=== PATIENT | male | born 1955 | race Caucasian/White ===

== ENCOUNTER → 2017-03-14 14:53 | Outpatient (CLI) | payer OTHER, BC, SELFPAY ==
--- NOTE | 2017-03-14 15:06 | XR_ITS ---
XR femur LT 2V CLINICAL INDICATION: ITS.REASON: DELAYED HEALING OF HIP FX ORDERING PHYSICIAN: Edgardo Flower MD PATIENT AGE: 61 years COMPARISON: 10/04/2016 FINDINGS: Status post gamma nail and short intramedullary shannan placement stabilizing the left intertrochanteric fracture. No significant displacement or angulation. There is a lucency noted along the medial aspect of the femoral neck inferiorly and medially consistent with residual fracture line. Mid and distal aspect of the left femur are unremarkable. There are mild osteoarthritic changes of the medial compartment of the knee. Otherwise negative. IMPRESSION: Good alignment status post ORIF left intertrochanteric fracture with some residual fracture line noted medially
--- NOTE | 2017-03-14 15:06 | XR_ITS ---
XR hip LT 2-3V w/pelvis HISTORY: ITS.REASON: DELAYED HEALING OF HIP FX ORDERING PHYSICIAN: Edgardo Flower MD PATIENT AGE: 61 years COMPARISON: 10/04/2016 FINDINGS: Status post gamma nail and short intramedullary shannan placement stabilizing the left intertrochanteric fracture. No significant displacement or angulation. There is a lucency noted along the medial aspect of the femoral neck inferiorly and medially consistent with residual fracture line. Otherwise negative. IMPRESSION: Good alignment status post ORIF left intertrochanteric fracture with some residual fracture line noted medially
== END ==
PROVIDERS: PCP Internal Medicine Adolescent Medicine; Visit Provider Internal Medicine Adolescent Medicine
DX: S72.009 Fracture of unspecified part of neck of unspecified femur (principal)
CPT/HCPCS: 73502; 73552

== ENCOUNTER → 2017-05-09 13:24 | Outpatient (CLI) | payer BC, SELFPAY ==
[2017-05-09 14:23] LABS: Albumin Level 3.7 gm/dL (3.4-5.0); Blood Urea Nitrogen 21 mg/dL (7-18); Calcium 8.8 mg/dL (8.5-10.1); Carbon Dioxide 27 mmol/L (21.0-32.0); Chloride 102 mmol/L (98-107); Creatinine,Serum 2.16 mg/dL (0.70-1.30); Estimated Glomerular Filt Rate 31 ml/min (>60); GFR (African American) 38 ML/MIN (>60); Glucose 95 mg/dL (74-106); Phosphorous 2.7 mg/dL (2.4-4.9); Sodium 137 mmol/L (136-145)
[2017-05-09 14:52] LABS: Basophils # 0.1 K/mm3 (0-0.2); Basophils % 0.6 % (0.1-2.0); Eosinophils # 0.2 K/mm3 (0.0-0.4); Eosinophils % 1.6 % (0.1-12.0); Hematocrit 44.1 % (42.0-52.0); Hemoglobin 13.7 g/dL (14.1-18.0); Lymphocytes # 2.2 K/mm3 (0.7-4.5); Lymphocytes % 21.8 K/mm3 (10-50); Mean Corpuscular Hemoglobin 29.2 pg (27.0-31.2); Mean Corpuscular Volume 94.3 fl (80-94); Mean Platelet Volume 7.4 fl (7.4-10.4); Monocytes # 0.7 K/mm3 (0.1-1.0); Monocytes % 6.6 % (1.7-9.3); Neutrophils # 7.1 K/mm3 (1.8-7.8); Neutrophils % 69.3 % (37.0-80.0); Platelet Count 392 K/mm3 (142-424); Red Blood Count 4.68 M/mm3 (4.60-6.20); Red Cell Distribution Width 13.7 % (11.5-17.5); White Blood Count 10.3 K/mm3 (4.8-10.8)
[2017-05-09 17:15] LABS: Creatinine,Urine Random 168 mg/dL (20-320); Total Protein,Urine Random 32.3 mg/dL (0.0-11.9)
== END ==
PROVIDERS: Visit Provider Internal Medicine Nephrology
DX: N18.3 Chronic kidney disease, stage 3 (moderate) (principal)
CPT/HCPCS: 36415; 80069; 82570; 84155; 85025

== ENCOUNTER → 2017-05-12 14:59 | Outpatient (POV) | payer BC, SELFPAY | PROVIDERS: PCP Internal Medicine Adolescent Medicine; Visit Provider Internal Medicine Nephrology | DX: Z00.00 Encounter for general adult medical examination without abnormal findings (principal) ==

== ENCOUNTER → 2017-05-16 13:35 | Outpatient (CLI) | payer BC, SELFPAY ==
[2017-05-17 18:36] LABS: Parathyroid Hormone Intact 69 pg/mL (15-65)
[2017-05-17 18:37] LABS: Vitamin D 25 Hydroxy 58.3 ng/mL (30.0-100.0)
== END ==
PROVIDERS: Visit Provider Internal Medicine Nephrology
DX: M81.0 Age-related osteoporosis without current pathological fracture (principal)
CPT/HCPCS: 36415; 82330; 82652; 83970

== ENCOUNTER 2017-05-30 14:30 | Outpatient (RCR) | payer OTHER, BC, SELFPAY | END 2017-05-30 14:31 | disposition home or self-care (01) | LOC: PT 14:30 | PROVIDERS: PCP Internal Medicine Adolescent Medicine; Visit Provider Orthopaedic Surgery | DX: M25.552 Pain in left hip (principal) | CPT/HCPCS: 97010; 97014; 97033; 97110; 97116; 97140; 97164; G0283 ==

== ENCOUNTER → 2017-09-13 10:54 | Outpatient (CLI) | payer BC, SELFPAY ==
--- NOTE | 2017-09-13 11:05 | XR_ITS ---
XR hip RT 2-3V w/pelvis HISTORY: ITS.REASON: RT HIP PAIN ORDERING PHYSICIAN: Edgardo Flower MD PATIENT AGE: 61 years COMPARISON: 03/14/2017 FINDINGS: No acute fracture or dislocation. No lytic or blastic change. There are mild osteoarthritic changes of the right hip. There has been prior ORIF of the left hip with a gamma nail and intramedullary shannan. IMPRESSION: Mild osteoarthritis of the right hip
== END ==
PROVIDERS: Visit Provider Internal Medicine Adolescent Medicine
DX: M25.551 Pain in right hip (principal)
CPT/HCPCS: 73502

== ENCOUNTER → 2017-11-03 14:38 | Outpatient (CLI) | payer BC, SELFPAY ==
[2017-11-03 15:01] LABS: Basophils % 0.3 % (0.1-2.0); Eosinophils # 0.2 K/mm3 (0.0-0.4); Eosinophils % 1.6 % (0.1-12.0); Hematocrit 38.9 % (42.0-52.0); Hemoglobin 12.7 g/dL (14.1-18.0); Lymphocytes # 1.9 K/mm3 (0.7-4.5); Mean Corpuscular HGB Conc 32.5 g/dL (31.8-35.4); Mean Corpuscular Hemoglobin 29.3 pg (27.0-31.2); Mean Corpuscular Volume 90.1 fl (80-94); Mean Platelet Volume 6.6 fl (7.4-10.4); Monocytes # 0.5 K/mm3 (0.1-1.0); Monocytes % 4.6 % (1.7-9.3); Neutrophils # 8.5 K/mm3 (1.8-7.8); Neutrophils % 76.5 % (37.0-80.0); Platelet Count 348 K/mm3 (142-424); Red Blood Count 4.32 M/mm3 (4.60-6.20); Red Cell Distribution Width 14.4 % (11.5-17.5); White Blood Count 11.1 K/mm3 (4.8-10.8)
[2017-11-03 15:43] LABS: Alanine Aminotransferase 13 U/L (12-78); Albumin Level 3.6 gm/dL (3.4-5.0); Albumin/Globulin Ratio 1.1 (1.1-1.8); Alkaline Phosphatase 89 U/L (46-116); Anion Gap 15.5 mEq/L (5-15); Aspartate Amino Transferase 11 U/L (15-37); Bilirubin,Total 0.3 mg/dL (0.2-1.0); Blood Urea Nitrogen 18 mg/dL (7-18); Calcium 8.8 mg/dL (8.5-10.1); Carbon Dioxide 24 mmol/L (21.0-32.0); Chloride 107 mmol/L (98-107); Creatinine,Serum 2.01 mg/dL (0.70-1.30); Estimated Glomerular Filt Rate 34 ml/min (>60); GFR (African American) 41 ML/MIN (>60); Globulin 3.3 gm/dl (1.3-3.2); Glucose 115 mg/dL (74-106); Potassium 4.5 mmoL/L (3.5-5.1); Prostate Specific Ag, Diagnost 3.31 ng/mL (0.0-4.0); Sodium 142 mmol/L (136-145); Total Protein,Serum 6.9 gm/dL (6.4-8.2)
[2017-11-05 14:53] LABS: Testosterone,Total 334 ng/dL (264-916)
== END ==
PROVIDERS: PCP Internal Medicine Adolescent Medicine; Visit Provider Internal Medicine Adolescent Medicine
DX: N18.2 Chronic kidney disease, stage 2 (mild) (principal); E29.1 Testicular hypofunction; N40.1 Benign prostatic hyperplasia with lower urinary tract symptoms
CPT/HCPCS: 36415; 80053; 84153; 84403; 85025

== ENCOUNTER → 2018-02-04 15:49 | Outpatient (CLI) | payer BC, SELFPAY | PROVIDERS: Visit Provider Internal Medicine Adolescent Medicine | DX: N18.3 Chronic kidney disease, stage 3 (moderate) (principal); E53.8 Deficiency of other specified B group vitamins; E55.9 Vitamin D deficiency, unspecified ==

== ENCOUNTER → 2018-02-05 16:12 | Outpatient (CLI) | payer BC, SELFPAY ==
[2018-02-05 17:13] LABS: Basophils # 0.1 K/mm3 (0-0.2); Basophils % 0.4 % (0.1-2.0); Eosinophils # 0.1 K/mm3 (0.0-0.4); Hemoglobin 13.5 g/dL (14.1-18.0); Lymphocytes # 1.8 K/mm3 (0.7-4.5); Lymphocytes % 15.2 % (10-50); Mean Corpuscular HGB Conc 31.5 g/dL (31.8-35.4); Mean Corpuscular Hemoglobin 29.8 pg (27.0-31.2); Mean Corpuscular Volume 94.6 fl (80-94); Mean Platelet Volume 7.2 fl (7.4-10.4); Monocytes # 0.6 K/mm3 (0.1-1.0); Monocytes % 4.7 % (1.7-9.3); Neutrophils # 9.4 K/mm3 (1.8-7.8); Neutrophils % 78.7 % (37.0-80.0); Platelet Count 427 K/mm3 (142-424); Red Blood Count 4.54 M/mm3 (4.60-6.20); Red Cell Distribution Width 13.9 % (11.5-17.5); White Blood Count 11.9 K/mm3 (4.8-10.8)
[2018-02-05 18:59] LABS: Alanine Aminotransferase 16 U/L (12-78); Albumin Level 3.9 gm/dL (3.4-5.0); Albumin/Globulin Ratio 1.1 (1.1-1.8); Alkaline Phosphatase 103 U/L (46-116); Anion Gap 16.8 mEq/L (5-15); Aspartate Amino Transferase 10 U/L (15-37); Bilirubin,Total 0.3 mg/dL (0.2-1.0); Blood Urea Nitrogen 24 mg/dL (7-18); Calcium 8.8 mg/dL (8.5-10.1); Carbon Dioxide 24 mmol/L (21.0-32.0); Chloride 100 mmol/L (98-107); Creatinine,Serum 2.12 mg/dL (0.70-1.30); Estimated Glomerular Filt Rate 32 ml/min (>60); GFR (African American) 38 ML/MIN (>60); Globulin 3.7 gm/dl (1.3-3.2); Glucose 103 mg/dL (74-106); Potassium 4.8 mmoL/L (3.5-5.1); Sodium 136 mmol/L (136-145); Total Protein,Serum 7.6 gm/dL (6.4-8.2)
[2018-02-09 09:32] LABS: Vitamin B12 314 pg/mL (232-1245)
[2018-02-09 09:33] LABS: Vitamin D 25 Hydroxy 48.1 ng/mL (30.0-100.0)
== END ==
PROVIDERS: Visit Provider Internal Medicine Adolescent Medicine
DX: N18.3 Chronic kidney disease, stage 3 (moderate) (principal); E53.8 Deficiency of other specified B group vitamins; E55.9 Vitamin D deficiency, unspecified
CPT/HCPCS: 36415; 80053; 82607; 82652; 84443; 85025

== ENCOUNTER → 2018-02-16 09:43 | Outpatient (CLI) | payer BC, SELFPAY ==
--- NOTE | 2018-02-16 09:46 | US_ITS ---
US aorta HISTORY: Evaluate for abdominal aortic aneurysm ITS.REASON: AAA COMPARISON: 11/14/2015 FINDINGS: Scattered atheromatous plaque noted in the aorta. No aneurysm appearance. Common iliacs are unremarkable at 6 and 7 mm each. IMPRESSION: Atheromatous changes, no evidence of aortic aneurysm
--- NOTE | 2018-02-16 10:30 | CT_ITS ---
CT chest wo con HISTORY: Follow-up pulmonary nodules, tobacco use, smoker ITS.REASON: PULMONARY NODULES ORDERING PHYSICIAN: Edgardo Flower MD PATIENT AGE: 62 years COMPARISON: 07/24/2015 Technique: Axial images obtained with sagittal and coronal reformats. All CT scans at the facility use one or more dose reduction, viz: automated exposure control, ma/kV adjustment per patient size (including targeted exams where dose is matched to indication, i.e. head), or iterative reconstruction technique. FINDINGS: Scattered small nodes are present in the mediastinum and right hilum. The largest node is in the precarinal region on the right measuring 1.6 x 1.5 cm not significant changed. Aortopulmonic window node is present at 13 x 10 mm unchanged. There are coronary artery calcifications with normal heart size. No evidence of pericardial effusion. Chronic groundglass opacification once again noted in the right upper lobe and is slightly more dense compared to the previous exam. There are old right rib fractures with some mild fibrotic change in the right upper lobe laterally and in the right lower lobe laterally.. There is a 5 mm noncalcified nodule in the right lower lobe within the superior segment laterally unchanged image #89. The previously noted groundglass opacity in the right lower lobe posteriorly is less apparent. No new suspicious nodules are evident. 3 mm noncalcified nodule present in the left upper lobe. Upper abdominal images show a large gallstone measuring 3 cm with mild distention of the gallbladder and mild thickening of the gallbladder wall. Prior left nephrectomy. Degenerative changes are present in the thoracic spine with mild kyphosis and mild thoracic scoliosis convex left. IMPRESSION: 1. Chronic groundglass consolidation in the right upper lobe slightly worse. 2. No suspicious pulmonary nodules evident. 3. Stable 5 mm nodule right lower lobe with decrease in the prominence of the nodule in the right lower lobe posteriorly. 4. Cholelithiasis with distended gallbladder and mild thickening of the gallbladder wall.
== END ==
PROVIDERS: PCP Internal Medicine Adolescent Medicine; Visit Provider Internal Medicine Adolescent Medicine
DX: Z87.891 Personal history of nicotine dependence (principal); R91.8 Other nonspecific abnormal finding of lung field
CPT/HCPCS: 71250; 76770

== ENCOUNTER → 2018-06-17 10:14 | Outpatient (CLI) | payer BC, SELFPAY ==
--- NOTE | 2018-06-17 10:20 | XR_ITS ---
XR chest 2V HISTORY: ITS.REASON: LOBAR PNEUMONIA ORDERING PHYSICIAN: Edgardo Flower MD PATIENT AGE: 62 years COMPARISON: 12/08/2013 FINDINGS: Unremarkable cardiovascular structures. Lungs are free of acute infiltrate. There is thoracic kyphosis with wedging of midthoracic vertebral bodies unchanged. There are old bilateral rib fractures. IMPRESSION: No acute finding
== END ==
PROVIDERS: PCP Internal Medicine Adolescent Medicine; Visit Provider Internal Medicine Adolescent Medicine
DX: J18.1 Lobar pneumonia, unspecified organism (principal)
CPT/HCPCS: 71046

== ENCOUNTER → 2018-07-01 14:43 | Outpatient (CLI) | payer BC, SELFPAY ==
[2018-07-01 15:40] LABS: Basophils # 0.1 K/mm3 (0-0.2); Basophils % 0.7 % (0.1-2.0); Eosinophils # 0.1 K/mm3 (0.0-0.4); Eosinophils % 1.2 % (0.1-12.0); Hematocrit 35.2 % (42.0-52.0); Hemoglobin 11.3 g/dL (14.1-18.0); Lymphocytes # 1.6 K/mm3 (0.7-4.5); Lymphocytes % 18.6 % (10-50); Mean Corpuscular Volume 93.6 fl (80-94); Mean Platelet Volume 6.5 fl (7.4-10.4); Monocytes # 0.5 K/mm3 (0.1-1.0); Monocytes % 5.6 % (1.7-9.3); Neutrophils # 6.3 K/mm3 (1.8-7.8); Neutrophils % 73.9 % (37.0-80.0); Platelet Count 379 K/mm3 (142-424); Red Blood Count 3.76 M/mm3 (4.60-6.20); Red Cell Distribution Width 14.9 % (11.5-17.5); White Blood Count 8.6 K/mm3 (4.8-10.8)
[2018-07-01 16:22] LABS: Alanine Aminotransferase 19 U/L (12-78); Albumin Level 3.6 gm/dL (3.4-5.0); Albumin/Globulin Ratio 0.9 (1.1-1.8); Alkaline Phosphatase 80 U/L (46-116); Anion Gap 9.9 mEq/L (5-15); Aspartate Amino Transferase 11 U/L (15-37); Bilirubin,Total 0.3 mg/dL (0.2-1.0); Blood Urea Nitrogen 21 mg/dL (7-18); Carbon Dioxide 30 mmol/L (21.0-32.0); Chloride 101 mmol/L (98-107); Creatinine,Serum 2.03 mg/dL (0.70-1.30); Estimated Glomerular Filt Rate 33 ml/min (>60); GFR (African American) 40 ML/MIN (>60); Glucose 89 mg/dL (74-106); Potassium 4.9 mmoL/L (3.5-5.1); Sodium 136 mmol/L (136-145); Total Protein,Serum 7.6 gm/dL (6.4-8.2)
[2018-07-01 17:15] LABS: Erythrocyte Sedimentation Rate 56 mm/hr (0-20)
== END ==
PROVIDERS: Visit Provider Internal Medicine Adolescent Medicine
DX: J18.1 Lobar pneumonia, unspecified organism (principal)
CPT/HCPCS: 36415; 80053; 85025; 85651

== ENCOUNTER → 2018-07-10 14:48 | Outpatient (CLI) | payer BC, SELFPAY ==
--- NOTE | 2018-07-10 14:53 | XR_ITS ---
XR foot RT min 3V HISTORY: Pain ITS.REASON: RT FOOT PAIN ORDERING PHYSICIAN: Edgardo Flower MD PATIENT AGE: 62 years COMPARISON: None FINDINGS: Standard and weight bearing views are performed of the right foot. There is a nondisplaced transverse fracture involving the proximal to mid mid shaft of the second metatarsal with some minimal sclerosis at fracture line. Good alignment. Osteoarthritic changes are present at the first MTP joint IMPRESSION: Nondisplaced healing fracture involving the junction of the proximal and mid third of the second metatarsal
== END ==
PROVIDERS: PCP Internal Medicine Adolescent Medicine; Visit Provider Internal Medicine Adolescent Medicine
DX: M79.671 Pain in right foot (principal)
CPT/HCPCS: 73630

== ENCOUNTER 2018-07-14 14:32 | Outpatient (RCR) | payer BC, SELFPAY | END 2018-07-14 14:40 | disposition home or self-care (01) | LOC: PT 14:32 | PROVIDERS: Visit Provider Internal Medicine Adolescent Medicine | DX: M79.671 Pain in right foot (principal) | CPT/HCPCS: 97760 ==

== ENCOUNTER → 2018-08-11 10:05 | Outpatient (CLI) | payer BC, SELFPAY ==
--- NOTE | 2018-08-11 10:11 | XR_ITS ---
XR foot wt bearing RT 3V HISTORY: Follow-up fracture ITS.REASON: Fracture ORDERING PHYSICIAN: Sasha Ribeiro DPM PATIENT AGE: 62 years COMPARISON: 07/10/2018 FINDINGS: Increasing callus formation is present at the mid to proximal shaft of the second metatarsal with good alignment. There are mild osteoarthritic changes of the first MDP joint. IMPRESSION: Healing nondisplaced fracture of the second metatarsal
== END ==
PROVIDERS: PCP Internal Medicine Adolescent Medicine; Visit Provider Podiatrist
DX: S92.324A Nondisplaced fracture of second metatarsal bone, right foot, initial encounter for closed fracture (principal); T14.8XXA Other injury of unspecified body region, initial encounter
CPT/HCPCS: 73630

== ENCOUNTER → 2019-01-05 14:13 | Outpatient (CLI) | payer BC, SELFPAY ==
[2019-01-05 14:18] LABS: Microscopic, Urine URINE MICROSCOPIC (MICROSCOPIC)
[2019-01-05 14:46] LABS: Basophils # 0.1 K/mm3 (0-0.2); Basophils % 0.9 % (0.1-2.0); Eosinophils # 0.3 K/mm3 (0.0-0.4); Eosinophils % 3.7 % (0.1-12.0); Hematocrit 36.9 % (42.0-52.0); Hemoglobin 11.8 g/dL (14.1-18.0); Lymphocytes # 1.5 K/mm3 (0.7-4.5); Lymphocytes % 20.5 % (10-50); Mean Corpuscular Hemoglobin 31.4 pg (27.0-31.2); Mean Platelet Volume 7.4 fl (7.4-10.4); Monocytes # 0.3 K/mm3 (0.1-1.0); Monocytes % 4.2 % (1.7-9.3); Neutrophils # 5.1 K/mm3 (1.8-7.8); Neutrophils % 70.8 % (37.0-80.0); Platelet Count 342 K/mm3 (142-424); Red Blood Count 3.77 M/mm3 (4.60-6.20); Red Cell Distribution Width 14.7 % (11.5-17.5); White Blood Count 7.2 K/mm3 (4.8-10.8)
[2019-01-05 15:12] LABS: Appearance,Urine CLEAR (Clear); Bilirubin,Urine Negative (Negative); Blood, Urine TRACE-I (Negative); Color,Urine YELLOW (Yellow); Glucose,Urine (UA) Negative (Negative); Ketones,Urine Negative (Negative); Leukocyte Esterase,Urine Negative (Negative); Nitrate,Urine Negative (Negative); PH,Urine 6.5 (5.0-8.5); Protein,Urine TRACE (Negative); Specific Gravity, Urine 1.015 (1.005-1.030); Urobilinogen,Urine 0.2 EU/dl (0.2)
[2019-01-05 15:13] LABS: Amphetamine/Metha Screen,Urine Negative ng/mL (<1000); Barbiturates Screen,Urine Negative ng/mL (<200); Benzodiazepines Screen,Urine Negative ng/mL (<200); Cannabinoid Screen,Urine Negative ng/mL (<50); Cocaine Screen,Urine Negative ng/mL (<300); Methadone Screen,Urine Negative ng/mL (<300); Opiate Screen,Urine Negative ng/mL (<300); Phencyclidine Screen,Urine Negative ng/mL (<25)
[2019-01-05 15:26] LABS: Squamous Epithelial Cell,Urine Occasional #/hpf (0-5)
[2019-01-05 18:56] LABS: Alanine Aminotransferase 20 U/L (12-78); Albumin Level 3.5 gm/dL (3.4-5.0); Alkaline Phosphatase 82 U/L (46-116); Anion Gap 11.9 mEq/L (5-15); Aspartate Amino Transferase 19 U/L (15-37); Bilirubin,Total 0.3 mg/dL (0.2-1.0); Blood Urea Nitrogen 22 mg/dL (7-18); Calcium 8.5 mg/dL (8.5-10.1); Carbon Dioxide 29 mmol/L (21.0-32.0); Chloride 105 mmol/L (98-107); Creatinine,Serum 2.19 mg/dL (0.70-1.30); Estimated Glomerular Filt Rate 30 ml/min (>60); GFR (African American) 37 ML/MIN (>60); Globulin 3.5 gm/dl (1.3-3.2); Glucose 127 mg/dL (74-106); Potassium 4.9 mmoL/L (3.5-5.1); Prostate Specific Ag Screen 2.7 ng/mL (0.0-4.0); Sodium 141 mmol/L (136-145)
== END ==
PROVIDERS: Visit Provider Internal Medicine Adolescent Medicine
DX: G89.4 Chronic pain syndrome (principal); N18.2 Chronic kidney disease, stage 2 (mild); N40.1 Benign prostatic hyperplasia with lower urinary tract symptoms
CPT/HCPCS: 36415; 80053; 80305; 81001; 85025; G0103

== ENCOUNTER → 2019-01-06 14:38 | Outpatient (CLI) | payer BC, SELFPAY ==
[2019-01-06 16:17] LABS: Amphetamine/Metha Screen,Urine Negative ng/mL (<1000); Barbiturates Screen,Urine Negative ng/mL (<200); Benzodiazepines Screen,Urine Negative ng/mL (<200); Cannabinoid Screen,Urine Negative ng/mL (<50); Cocaine Screen,Urine Negative ng/mL (<300); Methadone Screen,Urine Negative ng/mL (<300); Opiate Screen,Urine Negative ng/mL (<300); Phencyclidine Screen,Urine Negative ng/mL (<25)
[2019-01-15 18:11] LABS: Oxycodone (GC/MS) 426 ng/mL (Cutoff=100)
[2019-01-15 23:05] LABS: Opiates Negative (Cutoff=100); Oxymorphone (GC/MS) 439 ng/mL (Cutoff=100)
== END ==
PROVIDERS: Visit Provider Internal Medicine Adolescent Medicine
DX: Z79.891 Long term (current) use of opiate analgesic (principal)
CPT/HCPCS: 80305; 80361; 80365; G0480

== ENCOUNTER → 2019-12-24 13:44 | Outpatient (CLI) | payer BC, SELFPAY ==
[2019-12-24 14:58] LABS: Chloride 101 mmol/L (98-107)
[2019-12-24 14:59] LABS: Potassium 4.5 mmoL/L (3.5-5.1); Sodium 136 mmol/L (136-145)
[2019-12-24 15:01] LABS: Alanine Aminotransferase 13 U/L (12-78); Albumin Level 4.3 g/dl (3.5-5.0); Albumin/Globulin Ratio 1.4 (1.1-1.8); Alkaline Phosphatase 65 U/L (38-126); Anion Gap 12.5 mEq/L (5-15); Aspartate Amino Transferase 28 U/L (17-59); Bilirubin,Total 0.6 mg/dl (0.2-1.3); Blood Urea Nitrogen 21 mg/dl (9-20); Carbon Dioxide 27 mmol/L (22.0-30.0); Estimated Glomerular Filt Rate 36 ml/min (>60); GFR (African American) 43 ML/MIN (>60); Globulin 3.1 g/dL (1.3-3.2); Total Protein,Serum 7.4 g/dl (6.3-8.2)
[2019-12-24 15:02] LABS: Calcium 9.3 mg/dl (8.4-10.2); Chol/HDL Ratio 3.5 (1-3.5); Cholesterol 191 mg/dl (140-200); Glucose 131 mg/dl (74-100); HDL Cholesterol 55 mg/dl (40-60); Triglycerides 125 mg/dl (30-150); VLDL Cholesterol 25 mg/dL (0-40)
[2019-12-24 15:08] LABS: Basophils # 0.1 K/mm3 (0-0.2); Basophils % 0.8 % (0.1-2.0); Eosinophils # 0.1 K/mm3 (0.0-0.4); Eosinophils % 1.8 % (0.1-12.0); Hemoglobin 12.8 g/dL (14.1-18.0); Lymphocytes # 1.7 K/mm3 (0.7-4.5); Mean Corpuscular HGB Conc 31.3 g/dL (31.8-35.4); Mean Corpuscular Hemoglobin 31.6 pg (27.0-31.2); Monocytes # 0.5 K/mm3 (0.1-1.0); Monocytes % 6.1 % (1.7-9.3); Neutrophils # 5.3 K/mm3 (1.8-7.8); Neutrophils % 69.3 % (37.0-80.0); Platelet Count 254 K/mm3 (142-424); Red Blood Count 4.06 M/mm3 (4.60-6.20); Red Cell Distribution Width 14.2 % (11.5-17.5); White Blood Count 7.7 K/mm3 (4.8-10.8)
[2019-12-24 15:13] LABS: Direct LDL Cholesterol 100.11 mg/dL (100-129)
[2019-12-24 17:20] LABS: Benzodiazepines Screen,Urine Negative ng/ml (<200)
[2019-12-24 17:21] LABS: Amphetamine/Metha Screen,Urine Negative ng/ml (<1000); Barbiturates Screen,Urine Negative ng/ml (<200)
[2019-12-24 17:22] LABS: Cannabinoid Screen,Urine Negative ng/ml (<50); Cocaine Screen,Urine Negative ng/ml (<300)
[2019-12-24 17:23] LABS: Methadone Screen,Urine Negative ng/ml (<300)
[2019-12-24 17:24] LABS: Opiate Screen,Urine Negative ng/ml (<300); Phencyclidine Screen,Urine Negative ng/ml (<25)
== END ==
PROVIDERS: Visit Provider Internal Medicine Adolescent Medicine
DX: N18.2 Chronic kidney disease, stage 2 (mild) (principal); E03.9 Hypothyroidism, unspecified; G89.4 Chronic pain syndrome; Z79.899 Other long term (current) drug therapy
CPT/HCPCS: 36415; 80053; 80061; 80305; 84443; 85025

== ENCOUNTER 2020-11-23 22:32 | Emergency (ER) | payer BC, SELFPAY ==
[2020-11-23 22:33] VITALS: BP 111/85; PULSE 75; RESP 17; TEMP 36.8; O2SAT 96; BMI 21.2
[2020-11-23 23:19] LABS: Chloride 97 mmol/L (98-107); Potassium 4.9 mmoL/L (3.5-5.1); Sodium 138 mmol/L (136-145)
[2020-11-23 23:20] LABS: Basophils % 0.6 % (0.1-2.0); Eosinophils # 0.1 K/mm3 (0.0-0.4); Eosinophils % 1.3 % (0.1-12.0); Hematocrit 36.6 % (42.0-52.0); Hemoglobin 11.8 g/dL (14.1-18.0); Lymphocytes # 1.2 K/mm3 (0.7-4.5); Mean Corpuscular HGB Conc 32.3 g/dL (31.8-35.4); Mean Corpuscular Hemoglobin 32.1 pg (27.0-31.2); Mean Corpuscular Volume 99.4 fl (80-94); Monocytes # 0.3 K/mm3 (0.1-1.0); Monocytes % 5.4 % (1.7-9.3); Neutrophils # 4.7 K/mm3 (1.8-7.8); Neutrophils % 73.8 % (37.0-80.0); Platelet Count 230 K/mm3 (142-424); Red Blood Count 3.69 M/mm3 (4.60-6.20); Red Cell Distribution Width 13.6 % (11.5-17.5); White Blood Count 6.4 K/mm3 (4.8-10.8)
[2020-11-23 23:22] LABS: Alanine Aminotransferase 16 U/L (12-78); Albumin Level 4.5 g/dl (3.5-5.0); Albumin/Globulin Ratio 1.3 (1.1-1.8); Alkaline Phosphatase 85 U/L (38-126); Anion Gap 16.9 mEq/L (5-15); Aspartate Amino Transferase 42 U/L (17-59); Bilirubin,Total 0.4 mg/dl (0.2-1.3); Blood Urea Nitrogen 30 mg/dl (9-20); Carbon Dioxide 29 mmol/L (22.0-30.0); Creatinine Clearance Estimated 30 mL/min (50-200); Estimated Glomerular Filt Rate 25 ml/min (>60); GFR (African American) 30 ML/MIN (>60); Globulin 3.4 g/dL (1.3-3.2); Total Protein,Serum 7.9 g/dl (6.3-8.2)
[2020-11-23 23:23] LABS: Calcium 8.6 mg/dl (8.4-10.2); Glucose 101 mg/dl (74-100)
--- NOTE | 2020-11-23 23:31 | HMH.EDGENADL ---
ED Disposition Clinical Impression: Cystitis, acute hemorrhagic Disposition: Home, Self-Care Condition on Discharge: Good Instructions: Urinary Tract Infection Additional Instructions: Follow-up with the appointment at your doctor on Friday. Return to emergency department for any new or concerning symptoms. Would also like you to follow-up with your urologist. Prescriptions: Cefdinir [Omnicef 300mg Capsule] 300 mg PO BID #14 cap Transmission Status: Pending to [facility] Referrals: Edgardo Flower MD [Primary Care Provider] - - Critical Care Critical Care Time: No Attestation: On 11/23/20, the high probability of a clinically significant, sudden or life threatening deterioration of the following system(s) required my full and direct attention, intervention and personal management. The time I documented below is in addition to time spent performing reported procedures but includes the following listed in this critical care notation. Medical Decision Making - Medical Records Medical records reviewed: Yes: I reviewed the patient's medical records. - Gray Inquiry Pt receiving controlled substance: No Vital Signs: 11/23/20 22:33 Temperature 98.3 F Temperature Source Oral Pulse Rate [Right] 75 Respiratory Rate 17 Blood Pressure [Right Arm] 111/85 Blood Pressure Mean [Right Arm] 93 02 Sat by Pulse Oximetry 96 Oxygen Delivery Method Room Air - Lab Data Lab Results 11/23/20 23:04: WBC 6.4, RBC 3.69 L, Hgb 11.8 L, Hct 36.6 L, MCV 99.4 H, MCH 32.1 H, MCHC 32.3, RDW 13.6, Plt Count 230, MPV 7.0 L, Neut % (Auto) 73.8, Lymph % (Auto) 19.0, [place] % (Auto) 5.4, Eos % (Auto) 1.3, Baso % (Auto) 0.6, Neut # (Auto) 4.7, Lymph # (Auto) 1.2, [place] # (Auto) 0.3, Eos # (Auto) 0.1, Baso # (Auto) 0.0 11/23/20 23:04: Sodium 138, Potassium 4.9, Chloride 97 L, Carbon Dioxide 29, Anion Gap 16.9 H, BUN 30 H, Creatinine 2.60 H, Estimated Creat Clear 30, Estimated GFR 25 L, Est GFR ( Amer) 30 L, Glucose 101 H, Calcium 8.6, Total Bilirubin 0.4, AST 42, ALT 16, Alkaline Phosphatase 85, Total Protein 7.9, Albumin 4.5, Globulin 3.4 H, Albumin/Globulin Ratio 1.3 11/23/20 23:40: Urine Color Red, Urine Appearance Turbid, Urine pH 6.5, Ur Specific [place] 1.015, Urine Protein 3+, Urine Glucose (UA) Negative, Urine Ketones 1+, Urine Blood 3+, Urine Nitrate Positive, Urine Bilirubin Negative, Urine Urobilinogen 4.0, Ur Leukocyte Esterase 2+ A, Urine RBC Tntc Result diagrams: 11/23/20 23:04 11/23/20 23:04 Orders (Tests/Meds): ED MEDICATIONS Generic Name Dose Route Start Last Admin Trade Name Freq PRN Reason Stop Dose Admin Lactated Ringer's 1,000 mls @ 999 mls/hr 11/23/20 23:45 11/24/20 00:01 Lactated Ringer's 1000 Ml Bag IV 11/24/20 00:45 999 mls/hr .Q1H1M AMILCAR Administration Ceftriaxone Sodium 1 gm/ 50 mls @ 100 mls/hr 11/24/20 00:30 11/24/20 00:58 Sodium Chloride IV 12/08/20 00:29 100 mls/hr Q24H AMILCAR Administration ORDERS Category Date Time Status Covid-19 Nasal PCR ([facility]) Routine Lab 11/24/20 01:33 Received Urine Culture Stat Micro 11/23/20 23:40 Received Medical Decision Narrative: Patient is 65-year-old male with past medical history of renal cancer status post nephrectomy presented emergency department with chief complaint of painless hematuria. Diagnosis includes hemorrhagic cystitis, neoplasm, urinary tract infection, KEN among others. Given this plan order CBC, CMP CT abdomen pelvis Noncon, urine culture. Creatinine was elevated at 2.62 the above patient's baseline which appears to be around 2.2 will begin giving patient fluid. UA was significant for significant hematuria, as well as leukoesterase and nitrates, gave patient a gram of Rocephin here in the emergency department. CT showed a right-sided renal cyst as well as evidence of cystitis. Patient's urine specimen was thick viscous and bloody, however patient had another urination while here in the emergency department
--- NOTE | 2020-11-23 23:35 | CT_ITS ---
PROCEDURE INFORMATION: Exam: CT Abdomen And Pelvis Without Contrast Exam date and time: 11/23/2020 11:35 PM Age: 65 years old Clinical indication: Prior surgery; Surgery type: Lt kidney removal in 2013; Patient HX: Hematuria for 1 day, left kidney removal in 2013 due to cancer; Additional info: Hematuria, h/o cancer TECHNIQUE: Imaging protocol: Computed tomography of the abdomen and pelvis without contrast. Radiation optimization: All CT scans at this facility use at least one of these dose optimization techniques: automated exposure control; mA and/or kV adjustment per patient size (includes targeted exams where dose is matched to clinical indication); or iterative reconstruction. COMPARISON: ABDPELW/O CT ABD PELVIS W/O CONTRAST 02/20/2016 1:41 PM FINDINGS: Liver: Stable cysts or hemangiomas throughout the liver, measuring to 1.2 cm. Gallbladder and bile ducts: There is a large gallstone with wall thickening and pericholecystic inflammation which has worsened since the previous exam consistent with probable chronic cholecystitis. Pancreas: Normal. No ductal dilation. Spleen: Normal. No splenomegaly. Adrenal glands: Normal. No mass. Kidneys and ureters: The left kidney has been removed. There is a 4.7 cm cyst in the right kidney. No ureteral stones or obstructive uropathy. Stomach and bowel: Scattered diverticula without evidence of acute diverticulitis or perforation. There is large stool from the cecum through the splenic flexure. Appendix: No evidence of appendicitis. Intraperitoneal space: Unremarkable. No free air. No significant fluid collection. Vasculature: There is severe aortoiliac atherosclerosis. Lymph nodes: Unremarkable. No enlarged lymph nodes. Urinary bladder: There is mild diffuse bladder wall thickening which may be due to cystitis versus chronic outflow obstruction. Reproductive: The prostate is enlarged, measuring 5.1 x 3.3 x 3.7 cm, and impresses on the base of the bladder. Bones/joints: There is fixation hardware in the left femur which appears intact. Soft tissues: There is surgical mesh along the rectus fascia. IMPRESSION: Prostatomegaly possible chronic bladder outflow obstruction versus cystitis. Correlate clinically. Right renal cyst. No stones or hydronephrosis. Status post left nephrectomy. Chronic cholecystitis with a large gallstone. Hepatic cysts or hemangiomas. Severe atherosclerosis. COMMENTS: Consistent with the [employer]'s Incidental Findings Committee white paper (J Am Jaimee Radiol 2018): Any incidental renal lesion less than 1 cm or classified as too small to characterize, or any incidental cystic renal lesion characterized as simple-appearing, is likely benign. No follow-up imaging is recommended for these lesions per consensus recommendations based on imaging criteria.
[2020-11-23 23:56] LABS: Microscopic, Urine URINE MICROSCOPIC (MICROSCOPIC)
[2020-11-24 00:10] LABS: Appearance,Urine TURBID (Clear); Blood, Urine 3+ (Negative); Color,Urine RED (Yellow); Glucose,Urine (UA) Negative (Negative); Ketones,Urine 1+ (Negative); Leukocyte Esterase,Urine 2+ (Negative); Nitrate,Urine POSITIVE (Negative); PH,Urine 6.5 (5.0-8.5); Protein,Urine 3+ (Negative); Specific Gravity, Urine 1.015 (1.005-1.030)
[2020-11-24 00:20] LABS: Bilirubin,Urine Negative (Negative)
[2020-11-24 00:21] LABS: RBC,Urine TNTC #/hpf (0-3)
--- NOTE | 2020-11-24 01:18 | PC.NURSE ---
@ [phone] called Radiology to check on status of CT results, they are contacting mechelle
[2020-11-24 02:12] LABS: Coronavirus 19, PCR Not Detected (NotDetected); Influenza A, PCR Not Detected (NotDetected); Influenza B, PCR Not Detected (NotDetected)
[2020-11-24 02:29] VITALS: BP 138/72; PULSE 71; RESP 18; TEMP 36.7; O2SAT 97
== END 2020-11-24 02:31 | disposition home or self-care (01) ==
PROVIDERS: Emergency Provider Emergency Medicine; PCP Internal Medicine Adolescent Medicine
DX: N30.01 Acute cystitis with hematuria (principal); Z88.8 Allergy status to other drugs, medicaments and biological substances; Z79.899 Other long term (current) drug therapy; Z85.528 Personal history of other malignant neoplasm of kidney; J44.9 Chronic obstructive pulmonary disease, unspecified; N28.9 Disorder of kidney and ureter, unspecified; E03.9 Hypothyroidism, unspecified; Z90.5 Acquired absence of kidney; Z72.0 Tobacco use
CPT/HCPCS: 74176; 80053; 81001; 85025; 87086; 96374; 99283; C9803; U0003; U0005

== ENCOUNTER → 2020-12-20 13:35 | Outpatient (CLI) | payer BC, SELFPAY ==
[2020-12-20 13:39] LABS: Microscopic, Urine URINE MICROSCOPIC (MICROSCOPIC)
[2020-12-20 14:11] LABS: Basophils % 0.5 % (0.1-2.0); Eosinophils # 0.1 K/mm3 (0.0-0.4); Eosinophils % 1.3 % (0.1-12.0); Hematocrit 36.2 % (42.0-52.0); Hemoglobin 11.6 g/dL (14.1-18.0); Lymphocytes # 1.1 K/mm3 (0.7-4.5); Mean Corpuscular HGB Conc 32.1 g/dL (31.8-35.4); Mean Corpuscular Hemoglobin 31.2 pg (27.0-31.2); Mean Corpuscular Volume 97.3 fl (80-94); Mean Platelet Volume 7.5 fl (7.4-10.4); Monocytes # 0.5 K/mm3 (0.1-1.0); Monocytes % 5.7 % (1.7-9.3); Neutrophils # 7.1 K/mm3 (1.8-7.8); Neutrophils % 80.5 % (37.0-80.0); Platelet Count 242 K/mm3 (142-424); Red Blood Count 3.71 M/mm3 (4.60-6.20); Red Cell Distribution Width 14.2 % (11.5-17.5); White Blood Count 8.8 K/mm3 (4.8-10.8)
[2020-12-20 14:33] LABS: Appearance,Urine SL CLOUDY (Clear); Bilirubin,Urine Negative (Negative); Blood, Urine 3+ (Negative); Color,Urine YELLOW (Yellow); Glucose,Urine (UA) Negative (Negative); Ketones,Urine Negative (Negative); Leukocyte Esterase,Urine Negative (Negative); Nitrate,Urine Negative (Negative); Protein,Urine 1+ (Negative); Specific Gravity, Urine 1.015 (1.005-1.030); Urobilinogen,Urine 0.2 EU/dl (0.2)
[2020-12-20 15:14] LABS: Bacteria,Urine Trace /lpf; RBC,Urine TNTC #/hpf (0-3); Squamous Epithelial Cell,Urine Occasional #/hpf (0-5)
[2020-12-20 15:19] LABS: Anion Gap 9.4 mEq/L (5-15); Blood Urea Nitrogen 23 mg/dl (9-20); Calcium 8.3 mg/dl (8.4-10.2); Carbon Dioxide 30 mmol/L (22.0-30.0); Chloride 101 mmol/L (98-107); Estimated Glomerular Filt Rate 24 ml/min (>60); GFR (African American) 29 ML/MIN (>60); Glucose 75 mg/dl (74-100); Potassium 4.4 mmoL/L (3.5-5.1); Sodium 136 mmol/L (136-145)
== END ==
PROVIDERS: Visit Provider Surgery
DX: Z01.812 Encounter for preprocedural laboratory examination (principal); Z11.52 Encounter for screening for COVID-19; K40.90 Unilateral inguinal hernia, without obstruction or gangrene, not specified as recurrent
CPT/HCPCS: 36415; 80048; 81001; 85025; C9803; U0003; U0005

== ENCOUNTER 2020-12-22 06:01 | Day surgery (SDC) | payer BC, SELFPAY ==
[2020-12-20 12:07] VITALS: BMI 21.2
[2020-12-22] VITALS (11 sets, daily range): BP systolic 102–140; BP diastolic 58–76; PULSE 60–74; RESP 12–18; TEMP 36.2–37.2; O2SAT 92–99
--- NOTE | 2020-12-22 06:15 | ECG_ITS ---
APPROVED REPORT Exam: Resting ECG HR:63 bpm ECG Measurements Heart Rate 63 AXES [place] 160 P 39 QRSd 108 QRS 70 QT 456 T 39 QTc 466 Conclusion Normal sinus rhythm Low voltage QRS Borderline ECG Electronically signed by : Edgardo Flower MD 12/23/2020 08:58:08
--- NOTE | 2020-12-22 06:45 | HMH.ANESCL ---
[facility] Anesthesia Checklist - Structural Data Admitted From: Home Planned Operative Procedure/s: left inguinal hernia Consent for Planned Operative Procedure(s) Verified: Yes - Additional verifications Anesthesia Reactions: No Hx Blood Transfusions: No Blood Transfusion Reaction: No - Airway Assessment C-Spine Mobility Assessed: Yes TMJ Mobility Assessed: Yes Dentition: Edentulous - Neurological Assessment Level of Consciousness: Awake, Alert, Appropriate - Anesthesia Plan Anesthesia Risk discussed: Yes Anesthesia Plan: Verified ASA Class: III Anesthesia Type: MAC [facility] History I have reviewed the patient's past medical history: Yes Medical History: Reports:: Cancer (kidney), Chronic Obstructive Pulmonary Disease (COPD), Kidney Stones, Renal Insufficiency Denies:: Diabetes Mellitus Type 1, Diabetes Mellitus Type 2, Internal Pacemaker, MRSA, Seizures *Have you ever received a pneumonia vaccine?: Yes *Have you received a flu vaccine this season?: No Other Medical History: Reports: Hypothyroidism. Denies: Blood Transfusion Reaction Anesthesia experience/problems:: none Laterality Cases: Left: Arthroscopy Knee Other Surgeries: Yes: No Previous Surgery, Cancer Surgery, Colonoscopy, Other. No: Pacemaker Amputation: No Fractures: Yes (Femur ) - *Social History Last grade of school completed: Advanced degree Smoking Status: Current every day smoker Tobacco Type: cigarettes # Packs/Day (cigarettes): 1 Alcohol Intake: never Alcohol Intake Frequency:: other Substance Use Type: denies use *Occupational Status:: employed Housing: house Household Members: spouse, family *Travel in the last 8 weeks: None Family Hx:: No significant family history
--- NOTE | 2020-12-22 08:48 | HMH.OPNOTE ---
Date of procedure: 12/22/20 Pre-op Diagnosis:: Left inguinal hernia Post-op Diagnosis:: Same Procedure performed:: Open left inguinal hernia repair Surgeon:: Harjinder Fitzgerald MD Anesthesia: LMA Estimated blood loss (mL): 10 Operative findings:: Large direct defect Significant adhesions throughout canal secondary to chronic hernia Operative note:: After informed consent was obtained the patient was taken to the operating room and placed in the supine position. General anesthesia with laryngeal mask airway was achieved. His abdomen and groin/scrotum were prepped and draped in a sterile fashion. After infiltration with local anesthetic an oblique left groin incision was made. The deep subcutaneous tissue was dissected with electrocautery through Moe's fascia to the level of the external aponeurosis. The external aponeurosis was sharply opened to the level of the external ring. The contents of the canal were carefully elevated. Significant adhesions noted throughout the canal. A large direct defect was encountered. An extra-large PerFix plug was secured in position utilizing interrupted Ethibond. The PerFix overlay was then secured in position with interrupted Ethibond to the shelving edge inferiorly and fascial margin superiorly. The wound was irrigated. The external aponeurosis was reapproximated with running Vicryl suture. Moe's fascia was reapproximated in the same manner. Skin was closed with 3-0 Stratafix. Sterile dressings were applied and the patient was transferred to recovery in stable condition after removal of his laryngeal mask airway. Condition: stable Disposition: PACU Specimens:: None Complications:: No immediate
--- NOTE | 2020-12-22 08:55 | P.PN_ITS ---
[facility] Anesthesia Record Part I Intake, IV Amount: 1,000 Estimated blood loss (mL): 0 Urine output (mL): 300 Blood Pressure: 139/58 SaO2: 99 Pulse Rate: 74 Respiratory Rate: 12 Temperature: 99 F Patient is:: Awake, Stable Stable to PACU at:: 08:55
--- NOTE | 2020-12-22 09:32 | SUR.PHASEI ---
0925- detailed report called to phillip aguirre in post op at this time.
[2020-12-22 10:06] LABS: Microscopic,Cath URINE MICROSCOPIC (MICROSCOPIC)
[2020-12-22 10:27] LABS: Appearance,Urine/Cath CLEAR (Clear); Bilirubin,Cath Negative (Negative); Blood, Urine/Cath TRACE-I (Negative); Color,Urine/Cath YELLOW (Yellow); Glucose,Urine/Cath (UA) Negative (Negative); Ketones,Urine/Cath Negative (Negative); Leukocyte Esterase,Cath Negative (Negative); Nitrate,Cath Negative (Negative); PH,Urine/Cath 7.5 (5.0-8.5); Protein,Urine/Cath Negative (Negative); Urobilinogen,Cath 0.2 EU/dl (0.2)
[2020-12-22 11:00] LABS: Squamous Epithelial Ur./Cath Occasional #/hpf (0-5)
--- NOTE | 2020-12-22 11:38 | HMH.ANESII ---
[facility] Anesthesia Record Part II Discharge Time: 09:31 Destination: home PACU nurse assessment reviewed?: Yes Patient Condition:: Good Anesthesia Complications:: None none Swallowing reflex intact?: Yes Cyanosis?: Yes Blood Pressure: 121/72 Pulse Rate: 68 Temperature: 97.2 F Mental Status: Alert & Oriented Pain level:: 5 Nausea and/or vomitting:: None Intake, IV Amount: 0
== END 2020-12-22 10:06 | disposition home or self-care (01) ==
LOC: OR 06:03
PROVIDERS: PCP Internal Medicine Adolescent Medicine; Visit Provider Surgery
PROC: (CPT 49525; principal; 2020-12-22 07:30)
DX: K40.90 Unilateral inguinal hernia, without obstruction or gangrene, not specified as recurrent; J44.9 Chronic obstructive pulmonary disease, unspecified; N28.9 Disorder of kidney and ureter, unspecified; E03.9 Hypothyroidism, unspecified; Z85.528 Personal history of other malignant neoplasm of kidney; Z87.442 Personal history of urinary calculi; Z72.0 Tobacco use; Z88.8 Allergy status to other drugs, medicaments and biological substances
CPT/HCPCS: 49525; 81001; 93005; 96374; J2405

== ENCOUNTER → 2021-02-15 14:30 | Outpatient (CLI) | payer BC, SELFPAY | PROVIDERS: Visit Provider Internal Medicine Adolescent Medicine | DX: R31.9 Hematuria, unspecified (principal) | CPT/HCPCS: 87086 ==

== ENCOUNTER → 2021-03-05 14:36 | Outpatient (CLI) | payer BC, SELFPAY ==
--- NOTE | 2021-03-05 14:39 | CT_ITS ---
PROCEDURE: CT CHEST WO CON CLINICAL INDICATION: PANLOBULAR EMPHYSEMA,RENAL CELL CA COMPARISON: CT CHESTWO CT chest wo con from 02/16/2018 CR CXR2V XR chest 2V from 06/17/2018 TECHNIQUE: Axial images obtained with sagittal and coronal reformats. All CT scans at the facility use one or more dose reduction, viz: automated exposure control, ma/kV adjustment per patient size (including targeted exams where dose is matched to indication, i.e. head), or iterative reconstruction technique. FINDINGS: HEART AND MEDIASTINAL STRUCTURES: There are stable small mediastinal lymph nodes. Coronary artery calcifications. No mediastinal or hilar mass. LUNGS AND PLEURAL SPACES: Faint ground-glass attenuation is present in the right upper lobe similar to the previous exam possibly related to small airway disease or chronic inflammatory/infectious process. COPD changes are present with scattered areas of scarring. Faint subpleural density noted in the left upper lobe medially also similar to the previous exam. No suspicious pulmonary nodules. No lobar consolidation or collapse. There is also faint density noted in the left lower lobe medially and anteriorly. This is also unchanged. BONY STRUCTURES: Mild upper thoracic scoliosis convex right and mid thoracic scoliosis convex left. There are mild wedge compression changes involving T3 vertebral body superiorly and on the left. There is thoracic kyphosis. There is an old fracture of the left 4th through 9th ribs. UPPER ABDOMEN: See abdomen report of the same day ADDITIONAL FINDINGS: No other significant abnormalities. IMPRESSION: There are scattered areas of ground-glass attenuation somewhat mosaic in nature in the right upper lobe, left upper lobe, and left lower lobe medially. This is not significantly changed from the previous exam. This is nonspecific may be seen with small airway disease, interstitial lung disease, or chronic postinflammatory change. No evidence metastatic disease There has been interval development of mild wedge compression changes of T3 with loss of height of approximately 10 percent on the left superiorly. This may be chronic but has developed since the previous exam. Coronary artery disease COPD changes Old bilateral rib fractures Dictated by: Bennett Baldwin MD 03/06/2021 11:20 Bennett Baldwin MD in [place] 03/06/2021 11:20
--- NOTE | 2021-03-05 14:39 | CT_ITS ---
PROCEDURE: CT ABDOMEN PELVIS WO CON CLINICAL INDICATION: PANLOBULAR EMPHYSEMA,RENAL CELL CA COMPARISON: CT CT ABDOMEN PELVIS WO CON from 11/23/2020 TECHNIQUE: Axial images obtained with sagittal and coronal reformats. All CT scans at the facility use one or more dose reduction, viz: automated exposure control, ma/kV adjustment per patient size (including targeted exams where dose is matched to indication, i.e. head), or iterative reconstruction technique. FINDINGS: Stable cysts or hemangiomas within the liver as previously described. No new hepatic lesions identified. The spleen, adrenal glands, and pancreas have an unremarkable appearance. There has been a prior left nephrectomy. 4.7 cm cyst is present in the upper pole of the right kidney. This is stable. There is a large gallstone noted with a mildly distended gallbladder with mild gallbladder wall thickening and a small amount of pericholecystic fluid/inflammation unchanged. No intestinal obstruction or free air. There is a moderate amount of retained colonic feces. No evidence of appendicitis. Mild enlargement of the prostate as before. Urinary bladder wall is mildly thickened as before. Soft tissue density noted in the inguinal canal on both sides possibly due to fluid or postsurgical change. Prior ventral abdominal wall hernia repair with abdominal mesh anteriorly. Artifact is present from left hip gamma nail and intramedullary shannan. No acute bony findings. IMPRESSION: No acute finding. Prior left nephrectomy. Stable right renal cyst Cholelithiasis with suspected chronic cholecystitis. Unchanged Constipation Mildly thickened urinary bladder wall with mild prostate enlargement unchanged Other nonacute findings as described above. Dictated by: Bennett Baldwin MD 03/06/2021 12:09 Bennett Baldwin MD in [facility] 03/06/2021 12:09
== END ==
PROVIDERS: PCP Internal Medicine Adolescent Medicine; Visit Provider Internal Medicine Adolescent Medicine
DX: C64.9 Malignant neoplasm of unspecified kidney, except renal pelvis (principal); J43.1 Panlobular emphysema
CPT/HCPCS: 71250; 74176

== ENCOUNTER → 2021-05-12 10:50 | Outpatient (CLI) | payer BC, SELFPAY ==
--- NOTE | 2021-05-12 11:32 | XR_ITS ---
PROCEDURE INFORMATION: Exam: XR Left Ankle Exam date and time: 05/12/2021 11:32 AM Age: 65 years old Clinical indication: Injury or trauma; Other: Twisted ankle; Sprain or strain; Left; Injury date: 05/12/21; Additional info: Twisted ankle and has some swelling TECHNIQUE: Imaging protocol: XR Left ankle. Views: 3 or more views. COMPARISON: LEOTJW/OLT MRI-LOW EXT OTH THN JNT W/O-LT 01/28/2017 11:13 AM FINDINGS: Bones/joints: No evidence of an acute fracture or dislocation. Visualized osseous structures are unremarkable. Soft tissues: Severe soft tissue swelling. IMPRESSION: No evidence of an acute fracture or dislocation. Severe soft tissue swelling.
== END ==
PROVIDERS: PCP Internal Medicine Adolescent Medicine; Visit Provider Internal Medicine Adolescent Medicine
DX: M25.572 Pain in left ankle and joints of left foot (principal)
CPT/HCPCS: 73610

== ENCOUNTER 2021-05-27 12:41 | Emergency (ER) | payer BC, SELFPAY ==
--- NOTE | 2021-05-27 13:05 | XR_ITS ---
PROCEDURE INFORMATION: Exam: XR Right Hip Exam date and time: 05/27/2021 1:31 PM Age: 65 years old Clinical indication: Injury or trauma; Fall; Blunt trauma (contusions or hematomas); Right; Hip; Injury date: 05/26/21 TECHNIQUE: Imaging protocol: XR Right hip. Views: 2 or 3 views hip with pelvis when performed. COMPARISON: CT ABDOMEN PELVIS WO CON 03/05/2021 2:56 PM FINDINGS: Bones/joints: Prior left femoral neck fixation with intramedullary shannan and compression screw. No evidence of hardware complications. Specifically, no evidence for hardware loosening or periprosthetic fractures. Moderate bilateral hip osteoarthritis, as manifested by moderately decreased joint space, moderate osteophyte formation, and subchondral sclerosis. There is no evidence of acutely displaced fractures. There is no evidence of joint dislocation. No aggressive osseous lesions. Soft tissues: There is no significant soft tissue swelling. IMPRESSION: No acute skeletal pathology or hardware complications.
[2021-05-27 13:10] VITALS: BP 128/77; PULSE 71; RESP 20; TEMP 37.1; O2SAT 99; BMI 25.1
--- NOTE | 2021-05-27 13:16 | XR_ITS ---
PROCEDURE INFORMATION: Exam: XR Right Ribs with PA Chest Exam date and time: 05/27/2021 1:24 PM Age: 65 years old Clinical indication: Injury or trauma; Fall; Rib area; Blunt trauma (contusions or hematomas); Injury date: 05/26/21 TECHNIQUE: Imaging protocol: XR Right ribs with PA chest. Views: 3 views COMPARISON: CT CHEST WO CON 03/05/2021 2:53 PM FINDINGS: Lungs: COPD/emphysema is appreciated. There is diffuse interstitial prominence appreciated, in keeping with known chronic interstitial lung disease. Linear atelectasis in the left lung base. No significant acute interstitial or airspace disease is appreciated at this time. Pleural spaces: Unremarkable. No pleural effusion. No pneumothorax. Heart/Mediastinum: The heart is mildly enlarged. Vasculature: Calcified aortic knob. Bones/joints: Acute fractures to the posterolateral segments of the right 3rd and 4th ribs. Questionable fracture to the posterolateral segment of the right 5th rib. No other acutely displaced fractures are appreciated. Moderate multilevel degenerative changes of the spine. Multilevel bilateral chronic rib fractures are noted. IMPRESSION: 1. High concern for acute fractures to the posterolateral segments of the right 3rd and 4th ribs. There is a questionable fracture to the posterolateral segment of the right 5th rib. 2. No other acute thoracic injury is identified at this time. COMMENTS: Consider further evaluation with trauma protocol chest CT if clinically warranted.
--- NOTE | 2021-05-27 13:49 | HMH.EDUTC ---
[facility] [place] Clinical Impression: Hip pain, right, Rib pain on right side Rib fractures Qualifiers: Encounter type: initial encounter Fracture type: closed Laterality: right Qualified Code(s): S22.41XA - Multiple fractures of ribs, right side, initial encounter for closed fracture Disposition: Home, Self-Care Condition on Discharge: Good Instructions: DI for Hip Pain, DI for Rib Fracture Additional Instructions: follow up with pcp tylenol or motrin as needed ice for 20 mins and removed repeat every hour for comfort if symptoms worsen or do not improve return rest Referrals: Edgardo Flower MD [Primary Care Provider] - Forms: Work/School Release Time of Disposition: 14:38 Medical Decision Making - Gray Inquiry Pt receiving controlled substance: No Vital Signs: 05/27/21 13:10 Temperature 98.7 F Temperature Source Oral Pulse Rate [Right Brachial] 71 Respiratory Rate 20 Blood Pressure [Right Arm] 128/77 Blood Pressure Mean [Right Arm] 94 Blood Pressure Source [Right Arm] Automatic Cuff Blood Pressure Position [Right Arm] Sitting 02 Sat by Pulse Oximetry 99 Oxygen Delivery Method Room Air [facility] [place] - General Chief complaint: [facility] Stated complaint: ao fall 05/26, right hip pain Time Seen by Provider: 05/27/21 13:49 Mode of Arrival: Ambulatory Source of Information: Patient Limitations: No Limitations Description of Symptoms (Recalled from Triage Doc. by RN): PATIENT C/O RIGHT HIP AND RIB PAIN AFTER FALLING INTO SIDE OF TUB LAST NIGHT HEENT Symptoms (Recalled from RN notes): No Resp Symptoms (Recalled from RN notes): No Skin Symptoms (Recalled from RN notes): No MS Symptoms (Recalled from RN notes): Yes Functional Status (Recalled from RN notes): WNL - History of Present Illness Provider Complaint: 65 yr old male presents for rt hip and rib pain after falling in tub last pm - Related Data Home Medications Medication Instructions Recorded Confirmed budesonide-formoterol HFA 80 1 puff INHALATION DAILY #10 g 08/11/18 01/31/21 mcg-4.5 mcg/actuation aerosol inhaler diclofenac sodium 2 pump TOPICAL BID 08/11/18 01/31/21 fluticasone propionate 50 1 spr INTRANASAL DAILY #48 g 08/11/18 01/31/21 mcg/actuation nasal spray,suspension levothyroxine 150 mcg tablet 150 mcg PO DAILY #90 tab 08/11/18 01/31/21 lidocaine 5 % topical patch 1 patch TOPICAL DAILY PRN #90 each 08/11/18 01/31/21 tamsulosin 0.4 mg capsule 0.4 mg PO HS #60 cap 08/11/18 01/31/21 Allergies Allergy/AdvReac Type Severity Reaction Status Date / Time promethazine [From PHENERGAN] Allergy Intermediate HALLUCINATE Verified 01/31/21 13:52 - Worker's Comp Is this a Worker's Comp case?: No [facility] History - Hepatitis A Screen Drug use history?: No High risk sexual behaviors?: No History of sexually transmitted infection?: No Currently employed?: No Childcare worker?: No Do you have indoor plumbing?: Yes Do you have electricity?: Yes Attestation statement:: This patient has been screened for Hepatitis A risk factors. I have reviewed the patient's past medical history: Yes Medical History: Reports:: Cancer, Chronic Obstructive Pulmonary Disease (COPD), Kidney Stones, Renal Insufficiency Denies:: Diabetes Mellitus Type 1, Diabetes Mellitus Type 2, Internal Pacemaker, MRSA, Seizures Other Medical History: Reports: Hypothyroidism. Denies: Blood Transfusion Reaction Laterality Cases: Left: Arthroscopy Knee Other Surgeries: Yes: No Previous Surgery, Cancer Surgery, Colonoscopy, Hernia Repair, Other. No: Pacemaker Amputation: No Fractures: Yes (Femur ) Comment: Removal of Kidney. plates and screw left femur - Social History Smoking Status: Current every day smoker Tobacco Type: cigarettes # Packs/Day (cigarettes): 1 Alcohol Intake: never Alcohol Intake Frequency:: other Substance Use Type: denies use Occupational Status: employed Housing: house Household Members: spouse, family Family Hx::
[2021-05-27 14:35] VITALS: BP 128/77; PULSE 71; RESP 20; TEMP 37.1; O2SAT 99
== END 2021-05-27 14:41 | disposition home or self-care (01) ==
PROVIDERS: Emergency Provider Nurse Practitioner Family; PCP Internal Medicine Adolescent Medicine
DX: S22.41XA Multiple fractures of ribs, right side, initial encounter for closed fracture (principal); M25.559 Pain in unspecified hip; N28.9 Disorder of kidney and ureter, unspecified; J44.9 Chronic obstructive pulmonary disease, unspecified; F17.210 Nicotine dependence, cigarettes, uncomplicated; Z87.442 Personal history of urinary calculi; Z79.51 Long term (current) use of inhaled steroids; Z79.899 Other long term (current) drug therapy; Z88.8 Allergy status to other drugs, medicaments and biological substances; W18.2XXA Fall in (into) shower or empty bathtub, initial encounter
CPT/HCPCS: 71101; 73502; 99283

== ENCOUNTER → 2021-06-20 14:55 | Outpatient (CLI) | payer BC, SELFPAY ==
--- NOTE | 2021-06-20 15:00 | XR_ITS ---
FINAL REPORT CLINICAL HISTORY: Anterior foot pain and bruising post fall FINDINGS: 3 views of the left foot were obtained. There is an oblique minimally displaced fracture of the distal 5th metatarsal. There is no intra-articular extension. There are mild hypertrophic changes at the 1st MTP joint. The soft tissues are unremarkable. IMPRESSION: Minimally displaced distal 5th metatarsal fracture. Reviewed, Interpreted and Dictated by Zeyad Marie MD Transcribed by Mark Campa Authenticated by Zeyad Marie MD on 06/20/2021 04:06:43 PM [facility]
== END ==
PROVIDERS: PCP Internal Medicine Adolescent Medicine; Visit Provider Internal Medicine Adolescent Medicine
DX: R55 Syncope and collapse (principal); S22.41XG Multiple fractures of ribs, right side, subsequent encounter for fracture with delayed healing
CPT/HCPCS: 73630

== ENCOUNTER 2021-06-26 11:46 | Outpatient (RCR) | payer BC, SELFPAY | END 2021-06-26 12:30 | disposition home or self-care (01) | LOC: PT 11:46 | PROVIDERS: Visit Provider Nurse Practitioner Family | DX: M25.572 Pain in left ankle and joints of left foot (principal); S92.352A Displaced fracture of fifth metatarsal bone, left foot, initial encounter for closed fracture; R60.0 Localized edema; T14.8XXA Other injury of unspecified body region, initial encounter | CPT/HCPCS: 97760 ==

== ENCOUNTER → 2021-06-27 08:18 | Outpatient (CLI) | payer BC, SELFPAY ==
--- NOTE | 2021-06-27 08:20 | MR_ITS ---
FINAL REPORT CLINICAL HISTORY: FREQUENT SYNCOPAL EPISODES FINDINGS: Multiplanar MR imaging of the brain was performed without contrast. There is mild age-appropriate atrophy. There are scattered foci of increased T2 signal in the cerebral white matter that have a nonspecific appearance but likely represent mild chronic ischemic/gliotic changes. There is no evidence of intracranial hemorrhage or mass. No abnormal ventricular dilatation is identified. No abnormal extra-axial fluid collection is seen. No abnormality is seen on the diffusion weighted images. The posterior fossa and brainstem are unremarkable. Normal major vessel vascular flow voids are seen. IMPRESSION: Age-appropriate atrophy and mild chronic ischemic/gliotic changes. No acute intracranial abnormality. Reviewed, Interpreted and Dictated by Brian Pierre III, MD Transcribed by Luz Banks Authenticated by Brian Pierre III, MD on 06/27/2021 09:38:06 AM [facility]
--- NOTE | 2021-06-27 09:15 | XR_ITS ---
FINAL REPORT TECHNIQUE: Bone densitometry calculations of the lumbar spine, left forearm and left hip were obtained. CLINICAL HISTORY: fib fx's, history of left hip replacement due to fracture FINDINGS: DEXA BONE DENSITY AXIAL SKELETON Using L1-4, the bone mineral density of the spine is 0.798 g/cm2, corresponding to T-score of -2.7. Using the right hip, the bone mineral density of the femoral neck is 0.604 g/cm2, corresponding to a T-score of -2.8. Using the left forearm, the bone mineral density of the distal 1/3 is 0.585 g/cm2, corresponding to a T-score of -4.4. NOTE: T-score: Standard deviation compared with peak bone mass of young adult mean. *Following the recommendations of the International Society of Bone Densitometry, classification of hip BMD is based on the lower of two T-scores; total hip or femoral neck. IMPRESSION: Osteoporosis: Lowest T-score is at or below -2.5. This patient's T-score meets the World Health Organization criteria for osteoporosis. Reviewed, Interpreted and Dictated by Brian Pierre III, MD Transcribed by Emani Redding Authenticated by Brian Pierre III, MD on 06/27/2021 11:12:38 AM [facility]
== END ==
PROVIDERS: PCP Internal Medicine Adolescent Medicine; Visit Provider Internal Medicine Adolescent Medicine
DX: R55 Syncope and collapse (principal); S22.41XG Multiple fractures of ribs, right side, subsequent encounter for fracture with delayed healing; M79.672 Pain in left foot
CPT/HCPCS: 70551; 77080

== ENCOUNTER → 2021-07-23 15:33 | Outpatient (CLI) | payer BC, SELFPAY ==
--- NOTE | 2021-07-23 15:38 | XR_ITS ---
FINAL REPORT CLINICAL HISTORY: follow up fracture; foot pain COMPARISON: June 20, 2021 FINDINGS: LEFT FOOT: Three views of the left foot were obtained. There is no acute fracture or dislocation. There is a subacute to chronic fracture of the distal 5th metatarsal with interval healing. There are mild degenerative changes. There is no soft tissue abnormality. IMPRESSION: Subacute to chronic fracture of the distal 5th metatarsal with interval healing. Mild degenerative changes. Reviewed, Interpreted and Dictated by Brian Pierre III, MD Transcribed by Cheryl Parada Authenticated by Brian Pierre III, MD on 07/23/2021 04:48:20 PM [facility]
--- NOTE | 2021-07-23 15:38 | XR_ITS ---
FINAL REPORT CLINICAL HISTORY: ankle pain FINDINGS: LEFT ANKLE: Three views of the left ankle were obtained. There is no acute fracture or dislocation. The joint spaces and mortise are intact. Soft tissue swelling is identified. IMPRESSION: Soft tissue swelling with no acute bony abnormality. Reviewed, Interpreted and Dictated by Brian Pierre III, MD Transcribed by Cheryl Parada Authenticated by Brian Pierre III, MD on 07/23/2021 04:49:53 PM [facility]
== END ==
PROVIDERS: PCP Internal Medicine Adolescent Medicine; Visit Provider Podiatrist
DX: M25.572 Pain in left ankle and joints of left foot (principal); M25.472 Effusion, left ankle; M79.672 Pain in left foot; R60.0 Localized edema; T14.8XXA Other injury of unspecified body region, initial encounter
CPT/HCPCS: 73610; 73630

== ENCOUNTER → 2021-07-26 09:35 | Outpatient (CLI) | payer BC, SELFPAY ==
--- NOTE | 2021-07-26 09:40 | XR_ITS ---
FINAL REPORT CLINICAL HISTORY: CHEST WALL PAIN COMPARISON: May 27, 2021 FINDINGS: LEFT RIB SERIES Three views of the left ribs were obtained. There are multiple left lateral rib fractures. Some appear subacute to chronic. There is a left 4th rib fracture which may be acute. There are also possible acute left 7th and 8th distal rib fractures.. There is no pneumothorax or pleural fluid collection. IMPRESSION: Acute and subacute to chronic rib fractures as above. Reviewed, Interpreted and Dictated by Brian Pierre III, MD Transcribed by Cheryl Parada Authenticated by Brian Pierre III, MD on 07/26/2021 10:58:29 AM [facility]
--- NOTE | 2021-07-26 09:40 | XR_ITS ---
FINAL REPORT CLINICAL HISTORY: CHEST WALL PAIN, known rt ribs fx. now pain in left ribs. no recent injury COMPARISON: May 27, 2021 FINDINGS: Two views of the chest were obtained. The heart size and pulmonary vascularity are within normal limits. The mediastinum is normal. There is mild atelectasis or scarring in the left lung base. There is no pneumothorax. There are [id number] degenerative changes in the thoracic spine. IMPRESSION: Mild atelectasis or scarring in the left lung base. Reviewed, Interpreted and Dictated by Brian Pierre III, MD Transcribed by Cheryl Parada Authenticated by Brian Pierre III, MD on 07/26/2021 10:58:29 AM [facility]
== END ==
PROVIDERS: PCP Internal Medicine Adolescent Medicine; Visit Provider Internal Medicine Adolescent Medicine
DX: R07.89 Other chest pain (principal)
CPT/HCPCS: 71046; 71101

== ENCOUNTER → 2021-08-24 09:50 | Outpatient (CLI) | payer BC, SELFPAY ==
--- NOTE | 2021-08-24 | CA_ITS ---
FINAL REPORT TECHNIQUE: Color Doppler, duplex Doppler and ramirez scale sonography of the bilateral neck arterial vasculature was performed. Velocities were measured in the carotid arteries. Stenosis evaluation based on the validated velocity criteria. CLINICAL HISTORY: smoker, CAD, syncope. FINDINGS: The peak systolic velocity of the right common carotid artery is 84 cm/s. The peak systolic velocity of the right internal carotid artery is 88 cm/s and end diastolic velocity 32 cm/s. The ICA/CCA ratio is 1.40. A small amount of plaque is present. The right external carotid artery is patent. The right vertebral artery is patent with antegrade flow. The peak systolic velocity of the left common carotid artery is 81 cm/s. The peak systolic velocity of the left internal carotid artery is 111 cm/s and end diastolic velocity 39 cm/s. The ICA/CCA ratio is 1.76. A small amount of plaque is present. The left external carotid artery is patent.The left vertebral artery is patent with antegrade flow. IMPRESSION: Less than 50% bilateral carotid stenoses. Bilateral patent vertebral arteries with antegrade flow. If indicated, CTA or MRA could further evaluate. Reviewed, Interpreted and Dictated by Brian Pierre III, MD Transcribed by Shonna Lion Authenticated and [facility]
== END ==
PROVIDERS: PCP Internal Medicine Adolescent Medicine; Visit Provider Internal Medicine Adolescent Medicine
DX: R55 Syncope and collapse (principal); R29.6 Repeated falls
CPT/HCPCS: 93880; 95819

== ENCOUNTER 2021-09-13 21:28 | Observation (INO) | payer BC, SELFPAY ==
[2021-09-13 21:14] VITALS: RESP 18; TEMP 38.8; O2SAT 96; BMI 21.2
--- NOTE | 2021-09-13 21:22 | ECG_ITS ---
APPROVED REPORT Exam: Resting ECG HR:98 bpm ECG Measurements Heart Rate 98 AXES RI 148 P 75 QRSd 110 QRS 100 QT 329 T 63 QTc 385 Conclusion SINUS RHYTHM BORDERLINE RIGHT AXIS DEVIATION [QRS AXIS > 90] ABNORMAL ECG UNCONFIRMED REPORT Electronically signed by : Edgardo Flower MD 09/17/2021 14:10:34
[2021-09-13 21:28] VITALS: BMI 19.3
[2021-09-13 23:27] LABS: Coronavirus 19, PCR Not Detected (NotDetected); Influenza A, PCR Not Detected (NotDetected); Influenza B, PCR Not Detected (NotDetected)
--- NOTE | 2021-09-13 23:29 | PC.NURSE ---
Pt unable to provide urine sample at this time.
[2021-09-13 23:33] LABS: Basophils % 0.3 % (0.1-2.0); Eosinophils # 0.1 K/mm3 (0.0-0.4); Eosinophils % 0.5 % (0.1-12.0); Hemoglobin 11.5 g/dL (14.1-18.0); Lymphocytes # 0.3 K/mm3 (0.7-4.5); Lymphocytes % 2.9 % (10-50); Mean Corpuscular HGB Conc 32.9 g/dL (31.8-35.4); Mean Corpuscular Hemoglobin 30.6 pg (27.0-31.2); Mean Platelet Volume 8.1 fl (7.4-10.4); Monocytes # 0.3 K/mm3 (0.1-1.0); Monocytes % 3.1 % (1.7-9.3); Neutrophils # 9.1 K/mm3 (1.8-7.8); Neutrophils % 93.2 % (37.0-80.0); Platelet Count 275 K/mm3 (142-424); Red Blood Count 3.76 M/mm3 (4.60-6.20); Red Cell Distribution Width 15.6 % (11.5-17.5); White Blood Count 9.8 K/mm3 (4.8-10.8)
[2021-09-13 23:40] LABS: Anion Gap 10.1 mEq/L (5-15); Blood Urea Nitrogen 21 mg/dl (9-20); Calcium 8.5 mg/dl (8.4-10.2); Carbon Dioxide 26 mmol/L (22.0-30.0); Chloride 101 mmol/L (98-107); Creatinine Clearance Estimated 29 mL/min (50-200); Estimated Glomerular Filt Rate 27 ml/min (>60); GFR (African American) 33 ML/MIN (>60); Glucose 112 mg/dl (74-100); Lactic Acid 1.7 mmol/L (0.7-2.1); Potassium 4.1 mmoL/L (3.5-5.1); Sodium 133 mmol/L (136-145)
[2021-09-13 23:45] LABS: C-Reactive Protein 87.1 mg/L (0-4)
[2021-09-13 23:47] LABS: MANUAL DIFFERENTIAL MANUAL DIFFERENTIAL (MANUAL DIFF)
[2021-09-13 23:51] LABS: Alanine Aminotransferase 17 U/L (12-78); Albumin Level 3.3 g/dl (3.5-5.0); Alkaline Phosphatase 73 U/L (38-126); Aspartate Amino Transferase 37 U/L (17-59); Bilirubin,Direct 0.2 mg/dl (0.0-0.4); Bilirubin,Indirect 0.3 mg/dL (0.0-0.9); Bilirubin,Total 0.5 mg/dl (0.2-1.3); Bilirubin,Unconjugated 0.3 mg/dL (0.0-1.1); Total Protein,Serum 6.4 g/dl (6.3-8.2)
--- NOTE | 2021-09-14 | CT_ITS ---
PROCEDURE INFORMATION: Exam: CT Abdomen And Pelvis Without Contrast Exam date and time: 09/14/2021 12:28 AM Age: 65 years old Clinical indication: Fever; Abdominal pain; Prior surgery; Surgery type: Nephrectomy; Additional info: Abd pain, fever TECHNIQUE: Imaging protocol: Computed tomography of the abdomen and pelvis without contrast. Radiation optimization: All CT scans at this facility use at least one of these dose optimization techniques: automated exposure control; mA and/or kV adjustment per patient size (includes targeted exams where dose is matched to clinical indication); or iterative reconstruction. COMPARISON: CT ABDOMEN PELVIS WO CON 03/05/2021 2:56 PM FINDINGS: Lungs: In the lung bases there is mild atelectasis. Liver: Normal. No mass. Gallbladder and bile ducts: Distended gallbladder with pericholecystic fluid and large gallstone measuring 2.7 cm concerning for acute cholecystitis. Pancreas: Normal. No ductal dilation. Spleen: Normal. No splenomegaly. Adrenal glands: Tiny bilateral adrenal adenomas. Kidneys and ureters: Left kidney surgically or otherwise absent. Right kidney normal. Stomach and bowel: Constipation. No colitis. No small bowel obstruction. Appendix: Normal appendix. Intraperitoneal space: Unremarkable. No free air. No significant fluid collection. Vasculature: Unremarkable. No abdominal aortic aneurysm. Lymph nodes: Unremarkable. No enlarged lymph nodes. Urinary bladder: In the urinary bladder there is a 3.2 cm mass in the inferior portion findings which could reflect blood clot or malignancy. Reproductive: Unremarkable as visualized. Bones/joints: Postsurgical changes in the left hip with intramedullary shannan and dynamic compression screw fixation. Soft tissues: Previous ventral hernia repair. IMPRESSION: 1. Findings concerning for acute cholecystitis with gallbladder wall thickening, gallstone and pericholecystic fluid. Ultrasound can be obtained to further characterize these findings. 2. In the urinary bladder there is a 3.2 cm mass in the inferior portion findings which could reflect blood clot or malignancy.
--- NOTE | 2021-09-14 | XR_ITS ---
PROCEDURE INFORMATION: Exam: XR Chest Exam date and time: 09/14/2021 12:30 AM Age: 65 years old Clinical indication: Cough and fever; Additional info: Cough, fever TECHNIQUE: Imaging protocol: Radiologic exam of the chest. Views: 2 views. COMPARISON: CR XR CHEST 2V 07/26/2021 9:42 AM FINDINGS: Lungs: Subtle interstitial haziness could reflect interstitial pneumonia. No consolidation. COPD. Pleural spaces: Unremarkable. No pleural effusion. No pneumothorax. Heart/Mediastinum: Unremarkable. No cardiomegaly. Bones/joints: Unremarkable. IMPRESSION: Subtle interstitial haziness could reflect interstitial pneumonia.
--- NOTE | 2021-09-14 | CT_ITS ---
PROCEDURE INFORMATION: Exam: CT Head Without Contrast Exam date and time: 09/14/2021 12:25 AM Age: 65 years old Clinical indication: Walking, difficulty and other: Recent falls TECHNIQUE: Imaging protocol: Computed tomography of the head without contrast. Radiation optimization: All CT scans at this facility use at least one of these dose optimization techniques: automated exposure control; mA and/or kV adjustment per patient size (includes targeted exams where dose is matched to clinical indication); or iterative reconstruction. COMPARISON: MR HEAD/BRAIN WO CON 06/27/2021 8:36 AM FINDINGS: Brain: There is diffuse cortical volume loss and hypoattenuation of the deep white matter. No evidence of acute intracranial hemorrhage. No acute cerebral edema or shift. Cerebral ventricles: No ventriculomegaly. Paranasal sinuses: Visualized sinuses are unremarkable. No fluid levels. Mastoid air cells: Visualized mastoid air cells are well aerated. Bones/joints: Unremarkable. No acute fracture. Soft tissues: Unremarkable. IMPRESSION: No acute intracranial process. Diffuse cortical atrophy and chronic deep white matter small vessel disease.
[2021-09-14 00:17] LABS: Erythrocyte Sedimentation Rate 98 mm/hr (0-20)
--- NOTE | 2021-09-14 00:27 | PC.NURSE ---
PATIENT TRANSPORTED TO XRAY.
[2021-09-14 01:09] LABS: Lymphocytes % 5 % (10-50); Monocytes % 3 % (2-9); Neutrophils % 92 % (42-76); Total Cells Counted 100
[2021-09-14 01:10] LABS: Macrocytosis 1+; Platelet Estimate Normal
--- NOTE | 2021-09-14 02:02 | HMH.EDNVD ---
ED Disposition Clinical Impression: Bladder mass, Renal insufficiency Cholelithiasis and cholecystitis without obstruction Qualifiers: Cholelithiasis location: bile duct Cholecystitis acuity: acute Qualified Code(s): K80.42 - Calculus of bile duct with acute cholecystitis without obstruction Disposition: Admitted As Inpatient Condition on Discharge: Good Referrals: Edgardo Flower MD [Primary Care Provider] - - Critical Care Critical Care Time: No Attestation: On 09/13/21, the high probability of a clinically significant, sudden or life threatening deterioration of the following system(s) required my full and direct attention, intervention and personal management. The time I documented below is in addition to time spent performing reported procedures but includes the following listed in this critical care notation. Medical Decision Making - Medical Records Medical records reviewed: Yes: I reviewed the patient's medical records. - Gray Inquiry Pt receiving controlled substance: No Vital Signs: 09/13/21 21:14 Temperature 101.8 F H Temperature Source Oral Respiratory Rate 18 02 Sat by Pulse Oximetry 96 Oxygen Delivery Method Room Air - Lab Data Lab results reviewed: Yes: I reviewed the patient's lab results. Lab Results 09/13/21 23:21: WBC 9.8, RBC 3.76 L, Hgb 11.5 L, Hct 35.0 L, MCV 93.0, MCH 30.6, MCHC 32.9, RDW 15.6, Plt Count 275, MPV 8.1, Neut % (Auto) 93.2 H, Lymph % (Auto) 2.9 L, Kings % (Auto) 3.1, Eos % (Auto) 0.5, Baso % (Auto) 0.3, Neut # (Auto) 9.1 H, Lymph # (Auto) 0.3 L, Kings # (Auto) 0.3, Eos # (Auto) 0.1, Baso # (Auto) 0.0, Total Counted 100, Neutrophils % (Manual) 92 H, Lymphocytes % (Manual) 5 L, Monocytes % (Manual) 3, Platelet Estimate Normal, RBC Morphology Not Reportable, Macrocytosis 1+, ESR 98 H 09/13/21 23:21: Sodium 133 L, Potassium 4.1, Chloride 101, Carbon Dioxide 26, Anion Gap 10.1, BUN 21 H, Creatinine 2.40 H, Estimated Creat Clear 29, Estimated GFR 27 L, Est GFR ( Amer) 33 L, Glucose 112 H, Calcium 8.5, C-Reactive Protein 87.1 H 09/13/21 23:21: Lactate 1.7 09/13/21 23:21: SARS-CoV-2 (PCR) Not detected, Influenza A Untype (PCR) Not detected, Influenza Type B (PCR) Not detected 09/13/21 23:21: Total Bilirubin 0.5, Direct Bilirubin 0.2, Conjugated Bilirubin 0.0, Indirect Bilirubin 0.3, Unconjugated Bilirubin 0.3, AST 37, ALT 17, Alkaline Phosphatase 73, Total Protein 6.4, Albumin 3.3 L Result diagrams: 09/13/21 23:21 09/13/21 23:21 Orders (Tests/Meds): ED MEDICATIONS Generic Name Dose Route Start Last Admin Trade Name Freq PRN Reason Stop Dose Admin Sodium Chloride 1,000 mls @ 999 mls/hr 09/13/21 21:45 09/13/21 21:51 Sod Chlor 0.9% 1000ml Bag IV 09/13/21 22:45 999 mls/hr .Q1H1M AMILCAR Administration Discontinued Medications Generic Name Dose Route Start Last Admin Trade Name Freq PRN Reason Stop Dose Admin Ondansetron HCl 4 mg 09/13/21 21:31 09/13/21 21:51 Ondansetron 4mg/2ml Vial IV 09/13/21 21:32 4 mg ONCE ONE Administration ORDERS Category Date Time Status Urinalysis and Microscopic Stat Lab 09/13/21 21:29 Ordered Blood Culture Stat Micro 09/13/21 21:29 Ordered - Radiology Data #1 Image(s): Chest Image Reviewed: Yes I have reviewed radiologist's interpretation Preliminary Findings: Normal/NAD - CT Data CT Scan: Head, Abdomen, Pelvis Time Received: 02:[address] Reviewed: Yes: I have viewed the radiologist's interpretation Preliminary Findings: Abnormal (see reports ) - ECG Data Tracing #1 Normal Sinus Rhythm: Yes Ischemic changes: non-specific ST-T wave changes - Physician Consults Physician Consulted: marine Reason -: Admission Medical Decision Narrative: has acute upper abd pain with positive ct - pt with cholelithiasis and sirs Nausea/Vomiting/Diarrhea HPI - General Chief complaint: Weakness Stated complaint: lethargic/fever Time Seen by Provider: 09/14/21 02:02 Mode of Arrival:
--- NOTE | 2021-09-14 02:07 | PC.NURSE ---
Dr. Stewart power for ED doctor
[2021-09-14 02:50] VITALS: BMI 19.9
--- NOTE | 2021-09-14 03:09 | PC.NURSE ---
PT ARRIVED TO FLOOR VIA W/C FROM ED W/STAFF @ [id number]
[2021-09-14 03:10] VITALS: BP 96/55; PULSE 72; RESP 19; TEMP 37.1; O2SAT 99
[2021-09-14 04:00] VITALS: BP 88/55; PULSE 74; RESP 19; TEMP 36.9; O2SAT 91
[2021-09-14 05:00] VITALS: BMI 19.9
--- NOTE | 2021-09-14 05:24 | PC.NURSE ---
Patient admitted to floor this shift. No complaints of pain, nausea, vomiting noted while on floor. Patient is NPO r/t surg consult in the AM. ABD is soft and non tender. Patient is A&O x4. No concerns voiced at this time.
[2021-09-14 07:23] LABS: Basophils % 0.3 % (0.1-2.0); Eosinophils % 0.3 % (0.1-12.0); Hematocrit 31.2 % (42.0-52.0); Hemoglobin 10.4 g/dL (14.1-18.0); Lymphocytes # 0.4 K/mm3 (0.7-4.5); Lymphocytes % 4.4 % (10-50); Mean Corpuscular HGB Conc 33.2 g/dL (31.8-35.4); Mean Corpuscular Hemoglobin 30.5 pg (27.0-31.2); Mean Corpuscular Volume 91.7 fl (80-94); Monocytes # 0.3 K/mm3 (0.1-1.0); Monocytes % 3.6 % (1.7-9.3); Neutrophils # 8.2 K/mm3 (1.8-7.8); Neutrophils % 91.4 % (37.0-80.0); Platelet Count 228 K/mm3 (142-424); Red Cell Distribution Width 15.7 % (11.5-17.5)
[2021-09-14 07:30] LABS: Alanine Aminotransferase 16 U/L (12-78); Albumin Level 3.1 g/dl (3.5-5.0); Albumin/Globulin Ratio 1.1 (1.1-1.8); Alkaline Phosphatase 71 U/L (38-126); Anion Gap 9.4 mEq/L (5-15); Aspartate Amino Transferase 35 U/L (17-59); Bilirubin,Total 0.2 mg/dl (0.2-1.3); Blood Urea Nitrogen 23 mg/dl (9-20); Calcium 7.8 mg/dl (8.4-10.2); Carbon Dioxide 25 mmol/L (22.0-30.0); Chloride 103 mmol/L (98-107); Creatinine Clearance Estimated 32 mL/min (50-200); Estimated Glomerular Filt Rate 30 ml/min (>60); GFR (African American) 36 ML/MIN (>60); Globulin 2.9 g/dL (1.3-3.2); Glucose 92 mg/dl (74-100); Potassium 4.4 mmoL/L (3.5-5.1); Sodium 133 mmol/L (136-145)
--- NOTE | 2021-09-14 07:30 | P.CONPHA_ITS ---
[facility] Pharmacy VTE Monitoring - Patient Demographics Admission date: 09/14/21 Report Date: 09/14/21 Time: 07:30 Allergies/Adverse Reactions: Patient Allergies promethazine [From PHENERGAN] Allergy (Intermediate, Verified 07/24/21 11:41) HALLUCINATE Height: 1.88 m Weight: 70.352 kg Patient Problems: Current Active Problems Cholelithiasis and cholecystitis without obstruction (Acute) Bladder mass (Acute) Renal insufficiency (Acute) - VTE Risk Labs: VTE Related Lab Results Hgb 10.4 g/dL (14.1-18.0) L 09/14/21 06:48 Hct 31.2 % (42.0-52.0) L 09/14/21 06:48 Plt Count 228 K/mm3 (142-424) 09/14/21 06:48 BUN 21 mg/dl (9-20) H 09/13/21 23:21 Creatinine 2.40 mg/dl (0.66-1.25) H 09/13/21 23:21 Estimated Creat Clear 29 mL/min (50-200) 09/13/21 23:21 Was VTE Risk Assessment Performed: Yes VTE Score: 4 VTE Risk Level: Low Risk - Prophylaxis VTE Prophylaxis Ordered?: Yes Types of VTE Prophylaxis: TEDS Knee High Location of Applied Device: Bilateral Lower Extremeties
--- NOTE | 2021-09-14 07:57 | HMH.HP ---
*Admission Date: 09/14/21 *Chief complaint: abdominal pain *History of present illness: Mr. Avila is a 65-year-old gentleman with a long history of image findings of gallbladder disease. Has not been clinically significant in the past. He was brought in yesterday via EMS to the ER after being found at home on his front porch, sweaty, febrile, having significant abdominal pain. Reports that pain, chills, nausea began after eating yesterday. Had some emesis as well. Initial work-up positive for concern for cholecystitis on CT of abdomen. Labs positive for KEN, elevated inflammatory markers, mild anemia. No elevated white count or LFTs. Patient admitted for IV fluids, and surgery consult. On evaluation this morning he states he is feeling somewhat better. Nausea improved but still has pain on exam. ambulating to bathroom independently. Had a fever on admission. [facility] History I have reviewed the patient's past medical history: Yes Medical History: Reports:: Cancer (kidney), Chronic Obstructive Pulmonary Disease (COPD), Depression, Kidney Stones, Renal Insufficiency Denies:: Diabetes Mellitus Type 1, Diabetes Mellitus Type 2, Internal Pacemaker, MRSA, Seizures *Have you ever received a pneumonia vaccine?: Yes *Have you received a flu vaccine this season?: No Other Medical History: Reports: Hypothyroidism. Denies: Blood Transfusion Reaction Laterality Cases: Left: Arthroscopy Knee Other Surgeries: Yes: No Previous Surgery, Cancer Surgery, Colonoscopy, Hernia Repair, Other. No: Pacemaker Amputation: No Fractures: Yes (Femur ) - *Social History Last grade of school completed: High school graduate Smoking Status: Current every day smoker Tobacco Type: cigarettes # Packs/Day (cigarettes): 1 Alcohol Intake: never Alcohol Intake Frequency:: other Substance Use Type: denies use *Occupational Status:: retired Housing: house Household Members: spouse *Travel in the last 8 weeks: None - Psychiatric History Pschychiatric History:: Reports:: Depression Family Hx:: No significant family history Review of Systems - Review of Systems Review of systems:: pertinent systems reviewed and negative unless documented below (14 point review of systems performed, pertinent positives and negatives as per HPI) - *Neurologic Reports confusion, Denies localized weakness, Denies headache(s), Denies seizure-like activity Meds Home Medications Medication Instructions Recorded Confirmed Type diclofenac sodium 2 pump TP BID 08/11/18 09/14/21 History fluticasone propionate 50 1 spr NS DAILY #48 g 08/11/18 09/14/21 History mcg/actuation nasal spray,suspension lidocaine 5 % topical patch 1 patch TP DAILY PRN #90 each 08/11/18 09/14/21 History tamsulosin 0.4 mg capsule 0.8 mg PO DAILY #60 cap 08/11/18 09/14/21 History duloxetine 60 mg capsule,delayed 60 mg PO DAILY 06/26/21 09/14/21 History release ergocalciferol (vitamin D2) 1,250 50,000 unit PO WEEKLY cap 06/26/21 09/14/21 History mcg (50,000 unit) capsule tiotropium 2.5 mcg-olodaterol 2.5 2 puff IH DAILY g 06/26/21 09/14/21 History mcg/actuation mist for inhalation Alendronate Sodium 70 mg PO WEEKLY 09/14/21 09/14/21 History Levothyroxine Sodium 175 mcg PO DAILY 09/14/21 09/14/21 History [Levothyroxine 175mcg (0.175mg) Tab] Tramadol HCl [Tramadol 50mg 50 - 100 mg PO HS 09/14/21 09/14/21 History Tab] levETIRAcetam [Keppra] 500 mg PO BID 09/14/21 09/14/21 History Allergies Allergy/AdvReac Type Severity Reaction Status Date / Time promethazine [From PHENERGAN] Allergy Intermediate HALLUCINATE Verified 07/24/21 11:41 Exam Vital signs and Labs for Last 24 Hours: Temp Pulse Resp BP Pulse Ox 98.5 F 74 19 88/55 L 91 L 09/14/21 04:00 09/14/21 04:00 09/14/21 04:00 09/14/21 04:00 09/14/21 04:00 Laboratory Results - last 24 hr 09/13/21 23:21: WBC 9.8, RBC 3.76 L, Hgb 11.5 L, Hct 35.0 L, MCV 93.0, MCH 30.6, MCHC 32.9, RDW 15.6, Plt Count 275, MPV 8
[2021-09-14 08:00] VITALS: BP 103/53; PULSE 85; RESP 20; TEMP 37.9; O2SAT 91
--- NOTE | 2021-09-14 08:00 | US_ITS ---
FINAL REPORT CLINICAL HISTORY: acute cholelithiasis FINDINGS: Sonographic images of the right upper quadrant were obtained. The pancreas is obscured.The liver has an unremarkable appearance. There is a large gallstone in the gallbladder. The gallbladder wall is thickened up to 10 mm. There is a small amount of [place] cholecystic fluid. There is no evidence of biliary ductal dilatation.The common duct measures 4mm. Limited images of the right kidney demonstrate a 3.9 cm cyst. IMPRESSION: Findings most worrisome for acute cholecystitis. Reviewed, Interpreted and Dictated by Brian Pierre III, MD Transcribed by Mark Campa Authenticated and [facility]
--- NOTE | 2021-09-14 11:43 | HMH.PHAINT ---
MEDICATION RECONCILIATION COMPLETED ON PATIENT USING EXTERNAL FILL HISTORY FROM PHARMACY. -ALFREDO EVANS, JOSEPHD
[2021-09-14 11:57] VITALS: BMI 19.9
--- NOTE | 2021-09-14 13:59 | HMH.GSCON ---
*Admission Date: 09/14/21 *Reason for consult:: Cholecystitis *History of present illness: This is a 65-year-old gentleman seen in consultation for Dr. William for evaluation regarding possible acute calculus cholecystitis. He presented to the emergency department with increasing upper abdominal pain and nausea. Please see HPI forwarded from emergency department evaluation below. Evaluation included CT scan followed by right upper quadrant ultrasound. Both revealed changes consistent with possible acute calculus cholecystitis. Currently, he states that he feels much much better . He remains kind of groggy but otherwise fine . Of note ...the patient has a very long history of radiographic anomalies of the gallbladder. Discussions with regard to possible chronic calculus cholecystitis date back at least 7 years. A large gallstone, wall thickening, and likely pericholecystic fluid have been noted on multiple CTs and ultrasounds. Forwarded from emergency department evaluation: Nausea/Vomiting/Diarrhea HPI - General Chief complaint: Weakness Stated complaint: lethargic/fever Time Seen by Provider: 09/14/21 02:02 Mode of Arrival: EMS Source of Information: Patient, Spouse, EMS, Medical Record Limitations: No Limitations Description of Symptoms (Recalled from ER Triage Doc. by RN): pt brought in via EMS they reported that the pt was found dripping in sweat in a hoodie heavy pants a wool robe sitting outside in the heat. the pt had reportedly been having chills and bundled up and went in the heat to warm up - History of Present Illness HPI Narrative: acute onset of upper abd pain with nausea and fever with chills and confusion complaint: nausea, vomiting, abdominal pain Onset (ago): hour(s) Associated Abdominal Pain: Yes Location of pain: epigastric Severity: moderate Quality: sharp Consistency: intermittent, now resolved Associated symptoms: fever/chills Review of Systems - Constitutional Reports excessive sweating, Reports fatigue - *Cardiovascular Denies chest pain - *Respiratory Denies cough - *Gastrointestinal Denies abdominal pain, Denies nausea - *Neurologic Reports confusion, Denies localized weakness, Denies headache(s), Denies seizure-like activity [facility] History Medical History: Reports:: Cancer (kidney), Chronic Obstructive Pulmonary Disease (COPD), Depression, Kidney Stones, Renal Insufficiency Denies:: Diabetes Mellitus Type 1, Diabetes Mellitus Type 2, Internal Pacemaker, MRSA, Seizures *Have you ever received a pneumonia vaccine?: Yes *Have you received a flu vaccine this season?: No Other Medical History: Reports: Hypothyroidism. Denies: Blood Transfusion Reaction Laterality Cases: Left: Arthroscopy Knee Other Surgeries: Yes: No Previous Surgery, Cancer Surgery, Colonoscopy, Hernia Repair, Other. No: Pacemaker Amputation: No Fractures: Yes (Femur ) - *Social History Last grade of school completed: High school graduate Smoking Status: Current every day smoker Tobacco Type: cigarettes # Packs/Day (cigarettes): 1 Alcohol Intake: never Alcohol Intake Frequency:: other Substance Use Type: denies use *Occupational Status:: retired Housing: house Household Members: spouse *Travel in the last 8 weeks: None - Psychiatric History Pschychiatric History:: Reports:: Depression Family Hx:: No significant family history Meds Home Medications Medication Instructions Recorded Confirmed Type diclofenac sodium 2 pump TP BID 08/11/18 09/14/21 History fluticasone propionate 50 1 spr NS DAILY #48 g 08/11/18 09/14/21 History mcg/actuation nasal spray,suspension lidocaine 5 % topical patch 1 patch TP DAILY PRN #90 each 08/11/18 09/14/21 History tamsulosin 0.4 mg capsule 0.8 mg PO DAILY #60 cap 08/11/18 09/14/21 History duloxetine 6
--- NOTE | 2021-09-14 15:25 | PC.NURSE ---
Spoke with Dr. Fitzgerald at this time. Stated that he wanted the patient put on a clear liquid diet with no carbonated beverages, per Dr. Fitzgerald it is okay for this RN put in the diet order.
[2021-09-14 15:52] LABS: Microscopic, Urine URINE MICROSCOPIC (MICROSCOPIC)
[2021-09-14 15:55] LABS: Bilirubin,Urine Negative (Negative); Blood, Urine 3+ (Negative); Glucose,Urine (UA) Negative (Negative); Ketones,Urine Negative (Negative); Leukocyte Esterase,Urine Negative (Negative); Nitrate,Urine Negative (Negative); Protein,Urine 2+ (Negative); Specific Gravity, Urine 1.015 (1.005-1.030); Urobilinogen,Urine 0.2 EU/dl (0.2)
[2021-09-14 16:00] VITALS: BP 100/52; PULSE 66; RESP 20; TEMP 37.7; O2SAT 94
[2021-09-14 16:05] LABS: Appearance,Urine Slightly Cloudy (Clear); Color,Urine Dark Yellow (Yellow)
[2021-09-14 16:10] LABS: Bacteria,Urine 3+ /lpf; RBC,Urine TNTC #/hpf (0-3); Squamous Epithelial Cell,Urine Occasional #/hpf (0-5)
--- NOTE | 2021-09-14 17:15 | PC.NURSE ---
Patient has been fatigued this RN's shift. Patient has remained on room air. Patient tolerated clear liquids fairly well around [address] Fitzgerald's orders. Patient dose continue to have slight tenderness in his RUQ but reports feeling better today then yesterday. Patient's bowel sounds are active and lung sounds are clear.
[2021-09-14 20:00] VITALS: BP 87/45; PULSE 89; RESP 18; TEMP 37.3; O2SAT 87
[2021-09-14 21:48] VITALS: O2SAT 95
[2021-09-15 04:00] VITALS: BP 91/50; PULSE 68; RESP 18; TEMP 37.6; O2SAT 91
[2021-09-15 04:40] VITALS: BMI 22.1
--- NOTE | 2021-09-15 05:12 | PC.NURSE ---
Patient a&o x4. Patient medicated for pain per MAR. VSS temp 99.6F. Patient tolerating room air sating above 90%. Patient tolerating diet well.
[2021-09-15 08:00] VITALS: BP 86/42; PULSE 71; RESP 24; TEMP 37.6; O2SAT 93
--- NOTE | 2021-09-15 08:00 | HMH.DCSUM ---
General - General Admission date:: 09/14/21 Discharge date: 09/15/21 HPI HPI: Mr. Rojo is a 65-year-old gentleman with a long history of image findings of gallbladder disease. Has not been clinically significant in the past. He was brought in yesterday via EMS to the ER after being found at home on his front porch, sweaty, febrile, having significant abdominal pain. Reports that pain, chills, nausea began after eating yesterday. Had some emesis as well. Initial work-up positive for concern for cholecystitis on CT of abdomen. Labs positive for KEN, elevated inflammatory markers, mild anemia. No elevated white count or LFTs. Patient admitted for IV fluids, and surgery consult. On evaluation this morning he states he is feeling somewhat better. Nausea improved but still has pain on exam. ambulating to bathroom independently. Had a fever on admission. Hospital Course Hospital Course: Image findings concerning for acute cholecystitis however has had image findings of similar nature in the past. Febrile on admission. Initiated on antibiotics and IV fluids. So some improvement during hospitalization. Tolerating p.o. intake. Pain somewhat improved. Surgery was consulted, concern for possible acute on chronic cholecystitis. He has had longstanding history however of radiographic anomalies of the gallbladder and surrounding region that date back at least 7 years. Although the diagnosis of acute cholecystitis remains somewhat equivocal, he is tentatively scheduled for follow-up in the surgical office on September 19 and surgery on either the or (if block lifted). Transition oral antibiotics, complete Augmentin for empiric course of 7 days. As he is tolerating oral intake, afebrile, ambulating independently, will discharge home with close follow-up in the outpatient setting with surgery and primary care. Labs remained stable. Examined on day of discharge. Objective Vital signs: Temp Pulse Resp BP Pulse Ox 99.6 F 68 18 91/50 L 91 L 09/15/21 04:00 09/15/21 04:00 09/15/21 04:00 09/15/21 04:00 09/15/21 04:00 Narrative: - Constitutional NAD on RA, thin, chronically ill appearing - *Routine HEENT Exam Head: Present: normocephalic Eye: Present: EOMI, PERRL ENT: Present: mucous membranes moist - *Routine Neck Exam Present: supple. Absent: lymphadenopathy - *Routine Respiratory Exam Present: CTA bilaterally - *Routine Cardiovascular Exam Present: RRR - *Routine Abdominal Exam Present: soft, normoactive bowel sounds, improved tenderness (RUQ, no rebound) - *Routine Extremities Exam Absent: cyanosis, clubbing, edema - *Routine Skin Exam Present: warm. Absent: rash - *Routine Neurological Exam Present: alert, oriented X3 Results Labs on day of discharge: Labs from last 24 hours 09/14/21 15:42 Urine Color Dark yellow Urine Appearance Slightly cloudy Urine pH 6.0 Ur Specific [place] 1.015 Urine Protein 2+ Urine Glucose (UA) Negative Urine Ketones Negative Urine Blood 3+ Urine Nitrate Negative Urine Bilirubin Negative Urine Urobilinogen 0.2 Ur Leukocyte Esterase Negative Urine RBC Tntc Urine WBC 10-20 Ur Squamous Epith Cells Occasional Urine Bacteria 3+ DS: Diagnosis - Discharge Diagnosis (1) Cholelithiasis and cholecystitis without obstruction Status: Acute Discharge Plan - Patient Discharge Instructions ACTIVITY: Continue current activity DIET: continue same diet Patient Instructions: Kidney Failure, Gallstones, DI for Gallstones, DI for Abdominal Pain-Adult - Follow up Plan Follow up with: Harjinder William MD [Staff Physician] - 09/28/21 10:00 am Harjinder Fitzgerald MD [Staff Physician] - 09/19/21 1:45 pm (surgery scheduled for 09/24 at 11:00) Disposition: Home, Self-Care Condition at discharge:: Stable Home Medications: Home Medications Medication Instructions Recorded Confirmed Type diclofenac sodium 2 pump TP BI
[2021-09-15 08:03] LABS: Alanine Aminotransferase 16 U/L (12-78); Albumin Level 2.7 g/dl (3.5-5.0); Alkaline Phosphatase 64 U/L (38-126); Anion Gap 8.8 mEq/L (5-15); Aspartate Amino Transferase 43 U/L (17-59); Blood Urea Nitrogen 25 mg/dl (9-20); Calcium 7.2 mg/dl (8.4-10.2); Carbon Dioxide 22 mmol/L (22.0-30.0); Chloride 104 mmol/L (98-107); Creatinine Clearance Estimated 36 mL/min (50-200); Estimated Glomerular Filt Rate 30 ml/min (>60); GFR (African American) 36 ML/MIN (>60); Globulin 2.8 g/dL (1.3-3.2); Glucose 128 mg/dl (74-100); Magnesium 1.6 mg/dl (1.6-2.3); Potassium 3.8 mmoL/L (3.5-5.1); Sodium 131 mmol/L (136-145); Total Protein,Serum 5.5 g/dl (6.3-8.2)
[2021-09-15 08:06] LABS: Bilirubin,Total < 0.1 mg/dl (0.2-1.3)
[2021-09-15 08:28] LABS: Basophils % 0.2 % (0.1-2.0); Eosinophils # 0.1 K/mm3 (0.0-0.4); Eosinophils % 0.9 % (0.1-12.0); Lymphocytes # 0.8 K/mm3 (0.7-4.5); Lymphocytes % 6.5 % (10-50); Mean Corpuscular HGB Conc 34.5 g/dL (31.8-35.4); Mean Corpuscular Hemoglobin 29.9 pg (27.0-31.2); Mean Corpuscular Volume 86.8 fl (80-94); Mean Platelet Volume 7.7 fl (7.4-10.4); Monocytes # 0.7 K/mm3 (0.1-1.0); Monocytes % 6.1 % (1.7-9.3); Neutrophils # 10.5 K/mm3 (1.8-7.8); Neutrophils % 86.3 % (37.0-80.0); Platelet Count 173 K/mm3 (142-424); Red Blood Count 2.99 M/mm3 (4.60-6.20); Red Cell Distribution Width 14.9 % (11.5-17.5); White Blood Count 12.2 K/mm3 (4.8-10.8)
[2021-09-15 08:33] LABS: MANUAL DIFFERENTIAL MANUAL DIFFERENTIAL (MANUAL DIFF)
--- NOTE | 2021-09-15 09:42 | HMH.GSPN ---
Subjective Patient reports: no new complaints, feels better Progress Note: A&P (1) Cholelithiasis and cholecystitis without obstruction Status: Acute Assessment and plan: Possible acute calculus cholecystitis with symptomatic improvement over the past 24 to 48 hours. Unfortunately, the patient has longstanding radiographic anomalies of the gallbladder and surrounding region that date back at least 7 years. Although the diagnosis of acute cholecystitis remains somewhat equivocal, he is tentatively scheduled for follow-up in the surgical office on September 19 and surgery on either the or (if block lifted). Exam Vital signs and Labs for Last 24 Hours: Temp Pulse Resp BP Pulse Ox 99.6 F 71 24 86/42 L 93 L 09/15/21 08:00 09/15/21 08:00 09/15/21 08:00 09/15/21 08:00 09/15/21 08:00 Laboratory Results - last 24 hr 09/14/21 15:42: Urine Color Dark yellow, Urine Appearance Slightly cloudy, Urine pH 6.0, Ur Specific [place] 1.015, Urine Protein 2+, Urine Glucose (UA) Negative, Urine Ketones Negative, Urine Blood 3+, Urine Nitrate Negative, Urine Bilirubin Negative, Urine Urobilinogen 0.2, Ur Leukocyte Esterase Negative, Urine RBC Tntc, Urine WBC 10-20, Ur Squamous Epith Cells Occasional, Urine Bacteria 3+ 09/15/21 07:30: WBC 12.2 H D, RBC 2.99 L, Hgb 9.0 L, Hct 26.0 L, MCV 86.8, MCH 29.9, MCHC 34.5, RDW 14.9, Plt Count 173, MPV 7.7, Neut % (Auto) 86.3 H, Lymph % (Auto) 6.5 L, [place] % (Auto) 6.1, Eos % (Auto) 0.9, Baso % (Auto) 0.2, Neut # (Auto) 10.5 H, Lymph # (Auto) 0.8, [place] # (Auto) 0.7, Eos # (Auto) 0.1, Baso # (Auto) 0.0 09/15/21 07:30: Sodium 131 L, Potassium 3.8, Chloride 104, Carbon Dioxide 22, Anion Gap 8.8, BUN 25 H, Creatinine 2.20 H, Estimated Creat Clear 36, Estimated GFR 30 L, Est GFR ( Amer) 36 L, Glucose 128 H, Calcium 7.2 L, Magnesium 1.6, Total Bilirubin < 0.1 L, AST 43, ALT 16, Alkaline Phosphatase 64, Total Protein 5.5 L, Albumin 2.7 L D, Globulin 2.8, Albumin/Globulin Ratio 1.0 L I & O for Last 24 hours: Intake & Output 09/12/21 09/13/21 09/14/21 09/15/21 11:59 11:59 11:59 11:59 Intake Total 2260 / 2260 Output Total 0 / 0 Balance 2260 / 2260 Weight 155 lb 1.523 oz 172 lb 7 oz - Constitutional no acute distress - *Routine Respiratory Exam Absent: respiratory distress - *Routine Cardiovascular Exam Absent: tachycardia - *Routine Abdominal Exam Present: tenderness (Improved)
--- NOTE | 2021-09-15 09:59 | HMH.PHAINT ---
DISCHARGE EDUCAITON COMPLETED. NO QUESTIONS PER PT
[2021-09-15 10:41] LABS: Eosinophils % 1 % (0-3); Lymphocytes % 8 % (10-50); Monocytes % 7 % (2-9); Neutrophils % 84 % (42-76); Total Cells Counted 100
[2021-09-15 10:42] LABS: Platelet Estimate Normal; RBC Morphology Normal
--- NOTE | 2021-09-15 10:46 | PC.NURSE ---
education given to pt and spouse. Saline lock discontinued. Pt denies any pain @ this time. voiced understanding of follow up appointments
== END 2021-09-15 10:55 | disposition home or self-care (01) ==
LOC: ER 09-14 02:18 → 2ND 09-14 03:14
PROVIDERS: Admitting Provider Internal Medicine Adolescent Medicine; Emergency Provider Emergency Medicine; PCP Internal Medicine Adolescent Medicine; Visit Provider Internal Medicine Adolescent Medicine
DX: K80.42 Calculus of bile duct with acute cholecystitis without obstruction (principal); N17.9 Acute kidney failure, unspecified; J44.9 Chronic obstructive pulmonary disease, unspecified; E03.9 Hypothyroidism, unspecified; Z79.899 Other long term (current) drug therapy; F17.210 Nicotine dependence, cigarettes, uncomplicated
CPT/HCPCS: 36415; 70450; 71046; 74176; 76705; 80048; 80053; 80076; 81001; 83605; 83735; 85007; 85025; 85651; 86140; 87040; 87086; 93005; 99285; C9803; G0378; J1335; J2405; J3475; U0003; U0005

== ENCOUNTER 2021-09-16 16:29 | Inpatient (IN) | payer BC, MEDICARE, SELFPAY ==
[2021-09-16] VITALS (24 sets, daily range): BP systolic 73–117; BP diastolic 48–67; PULSE 53–95; RESP 12–21; TEMP 36.6–39.1; O2SAT 94–98; BMI 20.6; BMI 21.7
--- NOTE | 2021-09-16 17:00 | PC.NURSE ---
pt refused to have in and out cath for urine sample
--- NOTE | 2021-09-16 17:10 | PC.NURSE ---
Daughter at BS
[2021-09-16 17:16] LABS: Alanine Aminotransferase 18 U/L (12-78); Albumin Level 3.1 g/dl (3.5-5.0); Alkaline Phosphatase 84 U/L (38-126); Anion Gap 11.8 mEq/L (5-15); Aspartate Amino Transferase 37 U/L (17-59); Bilirubin,Total 0.4 mg/dl (0.2-1.3); Blood Urea Nitrogen 22 mg/dl (9-20); Calcium 7.6 mg/dl (8.4-10.2); Carbon Dioxide 19 mmol/L (22.0-30.0); Chloride 105 mmol/L (98-107); Creatinine Clearance Estimated 36 mL/min (50-200); Estimated Glomerular Filt Rate 32 ml/min (>60); GFR (African American) 38 ML/MIN (>60); Globulin 3.1 g/dL (1.3-3.2); Glucose 99 mg/dl (74-100); Potassium 3.8 mmoL/L (3.5-5.1); Sodium 132 mmol/L (136-145); Total Protein,Serum 6.2 g/dl (6.3-8.2)
[2021-09-16 17:20] LABS: Basophils % 0.2 % (0.1-2.0); Eosinophils % 0.5 % (0.1-12.0); Hematocrit 28.9 % (42.0-52.0); Hemoglobin 9.1 g/dL (14.1-18.0); Lymphocytes # 0.2 K/mm3 (0.7-4.5); Mean Corpuscular HGB Conc 31.6 g/dL (31.8-35.4); Mean Corpuscular Hemoglobin 30.2 pg (27.0-31.2); Mean Corpuscular Volume 95.5 fl (80-94); Mean Platelet Volume 8.9 fl (7.4-10.4); Monocytes # 0.3 K/mm3 (0.1-1.0); Neutrophils # 5.3 K/mm3 (1.8-7.8); Neutrophils % 90.3 % (37.0-80.0); Platelet Count 192 K/mm3 (142-424); Red Blood Count 3.02 M/mm3 (4.60-6.20); Red Cell Distribution Width 15.2 % (11.5-17.5); White Blood Count 5.8 K/mm3 (4.8-10.8)
[2021-09-16 17:24] LABS: Lactic Acid 0.5 mmol/L (0.7-2.1)
[2021-09-16 17:27] LABS: MANUAL DIFFERENTIAL MANUAL DIFFERENTIAL (MANUAL DIFF)
[2021-09-16 17:28] LABS: Troponin I 0.02 ng/ml (0.00-0.034)
--- NOTE | 2021-09-16 17:28 | PC.NURSE ---
Spoke to NIECY Mccord regarding patient admission
--- NOTE | 2021-09-16 17:38 | HMH.EDGENADL ---
ED Disposition Clinical Impression: Septic shock Disposition: Admitted as Observation Condition on Discharge: Good - Critical Care Critical Care Time: Yes Attestation: On 09/16/21, the high probability of a clinically significant, sudden or life threatening deterioration of the following system(s) required my full and direct attention, intervention and personal management. The time I documented below is in addition to time spent performing reported procedures but includes the following listed in this critical care notation. Vital system(s) involved:: Shock (Septic) My critical care processes included: Assessment & monitoring of V/S, Initial and Re-exams, Data Review/Interpretation, Coordinating Care, Medication Orders and management, Documentation Medical Decision Making - Medical Records Medical records reviewed: Yes: I reviewed the patient's medical records. MR Comment: Reviewed discharge summary from recent admission 09/14/2021 through 09/15/2021. Presented with same scenario. All cultures negative. Diagnosis of acute on chronic cholecystitis. CT scan of abdomen and pelvis and gallbladder ultrasound both showed findings consistent for cholecystitis, but apparently he has had similar imaging findings in the past. Treated with ertapenem. Discharged on Augmentin. - Gray Inquiry Pt receiving controlled substance: No Vital Signs: 09/16/21 16:28 09/16/21 17:00 09/16/21 17:05 Temperature 102.4 F H Temperature Source Oral Pulse Rate 82 83 Pulse Rate [Right Brachial] 95 H Respiratory Rate 19 20 18 Blood Pressure 80/57 L 85/55 L Blood Pressure [Right Arm] 99/58 L Blood Pressure Mean 62 62 Blood Pressure Mean [Right Arm] 71 Blood Pressure Source Blood Pressure Source [Right Arm] Automatic Cuff Blood Pressure Position Blood Pressure Position [Right Arm] Supine 02 Sat by Pulse Oximetry 95 94 L 94 L Oxygen Delivery Method Room Air 09/16/21 17:10 09/16/21 17:20 09/16/21 17:26 Temperature Temperature Source Pulse Rate 80 70 77 Pulse Rate [Right Brachial] Respiratory Rate 20 14 14 Blood Pressure 82/54 L 81/53 L 75/49 L Blood Pressure [Right Arm] Blood Pressure Mean 58 59 57 Blood Pressure Mean [Right Arm] Blood Pressure Source Blood Pressure Source [Right Arm] Blood Pressure Position Blood Pressure Position [Right Arm] 02 Sat by Pulse Oximetry Oxygen Delivery Method 09/16/21 17:35 09/16/21 17:45 09/16/21 17:50 Temperature 100.2 F H Temperature Source Oral Pulse Rate 77 Pulse Rate [Right Brachial] Respiratory Rate 14 Blood Pressure 95/51 L 81/51 L Blood Pressure [Right Arm] Blood Pressure Mean 63 58 Blood Pressure Mean [Right Arm] Blood Pressure Source Blood Pressure Source [Right Arm] Blood Pressure Position Blood Pressure Position [Right Arm] 02 Sat by Pulse Oximetry Oxygen Delivery Method 09/16/21 18:00 09/16/21 18:08 09/16/21 18:14 Temperature Temperature Source Pulse Rate 64 63 55 L Pulse Rate [Right Brachial] Respiratory Rate 14 14 12 Blood Pressure 91/49 L 75/48 L 73/48 L Blood Pressure [Right Arm] Blood Pressure Mean 55 55 52 Blood Pressure Mean [Right Arm] Blood Pressure Source Blood Pressure Source [Right Arm] Blood Pressure Position Blood Pressure Position [Right Arm] 02 Sat by Pulse Oximetry 95 95 Oxygen Delivery Method 09/16/21 18:18 09/16/21 18:19 09/16/21 18:20 Temperature Temperature Source Pulse Rate 63 63 Pulse Rate [Right Brachial] Respiratory Rate 15 15 Blood Pressure 88/48 L 75/49 L 76/50 L Blood Pressure [Right Arm] Blood Pressure Mean 54 56 Blood Pressure Mean [Right Arm] Blood Pressure Source Manual Cuff/ Auscultation Blood Pressure Source [Right Arm] Blood Pressure Position Sitting Blood Pressure Position [Right Arm] 02 Sat by Pulse Oximetry 95 95 Oxygen Delivery Method 09/16/21 18:40 09/16/21 18
--- NOTE | 2021-09-16 17:40 | PC.NURSE ---
pt attempted to urinate in a urinal, no success at this time. Myself as stand by for assistance.
--- NOTE | 2021-09-16 17:40 | PC.NURSE ---
talked daughter who states that her dad get moments where he does this and will wrap him self in sweaters and blankets and go outside and sit in the sun.
--- NOTE | 2021-09-16 17:42 | PC.NURSE ---
Pt states I did it again. discussed with pt, did what? STates that he has episodes where he doesnt know where he is, who his or daughter is. States he is feeling more back to himself now that he is here
--- NOTE | 2021-09-16 17:43 | PC.NURSE ---
Pt requesting nicotine patch. CAlled house to get one sent down for pt
--- NOTE | 2021-09-16 17:54 | PC.NURSE ---
YOON CORLEY at
[2021-09-16 18:00] LABS: Lymphocytes % 6 % (10-50); Monocytes % 3 % (2-9); Neutrophils % 91 % (42-76); Platelet Estimate Normal; Total Cells Counted 100
--- NOTE | 2021-09-16 18:03 | XR_ITS ---
PROCEDURE INFORMATION: Exam: XR Chest Exam date and time: 09/16/2021 6:06 PM Age: 65 years old Clinical indication: Fever TECHNIQUE: Imaging protocol: Radiologic exam of the chest. Views: 1 view. COMPARISON: CR XR CHEST 2V 09/14/2021 12:30 AM FINDINGS: Lungs: Bilateral hyperinflation is present. Atelectatic changes noted within both lung bases. Pleural spaces: There are no pleural effusions present. There is no evidence of pneumothorax. Heart/Mediastinum: Heart demonstrates mild diffuse enlargement. Vasculature: The vasculature demonstrates diffuse mild atherosclerotic calcification. Bones/joints: The thoracic spine demonstrates mild degenerative changes at multiple levels. IMPRESSION: 1. Bilateral hyperinflation is present. 2. Mild cardiomegaly. 3. Atelectatic changes noted within both lung bases.
--- NOTE | 2021-09-16 18:04 | PC.NURSE ---
contacted radiology about chest x-ray order
[2021-09-16 18:12] LABS: Coronavirus 19, PCR Not Detected (NotDetected); Influenza A, PCR Not Detected (NotDetected); Influenza B, PCR Not Detected (NotDetected)
[2021-09-16 18:17] LABS: Lipase 27 U/L (23-300)
--- NOTE | 2021-09-16 19:01 | PC.NURSE ---
notified house of admission
--- NOTE | 2021-09-16 19:18 | PC.NURSE ---
report called to Raissa Butcher RN
--- NOTE | 2021-09-16 19:44 | PC.NURSE ---
patient up to floor via stretcher @ this time.
[2021-09-16 20:27] LABS: Troponin I 0.03 ng/ml (0.00-0.034)
[2021-09-17] VITALS (12 sets, daily range): BP systolic 91–121; BP diastolic 53–67; PULSE 47–100; RESP 14–20; TEMP 36.2–37.6; O2SAT 94–100; BMI 21.7
[2021-09-17 02:26] LABS: Microscopic, Urine URINE MICROSCOPIC (MICROSCOPIC)
[2021-09-17 03:03] LABS: Appearance,Urine CLEAR (Clear); Bilirubin,Urine Negative (Negative); Blood, Urine 2+ (Negative); Color,Urine YELLOW (Yellow); Glucose,Urine (UA) Negative (Negative); Ketones,Urine Negative (Negative); Leukocyte Esterase,Urine Negative (Negative); Nitrate,Urine Negative (Negative); Protein,Urine 1+ (Negative); Specific Gravity, Urine <= 1.005 (1.005-1.030); Urobilinogen,Urine 0.2 EU/dl (0.2)
[2021-09-17 03:09] LABS: WBC,Urine Occasional #/hpf (0-3)
--- NOTE | 2021-09-17 05:10 | PC.NURSE ---
Pt is A&O x3. Has slept at intervals this shift. Has sat up in bed and ate snacks and drank coffee. Pt stated that he hasn't eaten in 2 days. He denies any abdominal discomfort this AM. BS active. Pt remains on Levophed gtt @ 2 mcg/min. Was placed on standby briefly, but SBP declined, therefore Levophed started again. VS currently stable. Pt has had good urine output. Safety measures in place. Call light at bedside.
--- NOTE | 2021-09-17 07:59 | HMH.PHAVTE ---
[facility] Pharmacy VTE Monitoring - Patient Demographics Admission date: 09/17/21 Report Date: 09/17/21 Time: 07:59 Allergies/Adverse Reactions: Patient Allergies promethazine [From PHENERGAN] Allergy (Intermediate, Verified 07/24/21 11:41) HALLUCINATE Height: 1.91 m Weight: 79.469 kg Patient Problems: Current Active Problems Septic shock (Acute) - VTE Risk Labs: VTE Related Lab Results Hgb 9.1 g/dL (14.1-18.0) L 09/16/21 16:37 Hct 28.9 % (42.0-52.0) L 09/16/21 16:37 Plt Count 192 K/mm3 (142-424) 09/16/21 16:37 BUN 22 mg/dl (9-20) H 09/16/21 16:37 Creatinine 2.10 mg/dl (0.66-1.25) H 09/16/21 16:37 Estimated Creat Clear 36 mL/min (50-200) 09/16/21 16:37 VTE Risk Level: Low Risk Clinical Trial Participant: No - Prophylaxis VTE Prophylaxis Ordered?: Yes Location of Applied Device: Bilateral Lower Extremeties
--- NOTE | 2021-09-17 08:17 | HMH.GSPN ---
Subjective Narrative: Patient recently admitted and seen as a surgical consultation by Dr. Fitzgerald for possible gallbladder issues. Presented back to the emergency department apparently with fever and mental status changes shortly after discharge. Progress Note: A&P Assessment and Plan for All Diagnoses:: Continue IV antibiotics. No need for emergent surgery at this time. Dr. Fitzgerald to follow-up tomorrow. Exam Vital signs and Labs for Last 24 Hours: Temp Pulse Resp BP Pulse Ox 97.2 F L 49 L 20 99/57 L 97 09/17/21 04:00 09/17/21 06:59 09/17/21 06:59 09/17/21 06:59 09/17/21 06:59 Laboratory Results - last 24 hr 09/16/21 16:37: WBC 5.8 D, RBC 3.02 L, Hgb 9.1 L, Hct 28.9 L, MCV 95.5 H, MCH 30.2, MCHC 31.6 L, RDW 15.2, Plt Count 192, MPV 8.9, Neut % (Auto) 90.3 H, Lymph % (Auto) 4.0 L, [place] % (Auto) 5.0, Eos % (Auto) 0.5, Baso % (Auto) 0.2, Neut # (Auto) 5.3, Lymph # (Auto) 0.2 L, [place] # (Auto) 0.3, Eos # (Auto) 0.0, Baso # (Auto) 0.0, Total Counted 100, Neutrophils % (Manual) 91 H, Lymphocytes % (Manual) 6 L, Monocytes % (Manual) 3, Platelet Estimate Normal 09/16/21 16:37: Sodium 132 L, Potassium 3.8, Chloride 105, Carbon Dioxide 19 L, Anion Gap 11.8, BUN 22 H, Creatinine 2.10 H, Estimated Creat Clear 36, Estimated GFR 32 L, Est GFR ( Amer) 38 L, Glucose 99, Calcium 7.6 L, Total Bilirubin 0.4, AST 37, ALT 18, Alkaline Phosphatase 84, Troponin I 0.02, Total Protein 6.2 L, Albumin 3.1 L D, Globulin 3.1, Albumin/Globulin Ratio 1.0 L 09/16/21 16:37: Lipase 27 09/16/21 17:00: Lactate 0.5 L 09/16/21 18:08: SARS-CoV-2 (PCR) Not detected, Influenza A Untype (PCR) Not detected, Influenza Type B (PCR) Not detected 09/16/21 20:00: Troponin I 0.03 09/17/21 02:04: Urine Color Yellow, Urine Appearance Clear, Urine pH 6.0, Ur Specific [place] <= 1.005, Urine Protein 1+, Urine Glucose (UA) Negative, Urine Ketones Negative, Urine Blood 2+, Urine Nitrate Negative, Urine Bilirubin Negative, Urine Urobilinogen 0.2, Ur Leukocyte Esterase Negative, Urine RBC 5-10, Urine WBC Occasional, Ur Squamous Epith Cells 3-5 I & O for Last 24 hours: Intake & Output 09/14/21 09/15/21 09/16/21 09/17/21 11:59 11:59 11:59 11:59 Output Total 925 / 925 Balance -925 / -925 Weight 175 lb 3.186 oz - *Routine Abdominal Exam Present: soft Comments: Some right upper quadrant tenderness without guarding or rebound
--- NOTE | 2021-09-17 09:00 | HMH.HP ---
*Admission Date: 09/17/21 *Chief complaint: Altered mental status/right upper quadrant pain *History of present illness: 65-year-old white male who was admitted from September 14 through September cholelithiasis and cholecystitis, treated with a regimen and discharged with Augmentin with outpatient surgical evaluation pending. Unfortunately yesterday was found lying on his deck with multiple layers of clothing alternating heat, somewhat confused, brought to the emergency department where he was found to meet sepsis criteria with elevated white count, tachycardia and evidence of low blood pressure. Fluid resuscitation was given, Levophed was initiated and was transferred to stepdown for further evaluation. He is much clearer this morning vis-?-vis mental status, and has had no further episodes of either epileptiform activity or loss of consciousness. He states that his belly is somewhat improved. [facility] History I have reviewed the patient's past medical history: Yes Medical History: Reports:: Cancer (kidney), Chronic Obstructive Pulmonary Disease (COPD), Depression, Kidney Stones, Renal Insufficiency Denies:: Diabetes Mellitus Type 1, Diabetes Mellitus Type 2, Internal Pacemaker, MRSA, Seizures *Have you ever received a pneumonia vaccine?: No *Have you received a flu vaccine this season?: No Other Medical History: Reports: Hypothyroidism. Denies: Blood Transfusion Reaction Laterality Cases: Left: Arthroscopy Knee Other Surgeries: Yes: No Previous Surgery, Cancer Surgery, Colonoscopy, Hernia Repair, Other. No: Pacemaker Amputation: No Fractures: Yes (Femur ) - *Social History Smoking Status: Current every day smoker Tobacco Type: cigarettes # Packs/Day (cigarettes): 1 Alcohol Intake: never Alcohol Intake Frequency:: other Substance Use Type: denies use *Occupational Status:: employed Housing: house Household Members: spouse *Travel in the last 8 weeks: None - Psychiatric History Pschychiatric History:: Reports:: Depression Family Hx:: Anemia, Cancer, Kidney Disease Review of Systems - Review of Systems Review of systems:: pertinent systems reviewed and negative unless documented below - *Neurologic Reports confusion, Denies localized weakness, Denies headache(s), Denies numbness Meds Home Medications Medication Instructions Recorded Confirmed Type diclofenac sodium 2 pump TP BID 08/11/18 09/16/21 History fluticasone propionate 50 1 spr NS DAILY #48 g 08/11/18 09/17/21 History mcg/actuation nasal spray,suspension tamsulosin 0.4 mg capsule 0.8 mg PO DAILY #60 cap 08/11/18 09/17/21 History duloxetine 60 mg capsule,delayed 60 mg PO DAILY 06/26/21 09/17/21 History release ergocalciferol (vitamin D2) 1,250 50,000 unit PO WEEKLY cap 06/26/21 09/16/21 History mcg (50,000 unit) capsule tiotropium 2.5 mcg-olodaterol 2.5 2 puff IH DAILY g 06/26/21 09/16/21 History mcg/actuation mist for inhalation Alendronate Sodium 70 mg PO WEEKLY 09/14/21 09/17/21 History Levothyroxine Sodium 175 mcg PO DAILY 09/14/21 09/17/21 History [Levothyroxine 175mcg (0.175mg) Tab] Tramadol HCl [Tramadol 50mg 50 - 100 mg PO HS 09/14/21 09/17/21 History Tab] levETIRAcetam [Keppra] 500 mg PO BID 09/14/21 09/17/21 History Acetaminophen [Acetaminophen 325mg 650 mg PO Q4HP PRN #0 tab 09/15/21 09/17/21 Rx tab] Amoxicillin/Potassium Clav 500 mg PO TID 09/16/21 09/17/21 History [Augmentin 500mg tab] Allergies Allergy/AdvReac Type Severity Reaction Status Date / Time promethazine [From PHENERGAN] Allergy Intermediate HALLUCINATE Verified 07/24/21 11:41 Exam Vital signs and Labs for Last 24 Hours: Temp Pulse Resp BP Pulse Ox 97.2 F L 49 L 20 99/57 L 97 09/17/21 04:00 09/17/21 06:59 09/17/21 06:59 09/17/21 06:59 09/17/21 06:59 Laboratory Results - last 24 hr 09/16/21 16:37: WBC 5.8 D, RBC 3.02 L, Hgb 9.1 L, Hct 28.9 L, MCV 95.5 H, MCH 30.2, MCHC 31.6 L, RDW 15.2, Plt Count 192, MPV 8.9, Neut %
--- NOTE | 2021-09-17 16:46 | PC.NURSE ---
Patient has been pleasant and cooperative this shift, alert and oriented x4, HR reg, NSR per telemetry, levophed was turned off at 0930 this am and patient has tolerated well, lungs cta, on RA, abd soft and nontender with active bowel sounds in all quads, NPO after midnight for possible surgery in am, voids per urinal without difficulty, has remained afebrile this shift, vss, call light in reach with bed in lowest position.
[2021-09-18] VITALS (25 sets, daily range): BP systolic 105–141; BP diastolic 58–73; PULSE 59–101; RESP 14–21; TEMP 36.4–43; O2SAT 92–100; BMI 23.6
--- NOTE | 2021-09-18 03:52 | PC.NURSE ---
0352 pt was noted to be coughing; when went in to check on pt, pt was noted to be soa, expiratory wheezing throughout, and 02 sats were 86-88 on room air, 02 placed at 2L and called dr. pettit to inform of pt status, edelb order x1; pt was noted to tachy at 96-100 regular per radial palp, pt was febrile with temp 100.4 and medicated with tylenol with tiny sip of water as pt was npo.
--- NOTE | 2021-09-18 05:20 | PC.NURSE ---
pt restless through the night, lung sounds with expiratory wheezing, pt with low grade temp 100.4; abdomen tender; skin pwd, VSS; pt tachy after soa and fever, but regular; pt a&o x4; pt voiding w/o difficulty clear yellow urine, pt stated felt some better after breathing treatment, but with some wheezing noted; 02 at 1.5 L with o2 sats 96%; no other issues or concerns at this time, pt npo for possible surgery today
--- NOTE | 2021-09-18 07:04 | HMH.GSCON ---
*Admission Date: 09/17/21 *Reason for consult:: Cholecystitis *History of present illness: This is a 65-year-old gentleman who had a recent short-stay hospitalization at which time he was diagnosed with possible acute on chronic calculus cholecystitis. He symptomatically improved and was discharged with plans for close outpatient follow-up and likely cholecystectomy in the very near future. Unfortunately, he represented with increasing abdominal pain and intermittent confusion. He was readmitted to the primary service with surgical consultation. Currently feels a little better . He continues to have some pain that is now mostly in the right upper quadrant. Review of Systems - Constitutional Reports malaise - Eyes Denies change in vision - ENT Denies difficulty swallowing - *Cardiovascular Denies chest pain - *Respiratory Denies cough - *Gastrointestinal Reports abdominal pain, Reports nausea - *Neurologic Reports confusion, Denies localized weakness, Denies headache(s), Denies numbness [facility] History Medical History: Reports:: Cancer (kidney), Chronic Obstructive Pulmonary Disease (COPD), Depression, Kidney Stones, Renal Insufficiency Denies:: Diabetes Mellitus Type 1, Diabetes Mellitus Type 2, Internal Pacemaker, MRSA, Seizures *Have you ever received a pneumonia vaccine?: No *Have you received a flu vaccine this season?: No Other Medical History: Reports: Hypothyroidism. Denies: Blood Transfusion Reaction Laterality Cases: Left: Arthroscopy Knee Other Surgeries: Yes: No Previous Surgery, Cancer Surgery, Colonoscopy, Hernia Repair, Other. No: Pacemaker Amputation: No Fractures: Yes (Femur ) - *Social History Smoking Status: Current every day smoker Tobacco Type: cigarettes # Packs/Day (cigarettes): 1 Alcohol Intake: never Alcohol Intake Frequency:: other Substance Use Type: denies use *Occupational Status:: employed Housing: house Household Members: spouse *Travel in the last 8 weeks: None - Psychiatric History Pschychiatric History:: Reports:: Depression Family Hx:: Anemia, Cancer, Kidney Disease Meds Home Medications Medication Instructions Recorded Confirmed Type diclofenac sodium 2 pump TP BID 08/11/18 09/16/21 History fluticasone propionate 50 1 spr NS DAILY #48 g 08/11/18 09/17/21 History mcg/actuation nasal spray,suspension tamsulosin 0.4 mg capsule 0.8 mg PO DAILY #60 cap 08/11/18 09/17/21 History duloxetine 60 mg capsule,delayed 60 mg PO DAILY 06/26/21 09/17/21 History release ergocalciferol (vitamin D2) 1,250 50,000 unit PO WEEKLY cap 06/26/21 09/16/21 History mcg (50,000 unit) capsule tiotropium 2.5 mcg-olodaterol 2.5 2 puff IH DAILY g 06/26/21 09/16/21 History mcg/actuation mist for inhalation Alendronate Sodium 70 mg PO WEEKLY 09/14/21 09/17/21 History Levothyroxine Sodium 175 mcg PO DAILY 09/14/21 09/17/21 History [Levothyroxine 175mcg (0.175mg) Tab] Tramadol HCl [Tramadol 50mg 50 - 100 mg PO HS 09/14/21 09/17/21 History Tab] levETIRAcetam [Keppra] 500 mg PO BID 09/14/21 09/17/21 History Acetaminophen [Acetaminophen 325mg 650 mg PO Q4HP PRN #0 tab 09/15/21 09/17/21 Rx tab] Allergies Allergy/AdvReac Type Severity Reaction Status Date / Time promethazine [From PHENERGAN] Allergy Intermediate HALLUCINATE Verified 07/24/21 11:41 Exam Vital signs and Labs for Last 24 Hours: Temp Pulse Resp BP Pulse Ox 100.4 F H 98 H 18 138/63 95 09/18/21 03:56 09/18/21 04:00 09/18/21 03:56 09/18/21 03:56 09/18/21 04:00 I & O for Last 24 hours: Intake & Output 09/15/21 09/16/21 09/17/21 09/18/21 11:59 11:59 11:59 11:59 Intake Total 240 / 240 4872 / 4872 Output Total 925 / 925 1705 / 1705 Balance -685 / -685 3167 / 3167 Weight 175 lb 3.186 oz 190 lb - Constitutional no acute distress - *Routine Respiratory Exam Absent: respiratory distress - *Routine Cardiovascular Exam Absent: tachycardia - *Rou
--- NOTE | 2021-09-18 08:05 | P.PN_ITS ---
Internal Medicine - PN: Subj *Date: 09/18/21 *Time: 08:05 Interval history: Patient is sleeping, when awakened is alert and oriented. Has a little cough. 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 Otherwise vital signs unremarkable. Cultures pending. Lungs have good air movement, heart rate regular. Abdomen soft, tender in the right upper quadrant. No edema or clubbing, patient wearing compression stockings. Assessment and Plan (1) Septic shock Status: Acute Category: Medical Code(s): A41.9 - Sepsis, unspecified organism; R65.21 - Severe sepsis with septic shock (2) Acute kidney injury superimposed on CKD Status: Acute Category: Medical Code(s): N17.9 - Acute kidney failure, un specified; N18.9 - Chronic kidney disease, unspecified (3) Cholelithiasis and cholecystitis without obstruction Status: Acute Qualifiers: Cholelithiasis location: bile duct Cholecystitis acuity: acute Qualified Code(s): K80.42 - Calculus of bile duct with acute cholecystitis without obstruction Category: Medical Code(s): K80.10 - Calculus of gallbladder with chronic cholecystitis without obstruction (4) Panlobular emphysema Status: Acute Category: Medical Code(s): J43.1 - Panlobular emphysema - Assessment and plan all Dx Assessment and Plan for all problems:: Overall patient stable on antibiotics. Appreciate surgical consult. Agree with surgical intervention planned today. Start incentive spirometry and duo nebs for postoperative pulmonary toilet. Given patient's history of falls at home, significant weakness and his age may qualify for PT/OT afterwards. We will see how things go postoperatively.
[2021-09-18 09:20] LABS: Chloride 112 mmol/L (98-107); Potassium 3.8 mmoL/L (3.5-5.1); Sodium 134 mmol/L (136-145)
[2021-09-18 09:22] LABS: Alanine Aminotransferase 16 U/L (12-78); Aspartate Amino Transferase 28 U/L (17-59); Blood Urea Nitrogen 12 mg/dl (9-20); Creatinine Clearance Estimated 51 mL/min (50-200); Estimated Glomerular Filt Rate 40 ml/min (>60); GFR (African American) 49 ML/MIN (>60)
[2021-09-18 09:23] LABS: Albumin Level 2.7 g/dl (3.5-5.0); Albumin/Globulin Ratio 0.9 (1.1-1.8); Alkaline Phosphatase 74 U/L (38-126); Anion Gap 7.8 mEq/L (5-15); Bilirubin,Total 0.3 mg/dl (0.2-1.3); Calcium 7.5 mg/dl (8.4-10.2); Carbon Dioxide 18 mmol/L (22.0-30.0); Globulin 2.9 g/dL (1.3-3.2); Glucose 108 mg/dl (74-100); Total Protein,Serum 5.6 g/dl (6.3-8.2)
--- NOTE | 2021-09-18 11:43 | PC.NURSE ---
Pt to surgery @ 4749.
--- NOTE | 2021-09-18 13:53 | SUR.OPER ---
late entry: 1249-decision was made per MD to convert to open cholecystectomy procedure, all counts verified and correct prior to making open incision per [facility] Francesco and Raiza,RN [id number]-open cholecystectomy incision made at this time 1314- contacted at this time, after multiple attempts and updated via telephone
--- NOTE | 2021-09-18 14:43 | HMH.OPNOTE ---
Date of procedure: 09/18/21 Pre-op Diagnosis:: Acute calculus cholecystitis Post-op Diagnosis:: Acute calculus cholecystitis Gallbladder hydrops Procedure performed:: Diagnostic laparoscopy Open cholecystectomy Surgeon:: Harjinder Fitzgerald MD Anesthesia: GETA Estimated blood loss (mL): 250 Operative findings:: Dense anterior abdominal wall adhesions status post prior complex abdominal surgery to include hernia repair with mesh Unable to safely enter abdomen laparoscopically in a manner to allow appropriate visualization No definitive injury to stomach, small bowel, or colon noted secondary to attempts at laparoscopic entry Severe acute cholecystitis with hydrops Dense concretion-like adhesions between gallbladder and all surrounding structures Operative note:: After informed consent was obtained, the patient was taken to the operating room and placed in the supine position. General anesthesia was induced and his abdomen was prepped and draped in a sterile fashion. After infiltration with local anesthetic a small stab incision was made in the left upper quadrant. A Veress needle was placed in position. Insufflation pressure drop was not noted. A small incision was then made after infiltration local anesthetic just above and to the right of the umbilicus. Once again, Veress needle insufflation pressure drop was not noted. Additional attempts at Veress needle placement were deemed unwarranted. An optical 5 mm trocar was utilized to enter the abdomen at the initial left upper quadrant Veress insertion site. Visualization revealed no obvious injury; however, profound adhesions along the anterior abdominal wall were noted. No safe entry point for dissection was observed and the decision to forego additional attempts was made. A right upper quadrant Tej incision was completed with scalpel. The dissection was taken through fascia and rectus with electrocautery. The abdomen was carefully entered. Again, dense adhesions throughout were noted. No portion of small bowel, colon, or stomach was spared the effects of the dense adhesions status post prior operative intervention (to include complex hernia repair with mesh). The gallbladder was adhered to all surrounding tissue (concretion-like adhesions). The dome of the gallbladder was opened with cautery at a point of minimal adhesions. Gallbladder hydrops was confirmed and decompression (to the extent possible) was completed. The gallbladder was carefully elevated and the surrounding adhesions were taken down with a combination of blunt dissection, sharp dissection, and electrocautery. No definitive injury to bowel or surrounding tissue was noted. Some moderate bleeding along the liver margin was confirmed. This was initially controlled with pressure and later controlled with electrocautery and Surgicel. Dissection was taken to the infundibulum with each successive portion controlled with a right angle and tied with silk suture. The cystic duct was controlled with 2 clips. No additional bleeding or bilious leak noted. #10 Vu-David drains (x2) were exited through separate right upper quadrant stab incisions. The drains were secured with interrupted nylon suture and placed in the gallbladder fossa. The right upper quadrant was thoroughly irrigated. The Vu-David drains and Surgicel appeared to be in good position. No active bleeding or bile leak confirmed. Fascia was reapproximated with #2 Novafil. Skin was stapled and dressings were placed in position prior to extubation and transferred to recovery. Condition: stable Disposition: PACU Specimens:: Gallbladder Complications:: No immediate
--- NOTE | 2021-09-18 15:45 | PC.NURSE ---
Pt arrived back to the floor at this time from surgery.
--- NOTE | 2021-09-18 19:29 | PC.NURSE ---
CUSTOMER EXPERIENCE STRATEGIST set up and pt used 3 mg this shift since returning to floor from surgery. VSS. CB in reach. Educated on use of IS and importance of use.
[2021-09-19] VITALS (15 sets, daily range): BP systolic 107–136; BP diastolic 61–75; PULSE 57–80; RESP 16–20; TEMP 36.7–37.2; O2SAT 90–100; BMI 24.0
--- NOTE | 2021-09-19 | NM_ITS ---
FINAL REPORT TECHNIQUE: The patient was injected with 8.69 mCi of technetium 99m Choletec. Images of the abdomen were obtained for one hour. CLINICAL HISTORY: S/P OPEN BAILEY, ? CBD INJURY, ? BILE LEAK FINDINGS: Distribution of tracer seen throughout the liver. There is activity within a mildly ectatic common duct probably due to prior cholecystectomy. There is spillage into the duodenum. There is no evidence of leak. IMPRESSION: No evidence of leak. Reviewed, Interpreted and Dictated by Zeyad Marie MD Transcribed by Mark Campa Authenticated and . [facility]
--- NOTE | 2021-09-19 05:04 | PC.NURSE ---
Addendum entered by Jessica Lozano RN 09/19/21 05:12: hypoactive bowel sounds noted Original Note: pt was in pain at start of shift rating it a 10; iv was infiltrated to left upper arm and restarted iv to right wrist; museum curator then moved to new iv site and was noted pt verbalized more pain control rating it a 7/10; j/p x2 to lower abd intact with small amount of drainage on dressing around tube insertions; 60ml total has been emptied from right j/p site and 5ml or less from left j/p site; right j/p draining dark brown/red colored drainage; left draining brownish colored drainage with sediment; dressings to abd not with small amount of drainage; VSS; afebrile; skin pwd; 02 at 2L with 02 sats 95-99; lung sounds diminished; pt alert and oriented x4; pt has slept most of shift; voiding with some difficulty while lying in bed; pt attempted to try and stand up to void better but was having too much pain and difficulty; pt remains npo for scan today; no other issues or concerns at this time.
[2021-09-19 07:01] LABS: Basophils % 0.1 % (0.1-2.0); Eosinophils # 0.1 K/mm3 (0.0-0.4); Eosinophils % 0.9 % (0.1-12.0); Hematocrit 28.1 % (42.0-52.0); Lymphocytes # 0.9 K/mm3 (0.7-4.5); Lymphocytes % 12.3 % (10-50); Mean Corpuscular HGB Conc 32.1 g/dL (31.8-35.4); Mean Corpuscular Hemoglobin 29.9 pg (27.0-31.2); Mean Corpuscular Volume 93.1 fl (80-94); Mean Platelet Volume 8.5 fl (7.4-10.4); Monocytes # 0.7 K/mm3 (0.1-1.0); Monocytes % 9.2 % (1.7-9.3); Neutrophils # 5.5 K/mm3 (1.8-7.8); Neutrophils % 77.5 % (37.0-80.0); Platelet Count 240 K/mm3 (142-424); Red Blood Count 3.01 M/mm3 (4.60-6.20); Red Cell Distribution Width 15.5 % (11.5-17.5); White Blood Count 7.1 K/mm3 (4.8-10.8)
[2021-09-19 07:05] LABS: Chloride 112 mmol/L (98-107); Sodium 136 mmol/L (136-145)
[2021-09-19 07:06] LABS: Alanine Aminotransferase 31 U/L (12-78); Albumin Level 2.6 g/dl (3.5-5.0); Alkaline Phosphatase 75 U/L (38-126); Aspartate Amino Transferase 77 U/L (17-59); Bilirubin,Direct 0.2 mg/dl (0.0-0.4); Bilirubin,Indirect 0.1 mg/dL (0.0-0.9); Bilirubin,Total 0.3 mg/dl (0.2-1.3); Bilirubin,Unconjugated 0.1 mg/dL (0.0-1.1); Total Protein,Serum 5.4 g/dl (6.3-8.2)
[2021-09-19 07:08] LABS: Blood Urea Nitrogen 14 mg/dl (9-20); Calcium 7.7 mg/dl (8.4-10.2); Carbon Dioxide 19 mmol/L (22.0-30.0); Creatinine Clearance Estimated 56 mL/min (50-200); Estimated Glomerular Filt Rate 43 ml/min (>60); GFR (African American) 52 ML/MIN (>60); Glucose 100 mg/dl (74-100)
--- NOTE | 2021-09-19 08:20 | HMH.GSPN ---
Subjective Narrative: He states that he feels pretty beat up but okay . Progress Note: A&P (1) Septic shock Status: Acute (2) Acute kidney injury superimposed on CKD Status: Acute (3) Panlobular emphysema Status: Acute (4) Acute cholecystitis due to biliary calculus Status: Acute Assessment and plan: Overall, doing fairly well status post diagnostic laparoscopy followed by open cholecystectomy. Continue n.p.o. for now Temporarily increase IV fluids Hepatobiliary scan (no CCK) ordered for today secondary to concerns for common bile duct injury or bilious leak Increase ambulation (5) Gallbladder hydrops Status: Acute Exam Vital signs and Labs for Last 24 Hours: Temp Pulse Resp BP Pulse Ox 98.6 F 69 16 107/61 L 90 L 09/19/21 07:41 09/19/21 07:41 09/19/21 07:41 09/19/21 07:41 09/19/21 07:41 Laboratory Results - last 24 hr 09/18/21 09:05: Sodium 134 L, Potassium 3.8, Chloride 112 H, Carbon Dioxide 18 L, Anion Gap 7.8, BUN 12 D, Creatinine 1.70 H, Estimated Creat Clear 51, Estimated GFR 40 L, Est GFR ( Amer) 49 L D, Glucose 108 H, Calcium 7.5 L, Total Bilirubin 0.3, AST 28, ALT 16, Alkaline Phosphatase 74, Total Protein 5.6 L, Albumin 2.7 L, Globulin 2.9, Albumin/Globulin Ratio 0.9 L 09/19/21 06:50: WBC 7.1, RBC 3.01 L, Hgb 9.0 L, Hct 28.1 L, MCV 93.1, MCH 29.9, MCHC 32.1, RDW 15.5, Plt Count 240, MPV 8.5, Neut % (Auto) 77.5, Lymph % (Auto) 12.3, [place] % (Auto) 9.2, Eos % (Auto) 0.9, Baso % (Auto) 0.1, Neut # (Auto) 5.5, Lymph # (Auto) 0.9, [place] # (Auto) 0.7, Eos # (Auto) 0.1, Baso # (Auto) 0.0 09/19/21 06:50: Sodium 136, Potassium 4.0, Chloride 112 H, Carbon Dioxide 19 L, Anion Gap 9.0, BUN 14, Creatinine 1.60 H, Estimated Creat Clear 56, Estimated GFR 43 L, Est GFR ( Amer) 52 L, Glucose 100, Calcium 7.7 L 09/19/21 06:50: Total Bilirubin 0.3, Direct Bilirubin 0.2, Conjugated Bilirubin 0.0, Indirect Bilirubin 0.1, Unconjugated Bilirubin 0.1, AST 77 H D, ALT 31 D, Alkaline Phosphatase 75, Total Protein 5.4 L, Albumin 2.6 L I & O for Last 24 hours: Intake & Output 09/16/21 09/17/21 09/18/21 09/19/21 11:59 11:59 11:59 11:59 Intake Total 240 / 240 5004 / 5004 1425 / 1425 Output Total 925 / 925 1705 / 1705 1000 / 1000 Balance -685 / -685 3299 / 3299 425 / 425 Weight 175 lb 3.186 oz 189 lb 9.561 oz 193 lb 7 oz Microbiology Reports for the Last 24 Hours: Microbiology 09/16/21 17:00 Blood Blood Culture - Preliminary NO GROWTH AFTER 48 HOURS 09/16/21 17:00 Blood Blood Culture - Preliminary NO GROWTH AFTER 48 HOURS - Constitutional no acute distress - *Routine Respiratory Exam Absent: respiratory distress - *Routine Cardiovascular Exam Absent: tachycardia - *Routine Abdominal Exam Comments: Dressings intact.
--- NOTE | 2021-09-19 08:28 | HMH.ACPN2 ---
Internal Medicine - PN: Subj *Date: 09/19/21 *Time: 08:29 Interval history: Surgery yesterday. Op notes reviewed, discussed case with surgeon personally. Went well, although had to be converted to an open procedure which was certainly the right operative choice. Patient this morning is sleeping but has no complaints when he wakes up. Nursing reported and sleeping most of the night on his CHIEF INFORMATION SECURITY OFFICER pump, breathing fairly easily. No concerns about cardiopulmonary status at this point Exam Vital signs and Labs for Last 24 Hours: Temp Pulse Resp BP Pulse Ox 98.6 F 69 16 107/61 L 90 L 09/19/21 07:41 09/19/21 07:41 09/19/21 07:41 09/19/21 07:41 09/19/21 07:41 Laboratory Results - last 24 hr 09/18/21 09:05: Sodium 134 L, Potassium 3.8, Chloride 112 H, Carbon Dioxide 18 L, Anion Gap 7.8, BUN 12 D, Creatinine 1.70 H, Estimated Creat Clear 51, Estimated GFR 40 L, Est GFR ( Amer) 49 L D, Glucose 108 H, Calcium 7.5 L, Total Bilirubin 0.3, AST 28, ALT 16, Alkaline Phosphatase 74, Total Protein 5.6 L, Albumin 2.7 L, Globulin 2.9, Albumin/Globulin Ratio 0.9 L 09/19/21 06:50: WBC 7.1, RBC 3.01 L, Hgb 9.0 L, Hct 28.1 L, MCV 93.1, MCH 29.9, MCHC 32.1, RDW 15.5, Plt Count 240, MPV 8.5, Neut % (Auto) 77.5, Lymph % (Auto) 12.3, [place] % (Auto) 9.2, Eos % (Auto) 0.9, Baso % (Auto) 0.1, Neut # (Auto) 5.5, Lymph # (Auto) 0.9, [place] # (Auto) 0.7, Eos # (Auto) 0.1, Baso # (Auto) 0.0 09/19/21 06:50: Sodium 136, Potassium 4.0, Chloride 112 H, Carbon Dioxide 19 L, Anion Gap 9.0, BUN 14, Creatinine 1.60 H, Estimated Creat Clear 56, Estimated GFR 43 L, Est GFR ( Amer) 52 L, Glucose 100, Calcium 7.7 L 09/19/21 06:50: Total Bilirubin 0.3, Direct Bilirubin 0.2, Conjugated Bilirubin 0.0, Indirect Bilirubin 0.1, Unconjugated Bilirubin 0.1, AST 77 H D, ALT 31 D, Alkaline Phosphatase 75, Total Protein 5.4 L, Albumin 2.6 L I & O for Last 24 hours: Intake & Output 09/16/21 09/17/21 09/18/21 09/19/21 11:59 11:59 11:59 11:59 Intake Total 240 / 240 5004 / 5004 1425 / 1425 Output Total 925 / 925 1705 / 1705 1000 / 1000 Balance -685 / -685 3299 / 3299 425 / 425 Weight 175 lb 3.186 oz 189 lb 9.561 oz 193 lb 7 oz Microbiology Reports for the Last 24 Hours: Microbiology 09/16/21 17:00 Blood Blood Culture - Preliminary NO GROWTH AFTER 48 HOURS 09/16/21 17:00 Blood Blood Culture - Preliminary NO GROWTH AFTER 48 HOURS Narrative: Oriented x3 when he awakens. Lungs have scattered rhonchi but good air movement. Heart rate regular. Abdomen soft, tenderness around incision site-please see surgical notes for abdominal exam. No edema or clubbing in his feet. Wearing Scud device compression boots. Slight edema in the left arm distal to his IVs. Assessment and Plan (1) Septic shock Status: Acute Category: Medical Code(s): A41.9 - Sepsis, unspecified organism; R65.21 - Severe sepsis with septic shock (2) Acute kidney injury superimposed on CKD Status: Acute Category: Medical Code(s): N17.9 - Acute kidney failure, unspecified; N18.9 - Chronic kidney disease, unspecified (3) Panlobular emphysema Status: Acute Category: Medical Code(s): J43.1 - Panlobular emphysema (4) Acute cholecystitis due to biliary calculus Status: Acute Category: Medical Code(s): K80.00 - Calculus of gallbladder with acute cholecystitis without obstruction (5) Gallbladder hydrops Status: Acute Category: Medical Code(s): K82.1 - Hydrops of gallbladder - Assessment and plan all Dx Assessment and Plan for all problems:: Continue IV antibiotics. Continue postoperative surgical care. Aggressive pulmonary toilet. Follow along with surgery. Agree with repeat scanning today.
--- NOTE | 2021-09-19 11:24 | PC.NURSE ---
Pt off floor for scan in RAD.
--- NOTE | 2021-09-19 14:15 | PC.NURSE ---
rounded on patient. patient had just returned from scan. some pain noted. sitting at bedside. patient and stated they had no questions at this time. no needs are voiced. patient is npo at this time, but does request a drink. offered sponges which he refused. encouraged patient and family to ring out as needed.
--- NOTE | 2021-09-19 16:10 | PC.NURSE ---
8.8 mg morphine cleared per cash van salesperson pump, changed new morphine syringe per may.
--- NOTE | 2021-09-19 17:57 | PC.NURSE ---
Pt up to chair at this time. Have encouraged use of IS and pt has been doing intermittently. Pt on RA and sats 93% at this time. PERCUSSION INSTRUCTOR continues to be in use. Pt is comfortable. VSS at this time. CB in reach. MIKE drains intact and emptied and dsgs in place with unchanged amt of drainage. Lung sounds cta/diminished in bases. S1,S2 heart counds.
--- NOTE | 2021-09-19 18:46 | PC.NURSE ---
3 mg morphine cleared from NUCLEAR EQUIPMENT SALES ENGINEER at this time.
[2021-09-20] VITALS (13 sets, daily range): BP systolic 108–152; BP diastolic 64–79; PULSE 63–89; RESP 16–20; TEMP 36.6–37.6; O2SAT 93–97; BMI 25.0
--- NOTE | 2021-09-20 06:17 | PC.NURSE ---
Pt has rested well this shift. Beginning of shift pt was resting in chair, x1 assist to transfer to bed. Pt tolerated transfer well. x4 incision sites to abdomen. x2 venita drains to medial abdomen, and right side abdomen. Drains emptied at end of shift with medial drain 5ml of brown drainage. Right abdomen drain with 10ml of dark brown/red drainage. Incision sites have scant amount of drainage on all sites. Pt denies N/V throughout shift. 10mg of Morphine cleared from JAVA DEVELOPMENT MANAGER pump this shift. Pt has tolerated room air with O2 94-97%. Bowel sounds remain hypoactive.
--- NOTE | 2021-09-20 06:30 | HMH.GSPN ---
Subjective Narrative: He states that he feels just a little bit better . He has tolerated clear liquids. Progress Note: A&P (1) Septic shock Status: Acute (2) Acute kidney injury superimposed on CKD Status: Acute (3) Panlobular emphysema Status: Acute (4) Acute cholecystitis due to biliary calculus Status: Acute Assessment and plan: Overall, doing fairly well status post laparoscopic cholecystectomy. No obvious leak noted on hepatobiliary scan. Follow-up morning labs Likely advance diet (pending results of pending labs) (5) Gallbladder hydrops Status: Acute Exam Vital signs and Labs for Last 24 Hours: Temp Pulse Resp BP Pulse Ox 98.9 F 68 18 134/64 94 L 09/20/21 06:00 09/20/21 06:00 09/20/21 06:00 09/20/21 06:00 09/20/21 06:00 Laboratory Results - last 24 hr 09/19/21 06:50: WBC 7.1, RBC 3.01 L, Hgb 9.0 L, Hct 28.1 L, MCV 93.1, MCH 29.9, MCHC 32.1, RDW 15.5, Plt Count 240, MPV 8.5, Neut % (Auto) 77.5, Lymph % (Auto) 12.3, [place] % (Auto) 9.2, Eos % (Auto) 0.9, Baso % (Auto) 0.1, Neut # (Auto) 5.5, Lymph # (Auto) 0.9, [place] # (Auto) 0.7, Eos # (Auto) 0.1, Baso # (Auto) 0.0 09/19/21 06:50: Sodium 136, Potassium 4.0, Chloride 112 H, Carbon Dioxide 19 L, Anion Gap 9.0, BUN 14, Creatinine 1.60 H, Estimated Creat Clear 56, Estimated GFR 43 L, Est GFR ( Amer) 52 L, Glucose 100, Calcium 7.7 L 09/19/21 06:50: Total Bilirubin 0.3, Direct Bilirubin 0.2, Conjugated Bilirubin 0.0, Indirect Bilirubin 0.1, Unconjugated Bilirubin 0.1, AST 77 H D, ALT 31 D, Alkaline Phosphatase 75, Total Protein 5.4 L, Albumin 2.6 L I & O for Last 24 hours: Intake & Output 0709/18/21 09/19/21 09/20/21 11:59 11:59 11:59 11:59 Intake Total 240 / 240 5004 / 5004 1425 / 1425 3364 / 3364 Output Total 925 / 925 1705 / 1705 1400 / 1400 1135 / 1135 Balance -685 / -685 3299 / 3299 2229 / 2229 Weight 175 lb 3.186 oz 189 lb 9.561 oz 193 lb 7 oz 201 lb 4.8 oz Radiology Reports for the Last 24 Hours: No obvious leak on hepatobiliary scan completed yesterday - Constitutional no acute distress - *Routine Respiratory Exam Absent: respiratory distress - *Routine Cardiovascular Exam Absent: tachycardia - *Routine Abdominal Exam Present: soft Comments: Incisions healing without sign of infection
[2021-09-20 06:39] LABS: Basophils % 0.4 % (0.1-2.0); Chloride 114 mmol/L (98-107); Eosinophils # 0.1 K/mm3 (0.0-0.4); Eosinophils % 1.9 % (0.1-12.0); Hematocrit 26.2 % (42.0-52.0); Hemoglobin 8.1 g/dL (14.1-18.0); Lymphocytes # 0.7 K/mm3 (0.7-4.5); Mean Platelet Volume 8.5 fl (7.4-10.4); Monocytes # 0.5 K/mm3 (0.1-1.0); Monocytes % 8.6 % (1.7-9.3); Neutrophils # 4.6 K/mm3 (1.8-7.8); Neutrophils % 77.2 % (37.0-80.0); Platelet Count 291 K/mm3 (142-424); Red Blood Count 2.71 M/mm3 (4.60-6.20); Red Cell Distribution Width 15.4 % (11.5-17.5); Sodium 137 mmol/L (136-145); White Blood Count 5.9 K/mm3 (4.8-10.8)
[2021-09-20 06:42] LABS: Alanine Aminotransferase 23 U/L (12-78); Albumin Level 2.5 g/dl (3.5-5.0); Albumin/Globulin Ratio 0.9 (1.1-1.8); Alkaline Phosphatase 64 U/L (38-126); Aspartate Amino Transferase 47 U/L (17-59); Bilirubin,Total 0.3 mg/dl (0.2-1.3); Blood Urea Nitrogen 16 mg/dl (9-20); Calcium 7.6 mg/dl (8.4-10.2); Carbon Dioxide 19 mmol/L (22.0-30.0); Creatinine Clearance Estimated 66 mL/min (50-200); Estimated Glomerular Filt Rate 51 ml/min (>60); GFR (African American) 61 ML/MIN (>60); Globulin 2.8 g/dL (1.3-3.2); Glucose 96 mg/dl (74-100); Total Protein,Serum 5.3 g/dl (6.3-8.2)
--- NOTE | 2021-09-20 08:00 | PC.NURSE ---
5 mg morphine cleared from pickle maker and pickle maker d/cd.
--- NOTE | 2021-09-20 08:31 | HMH.ACPN2 ---
Internal Medicine - PN: Subj *Date: 09/20/21 *Time: 08:31 Interval history: Patient states that he feels better today and tolerated a clear liquid diet. I reviewed labs and biliary scan, surgery note. Exam Vital signs and Labs for Last 24 Hours: Temp Pulse Resp BP Pulse Ox 98.0 F 71 16 127/69 94 L 09/20/21 07:39 09/20/21 07:39 09/20/21 07:39 09/20/21 07:39 09/20/21 07:39 Laboratory Results - last 24 hr 09/20/21 06:22: WBC 5.9, RBC 2.71 L, Hgb 8.1 L, Hct 26.2 L, MCV 97.0 H, MCH 30.0, MCHC 31.0 L, RDW 15.4, Plt Count 291, MPV 8.5, Neut % (Auto) 77.2, Lymph % (Auto) 12.0, [place] % (Auto) 8.6, Eos % (Auto) 1.9, Baso % (Auto) 0.4, Neut # (Auto) 4.6, Lymph # (Auto) 0.7, [place] # (Auto) 0.5, Eos # (Auto) 0.1, Baso # (Auto) 0.0 09/20/21 06:22: Sodium 137, Potassium 4.0, Chloride 114 H, Carbon Dioxide 19 L, Anion Gap 8.0, BUN 16, Creatinine 1.40 H, Estimated Creat Clear 66, Estimated GFR 51 L, Est GFR ( Amer) 61, Glucose 96, Calcium 7.6 L, Total Bilirubin 0.3, AST 47 D, ALT 23 D, Alkaline Phosphatase 64, Total Protein 5.3 L, Albumin 2.5 L, Globulin 2.8, Albumin/Globulin Ratio 0.9 L I & O for Last 24 hours: Intake & Output 09/17/21 09/18/21 09/19/21 09/20/21 11:59 11:59 11:59 11:59 Intake Total 240 / 240 5004 / 5004 1425 / 1425 3604 / 3604 Output Total 925 / 925 1705 / 1705 1400 / 1400 1135 / 1135 Balance -685 / -685 3299 / 3299 2469 / 2469 Weight 175 lb 3.186 oz 189 lb 9.561 oz 193 lb 7 oz 201 lb 4.8 oz Narrative: Patient is awake, alert, on room air with normal oxygen saturations. Vital signs are normal. Lungs have good air movement, very minimal rhonchi in the bases. Heart rate regular. Abdomen soft please see surgery note abdominal exam. Extremities are warm and compressive boots in place on legs. Good distal pulses. Able to move all extremities well. Assessment and Plan (1) Septic shock Status: Acute Category: Medical Code(s): A41.9 - Sepsis, unspecified organism; R65.21 - Severe sepsis with septic shock (2) Acute kidney injury superimposed on CKD Status: Acute Category: Medical Code(s): N17.9 - Acute kidney failure, unspecified; N18.9 - Chronic kidney disease, unspecified (3) Panlobular emphysema Status: Acute Category: Medical Code(s): J43.1 - Panlobular emphysema (4) Acute cholecystitis due to biliary calculus Status: Acute Category: Medical Code(s): K80.00 - Calculus of gallbladder with acute cholecystitis without obstruction (5) Gallbladder hydrops Status: Acute Category: Medical Code(s): K82.1 - Hydrops of gallbladder - Assessment and plan all Dx Assessment and Plan for all problems:: 1. Septic shock-improving. No changes in antibiotics. Continue fluids. Continues advancing diet. 2. Infectious disease issues-on antibiotics-cultures negative at this point. 3. Status post [id number] well. Reassuring results from biliary scan yesterday. Consult PT/OT for functional issues. 4. Decrease in hemoglobin this morning 8.1. I think this is expected given his recent illnesses, morbid conditions, chronic renal dysfunction and his recent surgery. Watch carefully. 5. Chronic kidney disease stage IIIb-continue monitoring. Creatinine has been stable.
--- NOTE | 2021-09-20 08:55 | P.PN_ITS ---
Internal Medicine - PN: Subj *Date: 09/20/21 *Time: 08:55 Exam Vital signs and Labs for Last 24 Hours: Temp Pulse Resp BP Pulse Ox 98.0 F 71 16 127/69 94 L 09/20/21 07:39 09/20/21 07:39 09/20/21 07:39 09/20/21 07:39 09/20/21 07:39 Laboratory Results - last 24 hr 09/20/21 06:22: WBC 5.9, RBC 2.71 L, Hgb 8.1 L, Hct 26.2 L, MCV 97.0 H, MCH 30.0, MCHC 31.0 L, RDW 15.4, Plt Count 291, MPV 8.5, Neut % (Auto) 77.2, Lymph % (Auto) 12.0, [place] % (Auto) 8.6, Eos % (Auto) 1.9, Baso % (Auto) 0.4, Neut # (Auto) 4.6, Lymph # (Auto) 0.7, [place] # (Auto) 0.5, Eos # (Auto) 0.1, Baso # (Auto) 0.0 09/20/21 06:22: Sodium 137, Potassium 4.0, Chloride 114 H, Carbon Dioxide 19 L, Anion Gap 8.0, BUN 16, Creatinine 1.40 H, Estimated Creat Clear 66, Estimated GFR 51 L, Est GFR ( Amer) 61, Glucose 96, Calcium 7.6 L, Total Bilirubin 0.3, AST 47 D, ALT 23 D, Alkaline Phosphatase 64, Total Protein 5.3 L, Albumin 2.5 L, Globulin 2.8, Albumin/Globulin Ratio 0.9 L I & O for Last 24 hours: Intake & Output 09/17/21 09/18/21 09/19/21 09/20/21 23:59 23:59 23:59 23:59 Intake Total 4013 / 4013 1431 / 1431 2714 / 2714 2115 / 2115 Output Total 2155 / 2155 1060 / 1060 1310 / 1610 640 / 640 Balance 1858 / 1858 371 / 371 1404 / 1104 1475 / 1475 Weight 79.469 kg 86 kg 87.742 kg 91.308 kg Assessment and Plan (1) Septic shock Status: Acute Category: Medical Code(s): A41.9 - Sepsis, unspecified organism; R65.21 - Severe sepsis with septic shock (2) Acute kidney injury superimposed on CKD Status: Acute Category: Medical Code(s): N17.9 - Acute kidney failure, unspecified; N18.9 - Chronic kidney disease, unspecified (3) Panlobular emphysema Status: Acute Category: Medical Code(s): J43.1 - Panlobular emphysema (4) Acute cholecystitis due to biliary calculus Status: Acute Category: Medical Code(s): K80.00 - Calculus of gallbladder with acute cholecystitis without obstruction (5) Gallbladder hydrops Status: Acute Category: Medical Code(s): K82.1 - Hydrops of gallbladder The patient's infection will respond to the chosen ABx?: Yes Is the patient receiving the right drug, dose, and route?: Yes Could a more targeted ABx be ordered?: No
--- NOTE | 2021-09-20 09:00 | HMH.ANESII ---
[facility] Anesthesia Record Part II Discharge Time: 15:35 Destination: Home PACU nurse assessment reviewed?: Yes Patient Condition:: Good Anesthesia Complications:: None Swallowing reflex intact?: Yes Cyanosis?: No Blood Pressure: 108/66 Pulse Rate: 75 Temperature: 97.8 F Mental Status: Alert & Oriented Pain level:: 4 Nausea and/or vomitting:: None Intake, IV Amount: 0
--- NOTE | 2021-09-20 10:14 | PC.NURSE ---
Rounded on pt, cleaned and straightened room up. Pt expressed no needs at this time.
--- NOTE | 2021-09-20 10:23 | HMH.OTEV ---
OT Inpatient Evaluation Rehab OT IP Evaluation Start: 09/20/21 08:31 Freq: ONCE Status: Complete Protocol: Document 09/20/21 10:12 [facility] (Rec: 09/20/21 10:23 [facility] [id number]) Rehab OT IP Assessment Subjective History Pt oriented x 4 on arrival. Pt agreeable to engage in therapy evaluation. Pt was admitted via ED on 09/16/21 due to altered mental status and septic shock. Pt reports prior to previous hospital admissions, he lived at home with his . They live in a double wide trailer with three steps to get in house; steps have railing. Pt was also very independent with ADLs and IADLs and worked fulltime at [employer]. Pt did not require any type of AE during ambulation. The following information was copied from history and physical report: 65-year-old white male who was admitted from September 14 through September cholelithiasis and cholecystitis, treated with a regimen and discharged with Augmentin with outpatient surgical evaluation pending. Unfortunately yesterday was found lying on his deck with multiple layers of clothing alternating heat, somewhat confused, brought to the emergency department where he was found to meet sepsis criteria with elevated white count, tachycardia and evidence of low blood pressure . Fluid resuscitation was given, Levophed was initiated and was transferred to stepdown for further evaluation. He is much clearer this morning vis-?-vis mental status, and has had no further episodes of either epileptiform activity or
--- NOTE | 2021-09-20 10:30 | HMH.PTEV ---
Physical Therapy Evaluation Rehab PT IP Evaluation Start: 09/20/21 08:31 Freq: ONCE Status: Active Protocol: Document 09/20/21 10:24 [facility] (Rec: 09/20/21 10:29 [facility] [id number]) Subjective/History History History 65-year-old white male who was admitted from September 14 through September cholelithiasis and cholecystitis, treated with a regimen and discharged with Augmentin with outpatient surgical evaluation pending. Unfortunately yesterday was found lying on his deck with multiple layers of clothing alternating heat, somewhat confused, brought to the emergency department where he was found to meet sepsis criteria with elevated white count, tachycardia and evidence of low blood pressure . Fluid resuscitation was given, Levophed was initiated and was transferred to [facility] for further evaluation. Subjective Subjective Pt c/o pain in abdomen and feeling dizzy w/ supine/sit and sit/st Rehab PT IP Eval Objective Appearance Patient Behavior Appropriate,Cooperative Patient Orientation Place,Name,Birthday,Year, Situation Difficulty following instructions none Speech Pattern Appropriate,Soft-Spoken Ambulation Patient Able to Ambulate Yes Ambulation Observation IP General Gait Pattern Observation Shuffling Step Ambulation Distance (feet) 25 Ambulation Assistive Device None Ambulation Ability Contact Guard/Hand Hold Balance Ability to Arise Able, uses arms to help Sitting Balance Leans or slides in chair Standing Balance Steady, wide stance Dynamic Sitting Balance Ability Fair Dynamic Standing Balance Ability Poor Transfers Bed Transfer Ability Contact Guard/Hand Hold, Minimal x 1 (25% assist) Chair Transfer Ability Contact Guard/Hand Hold, Minimal x 1 (25% assist) Sit to Stand Bed Transfer Ability Contact Guard/Hand Hold, Minimal x 1 (25% assist) Sit to Stand Chair Transfer Ability Contact Guard/Hand Hold, Minimal x 1 (
--- NOTE | 2021-09-20 13:25 | PC.NURSE ---
offered to assist patient with getting up to chair for lunch which he refused. no concerns or questions at this time. no needs voiced. encouraged patient to ring out with any needs, or questions.
--- NOTE | 2021-09-20 20:15 | PC.NURSE ---
No acute changes since last assessment. VSS. CB in reach. Pt did ambulate in valentin this shift and use incentive spirometer. Pain meds given per may. Dsgs changed to venita drain sites this shift. NAD.
[2021-09-21] VITALS (7 sets, daily range): BP systolic 115–141; BP diastolic 70–80; PULSE 64–77; RESP 16–17; TEMP 36.9–37.2; O2SAT 90–97; BMI 23.7
--- NOTE | 2021-09-21 03:57 | PC.NURSE ---
Addendum entered by Stephanie Espinoza RN 09/21/21 05:55: Patient sounds overloaded this am. Crackles noted with expiatory wheezing, wet cough, scrotum is edematous. Patient complaint of sob however sating above 90% on room air. RT giving neb now. Shraddha Flower new order of 80mg lasix iv obtained and okayed to hold fluids at this time. Original Note: Patient A&Ox4. Patient medicated for ABD pain per MAY. Patient ambulated in room this shift and used incentives spirometer. Dov drains in place minimal drainage noted. Abd incision are open to air, look CDI. Patient has tolerated room air with sats above the 90%.
[2021-09-21 06:44] LABS: Basophils % 0.6 % (0.1-2.0); Chloride 112 mmol/L (98-107); Eosinophils # 0.1 K/mm3 (0.0-0.4); Eosinophils % 1.5 % (0.1-12.0); Hematocrit 29.5 % (42.0-52.0); Hemoglobin 9.2 g/dL (14.1-18.0); Lymphocytes # 0.8 K/mm3 (0.7-4.5); Lymphocytes % 11.6 % (10-50); Mean Corpuscular HGB Conc 31.2 g/dL (31.8-35.4); Mean Corpuscular Hemoglobin 29.6 pg (27.0-31.2); Mean Corpuscular Volume 94.9 fl (80-94); Mean Platelet Volume 8.1 fl (7.4-10.4); Monocytes # 0.4 K/mm3 (0.1-1.0); Monocytes % 5.6 % (1.7-9.3); Neutrophils # 5.5 K/mm3 (1.8-7.8); Neutrophils % 80.6 % (37.0-80.0); Platelet Count 391 K/mm3 (142-424); Red Blood Count 3.11 M/mm3 (4.60-6.20); Red Cell Distribution Width 15.3 % (11.5-17.5); White Blood Count 6.9 K/mm3 (4.8-10.8)
[2021-09-21 06:45] LABS: Potassium 3.8 mmoL/L (3.5-5.1); Sodium 136 mmol/L (136-145)
[2021-09-21 06:47] LABS: Alanine Aminotransferase 25 U/L (12-78); Alkaline Phosphatase 77 U/L (38-126); Anion Gap 8.8 mEq/L (5-15); Aspartate Amino Transferase 39 U/L (17-59); Bilirubin,Total 0.4 mg/dl (0.2-1.3); Blood Urea Nitrogen 13 mg/dl (9-20); Carbon Dioxide 19 mmol/L (22.0-30.0); Creatinine Clearance Estimated 63 mL/min (50-200); Estimated Glomerular Filt Rate 51 ml/min (>60); GFR (African American) 61 ML/MIN (>60); Globulin 3.1 g/dL (1.3-3.2); Total Protein,Serum 6.1 g/dl (6.3-8.2)
[2021-09-21 06:54] LABS: Calcium 8.2 mg/dl (8.4-10.2); Glucose 101 mg/dl (74-100)
--- NOTE | 2021-09-21 08:30 | P.PN_ITS ---
Internal Medicine - PN: Subj *Date: 09/21/21 *Time: 08:30 Interval history: Patient had a good night except for some symptoms of fluid overload, scrotal edema and pedal edema after several days of IV fluids. He was given 80 mg IV Lasix this morning at 5:00 and is already urinated about 2 L. He feels much better and breathing is good. PT/OT evaluations reviewed. Discussed case personally with surgery service. Exam Vital signs and Labs for Last 24 Hours: Temp Pulse Resp BP Pulse Ox 98.8 F 67 17 115/76 97 09/21/21 07:38 09/21/21 07:38 09/21/21 07:38 09/21/21 07:38 09/21/21 07:38 Laboratory Results - last 24 hr 09/21/21 06:27: WBC 6.9, RBC 3.11 L, Hgb 9.2 L, Hct 29.5 L, MCV 94.9 H, MCH 29.6, MCHC 31.2 L, RDW 15.3, Plt Count 391 D, MPV 8.1, Neut % (Auto) 80.6 H, Lymph % (Auto) 11.6, [place] % (Auto) 5.6, Eos % (Auto) 1.5, Baso % (Auto) 0.6, Neut # (Auto) 5.5, Lymph # (Auto) 0.8, [place] # (Auto) 0.4, Eos # (Auto) 0.1, Baso # (Auto) 0.0 09/21/21 06:27: Sodium 136, Potassium 3.8, Chloride 112 H, Carbon Dioxide 19 L, Anion Gap 8.8, BUN 13, Creatinine 1.40 H, Estimated Creat Clear 63, Estimated GFR 51 L, Est GFR ( Amer) 61, Glucose 101 H, Calcium 8.2 L, Total Bilirubin 0.4, AST 39, ALT 25, Alkaline Phosphatase 77, Total Protein 6.1 L, Albumin 3.0 L D, Globulin 3.1, Albumin/Globulin Ratio 1.0 L I & O for Last 24 hours: Intake & Output 09/18/21 09/19/21 09/20/21 09/21/21 11:59 11:59 11:59 11:59 Intake Total 5004 / 5004 1425 / 1425 3604 / 3604 2113 / 2113 Output Total 1705 / 1705 1400 / 1400 1435 / 1435 1380 / 1380 Balance 3299 / 3299 25 / 25 2169 / 2169 733 / 733 Weight 189 lb 9.561 oz 193 lb 7 oz 201 lb 4.8 oz 190 lb 11.2 oz Narrative: Lungs are clear, heart rate regular, abdomen soft, MIKE drain in place. Surgical exam noted. No edema or clubbing. Patient appears much more active and vigorous this morning Assessment and Plan (1) Septic shock Status: Acute Category: Medical Code(s): A41.9 - Sepsis, unspecified organism; R65.21 - Severe sepsis with septic shock (2) Acute kidney injury superimposed on CKD Status: Acute Category: Medical Code(s): N17.9 - Acute kidney failure, unspecified; N18.9 - Chronic kidney disease, unspecified (3) Panlobular emphysema Status: Acute Category: Medical Code(s): J43.1 - Panlobular emphysema (4) Acute cholecystitis due to biliary calculus Status: Acute Category: Medical Code(s): K80.00 - Calculus of gallbladder with acute cholecystitis without obstruction (5) Gallbladder hydrops Status: Acute Category: Medical Code(s): K82.1 - Hydrops of gallbladder (6) Postoperative anemia Status: Acute Category: Medical Code(s): D64.9 - Anemia, unspecified - Assessment and plan all Dx Assessment and Plan for all problems:: 1. Sepsis-improving. 2. Postoperative anemia superimposed on anemia from chronic kidney disease- stable with hemoglobin increase this morning. 3. Fluid overload-resolved with Lasix. 4. Infectious disease issues-continue antibiotics. 5. Possible discharge tomorrow if handles improve diet today.
--- NOTE | 2021-09-21 09:01 | HMH.GSPN ---
Subjective Patient reports: no new complaints, feels better Progress Note: A&P (1) Septic shock Status: Acute (2) Acute kidney injury superimposed on CKD Status: Acute (3) Panlobular emphysema Status: Acute (4) Acute cholecystitis due to biliary calculus Status: Acute Assessment and plan: Overall, doing well status post open cholecystectomy. Continue to slowly advance diet (5) Gallbladder hydrops Status: Acute (6) Postoperative anemia Status: Acute Exam Vital signs and Labs for Last 24 Hours: Temp Pulse Resp BP Pulse Ox 98.8 F 67 17 115/76 97 09/21/21 07:38 09/21/21 07:38 09/21/21 07:38 09/21/21 07:38 09/21/21 07:38 Laboratory Results - last 24 hr 09/21/21 06:27: WBC 6.9, RBC 3.11 L, Hgb 9.2 L, Hct 29.5 L, MCV 94.9 H, MCH 29.6, MCHC 31.2 L, RDW 15.3, Plt Count 391 D, MPV 8.1, Neut % (Auto) 80.6 H, Lymph % (Auto) 11.6, [place] % (Auto) 5.6, Eos % (Auto) 1.5, Baso % (Auto) 0.6, Neut # (Auto) 5.5, Lymph # (Auto) 0.8, [place] # (Auto) 0.4, Eos # (Auto) 0.1, Baso # (Auto) 0.0 09/21/21 06:27: Sodium 136, Potassium 3.8, Chloride 112 H, Carbon Dioxide 19 L, Anion Gap 8.8, BUN 13, Creatinine 1.40 H, Estimated Creat Clear 63, Estimated GFR 51 L, Est GFR ( Amer) 61, Glucose 101 H, Calcium 8.2 L, Total Bilirubin 0.4, AST 39, ALT 25, Alkaline Phosphatase 77, Total Protein 6.1 L, Albumin 3.0 L D, Globulin 3.1, Albumin/Globulin Ratio 1.0 L I & O for Last 24 hours: Intake & Output 09/18/21 09/19/21 09/20/21 09/21/21 11:59 11:59 11:59 11:59 Intake Total 5004 / 5004 1425 / 1425 3604 / 3604 2113 / 2113 Output Total 1705 / 1705 1400 / 1400 1435 / 1435 1380 / 1380 Balance 3299 / 3299 2169 / 2169 733 / 733 Weight 189 lb 9.561 oz 193 lb 7 oz 201 lb 4.8 oz 190 lb 11.2 oz - Constitutional no acute distress - *Routine Respiratory Exam Absent: respiratory distress - *Routine Cardiovascular Exam Absent: tachycardia - *Routine Abdominal Exam Comments: Vu-David drains in good position. Incision healing without sign of infection.
--- NOTE | 2021-09-21 09:02 | XR_ITS ---
FINAL REPORT CLINICAL HISTORY: fell on r hip, pain FINDINGS: RIGHT HIP Two views of the right hip including an AP pelvis demonstrate no acute fracture or dislocation. There is moderate right hip joint space narrowing. The femoral head has a normal smooth contour. The visualized bony structures are well aligned. No soft tissue abnormality is seen. An IM shannan and compression screw is present in the proximal left femur. IMPRESSION: Moderate right hip joint space narrowing. Reviewed, Interpreted and Dictated by Zeyad Marie MD Transcribed by Emani Redding Authenticated and [facility]
--- NOTE | 2021-09-21 09:03 | PC.NURSE ---
reported to md patient found sitting on bathroom floor stating he lost his balance and landed on r hip. md stated to get xray of the r hip.
--- NOTE | 2021-09-21 13:51 | DIET.NUTRFU ---
provided handout on low fat diet, reviewed and left in folder to continue until follow-up apt.
--- NOTE | 2021-09-21 14:30 | PC.NURSE ---
rounded on patient. he is sitting up in bed resting. has no concerns or questions. requested coffee with four sugar. encouraged him to ring out with any needs or concerns.
--- NOTE | 2021-09-21 14:49 | PC.NURSE ---
HE IS AOX4, ABLE TO MAKE NEEDS KNOWN TO STAFF. FELL THIS MORNING. RECEIVED HIP XRAY WHICH CAME BACK NEGATIVE FOR FRACTURE. Q30 MIN PT OBSERVATION IMPLEMENTED. BED ALARM IN PLACE. TOLERATING RA WELL WITH NO SOB. USING URINAL FOR ELIMINATION. MIKE DRAINS WITH MINIMAL 30 ML OUT. MIDLINE ABD INCISION C/D/I WITH SANCHEZ CRISTINA.
[2021-09-22] VITALS: BP 123/66; PULSE 63; RESP 17; TEMP 36.8; O2SAT 91
[2021-09-22 04:00] VITALS: BP 130/64; PULSE 64; RESP 17; TEMP 37.1; O2SAT 91
[2021-09-22 05:22] VITALS: BMI 21.1
[2021-09-22 06:18] VITALS: PULSE 61; PULSE 69; O2SAT 94
--- NOTE | 2021-09-22 06:30 | PC.NURSE ---
Patient has been A&O x3. Patient has been on q30min observation r/t fall. Patient on a bed alarm for safety. Dov drainges had 60ml each of dark green brown drainage.Patient abd incision seem free of infection and are open to air. Patient tolerating room air sating above 90%. Patient medicated for pain per mar. Patient ambulated in room. Patient did have BM this shift.
[2021-09-22 06:54] LABS: Basophils % 0.4 % (0.1-2.0); Eosinophils # 0.1 K/mm3 (0.0-0.4); Eosinophils % 1.2 % (0.1-12.0); Hematocrit 24.6 % (42.0-52.0); Hemoglobin 8.1 g/dL (14.1-18.0); Lymphocytes # 0.9 K/mm3 (0.7-4.5); Lymphocytes % 12.3 % (10-50); Mean Corpuscular HGB Conc 32.8 g/dL (31.8-35.4); Mean Corpuscular Volume 91.5 fl (80-94); Mean Platelet Volume 8.1 fl (7.4-10.4); Monocytes # 0.5 K/mm3 (0.1-1.0); Monocytes % 6.5 % (1.7-9.3); Neutrophils # 5.9 K/mm3 (1.8-7.8); Neutrophils % 79.5 % (37.0-80.0); Platelet Count 364 K/mm3 (142-424); Red Blood Count 2.68 M/mm3 (4.60-6.20); Red Cell Distribution Width 15.4 % (11.5-17.5); White Blood Count 7.4 K/mm3 (4.8-10.8)
[2021-09-22 07:05] LABS: Alanine Aminotransferase 17 U/L (12-78); Albumin Level 2.6 g/dl (3.5-5.0); Albumin/Globulin Ratio 0.9 (1.1-1.8); Alkaline Phosphatase 66 U/L (38-126); Anion Gap 8.8 mEq/L (5-15); Aspartate Amino Transferase 34 U/L (17-59); Blood Urea Nitrogen 15 mg/dl (9-20); Carbon Dioxide 20 mmol/L (22.0-30.0); Chloride 110 mmol/L (98-107); Creatinine Clearance Estimated 52 mL/min (50-200); Estimated Glomerular Filt Rate 47 ml/min (>60); GFR (African American) 56 ML/MIN (>60); Globulin 2.8 g/dL (1.3-3.2); Glucose 90 mg/dl (74-100); Potassium 3.8 mmoL/L (3.5-5.1); Sodium 135 mmol/L (136-145); Total Protein,Serum 5.4 g/dl (6.3-8.2)
[2021-09-22 07:07] LABS: Bilirubin,Total < 0.1 mg/dl (0.2-1.3)
[2021-09-22 07:53] VITALS: BP 129/73; PULSE 66; RESP 18; TEMP 37.1; O2SAT 96
--- NOTE | 2021-09-22 08:50 | HMH.DCSUM ---
General - General Admission date:: 09/16/21 Discharge date: 09/22/21 HPI HPI: 65-year-old white male who was admitted from September 14 through September cholelithiasis and cholecystitis, treated with a regimen and discharged with Augmentin with outpatient surgical evaluation pending. Unfortunately yesterday was found lying on his deck with multiple layers of clothing alternating heat, somewhat confused, brought to the emergency department where he was found to meet sepsis criteria with elevated white count, tachycardia and evidence of low blood pressure. Fluid resuscitation was given, Levophed was initiated and was transferred to [facility] for further evaluation. He is much clearer this morning vis-?-vis mental status, and has had no further episodes of either epileptiform activity or loss of consciousness. He states that his belly is somewhat improved. Hospital Course Hospital Course: Patient was admitted, and treatment for sepsis/SIRS was initiated. Patient responded well to fluid administration and was able to get off pressors. Surgery was consulted and went ahead and performed cholecystectomy. Procedure was converted to an open procedure because of necrosis and surgical technique issues. Please see ER notes for details. Surgery went well. The day following surgery biliary ductal scan was done to make sure there is no biliary leak and this looked great. Patient improved very nicely in a stepwise fashion over the next 3 to 4 days and had no further fevers. Patient has baseline anemia from chronic kidney disease and this was slightly exacerbated with his postoperative status with hemoglobin going down to 8 g. However this was stable over the last couple of days. This will be observed as an outpatient. Noted to have acute kidney injury on superimposed on his chronic kidney disease but this resolved and his creatinine went back to his baseline. Exam improved his functional status improved. He did have a fall yesterday when getting up by himself to go to the bathroom but had no injury. Hip x-ray showed arthritis but no evidence of fracture. This morning the patient is afebrile, has eaten well, and feels like he is ready to go home. I discussed case personally with surgery and they are agreeable with discharge plan. Elevated discharge home on Augmentin, Percocet for pain. Low-fat soft diet. He will have follow-up in my office and with surgical service next week. Objective Vital signs: Temp Pulse Resp BP Pulse Ox 98.8 F 66 18 129/73 96 09/22/21 07:53 09/22/21 07:53 09/22/21 07:53 09/22/21 07:53 09/22/21 07:53 no acute distress, thin, chronically ill appearing - *Routine HEENT Exam Head: Present: normocephalic Eye: Present: EOMI, PERRL ENT: Present: mucous membranes moist - *Routine Neck Exam Present: supple - *Routine Respiratory Exam Present: CTA bilaterally - *Routine Cardiovascular Exam Present: RRR - *Routine Abdominal Exam Present: soft, normoactive bowel sounds, tenderness Comments: Mild tenderness around surgical site the rest of the abdomen is nontender. No redness or streaking from surgical incision. - *Routine Extremities Exam Absent: cyanosis, clubbing, edema - *Routine Skin Exam Present: warm. Absent: rash - Detailed Eye Exam Eyelids: Bilateral normal inspection Results Labs on day of discharge: Labs from last 24 hours 09/22/21 09/22/21 06:45 06:45 WBC 7.4 RBC 2.68 L Hgb 8.1 L Hct 24.6 L MCV 91.5 MCH 30.0 MCHC 32.8 RDW 15.4 Plt Count 364 MPV 8.1 Neut % (Auto) 79.5 Lymph % (Auto) 12.3 [place] % (Auto) 6.5 Eos % (Auto) 1.2 Baso % (Auto) 0.4 Neut # (Auto) 5.9 Lymph # (Auto) 0.9 [place] # (Auto) 0.5 Eos # (Auto) 0.1 Baso # (Auto) 0.0 Sodium 135 L Potassium 3.8 Chloride 110 H Carbon Dioxide 20 L Anion Gap 8.8 BUN 15 Creatinine 1.50 H Estimated Creat Clear 52 Estimated GFR 47 L Est GFR (Afr
--- NOTE | 2021-09-22 09:26 | HMH.GSPN ---
Subjective Patient reports: no new complaints Progress Note: A&P (1) Septic shock Status: Resolved (2) Acute kidney injury superimposed on CKD Status: Resolved (3) Panlobular emphysema Status: Chronic (4) Acute cholecystitis due to biliary calculus Status: Resolved Assessment and plan: Overall, doing well status post diagnostic laparoscopy followed by open cholecystectomy. No obvious leak noted on postoperative hepatobiliary scan. Small amount of bilious fluid versus old blood noted in Vu-David drains. Discharge home as per primary service today with close outpatient follow-up. Keep Vu-David drains in place for now. (5) Gallbladder hydrops Status: Acute (6) Postoperative anemia Status: Acute Exam Vital signs and Labs for Last 24 Hours: Temp Pulse Resp BP Pulse Ox 98.8 F 66 18 129/73 96 09/22/21 07:53 09/22/21 07:53 09/22/21 07:53 09/22/21 07:53 09/22/21 07:53 Laboratory Results - last 24 hr 09/22/21 06:45: WBC 7.4, RBC 2.68 L, Hgb 8.1 L, Hct 24.6 L, MCV 91.5, MCH 30.0, MCHC 32.8, RDW 15.4, Plt Count 364, MPV 8.1, Neut % (Auto) 79.5, Lymph % (Auto) 12.3, [place] % (Auto) 6.5, Eos % (Auto) 1.2, Baso % (Auto) 0.4, Neut # (Auto) 5.9, Lymph # (Auto) 0.9, [place] # (Auto) 0.5, Eos # (Auto) 0.1, Baso # (Auto) 0.0 09/22/21 06:45: Sodium 135 L, Potassium 3.8, Chloride 110 H, Carbon Dioxide 20 L, Anion Gap 8.8, BUN 15, Creatinine 1.50 H, Estimated Creat Clear 52, Estimated GFR 47 L, Est GFR ( Amer) 56 L, Glucose 90, Calcium 8.0 L, Total Bilirubin < 0.1 L, AST 34, ALT 17 D, Alkaline Phosphatase 66, Total Protein 5.4 L, Albumin 2.6 L D, Globulin 2.8, Albumin/Globulin Ratio 0.9 L I & O for Last 24 hours: Intake & Output 09/19/21 09/20/21 09/21/21 09/22/21 11:59 11:59 11:59 11:59 Intake Total 1425 / 1425 3604 / 3604 2113 / 2113 0 / 0 Output Total 1400 / 1400 1435 / 1435 2380 / 2380 1550 / 1550 Balance 2169 / 2169 -267 / -267 -1550 / -1550 Weight 193 lb 7 oz 201 lb 4.8 oz 190 lb 11.2 oz 170 lb Microbiology Reports for the Last 24 Hours: Microbiology 09/16/21 17:00 Blood Blood Culture - Final NO GROWTH AFTER 5 DAYS 09/16/21 17:00 Blood Blood Culture - Final NO GROWTH AFTER 5 DAYS - Constitutional no acute distress - *Routine Respiratory Exam Absent: respiratory distress - *Routine Cardiovascular Exam Absent: tachycardia - *Routine Abdominal Exam Present: soft Comments: Vu-David drains in place. Small amount of bilious drainage versus old blood in both Vu-David drains. Incision healing without sign of infection.
[2021-09-22 10:10] VITALS: PULSE 71; PULSE 79; O2SAT 94
[2021-09-22 10:44] VITALS: BP 121/73; PULSE 87; RESP 18; TEMP 36.6; O2SAT 98
--- NOTE | 2021-09-22 12:46 | PC.NURSE ---
pt has been discahrged via wheelchair from [facility]. @ bedside. education on how to empty and record drainage of abhijit venita drains given. demonstrated back to me after education. voiced understanding of follow up appts. denies any pain @ this time
[2021-09-25 01:05] LABS: Levetiracetam (Keppra) 17.4 ug/mL (10.0-40.0)
--- NOTE | 2021-09-26 14:37 | CARE MANAGER ---
Attempted to contact patient related to hospital discharge. KAYLEIGH Li
== END 2021-09-22 12:46 | disposition home or self-care (01) | DRG 853 ==
LOC: ER 18:26 → 2ND 19:08
PROVIDERS: Surgery; Admitting Provider Internal Medicine Adolescent Medicine; Emergency Provider Emergency Medicine; PCP Internal Medicine Adolescent Medicine; Visit Provider Internal Medicine Adolescent Medicine
PROC: 0FT44ZZ Resection of Gallbladder, Percutaneous Endoscopic Approach (ICD-10-PCS; CPT 47562; principal; 2021-09-18 14:30)
DX: A41.9 Sepsis, unspecified organism (principal); R65.21 Severe sepsis with septic shock; N17.9 Acute kidney failure, unspecified; K80.10 Calculus of gallbladder with chronic cholecystitis without obstruction; F32.A Depression, unspecified; Z87.442 Personal history of urinary calculi; F17.210 Nicotine dependence, cigarettes, uncomplicated; Z85.528 Personal history of other malignant neoplasm of kidney; E03.9 Hypothyroidism, unspecified; N18.9 Chronic kidney disease, unspecified; J43.1 Panlobular emphysema; D64.9 Anemia, unspecified
CPT/HCPCS: 47600; 36415; 71045; 73502; 78226; 80048; 80053; 80076; 80177; 81001; 83605; 83690; 84484; 85007; 85025; 87040; 94640; 94760; 97162; 97166; 97530; 99285; A9537; C9803; J1335; J2505; J2710; U0003; U0005

== ENCOUNTER → 2021-11-13 13:28 | Outpatient (CLI) | payer BC, SELFPAY ==
--- NOTE | 2021-11-13 13:36 | CT_ITS ---
FINAL REPORT CLINICAL HISTORY: LT HIP PAIN/ left groin pain COMPARISON: Abdomen and pelvis CT dated September 14, 2021 FINDINGS: CT LEFT HIP WITHOUT CONTRAST Technique: Axial images through the left hip were performed by computed tomography. Sagittal and coronal reconstruction images were performed. This study was performed with techniques to keep radiation doses as low as reasonably achievable (ALARA). Individualized dose reduction techniques using automated exposure control or adjustment of mA and/or kV according to the patient's size were employed. There are postoperative changes of the proximal left femur. There is mild degenerative change. There are nondisplaced fractures of the bilateral inferior pubic rami medially. There is abnormal soft tissue at the posterior bladder dome worrisome for neoplasm. There is a low-attenuation area in the left inguinal subcutaneous tissues that could represent postoperative change versus fluid collection. IMPRESSION: Nondisplaced fractures of the bilateral inferior pubic rami medially. Abnormal soft tissue in the posterior bladder dome worrisome for neoplasm. Recommend correlation with cystoscopy if not already performed. Postoperative change versus fluid collection in the left inguinal subcutaneous tissues. Reviewed, Interpreted and Dictated by Brian Pierre III, MD Transcribed by Mark Campa Authenticated and [facility]
== END ==
PROVIDERS: PCP Internal Medicine Adolescent Medicine; Visit Provider Internal Medicine Adolescent Medicine
DX: M25.552 Pain in left hip (principal)
CPT/HCPCS: 73700

== ENCOUNTER → 2022-03-25 14:26 | Outpatient (CLI) | payer BC, SELFPAY ==
--- NOTE | 2022-03-25 14:37 | XR_ITS ---
FINAL REPORT CLINICAL HISTORY: PAIN COMPARISON: The CT from November 2021 FINDINGS: AP and frog leg views of the left hip were obtained. There are postoperative changes from ORIF of the left hip. Hardware is intact. There is an old fracture of the inferior left pubic ramus. There is no acute fracture or dislocation. There is degenerative disease of the hip. Soft tissues are within normal limits. IMPRESSION: Postoperative and degenerative changes. Reviewed, Interpreted and Dictated by Cordelia Rosenberg MD Transcribed by Mark Campa Authenticated and [facility]
--- NOTE | 2022-03-25 14:37 | XR_ITS ---
FINAL REPORT CLINICAL HISTORY: PAIN FINDINGS: Multiple views of the left femur were obtained. There is postoperative change in the proximal femur. There is no acute fracture or dislocation. Visualized joint spaces are intact. There is no acute soft tissue abnormality. IMPRESSION: No acute process. Reviewed, Interpreted and Dictated by Cordelia Rosenberg MD Transcribed by Mark Campa Authenticated and . [facility]
--- NOTE | 2022-03-25 14:37 | XR_ITS ---
FINAL REPORT CLINICAL HISTORY: PAIN FINDINGS: AP, oblique and lateral views of the right foot were obtained. There is no prior exam for comparison. The bones are osteopenic. There is deformity of the distal 5th metatarsal and the 2nd metatarsal shaft that may be sequela of old injury. There is no acute fracture or dislocation. There is mild multi joint degenerative disease. There is soft tissue edema of the midfoot and forefoot. IMPRESSION: No acute osseous abnormality of the right foot. Reviewed, Interpreted and Dictated by Cordelia Rosenberg MD Transcribed by Mark Campa Authenticated and . [facility]
== END ==
PROVIDERS: PCP Internal Medicine Adolescent Medicine; Visit Provider Internal Medicine Adolescent Medicine
DX: M25.552 Pain in left hip (principal); M79.671 Pain in right foot
CPT/HCPCS: 73502; 73552; 73630

== ENCOUNTER → 2022-07-11 07:49 | Outpatient (CLI) | payer BC, SELFPAY ==
[2022-07-11 07:34] LABS: Basophils % 0.7 % (0.1-2.0); Eosinophils # 0.2 K/mm3 (0.0-0.4); Eosinophils % 4.2 % (0.1-12.0); Hematocrit 33.7 % (42.0-52.0); Hemoglobin 10.6 g/dL (14.1-18.0); Lymphocytes # 1.3 K/mm3 (0.7-4.5); Lymphocytes % 25.2 % (10-50); Mean Corpuscular HGB Conc 31.5 g/dL (31.8-35.4); Mean Corpuscular Hemoglobin 29.8 pg (27.0-31.2); Mean Corpuscular Volume 94.6 fl (80-94); Monocytes # 0.5 K/mm3 (0.1-1.0); Monocytes % 8.9 % (1.7-9.3); Neutrophils # 3.2 K/mm3 (1.8-7.8); Platelet Count 216 K/mm3 (142-424); Red Blood Count 3.56 M/mm3 (4.60-6.20); Red Cell Distribution Width 15.1 % (11.5-17.5); White Blood Count 5.3 K/mm3 (4.8-10.8)
--- NOTE | 2022-07-11 07:52 | MR_ITS ---
FINAL REPORT CLINICAL HISTORY: HX RENAL CELL CANCER. SYNCOPE AND COLLAPSE COMPARISON: 06/27/2021 FINDINGS: Multi planar MR imaging was obtained through the brain without contrast. The midline structures appear intact. There is no evidence of Chiari malformation. On T2 and flair axial images the brain parenchyma is homogeneous. On diffusion-weighted images there is no evidence of restricted diffusion. The visualized paranasal sinuses demonstrate normal signal voids. The seventh and eighth nerve root complexes are intact. IMPRESSION: Essentially unremarkable nonenhanced brain MRI. Reviewed, Interpreted and Dictated by Zeyad Marie MD Transcribed by Cheryl Parada Authenticated and [facility]
[2022-07-11 08:02] LABS: Chloride 96 mmol/L (98-107); Sodium 136 mmol/L (136-145)
[2022-07-11 08:05] LABS: Alanine Aminotransferase 13 U/L (12-78); Albumin Level 3.7 g/dl (3.5-5.0); Albumin/Globulin Ratio 1.4 (1.1-1.8); Alkaline Phosphatase 83 U/L (38-126); Aspartate Amino Transferase 23 U/L (17-59); Bilirubin,Total 0.4 mg/dl (0.2-1.3); Blood Urea Nitrogen 32 mg/dl (9-20); Calcium 8.4 mg/dl (8.4-10.2); Carbon Dioxide 29 mmol/L (22.0-30.0); Cholesterol 144 mg/dl (140-200); Estimated Glomerular Filt Rate 33 ml/min (>60); GFR (African American) 40 ML/MIN (>60); Globulin 2.6 g/dL (1.3-3.2); Glucose 88 mg/dl (74-100); Total Protein,Serum 6.3 g/dl (6.3-8.2); Triglycerides 93 mg/dl (30-150); VLDL Cholesterol 19 mg/dL (0-40)
[2022-07-11 08:06] LABS: Chol/HDL Ratio 3.2 (1-3.5); HDL Cholesterol 45 mg/dl (40-60); Magnesium 2.2 mg/dl (1.6-2.3)
[2022-07-11 08:17] LABS: Direct LDL Cholesterol 84.16 mg/dL (100-129)
--- NOTE | 2022-07-11 09:08 | CT_ITS ---
FINAL REPORT TECHNIQUE: After the administration of oral and intravenous contrast, axial images were obtained through the abdomen and pelvis by computed tomography. The study was performed with techniques to keep radiation dose as low as reasonably achievable, (ALARA). Individual dose reduction techniques using automated exposure control or adjustment of mA and/or kV according to the patient's size were employed. CLINICAL HISTORY: renal cell cancer COMPARISON: 09/14/2021 FINDINGS: Abdomen: There are multiple well-circumscribed low-attenuation foci in the liver. Individual lesions of measure up to 11 mm. These were present on the prior but not as well seen due to lack of contrast. Findings are stable, probably related to benign cysts. The patient is status post cholecystectomy. The spleen and pancreas are unremarkable. There is a moderate periampullary duodenal diverticulum. There is a benign-appearing cyst in the superior pole of the right kidney measuring 5.1 cm. The left kidney is absent. The adrenals are normal. The aorta is normal in caliber. There is no free fluid or adenopathy. Pelvis: The appendix is not identified. There is a large amount of stool throughout the colon. There is a large, lobular mass in the urinary bladder measuring 5.6 x 4.2 cm highly concerning for malignancy. There appears to be a 2nd separate mass in the posterior urinary bladder measuring 1.3 cm in greatest dimension. Finding is best seen on image 81 of series 2. There is diffuse bladder wall thickening. Findings are highly concerning for primary urinary bladder neoplasm. Orthopedic hardware is seen in the proximal left femur. There is no free fluid or adenopathy. IMPRESSION: Masses in the urinary bladder highly concerning for primary neoplasm. Urologic evaluation is recommended. Benign-appearing cyst in the right kidney. Left kidney is surgically absent. Reviewed, Interpreted and Dictated by Zeyad Marie MD Transcribed by Shonna Lion Authenticated and . [facility]
--- NOTE | 2022-07-11 09:08 | CT_ITS ---
FINAL REPORT TECHNIQUE: Axial images were obtained through the chest without contrast. This study was performed with techniques to keep radiation doses as low as reasonably achievable (ALARA). Individualized dose reduction techniques using automated exposure control or adjustment of mA and/or kV according to the patient's size were employed. CLINICAL HISTORY: RENAL CELL CANCER COMPARISON: 03/05/2021 FINDINGS: There are a few small scattered mediastinal lymph nodes. Again identified are ground-glass opacities, particularly in the right upper lobe which are similar to previous. Mild interstitial opacities are seen at the bases. Again identified is pulmonary scarring posteriorly which is stable. No new masses are identified. Again identified is a mild compression deformity of the superior endplate of T3 which is stable. There is marked compression deformity of T9 measuring 80%, new since previous. Sclerosis is present. There is moderate anterior osteophyte formation throughout the thoracic spine. IMPRESSION: Stable appearing findings in both lungs which appear chronic. New, significant compression deformity of T9. No definite bony erosion is identified. Findings may be due to an insufficiency fracture. Reviewed, Interpreted and Dictated by Zeyad Marie MD Transcribed by Shonna Lion Authenticated and . [facility]
[2022-07-20 06:04] LABS: Testosterone, Total, LC/MS 500 ng/dL (.)
== END ==
PROVIDERS: PCP Internal Medicine Adolescent Medicine; Visit Provider Internal Medicine Adolescent Medicine
DX: C64.9 Malignant neoplasm of unspecified kidney, except renal pelvis (principal); G40.909 Epilepsy, unspecified, not intractable, without status epilepticus
CPT/HCPCS: 36415; 70551; 71250; 74177; 80053; 80061; 83735; 84403; 84443; 85025; Q9967

== ENCOUNTER 2022-11-02 14:31 | Inpatient (IN) | payer BC, MEDICARE, SELFPAY ==
[2022-11-02] VITALS (8 sets, daily range): BP systolic 101–153; BP diastolic 57–101; PULSE 63–76; RESP 14–22; TEMP 36.8–37.2; O2SAT 90–99; BMI 18.7; BMI 18.4
[2022-11-02 15:10] LABS: Basophils % 0.1 % (0.1-2.0); Eosinophils % 0.3 % (0.1-12.0); Hematocrit 30.8 % (42.0-52.0); Hemoglobin 9.8 g/dL (14.1-18.0); Lymphocytes # 0.7 K/mm3 (0.7-4.5); Lymphocytes % 5.9 % (10-50); Mean Corpuscular HGB Conc 31.8 g/dL (31.8-35.4); Mean Corpuscular Hemoglobin 30.1 pg (27.0-31.2); Mean Corpuscular Volume 94.6 fl (80-94); Mean Platelet Volume 7.8 fl (7.4-10.4); Monocytes # 0.7 K/mm3 (0.1-1.0); Monocytes % 6.4 % (1.7-9.3); Neutrophils # 9.9 K/mm3 (1.8-7.8); Neutrophils % 87.3 % (37.0-80.0); Platelet Count 334 K/mm3 (142-424); Red Blood Count 3.26 M/mm3 (4.60-6.20); Red Cell Distribution Width 15.1 % (11.5-17.5); White Blood Count 11.4 K/mm3 (4.8-10.8)
[2022-11-02 15:12] LABS: MANUAL DIFFERENTIAL MANUAL DIFFERENTIAL (MANUAL DIFF)
--- NOTE | 2022-11-02 15:13 | XR_ITS ---
PROCEDURE INFORMATION: Exam: XR Chest Exam date and time: 11/02/2022 4:13 PM Age: 67 years old Clinical indication: Injury or trauma; Fall; Blunt trauma (contusions or hematomas); Additional info: Fall, down >12 hr TECHNIQUE: Imaging protocol: Radiologic exam of the chest. Views: 1 view. COMPARISON: CT CHEST WO CON 11/02/2022 4:12 PM FINDINGS: Lungs: Unremarkable. No consolidation. Pleural spaces: Unremarkable. No pleural effusion. No pneumothorax. Heart/Mediastinum: Unremarkable. No cardiomegaly. Bones/joints: Old, healed right rib fractures noted. No acute fracture evident. IMPRESSION: No acute disease
--- NOTE | 2022-11-02 15:13 | XR_ITS ---
PROCEDURE INFORMATION: Exam: XR Pelvis Exam date and time: 11/02/2022 4:13 PM Age: 67 years old Clinical indication: Injury or trauma; Fall; Blunt trauma (contusions or hematomas); Bilateral; Hip; Additional info: Fall, down >12 hr TECHNIQUE: Imaging protocol: Radiologic exam of the pelvis. Views: 1 or 2 view. COMPARISON: CT ABDOMEN PELVIS WO CON 11/02/2022 4:12 PM FINDINGS: Bones/joints: Osseous alignment is normal. No acute fracture. Mild degenerative changes in both hips. Orthopedic screw noted in the proximal left femur. Soft tissues: Unremarkable. IMPRESSION: No acute abnormality
--- NOTE | 2022-11-02 15:13 | CT_ITS ---
PROCEDURE INFORMATION: Exam: CT Head Without Contrast Exam date and time: 11/02/2022 4:07 PM Age: 67 years old Clinical indication: Injury or trauma; Fall; Blunt trauma (contusions or hematomas); Consciousness not specified; Additional info: Fall, down >12 hr TECHNIQUE: Imaging protocol: Computed tomography of the head without contrast. Radiation optimization: All CT scans at this facility use at least one of these dose optimization techniques: automated exposure control; mA and/or kV adjustment per patient size (includes targeted exams where dose is matched to clinical indication); or iterative reconstruction. REPORTING DATA: Count of CT and Cardiac NM exams in prior 12 months: This patient has received 3 known CTs and 0 known cardiac nuclear medicine studies in the 12 months prior to the current study. COMPARISON: MR HEAD/BRAIN WO CON 07/11/2022 8:18 AM FINDINGS: Brain: Moderate generalized cerebral atrophy. No intracranial mass, hemorrhage or evidence of acute ischemia. Cerebral ventricles: No ventriculomegaly. Paranasal sinuses: Visualized sinuses are unremarkable. No fluid levels. Mastoid air cells: Visualized mastoid air cells are well aerated. Bones/joints: Unremarkable. No acute fracture. Soft tissues: Unremarkable. IMPRESSION: No acute intracranial abnormality
--- NOTE | 2022-11-02 15:13 | CT_ITS ---
PROCEDURE INFORMATION: Exam: CT Abdomen And Pelvis Without Contrast Exam date and time: 11/02/2022 4:12 PM Age: 67 years old Clinical indication: Injury or trauma; Fall; Blunt; Generalized; Additional info: Fall, down >12 hr, abd pain and profuse diarrhea TECHNIQUE: Imaging protocol: Computed tomography of the abdomen and pelvis without contrast. Radiation optimization: All CT scans at this facility use at least one of these dose optimization techniques: automated exposure control; mA and/or kV adjustment per patient size (includes targeted exams where dose is matched to clinical indication); or iterative reconstruction. REPORTING DATA: Count of CT and Cardiac NM exams in prior 12 months: This patient has received 3 known CTs and 0 known cardiac nuclear medicine studies in the 12 months prior to the current study. COMPARISON: CT ABDOMEN PELVIS W CON 07/11/2022 11:48 AM FINDINGS: Liver: Normal. No mass. Gallbladder and bile ducts: Gallbladder is surgically absent. Pancreas: Normal. No ductal dilation. Spleen: Normal. No splenomegaly. Adrenal glands: Normal. No mass. Kidneys and ureters: Left kidney appears to be surgically absent. 4.5 cm simple cyst of the upper pole of the right kidney appears stable. Stomach and bowel: Diffuse colonic wall thickening and surrounding fatty stranding, suggesting colitis. No obstruction. No mucosal thickening. Appendix: No evidence of appendicitis. Intraperitoneal space: Unremarkable. No free air. No significant fluid collection. Vasculature: Diffuse dense atherosclerotic calcification of the aorta and iliac arteries. No evidence of aneurysm. Lymph nodes: Unremarkable. No enlarged lymph nodes. Urinary bladder: Unremarkable as visualized. Reproductive: Unremarkable as visualized. Bones/joints: Slight lumbar scoliosis. Mild multilevel degenerative disc changes. No vertebral body compression or acute fracture. Old, healed bilateral pubic rami fractures. Moderate degenerative changes in the bilateral sacroiliac joints. Soft tissues: Evidence of prior ventral hernia repair. IMPRESSION: 1. Findings suggesting diffuse colitis. No evidence of bowel obstruction. 2. No acute posttraumatic changes evident. Chronic osseous and atherosclerotic changes noted
--- NOTE | 2022-11-02 15:13 | CT_ITS ---
PROCEDURE INFORMATION: Exam: CT Cervical Spine Without Contrast Exam date and time: 11/02/2022 4:10 PM Age: 67 years old Clinical indication: Injury or trauma; Fall; Blunt trauma; Additional info: Fall, down >12 hr TECHNIQUE: Imaging protocol: Computed tomography of the cervical spine without contrast. Radiation optimization: All CT scans at this facility use at least one of these dose optimization techniques: automated exposure control; mA and/or kV adjustment per patient size (includes targeted exams where dose is matched to clinical indication); or iterative reconstruction. REPORTING DATA: Count of CT and Cardiac NM exams in prior 12 months: This patient has received 3 known CTs and 0 known cardiac nuclear medicine studies in the 12 months prior to the current study. COMPARISON: CT HEAD/BRAIN WO CON 11/02/2022 4:07 PM FINDINGS: Bones/joints: Osseous alignment is normal. No acute fracture. Significant degenerative changes noted in the atlantoaxial joint as well as at the C4-C5, C5-C6 and C6-C7 disc levels. Moderate multilevel bilateral facet arthropathy. Lungs: Lung apices are normal. Soft tissues: Unremarkable. IMPRESSION: Significant degenerative changes noted. No acute fracture.
--- NOTE | 2022-11-02 15:13 | PC.NURSE ---
notified RT of VBG order
[2022-11-02 15:16] LABS: Alanine Aminotransferase 57 U/L (12-78); Albumin Level 3.7 g/dl (3.5-5.0); Albumin/Globulin Ratio 1.2 (1.1-1.8); Alkaline Phosphatase 69 U/L (38-126); Anion Gap 19.2 mEq/L (5-15); Aspartate Amino Transferase 219 U/L (17-59); Bilirubin,Total 0.5 mg/dl (0.2-1.3); Blood Urea Nitrogen 47 mg/dl (9-20); Calcium 8.6 mg/dl (8.4-10.2); Carbon Dioxide 22 mmol/L (22.0-30.0); Chloride 103 mmol/L (98-107); Creatinine Clearance Estimated 30 mL/min (50-200); Estimated Glomerular Filt Rate 30 ml/min (>60); GFR (African American) 36 ML/MIN (>60); Globulin 3.2 g/dL (1.3-3.2); Glucose 114 mg/dl (74-100); Lipase 15 U/L (23-300); Potassium 4.2 mmoL/L (3.5-5.1); Sodium 140 mmol/L (136-145); Total Protein,Serum 6.9 g/dl (6.3-8.2)
--- NOTE | 2022-11-02 15:16 | PC.NURSE ---
fsbs 175 at this time
[2022-11-02 15:17] LABS: Magnesium 2.4 mg/dl (1.6-2.3)
--- NOTE | 2022-11-02 15:17 | PC.NURSE ---
Respiratory notified of VBG order, blood in lab.
--- NOTE | 2022-11-02 15:17 | PC.NURSE ---
Dr. Douglas would like q15min FS at this time.
--- NOTE | 2022-11-02 15:19 | ECG_ITS ---
APPROVED REPORT Exam: Resting ECG HR:66 bpm ECG Measurements Heart Rate 66 AXES NC 148 P 58 QRSd 98 QRS 65 QT 409 T -22 QTc 422 Conclusion SINUS RHYTHM PROBABLE ANTEROLATERAL MYOCARDIAL INFARCTION , PROBABLY OLD [35 ms Q WAVE IN I/aVL/V3-V6] ABNORMAL ECG UNCONFIRMED REPORT Electronically signed by : Edgardo Flower MD 11/05/2022 17:25:47
[2022-11-02 15:20] LABS: VBG Base Excess -2.8 mmol/L (-2.4-2.3); VBG HCO3 23.8 mmol/L (23-30); VBG PCO2 51.2 mmol/L (35-51); VBG PH 7.29 mmol/L (7.31-7.41); VBG PO2 61.3 mmol/L (28-40); VBG Total CO2 25.4 mmol/L (23-27)
--- NOTE | 2022-11-02 15:27 | CT_ITS ---
PROCEDURE INFORMATION: Exam: CT Chest Without Contrast; Diagnostic Exam date and time: 11/02/2022 4:12 PM Age: 67 years old Clinical indication: Injury or trauma; Fall; Blunt trauma (contusions or hematomas); Additional info: Fall, AMS TECHNIQUE: Imaging protocol: Diagnostic computed tomography of the chest without contrast. Radiation optimization: All CT scans at this facility use at least one of these dose optimization techniques: automated exposure control; mA and/or kV adjustment per patient size (includes targeted exams where dose is matched to clinical indication); or iterative reconstruction. REPORTING DATA: Count of CT and Cardiac NM exams in prior 12 months: This patient has received 3 known CTs and 0 known cardiac nuclear medicine studies in the 12 months prior to the current study. COMPARISON: CT CHEST WO CON 07/11/2022 11:28 AM FINDINGS: Lungs: Mild partial compressive atelectasis in the periphery of the right lung. No significant active pulmonary infiltrate. Pleural spaces: Unremarkable. No pneumothorax. No pleural effusion. Heart: Unremarkable. No cardiomegaly. No pericardial effusion. Coronary arteries: Moderate coronary artery calcifications. Lymph nodes: Unremarkable. No enlarged lymph nodes. Vasculature: Moderate atherosclerotic calcification of the aorta. No evidence of aneurysm. Bones/joints: There is significant chronic appearing anterior wedge compression of T9 producing accentuated thoracic kyphosis. Mild multilevel degenerative disc changes are noted. Multiple old bilateral rib fractures noted. No acute fracture. Soft tissues: Unremarkable. IMPRESSION: No acute abnormality. Chronic appearing findings as noted.
--- NOTE | 2022-11-02 15:27 | HMH.EDGENADL ---
Discharge Plan Disposition Patient Disposition: Admitted Condition: Fair Clinical Impressions Clinical Impression: Colitis Rhabdomyolysis Qualifiers: Rhabdomyolysis type: non-traumatic Qualified Code(s): M62.82 - Rhabdomyolysis Discharge ED Provider: Gladys Douglas General Adult HPI General Chief complaint: Weakness Stated complaint: fall Time Seen by Provider: 11/02/22 14:46 Mode of Arrival: EMS Source of Information: Patient, EMS and Medical Record Limitations: No Limitations Description of Symptoms (Recalled from ER Triage Doc. by RN): Pt brought in by EMS d/t fall around 12am this morning. EMS reports he was covered in diarrhea and stool all around him and the bathroom. Per medic, family told them not to touch him because a nurse friend told them he may have C-Diff per medic. Pt's was weak and fatigue, EMS checked FS and it was 33 and EMS gave oral glucose. FS recheck was 77. Pt's FS in the ER decreased to 44. Pt is A&Ox3 but shaking and weak. He has a skin tear to R hand and R elbow. He denies any drug or alcohol use. Denies any black or red stool. He reports the diarrhea began yesterday. History of Present Illness HPI narrative: This patient is a 67-year-old male with a history of previous rib fractures, COPD, previous biliary issues, and hypothyroidism presenting to the emergency department for evaluation with concern for profuse watery diarrhea. EMS reports that the patient had been having profuse watery diarrhea, and then subsequently had a fall around midnight and a nurse friend told his family not to touch him because he may have C. difficile. They let him lie on the floor all night long, and he was unable to get up. EMS found him today when they were called to the scene in puddles of his own liquid feces. They noted that initial fingerstick for them was 33. They gave him oral glucose, as they were unable to get a line, and recheck was 77. Upon arrival, fingerstick is 44. Patient is alert and oriented x3 but is very slow to respond and is weak. He states that he is been having diarrhea off and on and then had been down on the ground all night. He complains of some abdominal pain but he denies any other concerns. He denies any melena or hematochezia. Related Data Home Medications Medication Instructions Recorded Confirmed diclofenac sodium 20 2 pump topical BID Pain 08/11/18 11/02/22 mg/gram/actuation (2 %) topical soln metered-dose pump (Pennsaid) fluticasone propionate 50 1 spr intranasal DAILY Allergy 08/11/18 11/02/22 mcg/actuation nasal symptoms #48 grams spray,suspension tamsulosin 0.4 mg capsule 0.8 mg PO DAILY prostate #60 caps 08/11/18 11/02/22 duloxetine 60 mg capsule,delayed 60 mg PO DAILY Depression 06/26/21 11/02/22 release ergocalciferol (vitamin D2) 1,250 50,000 unit PO WEEKLY Supplement 06/26/21 11/02/22 mcg (50,000 unit) capsule tiotropium 2.5 mcg-olodaterol 2.5 2 puff inhalation DAILY Breathing 06/26/21 11/02/22 mcg/actuation mist for inhalation problems (Stiolto Respimat) alendronate 70 mg tablet 70 mg PO WEEKLY Osteoporosis 09/14/21 11/02/22 levetiracetam 500 mg tablet 500 mg PO BID seizure disorders 09/14/21 11/02/22 levothyroxine 175 mcg tablet 175 mcg PO DAILY hypothyroidism 09/14/21 11/02/22 hydrocodone 7.5 mg-acetaminophen 7.5 tab PO Q6H PRN Pain 11/02/22 11/02/22 325 mg tablet Allergies Allergy/AdvReac Type Severity Reaction Status Date / Time promethazine [From PHENERGAN] Allergy Intermediate HALLUCINATE Verified 10/24/21 14:15 [facility] Disclaimer: The information contained in this section may have been updated after the patient was seen, as this information can be updated by other users. Social History Smoking Status: Current every day smoker tobacco type: cigarettes packs per day: 1 alcohol intake: never substance use type: denies use current occupational status: employed Travel in the
[2022-11-02 15:33] LABS: T4 (Thyroxine) 7.9 ug/dl (5.53-11.0)
[2022-11-02 15:45] LABS: Creatine Kinase 7419 U/L (55-170)
[2022-11-02 15:46] LABS: Thyroid Stimulating Hormone 0.89 uIU/mL (0.465-4.68)
[2022-11-02 15:51] LABS: Troponin I 0.45 ng/ml (0.00-0.034)
[2022-11-02 16:13] LABS: Anisocytosis 1+; Hypochromasia 1+; Lymphocytes % 8 % (10-50); Macrocytosis 1+; Monocytes % 6 % (2-9); Neutrophils % 86 % (42-76); Platelet Estimate Normal; Total Cells Counted 100
--- NOTE | 2022-11-02 16:21 | PC.NURSE ---
PT RETURNED FROM CT
[2022-11-02 17:14] LABS: POC Glucose,Bedside 215 (70-110)
[2022-11-02 17:14] LABS: POC Glucose,Bedside 175 (70-110)
[2022-11-02 17:14] LABS: Norovirus Not Detected (NotDetected)
[2022-11-02 17:16] LABS: Adenovirus F 40/41, stool Not Detected (NotDetected); Astrovirus Not Detected (NotDetected); Campylobacter Not Detected (NotDetected); Cryptosporidium Not Detected (NotDetected); Cyclospora Cayetanesis Not Detected (NotDetected); Entamoeba histolytica Not Detected (NotDetected); Enteroaggregative E coli Not Detected (NotDetected); Enteropathogenic E coli Not Detected (NotDetected); Enterotoxigenic E coli Not Detected (NotDetected); Giardia lamblia Not Detected (NotDetected); Plesimonas Shigalloides, PCR Not Detected (NotDetected); Rotavirus A Not Detected (NotDetected); Salmonella, PCR Not Detected (NotDetected); Sapovirus Not Detected (NotDetected); Shiga-like toxin E coli Not Detected (NotDetected); Shigella Enterovasive E coli Not Detected (NotDetected); Vibrio Cholerae Not Detected (NotDetected); Vibrio, PCR Not Detected (NotDetected); Yersinia Entercolitica, PCR Not Detected (NotDetected)
[2022-11-02 17:34] LABS: Coronavirus 19, PCR Not Detected (NotDetected); Influenza A, PCR Not Detected (NotDetected); Influenza B, PCR Not Detected (NotDetected)
[2022-11-02 17:46] LABS: Microscopic, Urine URINE MICROSCOPIC (MICROSCOPIC)
--- NOTE | 2022-11-02 17:52 | PC.NURSE ---
ER MD Douglas spoke with Dr. Khan at this time [id number]-verbal orders received from Dr. Khan over the phone: acute admission D5LR per IV @ 150 mL/hr Vancomycin 250 mg PO q6h CBC, CMP, CPK for AM labs on 11/03/22 Tylenol 650 mg PO q6hp Home pain medication for cancer pain: Hydrocodone 7.5/325 mg 1 tablet q6hp all order read back to confirm with dr. khan
--- NOTE | 2022-11-02 18:31 | PC.NURSE ---
REPORT GIVEN TO Deborah GASPAR RN
--- NOTE | 2022-11-02 18:45 | PC.NURSE ---
arrived to floor by stretcher from ED
[2022-11-02 18:59] LABS: Appearance,Urine CLEAR (Clear); Blood, Urine 3+ (Negative); Color,Urine YELLOW (Yellow); Glucose,Urine (UA) Negative (Negative); Ketones,Urine TRACE (Negative); Leukocyte Esterase,Urine Negative (Negative); Nitrate,Urine POSITIVE (Negative); Protein,Urine 3+ (Negative); Specific Gravity, Urine 1.025 (1.005-1.030); Urobilinogen,Urine 0.2 EU/dl (0.2)
[2022-11-02 19:24] LABS: Bilirubin,Urine 1+ (Negative)
[2022-11-02 19:25] LABS: Bacteria,Urine Trace /lpf; WBC,Urine Occasional #/hpf (0-3)
[2022-11-02 19:48] LABS: Troponin I 0.52 ng/ml (0.00-0.034)
[2022-11-02 21:55] LABS: Clostridium Difficile A/B, PCR Detected (NotDetected)
[2022-11-03 04:00] VITALS: BP 133/52; PULSE 71; RESP 19; TEMP 37.2; O2SAT 91; BMI 19.5
--- NOTE | 2022-11-03 05:03 | PC.NURSE ---
Patient has rested most of the night. Would awake and answer questions correctly. Had one BM tonight. No complaints noted by patient
[2022-11-03 05:51] LABS: POC Glucose,Bedside 136 (70-110)
[2022-11-03 07:17] VITALS: BP 109/69; PULSE 65; RESP 18; TEMP 37.1; O2SAT 95
[2022-11-03 07:27] LABS: Basophils % 0.3 % (0.1-2.0); Eosinophils # 0.1 K/mm3 (0.0-0.4); Eosinophils % 1.3 % (0.1-12.0); Hematocrit 27.8 % (42.0-52.0); Hemoglobin 8.9 g/dL (14.1-18.0); Lymphocytes % 14.2 % (10-50); Mean Corpuscular HGB Conc 31.9 g/dL (31.8-35.4); Mean Corpuscular Volume 94.1 fl (80-94); Mean Platelet Volume 9.1 fl (7.4-10.4); Monocytes # 0.5 K/mm3 (0.1-1.0); Monocytes % 7.5 % (1.7-9.3); Neutrophils # 5.4 K/mm3 (1.8-7.8); Neutrophils % 76.8 % (37.0-80.0); Platelet Count 296 K/mm3 (142-424); Red Blood Count 2.96 M/mm3 (4.60-6.20); Red Cell Distribution Width 15.2 % (11.5-17.5); White Blood Count 7.1 K/mm3 (4.8-10.8)
--- NOTE | 2022-11-03 07:30 | EXP.HP ---
History of Present Illness *Admission Date: 11/02/22 *Reason for visit:: Fall at home, diarrhea *History of present illness: 67-year-old male with multiple, chronic, medical conditions and recent diagnosis of transitional care carcinoma bladder who recently underwent transurethral resection of most of the cancer at [facility], was discharged from there a couple of weeks ago and has plans to go back and get the rest of the tumor resected in the next couple weeks, he has been at home and has been feeling poorly and developed significant diarrhea over the past 3 days. His and daughter apparently were instructed by someone in their social iliamna to avoid touching the diarrhea or the patient because of the possibility of C. difficile and they have sort of left him to his own devices in his own bedroom at home. He has been struggling with voluminous output of stool, has become incontinent of stool and became extremely weak. He fell at home and was down for over 24 hours in his bedroom and his family did not make efforts to get him back in bed or get him up. They finally called EMS when they realized that he been down for so long. He arrived at the hospital covered in liquid, foul-smelling stool but was conscious. In the ER trauma work-up showed no evidence of fracture, he was afflicted with rhabdomyolysis and dehydration. He was admitted for treatment of the infectious diarrhea, further diagnostic testing and IV fluids. [facility] Disclaimer: The information contained in this section may have been updated after the patient was seen, as this information can be updated by other users. Medical History (Updated 11/03/22 @ 07:36 by Edgardo Flower MD) Rhabdomyolysis Social History Smoking Status: Current every day smoker tobacco type: cigarettes packs per day: 1 alcohol intake: never substance use type: denies use current occupational status: employed Travel in the last 8 weeks: None household members: spouse housing: house current occupation: [employer] caffeine: Yes Review of Systems Review of Systems Review of systems:: pertinent systems reviewed and negative unless documented below Meds Home Medications and Allergies Home Medications Medication Instructions Recorded Confirmed Type diclofenac sodium 20 2 pump topical BID Pain 08/11/18 11/02/22 History mg/gram/actuation (2 %) topical soln metered-dose pump (Pennsaid) fluticasone propionate 50 1 spr intranasal DAILY Allergy 08/11/18 11/02/22 History mcg/actuation nasal symptoms #48 grams spray,suspension tamsulosin 0.4 mg capsule 0.8 mg PO DAILY prostate #60 caps 08/11/18 11/02/22 History duloxetine 60 mg capsule,delayed 60 mg PO DAILY Depression 06/26/21 11/02/22 History release ergocalciferol (vitamin D2) 1,250 50,000 unit PO WEEKLY Supplement 06/26/21 11/02/22 History mcg (50,000 unit) capsule tiotropium 2.5 mcg-olodaterol 2.5 2 puff inhalation DAILY Breathing 06/26/21 11/02/22 History mcg/actuation mist for inhalation problems (Stiolto Respimat) alendronate 70 mg tablet 70 mg PO WEEKLY Osteoporosis 09/14/21 11/02/22 History levetiracetam 500 mg tablet 500 mg PO BID seizure disorders 09/14/21 11/02/22 History levothyroxine 175 mcg tablet 175 mcg PO DAILY hypothyroidism 09/14/21 11/02/22 History hydrocodone 7.5 mg-acetaminophen 7.5 tab PO Q6H PRN Pain 11/02/22 11/02/22 History 325 mg tablet New Prescriptions to Start Prescriptions: Allergies Allergy/AdvReac Type Severity Reaction Status Date / Time promethazine [From PHENERGAN] Allergy Intermediate HALLUCINATE Verified 10/24/21 14:15 Exam Data for Last 24 hours Vital signs and Labs for Last 24 Hours: Temp Pulse Resp BP Pulse Ox O2 Del Method 98.8 F 65 18 109/69 L 95 Room Air 11/03/22 07:17 11/03/22 07:17 11/03/22 07:17 11/03/22 07:17 11/03/22 07:17 11/03/22 07:17 Laboratory Resul
[2022-11-03 07:36] LABS: Chloride 108 mmol/L (98-107); Potassium 3.5 mmoL/L (3.5-5.1)
[2022-11-03 07:38] LABS: Alanine Aminotransferase 62 U/L (12-78); Alkaline Phosphatase 59 U/L (38-126); Aspartate Amino Transferase 227 U/L (17-59); Bilirubin,Total 0.3 mg/dl (0.2-1.3); Blood Urea Nitrogen 35 mg/dl (9-20); Carbon Dioxide 26 mmol/L (22.0-30.0); Creatinine Clearance Estimated 41 mL/min (50-200); Estimated Glomerular Filt Rate 40 ml/min (>60); GFR (African American) 49 ML/MIN (>60)
[2022-11-03 07:39] LABS: Albumin Level 2.6 g/dl (3.5-5.0); Calcium 8.5 mg/dl (8.4-10.2); Globulin 2.6 g/dL (1.3-3.2); Glucose 119 mg/dl (74-100); Total Protein,Serum 5.2 g/dl (6.3-8.2)
[2022-11-03 08:07] LABS: Creatine Kinase 4902 U/L (55-170)
[2022-11-03 08:10] LABS: Anion Gap 8.5 mEq/L (5-15); Sodium 139 mmol/L (136-145)
--- NOTE | 2022-11-03 10:29 | HMH.PHAINT1 ---
Pharmacy Intervention Comments: MEDICATION RECONCILIATION COMPLETE USING EXTERNAL PHARMACY FILL HISTORY.
[2022-11-03 15:07] VITALS: BP 131/74; PULSE 75; RESP 18; TEMP 37; O2SAT 99
[2022-11-03 17:51] LABS: POC Glucose,Bedside 147 (70-110)
--- NOTE | 2022-11-03 18:11 | PC.NURSE ---
PT IS AOX4, EASY TO AROUSE BUT HAS BEEN VERY TIRED THIS SHIFT. HAS SPENT ALL OF SHIFT IN BED. ASSISTED TO TURN PER STAFF. D5 LR INFUSING AT 150ML/HR. FSBS 147. MILTON CATH REMOVED AT 1800 PT YET TO VOID.
[2022-11-03 19:42] VITALS: BP 132/62; PULSE 66; RESP 18; TEMP 36.7; O2SAT 97
[2022-11-03 23:58] VITALS: BP 129/64; PULSE 67; RESP 18; TEMP 37; O2SAT 97
[2022-11-04 03:54] VITALS: BP 139/59; PULSE 80; RESP 18; TEMP 37.1; O2SAT 96; BMI 19.3
--- NOTE | 2022-11-04 05:43 | PC.NURSE ---
Patient has had a good night. has slept most of the night and has voided with no issues with since removal of cath. No issues noted by patient
[2022-11-04 06:25] LABS: Chloride 110 mmol/L (98-107); Potassium 3.3 mmoL/L (3.5-5.1); Sodium 139 mmol/L (136-145)
[2022-11-04 06:28] LABS: Alanine Aminotransferase 68 U/L (12-78); Albumin Level 2.5 g/dl (3.5-5.0); Alkaline Phosphatase 52 U/L (38-126); Anion Gap 5.3 mEq/L (5-15); Aspartate Amino Transferase 186 U/L (17-59); Bilirubin,Total 0.2 mg/dl (0.2-1.3); Blood Urea Nitrogen 21 mg/dl (9-20); Calcium 8.6 mg/dl (8.4-10.2); Carbon Dioxide 27 mmol/L (22.0-30.0); Creatinine Clearance Estimated 46 mL/min (50-200); Estimated Glomerular Filt Rate 46 ml/min (>60); GFR (African American) 56 ML/MIN (>60); Globulin 2.4 g/dL (1.3-3.2); Glucose 95 mg/dl (74-100); Total Protein,Serum 4.9 g/dl (6.3-8.2)
[2022-11-04 06:43] LABS: Creatine Kinase 2443 U/L (55-170)
[2022-11-04 06:52] LABS: Basophils % 0.3 % (0.1-2.0); Eosinophils # 0.1 K/mm3 (0.0-0.4); Hematocrit 28.1 % (42.0-52.0); Hemoglobin 8.7 g/dL (14.1-18.0); Lymphocytes # 1.2 K/mm3 (0.7-4.5); Mean Corpuscular HGB Conc 31.1 g/dL (31.8-35.4); Mean Corpuscular Hemoglobin 29.4 pg (27.0-31.2); Mean Corpuscular Volume 94.6 fl (80-94); Mean Platelet Volume 8.2 fl (7.4-10.4); Monocytes # 0.4 K/mm3 (0.1-1.0); Monocytes % 7.7 % (1.7-9.3); Platelet Count 288 K/mm3 (142-424); Red Blood Count 2.97 M/mm3 (4.60-6.20); White Blood Count 5.7 K/mm3 (4.8-10.8)
[2022-11-04 08:00] VITALS: BP 121/59; PULSE 71; RESP 16; TEMP 37.1; O2SAT 95
--- NOTE | 2022-11-04 08:39 | EXP.ACUTE.PN ---
Subjective *Date: 11/04/22 *Time: 08:39 Interval history: Patient is resting, feels a little better, diarrhea frequency and volume of slow down. Has been able to keep some full liquids down. Has urinated well after his catheter was discontinued Medical Exam Vital signs and Labs for Last 24 Hours: Vital Signs Temp Pulse Resp BP Pulse Ox O2 Del Method 11/04/22 08:00 Room Air 11/04/22 08:00 98.8 F 71 16 121/59 L 95 Room Air 11/04/22 06:47 Room Air 11/04/22 05:00 Room Air 11/04/22 03:54 98.8 F 80 18 139/59 L 96 Room Air 11/03/22 23:58 98.6 F 67 18 129/64 97 Room Air 11/04/22 03:00 Room Air 11/04/22 01:00 Room Air 11/03/22 22:57 Room Air 11/03/22 21:00 Room Air 11/03/22 20:00 Room Air 11/03/22 19:42 98.1 F 66 18 132/62 97 Room Air 11/03/22 18:16 Room Air 11/03/22 17:00 Room Air 11/03/22 15:00 Room Air 11/03/22 13:00 Room Air 11/03/22 15:07 98.6 F 75 18 131/74 99 Room Air 11/03/22 11:00 Room Air 11/03/22 09:00 Room Air Intake and Output 11/03/22 11/04/22 11/04/22 19:59 03:59 11:59 Intake Total 2507 / 2747 240 / 2747 Output Total 1275 / 2550 825 / 2550 450 / 2550 Balance 1232 / 197 -825 / 197 -210 / 197 Intake: Intake, Oral Amount 120 / 360 240 / 360 Infusion Intake 2387 / 2387 Dextrose 5%-Lactated Ringers 1, 2387 / 2387 000 ml @ 150 mls/hr IV .[id number] [facility] Rx#:[id number] Output: Output, Urine Amount 1275 / 2550 825 / 2550 450 / 2550 Other: Number of Unmeasured Voids 0 Weight 155 lb 5 oz Patient Weight 11/04/22 11:59 Weight 155 lb 5 oz Laboratory Results - last 24 hr 11/03/22 17:44: POC Glucose 147 H 11/04/22 05:47: WBC 5.7, RBC 2.97 L, Hgb 8.7 L, Hct 28.1 L, MCV 94.6 H, MCH 29.4, MCHC 31.1 L, RDW 15.0, Plt Count 288, MPV 8.2, Neut % (Auto) 70.0, Lymph % (Auto) 20.0, [place] % (Auto) 7.7, Eos % (Auto) 2.0, Baso % (Auto) 0.3, Neut # (Auto) 4.0, Lymph # (Auto) 1.2, [place] # (Auto) 0.4, Eos # (Auto) 0.1, Baso # (Auto) 0.0, Sodium 139, Potassium 3.3 L, Chloride 110 H, Carbon Dioxide 27, Anion Gap 5.3, BUN 21 H D, Creatinine 1.50 H, Estimated Creat Clear 46, Estimated GFR 46 L, Est GFR ( Amer) 56 L, Glucose 95 D, Calcium 8.6, Total Bilirubin 0.2, AST 186 H, ALT 68, Alkaline Phosphatase 52, Total Creatine Kinase 2443 H* D, Total Protein 4.9 L, Albumin 2.5 L, Globulin 2.4, Albumin/Globulin Ratio 1.0 L I & O for Labs for Last 24 Hours: Intake & Output 11/01/22 11/02/22 11/03/22 11/04/22 11:59 11:59 11:59 11:59 Intake Total 0 / 0 2747 / 2747 Output Total 1425 / 1425 2550 / 2550 Balance -1425 / -1425 197 / 197 Weight 157 lb 3.2 oz 155 lb 5 oz Microbiology Reports for the Last 24 Hours: Microbiology 11/02/22 17:30 Urine,Catheterized Urine Culture - Preliminary NO GROWTH AFTER 24 HOURS Comment:: Alert, pleasant. Talkative, appears much better in regards to volume status with moist oral mucosa and warm and well-perfused extremities. No muscle tenderness on palpation of his calves or thighs. No rashes. Heart rate regular. Abdomen soft, slight tenderness in the left lower quadrant which has been there for a while since his bladder tumor resection. Otherwise soft and normal bowel sounds. He has good air movement, his smokers rhonchi remain in his lungs. Overall globally weak but cranial nerves are intact Assessment and Plan *Assessment and plan (1) Bladder mass: Status: Acute Category: Medical Code(s): N32.89 - Other specified disorders of bladder (2) Renal insufficiency: Status: Acute Category: Medical Code(s): N28.9 - Disorder of kidney and ureter, unspecified (3) COPD (chronic obstructive pulmonary disease): Status: Chronic Category: Medical Code(s): J44.9 - Chronic obstructive pulmonary disease, unspecified (4) Anemia: Status: Chronic
[2022-11-04 10:23] VITALS: BMI 19.3
--- NOTE | 2022-11-04 10:53 | HMH.PTEV ---
Physical Therapy Evaluation Rehab PT IP Evaluation Start: 11/04/22 08:08 Freq: ONCE Status: Active Protocol: Document 11/04/22 10:31 KATHYA (Rec: 11/04/22 10:43 KATHYA [id number]) Subjective/History History History 67 yowm adm to [facility] with colitis and rhabdo due to significant weakness and found to have C-diff. He had recent transurethral bladder surgery and has another scheduled in the near future. He reports he lives with spouse, 4-5 steps to enter the home and he is generally independent with all mobility. Subjective Subjective Pt reports he feels much better this am than he did yesterday. Rehab PT IP Eval Objective Appearance Patient Behavior Appropriate Patient Orientation Person,Place,Time Difficulty following instructions none Speech Pattern Clear Ambulation Patient Able to Ambulate Yes Ambulation Observation IP General Gait Pattern Observation No Deviations/Normal Ambulation Distance (feet) 30 Ambulation Assistive Device None Ambulation Ability Independent Balance Ability to Arise Able, uses arms to help Sitting Balance Steady, safe Standing Balance Steady, wide stance Dynamic Sitting Balance Ability Good Dynamic Standing Balance Ability Good Transfers Bed Transfer Ability Independent Chair Transfer Ability Independent Sit to Stand Bed Transfer Ability Independent Sit to Stand Chair Transfer Ability Independent Rehab PT IP prob,goals,plan Problems Date of Evaluation: 11/04/22 Discharge Plan PT Discharge Plan Pt is appropriate to return home once medically stable for d/c. G -code Required No Eval Complexity Eval Charge Codes 16513 - High Complexity PHYSICIAN CERTIFICATION: I certify the specified therapy services for Peter Rojo are required, authorized, and reviewed every 30 days.
--- NOTE | 2022-11-04 11:04 | HMH.OTEV ---
OT Inpatient Evaluation Rehab OT IP Evaluation Start: 11/04/22 08:08 Freq: ONCE Status: Active Protocol: Document 11/04/22 10:58 SHERWIN (Rec: 11/04/22 11:04 SHERWIN [id number]) Rehab OT IP Assessment Subjective History 67-year-old male with multiple , chronic, medical conditions and recent diagnosis of transitional care carcinoma bladder who recently underwent transurethral resection of most of the cancer at [facility], was discharged from there a couple of weeks ago and has plans to go back and get the rest of the tumor resected in the next couple weeks, he has been at home and has been feeling poorly and developed significant diarrhea over the past 3 days. His and daughter apparently were instructed by someone in their social elem to avoid touching the diarrhea or the patient because of the possibility of C. difficile and they have sort of left him to his own devices in his own bedroom at home. He has been struggling with voluminous output of stool, has become incontinent of stool and became extremely weak. He fell at home and was down for over 24 hours in his bedroom and his family did not make efforts to get him back in bed or get him up. They finally called EMS when they realized that he been down for so long. He arrived at the hospital covered in liquid, foul-smelling stool but was conscious. In the ER trauma work-up showed no evidence of fracture , he was afflicted with rhabdomyolysis and dehydration . He was admitted for
[2022-11-04 11:25] VITALS: BP 137/75; PULSE 56; RESP 17; TEMP 37.1; O2SAT 94
--- NOTE | 2022-11-04 12:03 | SW/DCPLANNER ---
PT/OT evaluated this patient and stated that he is fine to return home. I have updated MD. Discharge date is unknown at this time. I will continue to follow up w/ this patient until medically stable for discharge to assist w/ any needs/new orders.
[2022-11-04 12:36] LABS: Chloride 109 mmol/L (98-107); Sodium 139 mmol/L (136-145)
[2022-11-04 12:37] LABS: Potassium 3.3 mmoL/L (3.5-5.1)
[2022-11-04 12:39] LABS: Blood Urea Nitrogen 19 mg/dl (9-20); Creatinine Clearance Estimated 50 mL/min (50-200); Estimated Glomerular Filt Rate 50 ml/min (>60); GFR (African American) 61 ML/MIN (>60)
[2022-11-04 12:40] LABS: Anion Gap 6.3 mEq/L (5-15); Calcium 8.9 mg/dl (8.4-10.2); Carbon Dioxide 27 mmol/L (22.0-30.0); Glucose 97 mg/dl (74-100)
--- NOTE | 2022-11-04 13:26 | EXP.DC.SUM ---
General Admission date:: 11/02/22 Discharge date: 11/04/22 HPI HPI HPI: 67-year-old male with multiple, chronic, medical conditions and recent diagnosis of transitional care carcinoma bladder who recently underwent transurethral resection of most of the cancer at [facility], was discharged from there a couple of weeks ago and has plans to go back and get the rest of the tumor resected in the next couple weeks, he has been at home and has been feeling poorly and developed significant diarrhea over the past 3 days. His and daughter apparently were instructed by someone in their social eyak to avoid touching the diarrhea or the patient because of the possibility of C. difficile and they have sort of left him to his own devices in his own bedroom at home. He has been struggling with voluminous output of stool, has become incontinent of stool and became extremely weak. He fell at home and was down for over 24 hours in his bedroom and his family did not make efforts to get him back in bed or get him up. They finally called EMS when they realized that he been down for so long. He arrived at the hospital covered in liquid, foul-smelling stool but was conscious. In the ER trauma work-up showed no evidence of fracture, he was afflicted with rhabdomyolysis and dehydration. He was admitted for treatment of the infectious diarrhea, further diagnostic testing and IV fluids. Hospital Course Hospital Course Hospital Course: Patient was admitted, hydrated, acute kidney injury improved and CPK levels improved. He felt much better. Diarrhea stopped. C. difficile titers were positive, patient had been initially started on vancomycin orally. This morning he was doing well, eating well. PT and OT evaluated him and he did great with independent function in all modes tested. Plan will be to discharge home. Vancomycin orally, increased fluids. I will see him in 2 days with labs at that point. Exam Data for Last 24 hours Vital signs and Labs for Last 24 Hours: Temp Pulse Resp BP Pulse Ox O2 Del Method 98.7 F 56 L 17 137/75 94 L Room Air 11/04/22 11:25 11/04/22 11:25 11/04/22 11:25 11/04/22 11:25 11/04/22 11:25 11/04/22 13:00 Laboratory Results - last 24 hr 11/03/22 17:44: POC Glucose 147 H 11/04/22 05:47: WBC 5.7, RBC 2.97 L, Hgb 8.7 L, Hct 28.1 L, MCV 94.6 H, MCH 29.4, MCHC 31.1 L, RDW 15.0, Plt Count 288, MPV 8.2, Neut % (Auto) 70.0, Lymph % (Auto) 20.0, [place] % (Auto) 7.7, Eos % (Auto) 2.0, Baso % (Auto) 0.3, Neut # (Auto) 4.0, Lymph # (Auto) 1.2, [place] # (Auto) 0.4, Eos # (Auto) 0.1, Baso # (Auto) 0.0, Sodium 139, Potassium 3.3 L, Chloride 110 H, Carbon Dioxide 27, Anion Gap 5.3, BUN 21 H D, Creatinine 1.50 H, Estimated Creat Clear 46, Estimated GFR 46 L, Est GFR ( Amer) 56 L, Glucose 95 D, Calcium 8.6, Total Bilirubin 0.2, AST 186 H, ALT 68, Alkaline Phosphatase 52, Total Creatine Kinase 2443 H* D, Total Protein 4.9 L, Albumin 2.5 L, Globulin 2.4, Albumin/Globulin Ratio 1.0 L 11/04/22 12:10: Sodium 139, Potassium 3.3 L, Chloride 109 H, Carbon Dioxide 27, Anion Gap 6.3, BUN 19, Creatinine 1.40 H, Estimated Creat Clear 50, Estimated GFR 50 L, Est GFR ( Amer) 61, Glucose 97, Calcium 8.9 I & O for Last 24 hours: Intake & Output 11/02/22 11/03/22 11/04/22 11/05/22 11:59 11:59 11:59 11:59 Intake Total 0 / 0 2747 / 2747 470 / 470 Output Total 1425 / 1425 2900 / 2900 Balance -1425 / -1425 -153 / -153 470 / 470 Weight 157 lb 3.2 oz 155 lb 5.015 oz Microbiology Reports for the Last 24 Hours: Microbiology 11/02/22 17:30 Urine,Catheterized Urine Culture - Preliminary NO GROWTH AFTER 24 HOURS Constitutional Constitutional: no acute distress *Routine HEENT Exam Head: Present normocephalic Eye: Present EOMI and PERRL ENT: Present mucous membranes moist *Routine Neck Exam Neck: Present supple; Absent lymphadenopathy *Routine Respiratory Exam Respiratory: Present
[2022-11-04 15:57] LABS: POC Glucose,Bedside 110 (70-110)
[2022-11-05 17:25] LABS: Levetiracetam (Keppra) <2.0 ug/mL (10.0-40.0)
--- NOTE | 2022-11-06 14:50 | CARE MANAGER ---
Spoke with patient for post-discharge phone interview, no issues noted.
== END 2022-11-04 15:57 | disposition home or self-care (01) | DRG 372 ==
LOC: ER 18:05 → 2ND 18:11
PROVIDERS: Admitting Provider Internal Medicine Adolescent Medicine; Emergency Provider Emergency Medicine; PCP Internal Medicine Adolescent Medicine; Visit Provider Internal Medicine Adolescent Medicine
DX: A04.72 Enterocolitis due to Clostridium difficile, not specified as recurrent (principal); E46 Unspecified protein-calorie malnutrition; N17.9 Acute kidney failure, unspecified; Z68.1 Body mass index [BMI] 19.9 or less, adult; C67.9 Malignant neoplasm of bladder, unspecified; F17.210 Nicotine dependence, cigarettes, uncomplicated; D63.0 Anemia in neoplastic disease; J43.1 Panlobular emphysema; N18.9 Chronic kidney disease, unspecified; E86.0 Dehydration
CPT/HCPCS: 36415; 70450; 71045; 71250; 72125; 72170; 74176; 80048; 80053; 80177; 81001; 82550; 82803; 82962; 83605; 83690; 83735; 84436; 84443; 84484; 85007; 85025; 87040; 87086; 87506; 87636; 93005; 97163; 97165; 99291

== ENCOUNTER 2023-03-31 15:01 | Outpatient (CLI) | payer BC, SELFPAY ==
--- NOTE | 2023-03-31 15:14 | CT_ITS ---
FINAL REPORT TECHNIQUE: Axial images through the abdomen and pelvis were performed without contrast. This study was performed with techniques to keep radiation doses as low as reasonably achievable, (ALARA). Individualized dose reduction techniques using automated exposure control or adjustment of mA and/or kV according to the patient's size were employed. CLINICAL HISTORY: RENAL CELL CANCER COMPARISON: 11/02/2022 FINDINGS: Abdomen: The lung bases are clear. The liver parenchyma is homogeneous. The gallbladder has been surgically resected. The spleen, pancreas, and adrenals are unremarkable. The left kidney has been surgically resected. There is a 5 cm benign-appearing cyst present in the right kidney, slightly larger than noted on the prior CT of October 2022. There is surgical mesh present in the anterior abdominal wall consistent with a prior hernia repair. Pelvis: The urinary bladder is unremarkable. Mucosal thickening identified in the colon adjacent stranding seen in the prior CT of October is no longer present. There is streak artifact in the lower pelvis secondary to prior surgical repair of the left hip. The appendix is not visualized. There is no pelvic mass or inflammation. IMPRESSION: 5 cm benign-appearing cyst in the right kidney, slightly larger than noted on the prior exam. The mucosal thickening in the colon wall with adjacent stranding noted on the prior CT of October is no longer seen. No acute abnormality identified. Reviewed, Interpreted and Dictated by Zeyad Marie MD Transcribed by Devora Lozano Authenticated and [facility]
--- NOTE | 2023-03-31 15:14 | CT_ITS ---
FINAL REPORT TECHNIQUE: Axial images were obtained through the chest without contrast. Coronal and sagittal reconstructions were performed. CLINICAL HISTORY: renal cell cancer COMPARISON: 11/02/2022 FINDINGS: Ground glass opacities in the right upper lobe, noted on the prior exam of October 2022, have improved. Advanced changes of centrilobular emphysema are once again identified. There is mild scarring in the lung bases. The marked kyphosis of the thoracic spine noted on the prior exam remains present. There is approximately 30% loss of vertebral body height at the T3 level, 20% loss of vertebral body height at the T6 level, and 80% loss of height of the T9 vertebral body, which combined to accentuate the patient's thoracic kyphosis. These compression fractures are stable when compared to the prior exam of October 2022. There is no pericardial or pleural effusion. There is an upper pole right renal cyst, measuring 5.2 x 5 cm in size, slightly larger than seen on the prior exam. IMPRESSION: Ground glass opacities in the right upper lobe have improved slightly since the prior exam of 11/02/2022. Advanced changes of centrilobular emphysema remain present, with mild scarring in the lung bases. Multiple thoracic compression fractures as described with resultant kyphosis, stable since the prior exam of October 2022. Right renal cyst 5.2 x 5 cm cyst slightly larger than noted on the prior exam. Reviewed, Interpreted and Dictated by Zeyad Marie MD Transcribed by Devora Lozano Authenticated and [facility]
== END 2023-03-31 23:59 ==
LOC: RAD 15:02
PROVIDERS: PCP Internal Medicine Adolescent Medicine; Visit Provider Internal Medicine Adolescent Medicine
DX: C64.9 Malignant neoplasm of unspecified kidney, except renal pelvis (principal); N32.89 Other specified disorders of bladder
CPT/HCPCS: 71250; 74176

== ENCOUNTER 2023-04-09 08:57 | Outpatient (CLI) | payer BC, SELFPAY ==
--- NOTE | 2023-04-09 09:04 | MR_ITS ---
FINAL REPORT TECHNIQUE: Multiplanar MR without contrast CLINICAL HISTORY: SEIZURE DISORDER. intermittent dizziness. COMPARISON: 07/30/2022 FINDINGS: Diffusion sequences show no signal abnormality to indicate acute infarct. Moderate generalized atrophy is present. No mass, hemorrhage or edema is seen. Ventricles are normal. Major vascular flow voids are intact. IMPRESSION: 1. No mass, acute infarct or hydrocephalus 2. Atrophy, stable from prior exam. Reviewed, Interpreted and Dictated by Snow Harmon MD Transcribed by Mariam Rock Authenticated and [facility]
== END 2023-04-09 23:59 ==
PROVIDERS: PCP Internal Medicine Adolescent Medicine; Visit Provider Internal Medicine Adolescent Medicine
DX: G40.909 Epilepsy, unspecified, not intractable, without status epilepticus (principal)
CPT/HCPCS: 70551

== ENCOUNTER 2023-05-21 01:45 | Observation (INO) | payer MEDICARE, SELFPAY ==
[2023-05-21] VITALS (26 sets, daily range): BP systolic 92–135; BP diastolic 54–98; PULSE 49–80; RESP 9–18; TEMP 36.2–37.2; O2SAT 81–98; BMI 22.7; BMI 18.9
--- NOTE | 2023-05-21 01:44 | XR_ITS ---
PROCEDURE INFORMATION: Exam: XR Chest Exam date and time: 05/21/2023 1:52 AM Age: 67 years old Clinical indication: Injury or trauma; Fall; Additional info: AMS, lethargy, multiple falls TECHNIQUE: Imaging protocol: Radiologic exam of the chest. Views: 1 view. COMPARISON: CT CHEST WO CON 03/31/2023 3:36 PM FINDINGS: Tubes, catheters and devices: Multiple lines appreciated over the thorax, consistent with cardiac leads. Lungs: Nodular/reticular opacities are appreciated in the bilateral lower lung montilla. Diffuse increase in interstitial markings. Pleural spaces: Blunting of the bilateral costophrenic angles. Heart/Mediastinum: Unchanged prominence of the cardiomediastinal silhouette. Bones/joints: Diffuse osteopenia. Other findings: Patient positioning limits evaluation. IMPRESSION: 1. Limited exam. 2. Nonspecific nodular/reticular opacities are appreciated in the bilateral lower lung montilla, may represent atelectasis, aspiration, early infection, correlate with patient presentation and physical examination. 3. Blunting of the bilateral costophrenic angles, may represent small pleural effusions versus artifact given patient positioning.
--- NOTE | 2023-05-21 01:44 | XR_ITS ---
PROCEDURE INFORMATION: Exam: XR Pelvis Exam date and time: 05/21/2023 1:52 AM Age: 67 years old Clinical indication: Injury or trauma; Fall; Additional info: AMS, lethargy, multiple falls TECHNIQUE: Imaging protocol: Radiologic exam of the pelvis. Views: 1 or 2 view. COMPARISON: CT ABDOMEN PELVIS WO CON 03/31/2023 3:36 PM FINDINGS: Bones/joints: Partial evaluation of intramedullary shannan and screw fixation of the left femur is appreciated, no discrete evidence of postsurgical complication on this examination. Severe degenerative change of the lower lumbar spine. Severe degenerative change, [id number]-right of the bilateral sacroiliac joints. Diffuse demineralization of the visualized osseous structures. Soft tissues: Unremarkable. IMPRESSION: 1. No acute or aggressive osseous abnormality. Given demineralization, fractures may be occult, if there is point tenderness, recommend cross-sectional evaluation. 2. Additional findings as above.
--- NOTE | 2023-05-21 01:44 | CT_ITS ---
PROCEDURE INFORMATION: Exam: CT Cervical Spine Without Contrast Exam date and time: 05/21/2023 2:07 AM Age: 67 years old Clinical indication: Injury or trauma; Fall; Additional info: AMS, lethargy, multiple falls TECHNIQUE: Imaging protocol: Computed tomography of the cervical spine without contrast. Radiation optimization: All CT scans at this facility use at least one of these dose optimization techniques: automated exposure control; mA and/or kV adjustment per patient size (includes targeted exams where dose is matched to clinical indication); or iterative reconstruction. COMPARISON: CT CERVICAL SPINE WO CON 11/02/2022 4:10 PM FINDINGS: Bones/joints: There are chronic hector associate manager [employer]'s fractures with nonunion/malunion involving the spinous processes and T7 and T1. No acute fracture or dislocation. There are multilevel degenerative disc changes. Lungs: The lung apices demonstrate no acute process. Soft tissues: Unremarkable. IMPRESSION: 1. No acute fracture or dislocation. 2. 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 3. There is multilevel degenerative disc disease.
--- NOTE | 2023-05-21 01:49 | HMH.EDGENADL ---
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 According to EMS, they were called to scene (patient's home where he lives with family) because the patient had fallen down and was unable to get up. They found him down on his right side. Patient's family had told EMS that he had been awake for 4 days and had not been able to sleep at all, and subsequently he began having frequent falls and general weakness. EMS notes that when they found him down on the ground, the patient initially denied any concerns or complaints. He stated that he was fine. He fell asleep en route and has since been difficult to wake up. He also desaturated when sleeping to the high 80s, so he was placed on supplemental oxygen. Vitals were otherwise reassuring. Upon arrival, patient does not contribute to history except to tell us his name and date of , as he is somnolent. He arouses to voice with repeated attempts and denies any pain. I went through the patient's medication bag and noted that he is on multiple medications, including [place], Keppra, Depakote, duloxetine, levothyroxine, melatonin, testosterone, inhalers. The bag of medications has multiple bottles of the same prescription from various years. Unclear how the patient is taking his medications or if he is. Patient's arrives and notes that since he hadn't slept in 4 days, he took ambien and drank nyquil this evening. Related Data Home Medications Medication Instructions Recorded Confirmed tamsulosin 0.4 mg capsule 0.8 mg PO HS prostate #60 caps 08/11/18 05/21/23 duloxetine 60 mg capsule,delayed 60 mg PO DAILY Depression 06/26/21 05/21/23 release alendronate 70 mg tablet 70 mg PO WEEKLY Osteoporosis 09/14/21 05/21/23 hydrocodone 7.5 mg-acetaminophen 1 tab PO Q6HP PRN Severe Pain 11/02/22 05/21/23 325 mg tablet (Scale Score 7-10) albuterol sulfate 90 mcg/actuation 2 puff inhalation Q6HP PRN 11/03/22 05/21/23 aerosol inhaler Shortness Of Breath divalproex 500 mg tablet,delayed 500 mg PO BID SEIZURES 11/03/22 05/21/23 release levothyroxine 200 mcg tablet 200 mcg PO DAILYDM THYROID 11/03/22 05/21/23 calcium carbonate 600 mg calcium 600 mg PO DAILY 05/21/23 05/21/23 (1,500 mg) tablet (Calcium) ergocalciferol (vitamin D2) 1,250 1,250 mcg PO WEEKLY 05/21/23 05/21/23 mcg (50,000 unit) capsule (Vitamin D2) guaifenesin 600 mg tablet, 600 mg PO Q12H PRN Congestion 05/21/23 05/21/23 extended release 12 hr (Mucinex) levetiracetam 500 mg tablet 500 mg PO BID 05/21/23 05/21/23 melatonin 10 mg sublingual tablet 10 mg sublingual HS 05/21/23 05/21/23 ondansetron HCl 4 mg tablet 4 mg PO Q8H PRN Nausea 05/21/23 05/21/23 sennosides 17.2 mg tablet (Senokot 17.2 mg PO DAILY PRN Constipation 05/21/23 05/21/23 Extra Strength) sildenafil 100 mg tablet (Viagra) 100 mg PO DAILY 05/21/23 05/21/23 umeclidinium 62.5 mcg-vilanterol 1 inh inhalation DAILY 05/21/23 05/21/23 25 mcg/actuation powdr for inhalation (Anoro Ellipta) Allergies Allergy/AdvReac Type Severity Reaction Status Date / Time promethazine [From PHENERGAN] Allergy Intermediate HALLUCINATE Verified 10/24/21 14:15 [facility] Disclaimer: The information contained in this section may have been updated after the patient was seen, as this information can be updated by other users. Medical History (Updated 05/21/23 @ 03:07 by Gladys Douglas DO) Hypothyroidism Epilepsy History of thyroid storm Kidney malignancy Rhabdomyolysis Surgical History (Updated 05/21/23 @ 03:05 by Adina Murillo RN) History of nephrectomy Social History Smoking Status: Current every day smoker tobacco type: cigarettes packs per day: 1 alcohol intake: never substance use type: denies use current occupational status: employed Travel in the last 8 weeks: None household members: spouse housing: house current occupation: [employer] caffeine: Yes ROS Obtained: Yes unobtainable due to mental status Physical Exam General General appearance: in no apparent distress and obtunded Comment: Somnolent but arouses to voice with repeated attempts. Head Head exam: atraumatic and normocephalic Eye Eye exam: Present PERRL, EOMI and periorbital swelling (bilateral edema) ENT ENT exam: Present normal exam, normal oropharynx, mucous membranes moist and normal external ear exam Neck Neck exam: Present normal inspection, full ROM and trachea midline; Absent tenderness Chest Chest inspection: Present normal inspection and symmetric chest wall rise; Absent tenderness Respiratory Respiratory exam: Present normal lung sounds bilaterally; Absent respiratory distress, wheezes, stridor or accessory muscle use Cardiovascular Cardiovascular exam: Present regular rate and normal rhythm Abdominal Exam Abdominal exam: Present soft; Absent distention, tenderness or guarding Extremities Exam Extremities exam: Present full ROM, normal capillary refill and edema (symmetric BLE pretibial nonpitting edema); Absent tenderness Back Exam Back exam: Present normal inspection and full ROM; Absent tenderness Neurological Exam Neurological exam: Present oriented X3, CN II-XII intact and other (Generally weak without any focal neurologic deficit. Slowed responses with rigidity); Absent alert (somnolent but arouses to voice) Expanded Neurological Exam Patient oriented to: Present person Cranial nerves: Normal: EOM function (II, III, IV, ) Coma scale eye opening: To voice Coma scale motor response: Obeys commands Coma scale verbal response: Confused Coma scale total: 13 Psychiatric Psychiatric exam: Present flat affect Skin Skin exam: Present warm and dry Medical Decision Making Medical Records Medical records reviewed: Yes I reviewed the patient's medical records. Gray Inquiry Pt receiving controlled substance: No Vital Signs: 05/21/23 01:45 05/21/23 02:33 Temperature 97.2 F L Temperature Source Rectal Pulse Rate [Right Radial] 77 Respiratory Rate 11 L Blood Pressure [Right Arm] 100/62 L Blood Pressure Mean [Right Arm] 74 Blood Pressure Source [Right Arm] Automatic Cuff Blood Pressure Position [Right Arm] Sitting 02 Sat by Pulse Oximetry 89 L Oxygen Delivery Method Room Air Lab Data Lab results reviewed: Yes I reviewed the patient's lab results. Lab Results 05/21/23 01:44: VBG pH 7.27 L, VBG pCO2 54.4 H, VBG pO2 40.9 H, VBG HCO3 24.3, VBG Total CO2 26.0, VBG O2 Saturation 70.2 H, VBG Base Excess -2.6 L, VBG Lactic Acid 1.3 05/21/23 02:00: WBC 11.7 H, RBC 3.14 L, Hgb 10.2 L, Hct 33.2 L, MCV 105.7 H, MCH 32.4 H, MCHC 30.6 L, RDW 15.3, Plt Count 336, MPV 7.9, Neut % (Auto) 86.5 H, Lymph % (Auto) 7.6 L, Sullivan % (Auto) 4.6, Eos % (Auto) 0.8, Baso % (Auto) 0.5, Neut # (Auto) 10.1 H, Lymph # (Auto) 0.9, Sullivan # (Auto) 0.5, Eos # (Auto) 0.1, Baso # (Auto) 0.1, Total Counted 100, Neutrophils % (Manual) 86 H, Lymphocytes % (Manual) 7 L, Monocytes % (Manual) 6, Eosinophils % (Manual) 1, Platelet Estimate Normal, Macrocytosis 2+, PT 11.1, INR 1.03, APTT 27.9, Sodium 138, Potassium 4.8, Chloride 107, Carbon Dioxide 27, Anion Gap 8.8, BUN 37 H, Creatinine 2.80 H, Estimated Creat Clear 23, Estimated GFR 23 L, Est GFR ( Amer) 27 L, Glucose 94, Calcium 9.4, Total Bilirubin 0.5, AST 38, ALT 22, Alkaline Phosphatase 72, Troponin I < 0.01, NT-Pro-B Natriuret Pep 897 H, Total Protein 6.4 D, Albumin 3.8, Globulin 2.6, Albumin/Globulin Ratio 1.5, TSH 14.30 H, Thyroxine (T4) 9.1, Salicylates < 1.0 L, Acetaminophen < 10 L, Total Valproic Acid 19.4 L, Plasma/Serum Alcohol < 10 05/21/23 02:05: Ammonia 9 05/21/23 02:26: Urine Color Dark yellow, Urine Appearance Slightly cloudy, Urine pH 6.0, Ur Specific [place] 1.025, Urine Protein 2+, Urine Glucose (UA) Trace, Urine Ketones Negative, Urine Blood 2+, Urine Nitrate Positive, Urine Bilirubin Negative, Urine Urobilinogen 1.0, Ur Leukocyte Esterase Negative, Urine RBC 10-20, Urine WBC 3-5, Ur Squamous Epith Cells None, Urine Bacteria 1+, Urine Opiates Screen Positive H, Urine Methadone Screen Negative, Ur Barbituates Screen Negative, Ur Phencyclidine Scrn Negative, Ur Amphetamines Screen Negative, U Benzodiazepines Scrn Negative, Urine Cocaine Screen Negative, U Marijuana (THC) Screen Negative 05/21/23 02:00 05/21/23 02:00 Orders (Tests/Meds): ED MEDICATIONS Generic Name Dose Route Start Last Admin Trade Name Freq PRN Reason Stop Dose Admin Acetaminophen 650 mg 05/21/23 04:04 Acetaminophen 325mg Tab PO 06/20/23 04:03 Q4HP PRN Fever or Mild Pain (1-3) Enoxaparin Sodium 40 mg 05/21/23 09:00 Enoxaparin 40mg/0.4ml Syringe SQ 06/20/23 08:59 DAILY AMILCAR Ceftriaxone Sodium 2 gm/ 100 mls @ 200 mls/hr 05/21/23 03:00 05/21/23 03:43 Sodium Chloride IV 05/31/23 02:59 200 mls/hr Q24H AMILCAR Administration Sodium Chloride 1,000 mls @ 50 mls/hr 05/21/23 04:15 Sod Chlor 0.9% 1000ml Bag IV 06/20/23 04:14 .Q20H AMILCAR Morphine Sulfate 2 mg 05/21/23 04:04 Morphine 2mg/Ml Syringe IV 06/20/23 04:03 Q2HP PRN Severe Pain (7-10) Nicotine 21 mg 05/21/23 04:04 Nicotine 21mg/24hr Patch TD 06/20/23 04:03 DAILYP PRN Nicotine Cravings Ondansetron HCl 4 mg 05/21/23 04:04 Ondansetron 4mg/2ml Vial IV 06/20/23 04:03 Q8HP PRN Nausea Pantoprazole Sodium 40 mg 05/21/23 09:00 Pantoprazole 40mg Tablet PO 06/20/23 08:59 DAILY AMILCAR Discontinued Medications Generic Name Dose Route Start Last Admin Trade Name Freq PRN Reason Stop Dose Admin Lactated Ringer's 1,000 mls @ 999 mls/hr 05/21/23 02:43 05/21/23 03:46 Lactated Ringer's 1000 Ml Bag IV 05/21/23 03:43 Not Given .Q1H1M ONE Sodium Chloride 1,000 mls @ 999 mls/hr 05/21/23 02:53 05/21/23 03:41 Sod Chlor 0.9% 1000ml Bag IV 05/21/23 03:53 999 mls/hr .Q1H1M ONE Administration ORDERS Category Date Time Status CT cervical spine wo con Stat Cat Scan 05/21/23 01:[address] head/brain wo con Stat Cat Scan 05/21/23 01:[address] head/brain wo con Stat Cat Scan 05/21/23 02:12 Completed XR chest portable Stat Exams 05/21/23 01:44 Taken XR pelvis 1-2V Stat Exams 05/21/23 01:44 Taken Acetaminophen Stat Lab 05/21/23 02:00 Completed Activated Partial Thrombo Time Stat Lab 05/21/23 02:00 Completed Ammonia Stat Lab 05/21/23 02:05 Completed Brain Natriuretic Peptide Stat Lab 05/21/23 02:00 Completed Complete Blood Count Auto Diff AMLAB Lab 05/21/23 06:00 Ordered Complete Blood Count Auto Diff Stat Lab 05/21/23 02:00 Completed Comprehensive Metabolic Panel AMLAB Lab 05/21/23 06:00 Ordered Comprehensive Metabolic Panel Stat Lab 05/21/23 02:00 Completed Drug Screen,Urine Stat Lab 05/21/23 02:26 Completed Ethyl Alcohol Stat Lab 05/21/23 02:00 Completed Lactate Venous Routine Lab 05/21/23 02:27 Received Levetiracetam (Keppra) Stat Lab 05/21/23 02:40 Received Prothrombin Time INR Stat Lab 05/21/23 02:00 Completed Salicylate Stat Lab 05/21/23 02:00 Completed T4 (Thyroxine) Stat Lab 05/21/23 02:00 Completed Thyroid Stimulating Hormone Stat Lab 05/21/23 02:00 Completed Troponin I Q3H Lab 05/21/23 05:00 Ordered Troponin I Q3H Lab 05/21/23 08:00 Ordered Troponin I Stat Lab 05/21/23 02:00 Completed Urinalysis and Microscopic Stat Lab 05/21/23 02:26 Completed Valproic Acid, (Depakene) Routine Lab 05/21/23 02:00 Completed Blood Culture Stat Micro 05/21/23 03:20 Received Urine Culture Stat Micro 05/21/23 01:53 Ordered Venous Blood Gas Stat RT 05/21/23 01:44 Completed ECG Data Tracing #1: I reviewed this ECG and interpreted as documented below: Normal sinus rhythm with a ventricular rate of [address]/T wave changes, which are unchanged from prior EKG. No acute STEMI. Normal intervals. ECG initial impression date: 05/21/23 ECG initial impression time: 02:35 Medical Decision Narrative: In summary, this patient is a 67-year-old male presenting to the Emergency Department for evaluation of frequent falls and altered mental status after being awake for approximately 4 days. He took ambien and nyquil today in an attempt to sleep. He arrives somnolent, not contributing much to history. Differential diagnoses considered include but are not limited to head trauma, intracranial hemorrhage, medication overdose, myxedema coma, CO2 narcosis, hepatic encephalopathy, UTI. Ruling out the most morbid conditions drove assessment. Patient is somnolent and generally weak upon arrival without focal neurologic deficit. Oxygen saturation is borderline on room air, though he does have history of COPD. Otherwise, vitals are reassuring. Workup included very broad lab evaluation including metabolic, infectious, tox, and cardiac workup. CT head, CT c-spine, CXR, pelvic x-ray, and EKG ordered. I independently interpreted CT scan and x-ray prior to the radiologist read and noted no acute fracture, no acute intracranial hemorrhage, and no obvious acute stroke. Please see their read for final interpretation. Labs were obtained that demonstrated concerns for urinary tract infection, KEN on CKD, elevated TSH but normal T4, mild respiratory acidosis, and mild leukocytosis. Depakote and Keppra levels were sent and are pending at this time. Blood cultures and urine cultures were sent and are pending. Patient was given a liter bolus of normal saline as well as started on IV Rocephin. Sepsis bolus was not administered, as the patient has mildly elevated BNP. On reassessment, patient remains somnolent but arousable. Given persistent altered mental status, KEN, urinary tract infection, and concern for polypharmacy, I feel the patient would benefit from admission for continued evaluation and management. I had an interactive discussion with the hospitalist who admitted the patient in stable condition. Critical Care Critical Care Time Critical Care Time: No
--- NOTE | 2023-05-21 02:00 | PC.NURSE ---
Patient placed on 2LNC o2, as oxygen saturation repeatedly remains in upper 80s while patient is resting.
--- NOTE | 2023-05-21 02:12 | CT_ITS ---
PROCEDURE INFORMATION: Exam: CT Head Without Contrast Exam date and time: 05/21/2023 2:14 AM Age: 67 years old Clinical indication: Injury or trauma; Fall; Additional info: AMS, frequent falls, prior CT with motion artifact TECHNIQUE: Imaging protocol: Computed tomography of the head without contrast. Radiation optimization: All CT scans at this facility use at least one of these dose optimization techniques: automated exposure control; mA and/or kV adjustment per patient size (includes targeted exams where dose is matched to clinical indication); or iterative reconstruction. COMPARISON: CT HEAD/BRAIN WO CON 05/21/2023 2:05 AM FINDINGS: Brain: There is diffuse cortical volume loss and hypoattenuation of the deep white matter. No evidence of acute intracranial hemorrhage. No acute cerebral edema, mass effect or shift. Cerebral ventricles: No ventriculomegaly. Paranasal sinuses: Visualized sinuses are unremarkable. No fluid levels. Mastoid air cells: Visualized mastoid air cells are well aerated. Bones/joints: Unremarkable. No acute fracture. Soft tissues: Unremarkable. IMPRESSION: No acute intracranial process. Diffuse cortical atrophy and chronic deep white matter small vessel disease.
--- NOTE | 2023-05-21 02:14 | PC.NURSE ---
Spoke with whom states that patient has refused to go to sleep for approximately 5 days. He took nyquil and 1/2 of ambien jojo and she and her neighbor, who is a home health nurse, tried to get him to go to bed and he refused. Spouse reports that patient has fallen 4 times tonight, that he would be fine then it [facility]. Patient would recover quickly at home. Neighbor was concerned that the patient seemed spaced out although patient will answer questions, it is briefly and after stimulation.
[2023-05-21 02:15] LABS: Chloride 107 mmol/L (98-107)
[2023-05-21 02:16] LABS: Potassium 4.8 mmoL/L (3.5-5.1); Sodium 138 mmol/L (136-145)
[2023-05-21 02:17] LABS: Activated Partial Thrombo Time 27.9 seconds (22.8-30.6); INR 1.03 (0.9-1.1); Prothrombin Time 11.1 seconds (10.1-12.5)
[2023-05-21 02:18] LABS: Alanine Aminotransferase 22 U/L (12-78); Albumin Level 3.8 g/dl (3.5-5.0); Albumin/Globulin Ratio 1.5 (1.1-1.8); Alkaline Phosphatase 72 U/L (38-126); Anion Gap 8.8 mEq/L (5-15); Aspartate Amino Transferase 38 U/L (17-59); Basophils # 0.1 K/mm3 (0-0.2); Basophils % 0.5 % (0.1-2.0); Bilirubin,Total 0.5 mg/dl (0.2-1.3); Blood Urea Nitrogen 37 mg/dl (9-20); Carbon Dioxide 27 mmol/L (22.0-30.0); Creatinine Clearance Estimated 23 mL/min (50-200); Eosinophils # 0.1 K/mm3 (0.0-0.4); Eosinophils % 0.8 % (0.1-12.0); Estimated Glomerular Filt Rate 23 ml/min (>60); GFR (African American) 27 ML/MIN (>60); Globulin 2.6 g/dL (1.3-3.2); Hematocrit 33.2 % (42.0-52.0); Hemoglobin 10.2 g/dL (14.1-18.0); Lymphocytes # 0.9 K/mm3 (0.7-4.5); Lymphocytes % 7.6 % (10-50); MANUAL DIFFERENTIAL MANUAL DIFFERENTIAL (MANUAL DIFF); Mean Corpuscular HGB Conc 30.6 g/dL (31.8-35.4); Mean Corpuscular Hemoglobin 32.4 pg (27.0-31.2); Mean Corpuscular Volume 105.7 fl (80-94); Mean Platelet Volume 7.9 fl (7.4-10.4); Monocytes # 0.5 K/mm3 (0.1-1.0); Monocytes % 4.6 % (1.7-9.3); Neutrophils # 10.1 K/mm3 (1.8-7.8); Neutrophils % 86.5 % (37.0-80.0); Platelet Count 336 K/mm3 (142-424); Red Blood Count 3.14 M/mm3 (4.60-6.20); Red Cell Distribution Width 15.3 % (11.5-17.5); Total Protein,Serum 6.4 g/dl (6.3-8.2); White Blood Count 11.7 K/mm3 (4.8-10.8)
[2023-05-21 02:19] LABS: Calcium 9.4 mg/dl (8.4-10.2); Glucose 94 mg/dl (74-100)
[2023-05-21 02:20] LABS: Acetaminophen < 10 ug/ml (10-30); Ethyl Alcohol < 10 mg/dl (0-10); Salicylate < 1.0 mg/dL (2.0-20.0)
--- NOTE | 2023-05-21 02:28 | ECG_ITS ---
APPROVED REPORT Exam: Resting ECG HR:78 bpm ECG Measurements Heart Rate 78 AXES NV 148 P 61 QRSd 89 QRS 85 QT 365 T -53 QTc 398 Conclusion SINUS RHYTHM Nonspecific ST/T wave changes No acute changes from prior EKG Electronically signed by : NATALIYA ELISE, 05/21/2023 06:37:20
[2023-05-21 02:29] LABS: NT Pro Brain Natriuretic Pep. 897 pg/mL (0-125)
[2023-05-21 02:30] LABS: Lactate Venous 1.3 mmol/L (0.4-2.0); VBG Base Excess -2.6 mmol/L (-2.4-2.3); VBG HCO3 24.3 mmol/L (23-30); VBG Oxygen Saturation 70.2 % (50-70); VBG PCO2 54.4 mmol/L (35-51); VBG PH 7.27 mmol/L (7.31-7.41); VBG PO2 40.9 mmol/L (28-40)
[2023-05-21 02:32] LABS: Troponin I < 0.01 ng/ml (0.00-0.034)
[2023-05-21 02:36] LABS: Microscopic, Urine URINE MICROSCOPIC (MICROSCOPIC)
[2023-05-21 02:36] LABS: T4 (Thyroxine) 9.1 ug/dl (5.53-11.0)
[2023-05-21 02:37] LABS: Bilirubin,Urine Negative (Negative); Blood, Urine 2+ (Negative); Glucose,Urine (UA) TRACE (Negative); Ketones,Urine Negative (Negative); Leukocyte Esterase,Urine Negative (Negative); Nitrate,Urine POSITIVE (Negative); Protein,Urine 2+ (Negative); Specific Gravity, Urine 1.025 (1.005-1.030)
[2023-05-21 02:39] LABS: Appearance,Urine Slightly Cloudy (Clear); Color,Urine Dark Yellow (Yellow)
[2023-05-21 02:40] LABS: Ammonia 9 umol/L (9-30)
[2023-05-21 02:43] LABS: Eosinophils % 1 % (0-3); Lymphocytes % 7 % (10-50); Macrocytosis 2+; Monocytes % 6 % (2-9); Neutrophils % 86 % (42-76); Platelet Estimate Normal; Total Cells Counted 100
[2023-05-21 02:48] LABS: Amphetamine/Metha Screen,Urine Negative ng/ml (<1000)
[2023-05-21 02:49] LABS: Barbiturates Screen,Urine Negative ng/ml (<200); Benzodiazepines Screen,Urine Negative ng/ml (<200)
[2023-05-21 02:50] LABS: Bacteria,Urine 1+ /lpf; Cannabinoid Screen,Urine Negative ng/ml (<50); Cocaine Screen,Urine Negative ng/ml (<300)
[2023-05-21 02:51] LABS: Methadone Screen,Urine Negative ng/ml (<300)
[2023-05-21 02:52] LABS: Opiate Screen,Urine Positive ng/ml (<300); Phencyclidine Screen,Urine Negative ng/ml (<25)
--- NOTE | 2023-05-21 02:59 | PC.NURSE ---
Medications provided by family entered into EMR as patient's current medications. Spouse unsure if patient takes all of these medications as some bottles are duplicates all with varying numbers of pills inside. Some prescription bottles are from many years previous. Spouse states that she had no idea that he was not taking his medications appropriately as he was not monitored for compliance. Provider notified of findings. Medications returned to at bedside. Dr. Douglas spoke with family at length regarding patient's current results and need for admission at this time. Family at bedside discussing the need for psychiatric evaluation, reenforced that at this time patient needs medical management and other needs can be addressed as his condition improves. Family agree with plan of care at this time.
[2023-05-21 03:20] LABS: Valproic Acid, (Depakene) 19.4 ug/ml (50-100)
[2023-05-21] MEDS: 0.9 % SODIUM CHLORIDE 1000ML 1,000 ML 999 ML IV (03:41)
[2023-05-21] MEDS: CEFTRIAXONE SODIUM 2 GM in 0.9 % SODIUM CHLORIDE 100 ML IV (03:43)
--- NOTE | 2023-05-21 04:06 | P.HP_ITS ---
<Statement entered by Michele Brink MD - 05/21/23 19:17> Patient was seen and evaluated at the bedside myself, agree with SANGITA note. History of Present Illness *Admission Date: 05/21/23 *Reason for visit:: AMS *History of present illness: This is a 67-year-old male with history of thyroid storm now with posttreatment hypothyroidism on levothyroxine, carcinoma of kidney status post resection, bladder mass status post resection, emphysema, CKD, COPD not on home oxygen, and epilepsy presenting with concern for weakness and frequent falls. patient somnolent and unable to cooperate with interview. per ED documentation: According to EMS, they were called to scene (patient's home where he lives with family) because the patient had fallen down and was unable to get up. They found him down on his right side. Patient's family had told EMS that he had been awake for 4 days and had not been able to sleep at all, and subsequently he began having frequent falls and general weakness. EMS notes that when they found him down on the ground, the patient initially denied any concerns or complaints. He stated that he was fine. He fell asleep en route and has since been difficult to wake up. He also desaturated when sleeping to the high 80s, so he was placed on supplemental oxygen. Vitals were otherwise reassuring. Upon arrival, patient does not contribute to history except to tell us his name and date of , as he is somnolent. He arouses to voice with repeated attempts and denies any pain. I went through the patient's medication bag and noted that he is on multiple medications, including [place], Keppra, Depakote, duloxetine, levothyroxine, me latonin, testosterone, inhalers. The bag of medications has multiple bottles of the same prescription from various years. Unclear how the patient is taking his medications or if he is. Patient's arrives and notes that since he hadn't slept in 4 days, he took ambien and drank nyquil this evening. [facility] Disclaimer: The information contained in this section may have been updated after the patient was seen, as this information can be updated by other users. Medical History (Updated 05/21/23 @ 06:48 by Dallas Villanueva APRN) Hypothyroidism Epilepsy History of thyroid storm Kidney malignancy Rhabdomyolysis Surgical History (Updated 05/21/23 @ 03:05 by Adina Murillo RN) History of nephrectomy Social History Smoking Status: Current every day smoker tobacco type: cigarettes packs per day: 1 alcohol intake: never substance use type: denies use current occupational status: employed Travel in the last 8 weeks: None household members: spouse housing: house current occupation: [employer] caffeine: Yes Review of Systems Review of Systems Review of systems:: unable to obtain Meds Home Medications and Allergies Home Medications Medication Instructions Recorded Confirmed Type tamsulosin 0.4 mg capsule 0.8 mg PO HS prostate #60 caps 08/11/18 05/21/23 History duloxetine 60 mg capsule,delayed 60 mg PO DAILY Depression 06/26/21 05/21/23 History release alendronate 70 mg tablet 70 mg PO WEEKLY Osteoporosis 09/14/21 05/21/23 History hydrocodone 7.5 mg-acetaminophen 1 tab PO Q6HP PRN Severe Pain 11/02/22 05/21/23 History 325 mg tablet (Scale Score 7-10) albuterol sulfate 90 mcg/actuation 2 puff inhalation Q6HP PRN 11/03/22 05/21/23 History aerosol inhaler Shortness Of Breath divalproex 500 mg tablet,delayed 500 mg PO BID SEIZURES 11/03/22 05/21/23 History release levothyroxine 200 mcg tablet 200 mcg PO DAILYDM THYROID 11/03/22 05/21/23 History calcium carbonate 600 mg calcium 600 mg PO DAILY 05/21/23 05/21/23 History (1,500 mg) tablet (Calcium) ergocalciferol (vitamin D2) 1,250 1,250 mcg PO WEEKLY 05/21/23 05/21/23 History mcg (50,000 unit) capsule (Vitamin D2) guaifenesin 600 mg tablet, 600 mg PO Q12H PRN Congestion 05/21/23 05/21/23 History extended release 12 hr (Mucinex) levetiracetam 500 mg tablet 500 mg PO BID 05/21/23 05/21/23 History melatonin 10 mg sublingual tablet 10 mg sublingual HS 05/21/23 05/21/23 History ondansetron HCl 4 mg tablet 4 mg PO Q8H PRN Nausea 05/21/23 05/21/23 History sennosides 17.2 mg tablet (Senokot 17.2 mg PO DAILY PRN Constipation 05/21/23 05/21/23 History Extra Strength) sildenafil 100 mg tablet (Viagra) 100 mg PO DAILY 05/21/23 05/21/23 History umeclidinium 62.5 mcg-vilanterol 1 inh inhalation DAILY 05/21/23 05/21/23 History 25 mcg/actuation powdr for inhalation (Anoro Ellipta) New Prescriptions to Start Prescriptions: Allergies Allergy/AdvReac Type Severity Reaction Status Date / Time promethazine [From PHENERGAN] Allergy Intermediate HALLUCINATE Verified 10/24/21 14:15 Exam Data for Last 24 hours Vital signs and Labs for Last 24 Hours: Temp Pulse Resp BP Pulse Ox O2 Del Method 97.2 F L 77 11 L 100/62 L 89 L Room Air 05/21/23 02:33 05/21/23 01:45 05/21/23 01:45 05/21/23 01:45 05/21/23 01:45 05/21/23 01:45 Laboratory Results - last 24 hr 05/21/23 01:44: VBG pH 7.27 L, VBG pCO2 54.4 H, VBG pO2 40.9 H, VBG HCO3 24.3, VBG Total CO2 26.0, VBG O2 Saturation 70.2 H, VBG Base Excess -2.6 L, VBG Lactic Acid 1.3 05/21/23 02:00: WBC 11.7 H, RBC 3.14 L, Hgb 10.2 L, Hct 33.2 L, MCV 105.7 H, MCH 32.4 H, MCHC 30.6 L, RDW 15.3, Plt Count 336, MPV 7.9, Neut % (Auto) 86.5 H, Lymph % (Auto) 7.6 L, [place] % (Auto) 4.6, Eos % (Auto) 0.8, Baso % (Auto) 0.5, Neut # (Auto) 10.1 H, Lymph # (Auto) 0.9, [place] # (Auto) 0.5, Eos # (Auto) 0.1, Baso # (Auto) 0.1, Total Counted 100, Neutrophils % (Manual) 86 H, Lymphocytes % (Manual) 7 L, Monocytes % (Manual) 6, Eosinophils % (Manual) 1, Platelet Estimate Normal, Macrocytosis 2+, PT 11.1, INR 1.03, APTT 27.9, Sodium 138, Potassium 4.8, Chloride 107, Carbon Dioxide 27, Anion Gap 8.8, BUN 37 H, Creatinine 2.80 H, Estimated Creat Clear 23, Estimated GFR 23 L, Est GFR ( Amer) 27 L, Glucose 94, Calcium 9.4, Total Bilirubin 0.5, AST 38, ALT 22, Alkaline Phosphatase 72, Troponin I < 0.01, NT-Pro-B Natriuret Pep 897 H, Total Protein 6.4 D, Albumin 3.8, Globulin 2.6, Albumin/Globulin Ratio 1.5, TSH 14.30 H, Thyroxine (T4) 9.1, Salicylates < 1.0 L, Acetaminophen < 10 L, Total Valproic Acid 19.4 L, Plasma/Serum Alcohol < 10 05/21/23 02:05: Ammonia 9 05/21/23 02:26: Urine Color Dark yellow, Urine Appearance Slightly cloudy, Urine pH 6.0, Ur Specific [place] 1.025, Urine Protein 2+, Urine Glucose (UA) Trace, Urine Ketones Negative, Urine Blood 2+, Urine Nitrate Positive, Urine Bilirubin Negative, Urine Urobilinogen 1.0, Ur Leukocyte Esterase Negative, Urine RBC 10- 20, Urine WBC 3-5, Ur Squamous Epith Cells None, Urine Bacteria 1+, Urine Opiates Screen Positive H, Urine Methadone Screen Negative, Ur Barbituates Screen Negative, Ur Phencyclidine Scrn Negative, Ur Amphetamines Screen Neg ative, U Benzodiazepines Scrn Negative, Urine Cocaine Screen Negative, U Marijuana (THC) Screen Negative I & O for Last 24 hours: Intake & Output 05/18/23 05/19/23 05/20/23 05/21/23 23:59 23:59 23:59 23:59 Weight 65.771 kg Constitutional Constitutional: no acute distress, thin, cachectic and chronically ill appearing *Routine HEENT Exam Head: Present normocephalic Eye: Present EOMI and PERRL ENT: Present mucous membranes dry *Routine Neck Exam Neck: Present supple; Absent lymphadenopathy *Routine Respiratory Exam Respiratory: Present prolonged expiratory phase, rhonchi and diminished air movement *Routine Cardiovascular Exam Cardiovascular: Present RRR *Routine Abdominal Exam Abdominal: Present soft; Absent tenderness Comments: Scaphoid abdomen *Routine Rectal Exam Rectal:: deferred *Routine Genitalia Exam Genitalia:: deferred *Routine Extremities Exam Extremities: Absent cyanosis, clubbing or edema Comments: Poor skin turgor, no edema, very thin, warm and well-perfused extremities, nicotine staining and clubbing in his hands *Routine Skin Exam Skin: Present warm; Absent rash *Routine Neurological Exam Neurological: Present alert and oriented X3 Comments: Globally weak. No sensory deficits. Moves all extremities. Routine Psychiatric Exam Comments: Appears dysthymic but this seems to be baseline H&P: Result Imaging and Cardiology EKG: Status: image reviewed by me, Preliminary report and final report CT scan - head: Status: image reviewed by me, Preliminary report and final report Chest x-ray: Status: image reviewed by me, Preliminary report and final report Assessment and Plan *Assessment and plan (1) Altered mental status: Status: Acute Qualifiers: Altered mental status type: somnolence Qualified Code(s): R40.0 - Somnolence Category: Medical Code(s): R41.82 - Altered mental status, unspecified (2) Polypharmacy: Status: Acute Category: Medical Code(s): Z79.899 - Other parts counterman (current) drug therapy (3) Acute UTI: Status: Acute Category: Medical Code(s): N39.0 - Urinary tract infection, site not specified (4) Acute kidney injury superimposed on CKD: Status: Acute Category: Medical Code(s): N17.9 - Acute kidney failure, unspecified; N18.9 - Chronic kidney disease, unspecified (5) COPD (chronic obstructive pulmonary disease): Status: Chronic Qualifiers: COPD type: unspecified COPD Qualified Code(s): J44.9 - Chronic obstructive pulmonary disease, unspecified Category: Medical Code(s): J44.9 - Chronic obstructive pulmonary disease, unspecified (6) Bladder mass: Status: Acute Category: Medical Code(s): N32.89 - Other specified disorders of bladder (7) History of renal cell carcinoma: Status: Acute Category: Medical Code(s): Z85.528 - Personal history of other malignant neoplasm of kidney Plan 67-year-old male with history of thyroid storm now with post-treatment hypothyroidism on levothyroxine, carcinoma of kidney status post resection, bladder mass status post resection, emphysema, CKD, COPD not on home oxygen, and epilepsy presenting with concern for weakness and frequent falls. patient somnolent and unable to cooperate with interview. Labs were obtained that de monstrated concerns for urinary tract infection, KEN on CKD, elevated TSH but normal T4, mild respiratory acidosis, and mild leukocytosis. Depakote and Keppra levels were sent and are pending at this time. Blood cultures and urine cultures were sent and are pending. Patient was given a liter bolus of normal saline as well as started on IV Rocephin. Sepsis bolus was not administered, as the patient has mildly elevated BNP. Discussed with ED for admission. Plan as follow: -Encephalopathy. unknown baseline. unclear chronicity, Contributing factors are polypharmacy and UTI: Admit patient for medical services. Dispo MedSurg Start continuous monitoring. Vital signs per unit protocol Depakote and Keppra levels are pending Started on ceftriaxone 2 g every 24 UA culture pending Repeat a.m. monitor labs in the morning -Acute on chronic kidney injury: Avoid nephrotoxic medication Monitor urine output Repeat CMP. Continue IV fluid History of COPD: Monitor O2 sat. resume home regimen History of renal cell carcinoma and bladder mass. Conditions stable levonox and protonix Full code.
--- NOTE | 2023-05-21 04:06 | PC.NURSE ---
patient boarding in ED
--- NOTE | 2023-05-21 04:06 | PC.NURSE ---
Notified house medical records administrator of need for bed assignment. Holding at this time.
--- NOTE | 2023-05-21 05:22 | PC.NURSE ---
lab in room drawing blood
[2023-05-21 06:44] LABS: Basophils # 0.1 K/mm3 (0-0.2); Basophils % 0.4 % (0.1-2.0); Eosinophils # 0.1 K/mm3 (0.0-0.4); Eosinophils % 0.8 % (0.1-12.0); Hematocrit 31.7 % (42.0-52.0); Hemoglobin 9.7 g/dL (14.1-18.0); Lymphocytes % 9.1 % (10-50); Mean Corpuscular HGB Conc 30.7 g/dL (31.8-35.4); Mean Corpuscular Hemoglobin 33.1 pg (27.0-31.2); Mean Corpuscular Volume 107.9 fl (80-94); Monocytes # 0.5 K/mm3 (0.1-1.0); Monocytes % 3.9 % (1.7-9.3); Neutrophils # 9.7 K/mm3 (1.8-7.8); Neutrophils % 85.8 % (37.0-80.0); Platelet Count 329 K/mm3 (142-424); Red Blood Count 2.93 M/mm3 (4.60-6.20); Red Cell Distribution Width 15.5 % (11.5-17.5); White Blood Count 11.3 K/mm3 (4.8-10.8)
[2023-05-21 07:25] LABS: Alanine Aminotransferase 22 U/L (12-78); Albumin Level 3.5 g/dl (3.5-5.0); Albumin/Globulin Ratio 1.5 (1.1-1.8); Alkaline Phosphatase 67 U/L (38-126); Anion Gap 11.7 mEq/L (5-15); Aspartate Amino Transferase 64 U/L (17-59); Bilirubin,Total 0.4 mg/dl (0.2-1.3); Blood Urea Nitrogen 36 mg/dl (9-20); Calcium 8.6 mg/dl (8.4-10.2); Carbon Dioxide 24 mmol/L (22.0-30.0); Chloride 108 mmol/L (98-107); Creatinine Clearance Estimated 25 mL/min (50-200); Estimated Glomerular Filt Rate 25 ml/min (>60); GFR (African American) 30 ML/MIN (>60); Globulin 2.4 g/dL (1.3-3.2); Glucose 82 mg/dl (74-100); Potassium 4.7 mmoL/L (3.5-5.1); Sodium 139 mmol/L (136-145); Total Protein,Serum 5.9 g/dl (6.3-8.2)
[2023-05-21 07:32] LABS: Troponin I 0.01 ng/ml (0.00-0.034)
[2023-05-21] MEDS: PANTOPRAZOLE 40MG TABLET 40 MG PO (08:13)
[2023-05-21] MEDS: 0.9 % SODIUM CHLORIDE 1000ML 1,000 ML 50 ML IV ×2 (08:13→13:22)
[2023-05-21] MEDS: ENOXAPARIN 30MG/0.3ML SYRINGE 30 MG SQ (08:13)
[2023-05-21 08:25] LABS: Troponin I 0.01 ng/ml (0.00-0.034)
--- NOTE | 2023-05-21 08:26 | PC.NURSE ---
Fluids started and pt able to take PO med w/o issues. No needs stated by pt to staff at this time.
--- NOTE | 2023-05-21 11:03 | PC.NURSE ---
Attempted to call report at this time. Receiving RN is with another pt and will call back.
--- NOTE | 2023-05-21 11:25 | PC.NURSE ---
Report called to KAYLEIGH Marino at this time.
--- NOTE | 2023-05-21 11:51 | PC.NURSE ---
arrived by stretcher from ED
[2023-05-21] MEDS: levETIRAcetam 500 MG TABLET PO (20:51)
[2023-05-21] MEDS: MELATONIN 5MG TABLET 10 MG PO (20:51)
[2023-05-21] MEDS: TAMSULOSIN 0.4MG CAPSULE 0.800000000000000044 MG PO (20:51)
[2023-05-21] MEDS: DIVALPROEX 500MG (Delayed-Release) TABLET 500 MG PO (20:51)
[2023-05-21] MEDS: AMITRIPTYLINE 50MG TABLET 50 MG PO (20:51)
--- NOTE | 2023-05-21 23:45 | PC.NURSE ---
ROOM AIR SAT 86% Pt placed back on 2LNC and satting 92%
[2023-05-22] MEDS: CEFTRIAXONE SODIUM 2 GM in 0.9 % SODIUM CHLORIDE 100 ML IV (03:07)
[2023-05-22 04:00] VITALS: BP 121/65; PULSE 67; RESP 18; TEMP 37.3; O2SAT 96; BMI 19.1
--- NOTE | 2023-05-22 05:18 | PC.NURSE ---
PATIENT WAKES EASILY TO VERBAL STIMULI. ORIENTED X 4. DENIES PAIN OR DISCOMFORT. 02 AT 2LNC. AFFECT FLAT BUT QUIET AND COOPERATIVE.
[2023-05-22] MEDS: LEVOTHYROXINE 100MCG (0.1MG) TAB 200 MCG PO (06:01)
[2023-05-22 07:57] VITALS: BP 122/65; PULSE 66; RESP 16; TEMP 36.6; O2SAT 95
[2023-05-22] MEDS: levETIRAcetam 500 MG TABLET PO ×2 (08:13→21:50)
[2023-05-22] MEDS: DIVALPROEX 500MG (Delayed-Release) TABLET 500 MG PO ×2 (08:13→21:50)
[2023-05-22] MEDS: DULOXETINE 30MG CAPSULE.DR 60 MG PO (08:13)
[2023-05-22] MEDS: CALCIUM CARBONATE 500MG CHEWTAB 500 MG PO (08:13)
[2023-05-22] MEDS: PANTOPRAZOLE 40MG TABLET 40 MG PO (08:15)
[2023-05-22 09:06] LABS: Basophils # 0.1 K/mm3 (0-0.2); Basophils % 0.7 % (0.1-2.0); Eosinophils # 0.1 K/mm3 (0.0-0.4); Eosinophils % 1.9 % (0.1-12.0); Hematocrit 30.8 % (42.0-52.0); Hemoglobin 9.7 g/dL (14.1-18.0); Lymphocytes # 1.2 K/mm3 (0.7-4.5); Lymphocytes % 16.5 % (10-50); Mean Corpuscular HGB Conc 31.5 g/dL (31.8-35.4); Mean Corpuscular Volume 104.7 fl (80-94); Mean Platelet Volume 7.9 fl (7.4-10.4); Monocytes # 0.4 K/mm3 (0.1-1.0); Monocytes % 5.9 % (1.7-9.3); Neutrophils # 5.5 K/mm3 (1.8-7.8); Neutrophils % 74.9 % (37.0-80.0); Platelet Count 294 K/mm3 (142-424); Red Blood Count 2.95 M/mm3 (4.60-6.20); Red Cell Distribution Width 15.2 % (11.5-17.5); White Blood Count 7.3 K/mm3 (4.8-10.8)
[2023-05-22 09:17] LABS: Chloride 111 mmol/L (98-107); Sodium 139 mmol/L (136-145)
[2023-05-22 09:18] LABS: Potassium 4.1 mmoL/L (3.5-5.1)
[2023-05-22 09:21] LABS: Anion Gap 8.1 mEq/L (5-15); Blood Urea Nitrogen 33 mg/dl (9-20); Calcium 8.4 mg/dl (8.4-10.2); Carbon Dioxide 24 mmol/L (22.0-30.0); Creatinine Clearance Estimated 28 mL/min (50-200); Estimated Glomerular Filt Rate 27 ml/min (>60); GFR (African American) 33 ML/MIN (>60); Glucose 84 mg/dl (74-100)
[2023-05-22 09:49] LABS: Creatine Kinase 761 U/L (55-170)
[2023-05-22] MEDS: 0.9 % SODIUM CHLORIDE 1000ML 1,000 ML 50 ML IV (13:07)
--- NOTE | 2023-05-22 13:38 | HMH.OTEV ---
OT Inpatient Evaluation Rehab OT IP Evaluation Start: 05/22/23 10:02 Freq: ONCE Status: Active Protocol: Document 05/22/23 13:31 KIKE (Rec: 05/22/23 13:37 [facility] [id number] Rehab OT IP Assessment Subjective History Pt oriented x 3 on arrival. Pt agreeable to engage in therapy evaluation. Pt admitted on 05/21/23 due to UTI , KEN, and AMS. History and PHysical: This is a 67-year-old male with history of thyroid storm now with posttreatment hypothyroidism on levothyroxine, carcinoma of kidney status post resection, bladder mass status post resection, emphysema, CKD, COPD not on home oxygen, and epilepsy presenting with concern for weakness and frequent falls. patient somnolent and unable to cooperate with interview. per ED documentation: According to EMS, they were called to scene (patient's home where he lives with family) because the patient had fallen down and was unable to get up. They found him down on his right side. Patient's family had told EMS that he had been awake for 4 days and had not been able to sleep at all, and subsequently he began having frequent falls and general weakness. EMS notes that when they found him down on the ground, the patient initially denied any concerns or complaints. He stated that he was fine. He fell asleep en route and has since been difficult to wake up. He also desaturated when sleeping to the high 80s, so he was placed on supplemental oxygen. Vitals were otherwise reassuring. Upon arrival, patient does not contribute to history except to tell us his name and date of , as he is somnolent. He arouses to voice with repeated attempts and denies any pain. I went through the patient's medication bag and noted that he is on multiple medications, including [place], Keppra, Depakote, duloxetine, levothyroxine, melatonin, testosterone, inhalers. The bag of medications has multiple bottles of the same prescription from various years. Unclear how the patient is taking his medications or if he is. Patient's arrives and notes that since he hadn't slept in 4 days, he took ambien and drank nyquil this evening. Subjective Pt reports prior to being in the hospital, he lived at home with his and family. Pt claims he is normally independent with all ADLs. He does not wear o2 at home. He does use a walker during functional mobility tasks. Objective Patient Orientation Person,Place,Birthday Right Upper Extremity Gross ROM WFL Left Upper Extremity Gross ROM WFL Bed Mobility bed mobility-scooting,bed mobility - supine/sit Assist Level Contact Guard/Hand Hold Transfer Training Sit/Stand Transfer Assist Level Minimal x 1 (25% assist) Chair Transfer Ability Minimal x 1 (25% assist) Chair Transfer Technique Sit to/from Ambulatory Chair Transfer Assistive Devices Rolling Walker Rehab OT IP prob,goals,plan Problems Date of Evaluation: 05/22/23 OT IP Problems Bed Mobility,Transfers,Balance ,Self care,Safety Rehab Potential Rehab Potential Good Equipment Needs Assistive Devices Rolling / Wheeled Walker Plan OT intervention Plan Bed Mobility,Transfers,Balance ,Self care,Safety,Therapeutic Exercise OT Plan Frequency Daily Duration LOS Discharge Goals Bed Mobility Ability Standby Assistance Sit to Stand Chair Transfer Ability Contact Guard/Hand Hold Chair Transfer Ability Contact Guard/Hand Hold Chair Transfer Technique Sit to/from Ambulatory Chair Transfer Assistive Devices Rolling Walker Lower Body Dressing Ability Minimal Assistance Upper Body Dressing Ability Contact Guard Bathing Ability Moderate Assistance Performing Toilet Hygiene Ability Minimal Assistance Overall Commode/Toilet Transfer Ability Contact Guard Commode/Toilet Transfer Technique Sit to/from Ambulatory Commode/Toilet Transfer Assistive Grab Bars Devices Oral Care Assist Standby Assistance Decrease in Endurance Yes Discharge Plan OT Discharge Plan Pt will continue to be seen for OT services while at [facility]. Pt appears to be close to baseline with functional transfers and ADL independence . Pt can return home with once he is medically stable per physician. Therapist recommends OT evaluation upon returning home as needed. Eval Complexity Eval Charge Codes 04607 - Moderate Complexity PHYSICIAN CERTIFICATION: I certify the specified therapy services for Peter Rojo are required, authorized, and reviewed every 30 days.
--- NOTE | 2023-05-22 13:40 | HMH.PTEV ---
Physical Therapy Evaluation Rehab PT IP Evaluation Start: 05/22/23 10:02 Freq: ONCE Status: Active Protocol: Document 05/22/23 13:33 EAMON (Rec: 05/22/23 13:40 EAMON [id number]) Subjective/History History History Per H&P: This is a 67-year-old male with history of thyroid storm now with posttreatment hypothyroidism on levothyroxine, carcinoma of kidney status post resection, bladder mass status post resection, emphysema, CKD, COPD not on home oxygen, and epilepsy presenting with concern for weakness and frequent falls. patient somnolent and unable to cooperate with interview. Subjective Subjective Pt oriented to PLOF but not situation/reason for hospitalization. PLOF per pt report: IND with ADLs and functional mobility. [address] single-story home. Lives with and family. Driving proir to admission. Prior use of RW and cane. New diagnosis of cancer in past 12 No months? Rehab PT IP Eval Objective Appearance Patient Behavior Appropriate,Cooperative Difficulty following instructions none Speech Pattern Clear Ambulation Patient Able to Ambulate Yes Ambulation Observation IP General Gait Pattern Observation Wide Based Gait Ambulation Distance (feet) 20 Ambulation Assistive Device Rolling Walker Ambulation Ability Minimal x 1 (25% assist) Balance Ability to Arise Able, uses arms to help Sitting Balance Steady, safe Standing Balance Unsteady Transfers Bed Transfer Ability Supervision/Stand by Chair Transfer Ability Contact Guard/Hand Hold Sit to Stand Chair Transfer Ability Minimal x 1 (25% assist) Rehab PT IP prob,goals,plan Problems Date of Evaluation: 05/22/23 PT IP Problems Transfers,Gait,Balance,Safety Rehab Potential Rehab Potential Good Equipment Needs Assistive Devices Rolling / Wheeled Walker Plan PT Intervention Plan Bed Mobility,Transfers,Gait, Balance,Safety,Therapeutic Exercise Other Intervention Plan 1-2 times PT Plan Frequency Daily Duration LOS Discharge Goals Bed Transfer Ability Independent Sit to Stand Chair Transfer Ability Supervision/Stand by Ambulation Assistive Device Rolling Walker Ambulation Distance (feet) 30 Discharge Plan PT Discharge Plan Pt safe to d/c home when deemed medically necessary d/t current level of mobility, home set-up, and family support. Pt would benefit from skilled PT while at [facility] to prevent further functional decline and maximize safety with mobility. Eval Complexity Eval Charge Codes 17241 - Moderate Complexity PHYSICIAN CERTIFICATION: I certify the specified therapy services for [facility] are required, authorized, and reviewed every 30 days.
--- NOTE | 2023-05-22 14:38 | P.PN_ITS ---
Subjective *Date: 05/22/23 *Time: 14:38 Interval history: patient was seen and evaluated at the bedside. No reported acute events overnight, denies chest pain, shortness of breath, nausea, vomiting, abdominal pain. Exam Data for Last 24 hours Vital signs and Labs for Last 24 Hours: Temp Pulse Resp BP Pulse Ox O2 Del Method O2 Flow Rate 97.8 F 66 16 122/65 95 Nasal Cannula 2 05/22/23 07:57 05/22/23 07:57 05/22/23 07:57 05/22/23 07:57 05/22/23 07:57 05/22/23 14:02 05/22/23 12:52 Laboratory Results - last 24 hr 05/22/23 08:32: WBC 7.3 D, RBC 2.95 L, Hgb 9.7 L, Hct 30.8 L, MCV 104.7 H, MCH 33.0 H, MCHC 31.5 L, RDW 15.2, Plt Count 294, MPV 7.9, Neut % (Auto) 74.9, Lymph % (Auto) 16.5, [place] % (Auto) 5.9, Eos % (Auto) 1.9, Baso % (Auto) 0.7, Neut # (Auto) 5.5, Lymph # (Auto) 1.2, [place] # (Auto) 0.4, Eos # (Auto) 0.1, Baso # (Auto) 0.1, Sodium 139, Potassium 4.1, Chloride 111 H, Carbon Dioxide 24, Anion Gap 8.1, BUN 33 H, Creatinine 2.40 H, Estimated Creat Clear 28, Estimated GFR 27 L, Est GFR ( Amer) 33 L, Glucose 84, Calcium 8.4, Total Creatine Kinase 761 H* I & O for Last 24 hours: Intake & Output 05/19/23 05/20/23 05/21/23 05/22/23 23:59 23:59 23:59 23:59 Intake Total 1131 / 1131 1015 / 1015 Output Total 2300 / 2300 1625 / 1625 Balance -1169 / -1169 -610 / -610 Weight 66.933 kg 67.585 kg Constitutional Constitutional: no acute distress *Routine HEENT Exam Head: Present normocephalic Eye: Present EOMI and PERRL ENT: Present mucous membranes moist *Routine Neck Exam Neck: Present supple; Absent lymphadenopathy *Routine Respiratory Exam Respiratory: Present CTA bilaterally *Routine Cardiovascular Exam Cardiovascular: Present RRR *Routine Abdominal Exam Abdominal: Present soft and normoactive bowel sounds; Absent tenderness *Routine Extremities Exam Extremities: Absent cyanosis, clubbing or edema *Routine Skin Exam Skin: Present warm; Absent rash *Routine Neurological Exam Neurological: Present alert and oriented X3 Assessment and Plan *Assessment and plan (1) Altered mental status: Status: Acute Qualifiers: Altered mental status type: somnolence Qualified Code(s): R40.0 - Somnolence Category: Medical Code(s): R41.82 - Altered mental status, unspecified (2) Polypharmacy: Status: Acute Category: Medical Code(s): Z79.899 - Other senior living (current) drug therapy (3) Acute UTI: Status: Acute Category: Medical Code(s): N39.0 - Urinary tract infection, site not specified (4) Acute kidney injury superimposed on CKD: Status: Acute Category: Medical Code(s): N17.9 - Acute kidney failure, unspecified; N18.9 - Chronic kidney disease, unspecified (5) COPD (chronic obstructive pulmonary disease): Status: Chronic Qualifiers: COPD type: unspecified COPD Qualified Code(s): J44.9 - Chronic obstructive pulmonary disease, unspecified Category: Medical Code(s): J44.9 - Chronic obstructive pulmonary disease, unspecified (6) Bladder mass: Status: Acute Category: Medical Code(s): N32.89 - Other specified disorders of bladder (7) History of renal cell carcinoma: Status: Acute Category: Medical Code(s): Z85.528 - Personal history of other malignant neoplasm of kidney Plan 67-year-old male with history of thyroid storm now with post-treatment hypothyroidism on levothyroxine, carcinoma of kidney status post resection, bladder mass status post resection, emphysema, CKD, COPD not on home oxygen, and epilepsy presenting with concern for weakness and frequent falls. patient somn olent and unable to cooperate with interview. Encephalopathy. improved Contributing factors are polypharmacy and UTI: Depakote and Keppra levels are pending Started on ceftriaxone 2 g every 24 - continue Rhabdomyolysis -CK level coming down -Acute on chronic kidney injury - improving Avoid nephrotoxic medication Monitor urine output Repeat CMP Continue IV fluid History of COPD: Monitor O2 sat. resume home regimen History of renal cell carcinoma and bladder mass. Conditions stable levonox and protonix Full code. likely DC tomorrow
[2023-05-22 15:56] VITALS: BP 128/70; PULSE 66; RESP 18; TEMP 36.8; O2SAT 95
--- NOTE | 2023-05-22 17:48 | PC.NURSE ---
Pt. is rachel forde, on NC, up with assistance times one, pt and ot working with patient.
[2023-05-22 20:00] VITALS: BP 120/67; PULSE 66; RESP 18; TEMP 36.6; O2SAT 97
[2023-05-22] MEDS: AMITRIPTYLINE 50MG TABLET 50 MG PO (21:50)
[2023-05-22] MEDS: TAMSULOSIN 0.4MG CAPSULE 0.800000000000000044 MG PO (21:50)
[2023-05-22] MEDS: MELATONIN 5MG TABLET 10 MG PO (21:50)
[2023-05-22 23:50] VITALS: O2SAT 94
--- NOTE | 2023-05-22 23:50 | PC.NURSE ---
ROOM AIR SAT 86% Pt placed back on 2LNC and sat was 94%
[2023-05-22 23:59] VITALS: O2SAT 96
[2023-05-23] MEDS: CEFTRIAXONE SODIUM 2 GM in 0.9 % SODIUM CHLORIDE 100 ML IV (03:28)
--- NOTE | 2023-05-23 03:41 | PC.NURSE ---
Pt is alert and oriented to self and place, and currently tolerating 2L of O2 well. Pt has tolerated antibiotic therapy well. Pt denies pain and has urinated well this shift. Pt has no complaints and has slept well thus far.
[2023-05-23 04:00] VITALS: BP 126/53; PULSE 60; RESP 20; TEMP 36.7; O2SAT 96; BMI 19.2
[2023-05-23] MEDS: LEVOTHYROXINE 100MCG (0.1MG) TAB 200 MCG PO (06:27)
[2023-05-23 07:22] LABS: Blood Urea Nitrogen 30 mg/dl (9-20); Calcium 8.5 mg/dl (8.4-10.2); Carbon Dioxide 23 mmol/L (22.0-30.0); Chloride 111 mmol/L (98-107); Creatinine Clearance Estimated 32 mL/min (50-200); Estimated Glomerular Filt Rate 31 ml/min (>60); GFR (African American) 38 ML/MIN (>60); Glucose 75 mg/dl (74-100); Sodium 139 mmol/L (136-145)
[2023-05-23 08:00] VITALS: BP 114/53; PULSE 66; RESP 20; TEMP 36.8; O2SAT 96
[2023-05-23] MEDS: CALCIUM CARBONATE 500MG CHEWTAB 500 MG PO (08:00)
[2023-05-23] MEDS: DIVALPROEX 500MG (Delayed-Release) TABLET 500 MG PO (08:00)
[2023-05-23] MEDS: PANTOPRAZOLE 40MG TABLET 40 MG PO (08:00)
[2023-05-23] MEDS: DULOXETINE 30MG CAPSULE.DR 60 MG PO (08:00)
[2023-05-23] MEDS: levETIRAcetam 500 MG TABLET PO (08:00)
--- NOTE | 2023-05-23 09:55 | P.DS_ITS ---
General Admission date:: 05/21/23 Discharge date: 05/23/23 HPI HPI HPI: This is a 67-year-old male with history of thyroid storm now with posttreatment hypothyroidism on levothyroxine, carcinoma of kidney status post resection, bladder mass status post resection, emphysema, CKD, COPD not on home oxygen, and epilepsy presenting with concern for weakness and frequent falls. patient somnolent and unable to cooperate with interview. per ED documentation: According to EMS, they were called to scene (patient's home where he lives with family) because the patient had fallen down and was unable to get up. They found him down on his right side. Patient's family had told EMS that he had been awake for 4 days and had not been able to sleep at all, and subsequently he began having frequent falls and general weakness. EMS notes that when they found him down on the ground, the patient initially denied any concerns or complaints. He stated that he was fine. He fell asleep en route and has since been difficult to wake up. He also desaturated when sleeping to the high 80s, so he was placed on supplemental oxygen. Vitals were otherwise reassuring. Upon arrival, patient does not contribute to history except to tell us his name and date of , as he is somnolent. He arouses to voice with repeated attempts and denies any pain. I went through the patient's medication bag and noted that he is on multiple medications, including [place], Keppra, Depakote, duloxetine, levothyroxine, melatonin, testosterone, inhalers. The bag of medications has multiple bottles of the same prescription from various years. Unclear how the patient is taking his medications or if he is. Patient's arrives and notes that since he hadn't slept in 4 days, he took ambien and drank nyquil this evening. Hospital Course Hospital Course Hospital Course: 67-year-old male with history of thyroid storm now with post-treatment hypothyroidism on levothyroxine, carcinoma of kidney status post resection, bladder mass status post resection, emphysema, CKD, COPD not on home oxygen, and epilepsy presenting with concern for weakness and frequent falls. Patient encephalopathy improved, Cr and CK level improved Encephalopathy. improved Contributing factors are polypharmacy and UTI: - no growith on cultures, will dc on oral Ceftin Rhabdomyolysis - improved -Acute on chronic kidney injury - improved, encourged hydrations History of COPD: - stable History of renal cell carcinoma and bladder mass. Conditions stable levonox and protonix Full code. Exam Data for Last 24 hours Vital signs and Labs for Last 24 Hours: Temp Pulse Resp BP Pulse Ox O2 Del Method O2 Flow Rate 98.2 F 66 20 114/53 L 96 Nasal Cannula 2 05/23/23 08:00 05/23/23 08:00 05/23/23 08:00 05/23/23 08:00 05/23/23 08:00 05/23/23 08:00 05/23/23 08:00 Laboratory Results - last 24 hr 05/22/23 08:32: Total Creatine Kinase 761 H* 05/23/23 06:42: Sodium 139, Potassium 4.0, Chloride 111 H, Carbon Dioxide 23, Anion Gap 9.0, BUN 30 H, Creatinine 2.10 H, Estimated Creat Clear 32, Estimated GFR 31 L, Est GFR ( Amer) 38 L, Glucose 75, Calcium 8.5 I & O for Last 24 hours: Intake & Output 05/20/23 05/21/23 05/22/23 05/23/23 23:59 23:59 23:59 23:59 Intake Total 1131 / 1131 2095 / 2095 Output Total 2300 / 2300 2275 / 2275 320 / 320 Balance -1169 / -1169 -180 / -180 -320 / -320 Weight 66.933 kg 67.585 kg 68.067 kg Constitutional Constitutional: no acute distress *Routine HEENT Exam Head: Present normocephalic Eye: Present EOMI and PERRL ENT: Present mucous membranes moist *Routine Neck Exam Neck: Present supple; Absent lymphadenopathy *Routine Respiratory Exam Respiratory: Present CTA bilaterally *Routine Cardiovascular Exam Cardiovascular: Present RRR *Routine Abdominal Exam Abdominal: Present soft and normoactive bowel sounds; Absent tenderness *Routine Extremities Exam Extremities: Absent cyanosis, clubbing or edema *Routine Skin Exam Skin: Present warm; Absent rash *Routine Neurological Exam Neurological: Present alert and oriented X3 Results Data Completed and Pending Labs on day of discharge: Labs from last 24 hours 05/23/23 05/22/23 06:42 08:32 Sodium 139 Potassium 4.0 Chloride 111 H Carbon Dioxide 23 Anion Gap 9.0 BUN 30 H Creatinine 2.10 H Estimated Creat Clear 32 Estimated GFR 31 L Est GFR ( Amer) 38 L Glucose 75 Calcium 8.5 Total Creatine Kinase 761 H* DS: Diagnosis Discharge Diagnosis (1) Altered mental status: Status: Acute Code(s): R41.82 - Altered mental status, unspecified Qualifiers: Altered mental status type: somnolence Qualified Code(s): R40.0 - Somnolence (2) Polypharmacy: Status: Acute Code(s): Z79.899 - Other half-way (current) drug therapy (3) Acute UTI: Status: Acute Code(s): N39.0 - Urinary tract infection, site not specified (4) Acute kidney injury superimposed on CKD: Status: Acute Code(s): N17.9 - Acute kidney failure, unspecified; N18.9 - Chronic kidney disease, unsp ecified (5) COPD (chronic obstructive pulmonary disease): Status: Chronic Code(s): J44.9 - Chronic obstructive pulmonary disease, unspecified Qualifiers: COPD type: unspecified COPD Qualified Code(s): J44.9 - Chronic obstructive pulmonary disease, unspecified (6) Bladder mass: Status: Acute Code(s): N32.89 - Other specified disorders of bladder (7) History of renal cell carcinoma: Status: Acute Code(s): Z85.528 - Personal history of other malignant neoplasm of kidney Meds Home Medications and Allergies Home Medications Medication Instructions Recorded Confirmed Type tamsulosin 0.4 mg capsule 0.8 mg PO HS #60 caps 08/11/18 05/21/23 History duloxetine 60 mg capsule,delayed 60 mg PO DAILY 06/26/21 05/21/23 History release hydrocodone 7.5 mg-acetaminophen 1 tab PO Q6HP PRN Severe Pain 11/02/22 05/21/23 History 325 mg tablet (Scale Score 7-10) divalproex 500 mg tablet,delayed 500 mg PO BID 11/03/22 05/21/23 History release levothyroxine 200 mcg tablet 200 mcg PO DAILY 11/03/22 05/21/23 History amitriptyline 50 mg tablet 50 mg PO HS 05/21/23 05/21/23 History calcium carbonate 600 mg calcium 600 mg PO DAILY 05/21/23 05/21/23 History (1,500 mg) tablet (Calcium) ergocalciferol (vitamin D2) 1,250 1,250 mcg PO WEEKLY 05/21/23 05/21/23 History mcg (50,000 unit) capsule (Vitamin D2) levetiracetam 500 mg tablet 500 mg PO BID 05/21/23 05/21/23 History melatonin 10 mg sublingual tablet 10 mg sublingual HS 05/21/23 05/21/23 History sennosides 17.2 mg tablet (Senokot 17.2 mg PO DAILY PRN Constipation 05/21/23 05/21/23 History Extra Strength) sildenafil 100 mg tablet (Viagra) 100 mg PO NEEDED PRN . 05/21/23 05/21/23 History cefuroxime axetil 500 mg tablet 500 mg PO BID 5 days #10 tabs 05/23/23 Rx New Prescriptions to Start Prescriptions: cefuroxime axetil [place] Allergies Allergy/AdvReac Type Severity Reaction Status Date / Time promethazine [From PHENERGAN] Allergy Intermediate HALLUCINATE Verified 10/24/21 14:15 Discharge Plan Disposition Patient Disposition: Home, Self-Care Condition: Good Follow up Plan Follow up with: Edgardo Flower MD [Primary Care Provider] - 2 weeks Prescriptions/Medication Reconciliation: New cefuroxime axetil 500 mg tablet 500 mg PO BID 5 Days Qty: 10 0RF Continued tamsulosin 0.4 mg capsule 0.8 mg PO HS Qty: 60 duloxetine 60 mg capsule,delayed release(DR/EC) 60 mg PO DAILY Patient Comments: TAKE ONE CAPSULE BY MOUTH EVERY DAY hydrocodone-acetaminophen 7.5-325 mg tablet 1 tab PO Q6HP PRN (Reason: Severe Pain (Scale Score 7-10)) Patient Comments: TAKE 1 TO 2 TABLET(S) BY MOUTH EVERY 6 HOURS MAY CAUSE DROWSINESS divalproex 500 mg tablet,delayed release (DR/EC) 500 mg PO BID Patient Comments: TAKE ONE TABLET BY MOUTH THREE TIMES DAILY levothyroxine 200 mcg tablet 200 mcg PO DAILY levetiracetam 500 mg Tablet 500 mg PO BID sildenafil [Viagra] 100 mg Tablet 100 mg PO NEEDED PRN (Reason: .) Rx Instructions: administer 30 minutes to 4 hours before activity ergocalciferol (vitamin D2) [Vitamin D2] 1,250 mcg (50,000 unit) Capsule 1,250 mcg PO WEEKLY melatonin 10 mg Tablet, Sublingual 10 mg SUBLINGUAL HS calcium carbonate [Calcium 600] 600 mg calcium (1,500 mg) Tablet 600 mg PO DAILY Senokot Extra Strength 17.2 mg Tablet 17.2 mg PO DAILY PRN (Reason: Constipation) amitriptyline 50 mg tablet 50 mg PO HS Patient Comments: TAKE ONE TABLET BY MOUTH EVERY DAY AT BEDTIME Problem Reconciliation Problems Reviewed?: Yes Patient Discharge Instructions ACTIVITY: Ambulate as tolerated DIET: continue same diet Patient Instructions: Urinary Tract Infection, DI for Altered Mental Status Providers Primary Care Provider: Edgardo Flower Admit Provider: Michele Brink Attending Provider: Michele Brink
--- NOTE | 2023-05-23 10:46 | PC.NURSE ---
called daughter at [phone] with no answer.
[2023-05-24 10:10] LABS: Levetiracetam (Keppra) 8.5 ug/mL (10.0-40.0)
--- NOTE | 2023-05-26 14:50 | CARE MANAGER ---
Contacted patient related to hospital discharge. He states he is feeling better. He has his new medicine and is aware of follow up appointment with Dr. Flower. Discussed scheduled appt with Dr. Hawley and Dr. Garnett. KAYLEIGH Li
== END 2023-05-23 12:34 | disposition home or self-care (01) ==
LOC: ER 04:01 → 2ND 11:57
PROVIDERS: Nurse Practitioner Family; Admitting Provider Internal Medicine; Emergency Provider Emergency Medicine; PCP Internal Medicine Adolescent Medicine; Visit Provider Internal Medicine
DX: N17.9 Acute kidney failure, unspecified (principal); R40.0 Somnolence; Z79.899 Other long term (current) drug therapy; N39.0 Urinary tract infection, site not specified; N18.9 Chronic kidney disease, unspecified; J44.9 Chronic obstructive pulmonary disease, unspecified; Z85.528 Personal history of other malignant neoplasm of kidney; F17.210 Nicotine dependence, cigarettes, uncomplicated; R29.6 Repeated falls; G40.909 Epilepsy, unspecified, not intractable, without status epilepticus; R06.02 Shortness of breath
CPT/HCPCS: 36415; 70450; 71045; 72125; 72170; 80048; 80053; 80164; 80177; 80307; 80329; 81001; 82140; 82550; 82803; 83605; 83880; 84436; 84443; 84484; 85007; 85025; 85610; 85730; 87040; 93005; 94761; 97162; 97166; 97530; 99285; G0378; J0696

== ENCOUNTER 2023-07-16 13:52 | Emergency (ER) | payer MEDICARE, SELFPAY ==
[2023-07-16] VITALS (10 sets, daily range): BP systolic 107–136; BP diastolic 58–88; PULSE 71–81; RESP 18; TEMP 36.8–37.1; O2SAT 95–99; BMI 16.9
--- NOTE | 2023-07-16 14:11 | HMH.EDGENADL ---
Discharge Plan Disposition Patient Disposition: Xfer Short-Term Hosp Condition: Serious Prescriptions Prescriptions: No Action tamsulosin 0.4 mg capsule 0.8 mg PO HS Qty: 60 duloxetine 60 mg capsule,delayed release(DR/EC) 60 mg PO DAILY Patient Comments: TAKE ONE CAPSULE BY MOUTH EVERY DAY hydrocodone-acetaminophen 7.5-325 mg tablet 1 tab PO Q6HP PRN (Reason: Severe Pain (Scale Score 7-10)) Patient Comments: TAKE 1 TO 2 TABLET(S) BY MOUTH EVERY 6 HOURS MAY CAUSE DROWSINESS divalproex 500 mg tablet,delayed release (DR/EC) 500 mg PO BID Patient Comments: TAKE ONE TABLET BY MOUTH THREE TIMES DAILY levothyroxine 200 mcg tablet 200 mcg PO DAILY levetiracetam 500 mg Tablet 500 mg PO BID sildenafil [Viagra] 100 mg Tablet 100 mg PO NEEDED PRN (Reason: .) Rx Instructions: administer 30 minutes to 4 hours before activity ergocalciferol (vitamin D2) [Vitamin D2] 1,250 mcg (50,000 unit) Capsule 1,250 mcg PO WEEKLY melatonin 10 mg Tablet, Sublingual 10 mg SUBLINGUAL HS calcium carbonate [Calcium 600] 600 mg calcium (1,500 mg) Tablet 600 mg PO DAILY Senokot Extra Strength 17.2 mg Tablet 17.2 mg PO DAILY PRN (Reason: Constipation) amitriptyline 50 mg tablet 50 mg PO HS Patient Comments: TAKE ONE TABLET BY MOUTH EVERY DAY AT BEDTIME cefuroxime axetil 500 mg tablet 500 mg PO BID 5 Days Qty: 10 0RF Referrals Follow up/Referrals: Edgardo Flower MD [Primary Care Provider] - See instructions Clinical Impressions Clinical Impression: Seizure, Hypokalemia, Hypocalcemia Closed comminuted intertrochanteric fracture of femur Qualifiers: Encounter type: initial encounter Laterality: right Qualified Code(s): S72.141A - Displaced intertrochanteric fracture of right femur, initial encounter for closed fracture Stand Alone Forms Stand Alone Forms: Transfer Record - ED Discharge ED Provider: Jc Sultana Adult HPI <DAYDAY Becerra - Last Filed: 07/16/23 19:33> General Chief complaint: Fall Stated complaint: Fall Time Seen by Provider: 07/16/23 14:09 Mode of Arrival: EMS Source of Information: Patient and EMS Limitations: No Limitations Description of Symptoms (Recalled from ER Triage Doc. by RN): patient presents to ED via [facility] and reports a fall 20 minutes ago. Patient states he fell from a standing position. Denies LOC, or hitting his head. Patient reports pain to his right hip and coccyx. EMS reports giving Fentanyl 100mcg in route. History of Present Illness HPI narrative: Patient presents for evaluation of a seizure. Patient reports that he has a history of seizures and felt him have himself a [place] seizure. Patient describes it as shaking however he lost control and fell falling directly down onto his buttocks/right hip. Patient reports that he did not strike his head and did not lose consciousness. However he heard a crack and was unable to straighten his right leg. EMS was called and they also were unable to straighten his leg so they placed a pelvic splint with a sheet. Patient denies currently chest pain fever chills hemoptysis hematochezia melena some nausea but no vomiting or diarrhea. Related Data Home Medications Medication Instructions Recorded Confirmed tamsulosin 0.4 mg capsule 0.8 mg PO HS #60 caps 08/11/18 05/21/23 duloxetine 60 mg capsule,delayed 60 mg PO DAILY 06/26/21 05/21/23 release hydrocodone 7.5 mg-acetaminophen 1 tab PO Q6HP PRN Severe Pain 11/02/22 05/21/23 325 mg tablet (Scale Score 7-10) divalproex 500 mg tablet,delayed 500 mg PO BID 11/03/22 05/21/23 release levothyroxine 200 mcg tablet 200 mcg PO DAILY 11/03/22 05/21/23 amitriptyline 50 mg tablet 50 mg PO HS 05/21/23 05/21/23 calcium carbonate (Calcium 600) 600 mg PO DAILY 05/21/23 05/21/23 ergocalciferol (vitamin D2) 1,250 1,250 mcg PO WEEKLY 05/21/23 05/21/23 mcg (50,000 unit) capsule (Vitamin D2) levetiracetam 500 mg tablet 500 mg PO BID 05/21/23 05/21/23 melatonin 10 mg sublingual tablet 10 mg sublingual HS 05/21/23 05/21/23 sennosides 17.2 mg tablet (Senokot 17.2 mg PO DAILY PRN Constipation 05/21/23 05/21/23 Extra Strength) sildenafil 100 mg tablet (Viagra) 100 mg PO NEEDED PRN . 05/21/23 05/21/23 Previous Rx's Medication Instructions Recorded cefuroxime axetil 500 mg tablet 500 mg PO BID 5 days #10 tabs 05/23/23 Allergies Allergy/AdvReac Type Severity Reaction Status Date / Time promethazine [From PHENERGAN] Allergy Intermediate HALLUCINATE Verified 10/24/21 14:15 PFS <DAYDAY Becerra - Last Filed: 07/16/23 19:33> [facility] Disclaimer: The information contained in this section may have been updated after the patient was seen, as this information can be updated by other users. Medical History (Updated 07/16/23 @ 17:42 by DAYDAY Becerra) Femur fracture, left Bladder cancer Hypothyroidism Epilepsy History of thyroid storm Kidney malignancy Rhabdomyolysis Surgical History (Updated 05/21/23 @ 12:58 by Jamila Mackenzie) History of transurethral resection of bladder tumor (TURBT) History of nephrectomy Family History (Updated 05/21/23 @ 12:58 by Jamila Mackenzie) Other Pancreatic cancer Social History (Updated 05/21/23 @ 12:58 by Jamila Mackenzie) Smoking Status: Current every day smoker tobacco type: cigarettes packs per day: 1 alcohol intake: never substance use type: denies use current occupational status: employed Travel in the last 8 weeks: None household members: spouse housing: house current occupation: [employer] caffeine: Yes <DAYDAY Becerra - Last Filed: 07/16/23 19:33> ROS Obtained: Yes Systems reviewed as appropriate & no additional complaints except as documented Physical Exam <DAYDAY Becerra - Last Filed: 07/16/23 19:33> General General appearance: alert and in no apparent distress Head Head exam: atraumatic and normal inspection Eye Eye exam: Present normal appearance, PERRL and EOMI ENT ENT exam: Present normal exam, normal oropharynx and mucous membranes moist Neck Neck exam: Present normal inspection, full ROM and trachea midline; Absent tenderness or meningismus Chest Chest inspection: Present normal inspection; Absent tenderness Respiratory Respiratory exam: Present normal lung sounds bilaterally; Absent respiratory distress Cardiovascular Cardiovascular exam: Present regular rate and normal rhythm Abdominal Exam Abdominal exam: Present soft and normal bowel sounds; Absent tenderness, guarding or rebound Extremities Exam Extremities exam: Present normal inspection (Except for the right lower), full ROM (Set for the right lower), tenderness (Right hip only) and normal capillary refill Back Exam Back exam: Present normal inspection and full ROM; Absent tenderness Neurological Exam Neurological exam: Present alert, oriented X3 and CN II-XII intact Psychiatric Psychiatric exam: Present normal affect and normal mood Skin Skin exam: Present warm, dry and normal color Other Other exam information: Right lower extremity exam shows it to be flexed at the hip and attempt to extend causes exquisite pain. Patient is currently neurovascularly intact distally. The extremity is slightly internally rotated. Medical Decision Making <DAYDAY Becerra - Last Filed: 07/16/23 19:33> Medical Records Medical records reviewed: Yes I reviewed the patient's medical records. Gray Inquiry Pt receiving controlled substance: No Vital Signs: 07/16/23 13:52 07/16/23 14:00 07/16/23 14:30 Temperature 98.8 F Temperature Source Oral Pulse Rate 73 74 Pulse Rate [Right Radial] 72 Respiratory Rate 18 Blood Pressure 124/64 107/58 L Blood Pressure [Right Arm] 115/64 Blood Pressure Mean 74 Blood Pressure Mean [Right Arm] 81 Blood Pressure Source Blood Pressure Source [Right Arm] Automatic Cuff Blood Pressure Position Blood Pressure Position [Right Arm] Supine 02 Sat by Pulse Oximetry 98 98 97 Oxygen Delivery Method Room Air Room Air 07/16/23 15:30 07/16/23 16:00 07/16/23 16:30 Temperature Temperature Source Pulse Rate 71 73 75 Pulse Rate [Right Radial] Respiratory Rate Blood Pressure 122/64 126/69 136/72 Blood Pressure [Right Arm] Blood Pressure Mean Blood Pressure Mean [Right Arm] Blood Pressure Source Blood Pressure Source [Right Arm] Blood Pressure Position Blood Pressure Position [Right Arm] 02 Sat by Pulse Oximetry 97 97 98 Oxygen Delivery Method Room Air Room Air Room Air 07/16/23 17:00 07/16/23 17:30 07/16/23 18:00 Temperature Temperature Source Pulse Rate 75 81 76 Pulse Rate [Right Radial] Respiratory Rate Blood Pressure 130/69 118/70 118/67 Blood Pressure [Right Arm] Blood Pressure Mean Blood Pressure Mean [Right Arm] Blood Pressure Source Blood Pressure Source [Right Arm] Blood Pressure Position Blood Pressure Position [Right Arm] 02 Sat by Pulse Oximetry 95 96 99 Oxygen Delivery Method Room Air Room Air Room Air 07/16/23 20:24 Temperature 98.2 F Temperature Source Oral Pulse Rate 76 Pulse Rate [Right Radial] Respiratory Rate 18 Blood Pressure 122/88 Blood Pressure [Right Arm] Blood Pressure Mean Blood Pressure Mean [Right Arm] Blood Pressure Source Automatic Cuff Blood Pressure Source [Right Arm] Blood Pressure Position Sitting Blood Pressure Position [Right Arm] 02 Sat by Pulse Oximetry Oxygen Delivery Method Room Air Lab Data Lab results reviewed: Yes I reviewed the patient's lab results. Lab Results 07/16/23 14:48: WBC 9.4, RBC 3.29 L, Hgb 10.5 L, Hct 32.9 L, MCV 100.1 H, MCH 31.8 H, MCHC 31.8, RDW 14.1, Plt Count 216, MPV 7.9, Neut % (Auto) 83.3 H, Lymph % (Auto) 11.0, Wagoner % (Auto) 4.1, Eos % (Auto) 1.1, Baso % (Auto) 0.6, Neut # (Auto) 7.8, Lymph # (Auto) 1.0, Wagoner # (Auto) 0.4, Eos # (Auto) 0.1, Baso # (Auto) 0.1, PT 11.3, INR 1.05, Sodium 138, Potassium 3.2 L, Chloride 116 H, Carbon Dioxide 18 L, Anion Gap 7.2, BUN 17, Creatinine 1.50 H, Estimated Creat Clear 39, Estimated GFR 46 L, Est GFR ( Amer) 56 L, Glucose 69 L, Lactate 2.9 H, Calcium 6.2 L, Total Bilirubin 0.2, AST 15 L, ALT 11 L, Alkaline Phosphatase 56, Total Creatine Kinase 62, Total Protein 3.9 L D, Albumin 2.0 L, Globulin 1.9, Albumin/Globulin Ratio 1.1, Total Valproic Acid 20.7 L 07/16/23 20:08: Lactate 1.3 07/16/23 14:48 07/16/23 14:48 Orders (Tests/Meds): ED MEDICATIONS Discontinued Medications Generic Name Dose Route Start Last Admin Trade Name Freq PRN Reason Stop Dose Admin Acetaminophen 1,000 mg 07/16/23 14:36 07/16/23 14:48 Acetaminophen 1,000mg/100ml Vial IV 07/16/23 14:37 1,000 mg ONCE ONE Administration Hydromorphone HCl 1 mg 07/16/23 16:25 07/16/23 16:51 Hydromorphone 2mg/Ml Syringe IV 07/16/23 16:26 1 mg ONCE ONE Administration Hydromorphone HCl 1 mg 07/16/23 19:03 07/16/23 19:38 Hydromorphone 2mg/Ml Syringe IV 07/16/23 19:04 1 mg ONCE ONE Administration Lactated Ringer's 1,000 mls @ 999 mls/hr 07/16/23 14:36 07/16/23 14:48 Lactated Ringer's 1000 Ml Bag IV 07/16/23 15:36 999 mls/hr .Q1H1M ONE Administration Potassium Chloride/Water 100 mls @ 100 mls/hr 07/16/23 17:43 07/16/23 19:47 Potassium Chloride 10meq/100ml Ivpb IV 07/16/23 19:42 100 mls/hr Q1H AMILCAR Administration Calcium Gluconate/Sodium Chloride 2 gm in 100 mls @ 50 mls/hr 07/16/23 17:47 07/16/23 18:20 Calcium Gluconate 2,000mg/100ml Nacl Premix IV 07/16/23 19:46 50 mls/hr ONCE ONE Administration Levetiracetam 1,000 mg/ Sodium 110 mls @ 220 mls/hr 07/16/23 17:48 07/16/23 17:55 Chloride IV 07/16/23 17:49 220 mls/hr ONCE ONE Administration Ketorolac Tromethamine 15 mg 07/16/23 14:36 07/16/23 14:48 Ketorolac 30mg/Ml Vial IV 07/16/23 14:37 15 mg ONCE ONE Administration Sodium Chloride 10 ml 07/16/23 18:23 Sodium Chloride 0.9% 10ml Flush Syringe IV 08/15/23 18:22 NEEDED PRN Maintain IV Site ORDERS Category Date Time Status CT bony pelvis Stat Cat Scan 07/16/23 14:[address] head/brain wo con Stat Cat Scan 07/16/23 16:[address] lumbar spine wo con Stat Cat Scan 07/16/23 14:38 Completed XR femur RT 2V Stat Exams 07/16/23 14:38 Completed CBC w/Auto Diff [Complete Blood Count Auto Diff] Stat Lab 07/16/23 14:48 Completed CK [Creatine Kinase] Stat Lab 07/16/23 14:48 Completed CMP [Comprehensive Metabolic Panel] Stat Lab 07/16/23 14:48 Completed INR [Prothrombin Time INR] Stat Lab 07/16/23 14:48 Completed Lactic Acid Follow Up (RFLX 1) Stat Lab 07/16/23 20:08 Completed Lactic Acid Stat Lab 07/16/23 14:48 Completed Valproic Acid, (Depakene) Stat Lab 07/16/23 14:48 Completed Medical Decision Narrative: In summary patient is a 67-year-old male who presents to the emergency department for evaluation of a seizure and right hip pain. Patient is hemodynamically stable upon arrival, afebrile. Physical exam is remarkable for a flexed at the hip right lower extremity that slightly internally rotated. Extension causes the patient exquisite pain. Patient does however have adequate pulses and is neurovascular intact distally. Patient's Glascow coma score is 15 currently. Patient reports that he does not have a neurologist and that his medication is managed by Dr. Gama. Differential diagnosis includes seizure versus fall versus stroke versus hip dislocation versus fracture etc. Initial workup will be conducted with radiographic imaging, hematologic labs including valproic acid level. Initial interventions include crystalloid bolus Toradol Tylenol Keppra load. Initial workup reviewed by me shows an H&H of 10.5 and 32.9 respectively, potassium 3.2 creatinine 1.5 GFR 39 lactate of 2.9 calcium 6.2 with albumin of 2. Possible today. My informal interpretation of his imaging shows a comminuted femoral neck fracture that is intertrochanteric with the remainder of his imaging showing no acute processes. Given that I had an interactive discussion of outpatient management with both hospital medicine or orthopedics. Both felt that the patient needed a higher level of care given all of his comorbidities and recent seizure. I have subsequently contacted the [facility] for transfer and patient was accepted by Dr. Chung. <Jose Raines MD - Last Filed: 07/16/23 22:13> Vital Signs: 07/16/23 13:52 07/16/23 14:00 07/16/23 14:30 Temperature 98.8 F Temperature Source Oral Pulse Rate 73 74 Pulse Rate [Right Radial] 72 Respiratory Rate 18 Blood Pressure 124/64 107/58 L Blood Pressure [Right Arm] 115/64 Blood Pressure Mean 74 Blood Pressure Mean [Right Arm] 81 Blood Pressure Source Blood Pressure Source [Right Arm] Automatic Cuff Blood Pressure Position Blood Pressure Position [Right Arm] Supine 02 Sat by Pulse Oximetry 98 98 97 Oxygen Delivery Method Room Air Room Air 07/16/23 15:30 07/16/23 16:00 07/16/23 16:30 Temperature Temperature Source Pulse Rate 71 73 75 Pulse Rate [Right Radial] Respiratory Rate Blood Pressure 122/64 126/69 136/72 Blood Pressure [Right Arm] Blood Pressure Mean Blood Pressure Mean [Right Arm] Blood Pressure Source Blood Pressure Source [Right Arm] Blood Pressure Position Blood Pressure Position [Right Arm] 02 Sat by Pulse Oximetry 97 97 98 Oxygen Delivery Method Room Air Room Air Room Air 07/16/23 17:00 07/16/23 17:30 07/16/23 18:00 Temperature Temperature Source Pulse Rate 75 81 76 Pulse Rate [Right Radial] Respiratory Rate Blood Pressure 130/69 118/70 118/67 Blood Pressure [Right Arm] Blood Pressure Mean Blood Pressure Mean [Right Arm] Blood Pressure Source Blood Pressure Source [Right Arm] Blood Pressure Position Blood Pressure Position [Right Arm] 02 Sat by Pulse Oximetry 95 96 99 Oxygen Delivery Method Room Air Room Air Room Air 07/16/23 20:24 Temperature 98.2 F Temperature Source Oral Pulse Rate 76 Pulse Rate [Right Radial] Respiratory Rate 18 Blood Pressure 122/88 Blood Pressure [Right Arm] Blood Pressure Mean Blood Pressure Mean [Right Arm] Blood Pressure Source Automatic Cuff Blood Pressure Source [Right Arm] Blood Pressure Position Sitting Blood Pressure Position [Right Arm] 02 Sat by Pulse Oximetry Oxygen Delivery Method Room Air Lab Data Lab Results 07/16/23 14:48: WBC 9.4, RBC 3.29 L, Hgb 10.5 L, Hct 32.9 L, MCV 100.1 H, MCH 31.8 H, MCHC 31.8, RDW 14.1, Plt Count 216, MPV 7.9, Neut % (Auto) 83.3 H, Lymph % (Auto) 11.0, Wagoner % (Auto) 4.1, Eos % (Auto) 1.1, Baso % (Auto) 0.6, Neut # (Auto) 7.8, Lymph # (Auto) 1.0, Wagoner # (Auto) 0.4, Eos # (Auto) 0.1, Baso # (Auto) 0.1, PT 11.3, INR 1.05, Sodium 138, Potassium 3.2 L, Chloride 116 H, Carbon Dioxide 18 L, Anion Gap 7.2, BUN 17, Creatinine 1.50 H, Estimated Creat Clear 39, Estimated GFR 46 L, Est GFR ( Amer) 56 L, Glucose 69 L, Lactate 2.9 H, Calcium 6.2 L, Total Bilirubin 0.2, AST 15 L, ALT 11 L, Alkaline Phosphatase 56, Total Creatine Kinase 62, Total Protein 3.9 L D, Albumin 2.0 L, Globulin 1.9, Albumin/Globulin Ratio 1.1, Total Valproic Acid 20.7 L 07/16/23 20:08: Lactate 1.3 Orders (Tests/Meds): ED MEDICATIONS Discontinued Medications Generic Name Dose Route Start Last Admin Trade Name Freq PRN Reason Stop Dose Admin Acetaminophen 1,000 mg 07/16/23 14:36 07/16/23 14:48 Acetaminophen 1,000mg/100ml Vial IV 07/16/23 14:37 1,000 mg ONCE ONE Administration Hydromorphone HCl 1 mg 07/16/23 16:25 07/16/23 16:51 Hydromorphone 2mg/Ml Syringe IV 07/16/23 16:26 1 mg ONCE ONE Administration Hydromorphone HCl 1 mg 07/16/23 19:03 07/16/23 19:38 Hydromorphone 2mg/Ml Syringe IV 07/16/23 19:04 1 mg ONCE ONE Administration Lactated Ringer's 1,000 mls @ 999 mls/hr 07/16/23 14:36 07/16/23 14:48 Lactated Ringer's 1000 Ml Bag IV 07/16/23 15:36 999 mls/hr .Q1H1M ONE Administration Potassium Chloride/Water 100 mls @ 100 mls/hr 07/16/23 17:43 07/16/23 19:47 Potassium Chloride 10meq/100ml Ivpb IV 07/16/23 19:42 100 mls/hr Q1H AMILCAR Administration Calcium Gluconate/Sodium Chloride 2 gm in 100 mls @ 50 mls/hr 07/16/23 17:47 07/16/23 18:20 Calcium Gluconate 2,000mg/100ml Nacl Premix IV 07/16/23 19:46 50 mls/hr ONCE ONE Administration Levetiracetam 1,000 mg/ Sodium 110 mls @ 220 mls/hr 07/16/23 17:48 07/16/23 17:55 Chloride IV 07/16/23 17:49 220 mls/hr ONCE ONE Administration Ketorolac Tromethamine 15 mg 07/16/23 14:36 07/16/23 14:48 Ketorolac 30mg/Ml Vial IV 07/16/23 14:37 15 mg ONCE ONE Administration Sodium Chloride 10 ml 07/16/23 18:23 Sodium Chloride 0.9% 10ml Flush Syringe IV 08/15/23 18:22 NEEDED PRN Maintain IV Site ORDERS Category Date Time Status CT bony pelvis Stat Cat Scan 07/16/23 14:[address] head/brain wo con Stat Cat Scan 07/16/23 16:[address] lumbar spine wo con Stat Cat Scan 07/16/23 14:38 Completed XR femur RT 2V Stat Exams 07/16/23 14:38 Completed CBC w/Auto Diff [Complete Blood Count Auto Diff] Stat Lab 07/16/23 14:48 Completed CK [Creatine Kinase] Stat Lab 07/16/23 14:48 Completed CMP [Comprehensive Metabolic Panel] Stat Lab 07/16/23 14:48 Completed INR [Prothrombin Time INR] Stat Lab 07/16/23 14:48 Completed Lactic Acid Follow Up (RFLX 1) Stat Lab 07/16/23 20:08 Completed Lactic Acid Stat Lab 07/16/23 14:48 Completed Valproic Acid, (Depakene) Stat Lab 07/16/23 14:48 Completed Medical Decision Narrative: In summary patient is a 67-year-old male who presents to the emergency department for evaluation of a seizure and right hip pain. Patient is hemodynamically stable upon arrival, afebrile. Physical exam is remarkable for a flexed at the hip right lower extremity that slightly internally rotated. Extension causes the patient exquisite pain. Patient does however have adequate pulses and is neurovascular intact distally. Patient's Glascow coma score is 15 currently. Patient reports that he does not have a neurologist and that his medication is managed by Dr. Gama. Differential diagnosis includes seizure versus fall versus stroke versus hip dislocation versus fracture etc. Initial workup will be conducted with radiographic imaging, hematologic labs including valproic acid level. Initial interventions include crystalloid bolus Toradol Tylenol Keppra load. Initial workup reviewed by me shows an H&H of 10.5 and 32.9 respectively, potassium 3.2 creatinine 1.5 GFR 39 lactate of 2.9 calcium 6.2 with albumin of 2. Possible today. My informal interpretation of his imaging shows a comminuted femoral neck fracture that is intertrochanteric with the remainder of his imaging showing no acute processes. Given that I had an interactive discussion of outpatient management with both hospital medicine or orthopedics. Both felt that the patient needed a higher level of care given all of his comorbidities and recent seizure. I have subsequently contacted the [facility] for transfer and patient was accepted by Dr. Chung. I was consulted by the SANGITA, and we discussed the complexity of the problems being addressed. I approved the treatment and management plan for this patient?s care in the Emergency Department, thus performing a substantive portion of the medical decision making. Jose Raines MD Critical Care <DAYDAY Becerra - Last Filed: 07/16/23 19:33> Critical Care Time Critical Care Time: No <Jose Raines MD - Last Filed: 07/16/23 22:13> Critical Care Time Critical Care Time: Yes (otrho) Attestation: On 07/16/23, the high probability of a clinically significant, sudden or life threatening deterioration of the following system(s) required my full and direct attention, intervention and personal management. The time I documented below is in addition to time spent performing reported procedures but includes the following listed in this critical care notation. Total Time Total Critical Care Time: 60
--- NOTE | 2023-07-16 14:38 | CT_ITS ---
FINAL REPORT TECHNIQUE: Axial imaging of the lumbar spine was obtained without contrast. Sagittal and coronal reformatted images were also obtained and reviewed. This study was performed with techniques to keep radiation doses as low as reasonably achievable (ALARA). Individualized dose reduction techniques using automated exposure control or adjustment of mA and/or kV according to the patient's size were employed. CLINICAL HISTORY: Trauma, fall COMPARISON: None FINDINGS: There is no fracture of the lumbar spine. The vertebral alignment is normal. The disc spaces are preserved.There is no evidence of significant central canal stenosis. There is diffuse osteopenia present, and mild degenerative change. There is a chronic left 12th rib fracture. IMPRESSION: Diffuse osteopenia is present, with mild degenerative change. Chronic left 12th rib fracture is present. No acute bony abnormality is identified. Reviewed, Interpreted and Dictated by Brian Pierre III, MD Transcribed by Devora Lozano Authenticated and [facility]
--- NOTE | 2023-07-16 14:38 | CT_ITS ---
FINAL REPORT CLINICAL HISTORY: Trauma, fall COMPARISON: None FINDINGS: Axial images through the pelvis were performed by computed tomography. Sagittal and coronal reconstruction images were performed. This study was performed with techniques to keep radiation doses as low as reasonably achievable (ALARA). Individualized dose reduction techniques using automated exposure control or adjustment of mA and/or kV according to the patient's size were employed. Osteopenia is present. Mild degenerative changes are noted, along with postoperative changes of the left femur. There are chronic bilateral superior and inferior pubic rami fractures. There is a comminuted right proximal femur intertrochanteric fracture with a coxa vara deformity. There are separate fracture fragments at the greater and lesser trochanter. No dislocation identified. IMPRESSION: Comminuted right proximal femur intertrochanteric fracture with a coxa vara deformity. There are separate fracture fragments involving the greater and lesser trochanters. Reviewed, Interpreted and Dictated by Brian Pierre III, MD Transcribed by Devora Lozano Authenticated and [facility]
--- NOTE | 2023-07-16 14:38 | XR_ITS ---
FINAL REPORT CLINICAL HISTORY: Trauma; fall from standing FINDINGS: Right femur Two views were obtained. There is a comminuted proximal femur intertrochanteric fracture with coxa vera deformity. IMPRESSION: Fracture as above. Reviewed, Interpreted and Dictated by Brian Pierre III, MD Transcribed by Shonna Lion Authenticated and [facility]
--- NOTE | 2023-07-16 14:44 | ECG_ITS ---
APPROVED REPORT Exam: Resting ECG HR:73 bpm ECG Measurements Heart Rate 73 AXES TN 152 P 64 QRSd 95 QRS 71 QT 361 T 59 QTc 386 Conclusion SINUS RHYTHM ABNORMAL ECG Difficult to interpret secondary to poor baseline, no obvious acute cardiac abnormality, no STEMI Electronically signed by : RADHA UNDERWOOD, 07/16/2023 17:07:35
[2023-07-16] MEDS: ACETAMINOPHEN 1,000MG/100ML VIAL 1000 MG IV (14:48)
[2023-07-16] MEDS: KETOROLAC 30MG/ML VIAL 15 MG IV (14:48)
[2023-07-16] MEDS: LACTATED RINGERS 1000ML 1,000 ML 999 ML IV (14:48)
[2023-07-16 15:37] LABS: Basophils # 0.1 K/mm3 (0-0.2); Basophils % 0.6 % (0.1-2.0); Eosinophils # 0.1 K/mm3 (0.0-0.4); Eosinophils % 1.1 % (0.1-12.0); Hematocrit 32.9 % (42.0-52.0); Hemoglobin 10.5 g/dL (14.1-18.0); Mean Corpuscular HGB Conc 31.8 g/dL (31.8-35.4); Mean Corpuscular Hemoglobin 31.8 pg (27.0-31.2); Mean Corpuscular Volume 100.1 fl (80-94); Mean Platelet Volume 7.9 fl (7.4-10.4); Monocytes # 0.4 K/mm3 (0.1-1.0); Monocytes % 4.1 % (1.7-9.3); Neutrophils # 7.8 K/mm3 (1.8-7.8); Neutrophils % 83.3 % (37.0-80.0); Platelet Count 216 K/mm3 (142-424); Red Blood Count 3.29 M/mm3 (4.60-6.20); Red Cell Distribution Width 14.1 % (11.5-17.5); White Blood Count 9.4 K/mm3 (4.8-10.8)
[2023-07-16 15:43] LABS: INR 1.05 (0.9-1.1); Prothrombin Time 11.3 seconds (10.1-12.5)
[2023-07-16 15:47] LABS: Chloride 116 mmol/L (98-107); Potassium 3.2 mmoL/L (3.5-5.1); Sodium 138 mmol/L (136-145)
[2023-07-16 15:49] LABS: Alanine Aminotransferase 11 U/L (12-78); Anion Gap 7.2 mEq/L (5-15); Aspartate Amino Transferase 15 U/L (17-59); Blood Urea Nitrogen 17 mg/dl (9-20); Carbon Dioxide 18 mmol/L (22.0-30.0); Creatinine Clearance Estimated 39 mL/min (50-200); Estimated Glomerular Filt Rate 46 ml/min (>60); GFR (African American) 56 ML/MIN (>60)
[2023-07-16 15:50] LABS: Albumin/Globulin Ratio 1.1 (1.1-1.8); Alkaline Phosphatase 56 U/L (38-126); Bilirubin,Total 0.2 mg/dl (0.2-1.3); Calcium 6.2 mg/dl (8.4-10.2); Creatine Kinase 62 U/L (55-170); Globulin 1.9 g/dL (1.3-3.2); Glucose 69 mg/dl (74-100); Total Protein,Serum 3.9 g/dl (6.3-8.2)
[2023-07-16 16:00] LABS: Lactic Acid 2.9 mmol/L (0.7-2.1)
--- NOTE | 2023-07-16 16:12 | CT_ITS ---
PROCEDURE INFORMATION: Exam: CT Head Without Contrast Exam date and time: 07/16/2023 4:53 PM Age: 67 years old Clinical indication: Seizure TECHNIQUE: Imaging protocol: Computed tomography of the head without contrast. Radiation optimization: All CT scans at this facility use at least one of these dose optimization techniques: automated exposure control; mA and/or kV adjustment per patient size (includes targeted exams where dose is matched to clinical indication); or iterative reconstruction. COMPARISON: MR HEAD/BRAIN WO CON 04/09/2023 9:03 AM FINDINGS: Brain: Age-related involutional changes and chronic microvascular ischemic disease. No evidence for acute transcortical infarct. No mass effect or midline shift. No extra-axial collection. No acute intracranial hemorrhage. Basal cisterns are patent. Cerebral ventricles: No ventriculomegaly. Paranasal sinuses: Visualized sinuses are unremarkable. No fluid levels. Mastoid air cells: Visualized mastoid air cells are well aerated. Bones: Unremarkable. No acute fracture. Soft tissues: Unremarkable. IMPRESSION: No evidence for acute transcortical infarct, hydrocephalus, acute intracranial hemorrhage, or mass effect.
[2023-07-16 16:38] LABS: Valproic Acid, (Depakene) 20.7 ug/ml (50-100)
[2023-07-16] MEDS: HYDROMORPHONE 2MG/ML SYRINGE 1 MG IV ×2 (16:51→19:38)
--- NOTE | 2023-07-16 17:25 | PC.NURSE ---
Called [facility] about getting this pt transferred to . [facility] advised that they would have to call us back.
[2023-07-16] MEDS: levETIRAcetam 1,000 MG in 0.9 % SODIUM CHLORIDE 100 ML 220 MG IV (17:55)
[2023-07-16] MEDS: CALCIUM GLUC IN NACL, ISO-OSM 2 GM/100 ML BAG IV (18:20)
[2023-07-16] MEDS: KCl 10mEq/100ml 100 ML 100 MEQ IV ×2 (18:31→19:47)
[2023-07-16 19:30] LABS: Reflex Lactic Add Lactic Reflex
--- NOTE | 2023-07-16 19:36 | PC.NURSE ---
patient accepted at ED,
--- NOTE | 2023-07-16 19:38 | PC.NURSE ---
images have been shared with [facility]
--- NOTE | 2023-07-16 20:01 | PC.NURSE ---
EMS notified of need for transfer
--- NOTE | 2023-07-16 20:07 | PC.NURSE ---
Called and spoke with patient's and updated her that patient was being transferred to . Provided spouse with address to . Contacted Wade VICTOR at ER and gave verbal report. Completed EMS paperwork and finished preparing transfer folder at this time. Patient resting comfortably and no needs expressed at this time.
[2023-07-16 20:29] LABS: Lactic Acid Follow Up (RFLX 1) 1.3 mmol/L (0.7-2.1)
== END 2023-07-16 20:28 | disposition short-term general hospital (02) ==
PROVIDERS: Physician Assistant; Emergency Provider Emergency Medicine; PCP Internal Medicine Adolescent Medicine
DX: G40.909 Epilepsy, unspecified, not intractable, without status epilepticus (principal); S72.141A Displaced intertrochanteric fracture of right femur, initial encounter for closed fracture; E87.6 Hypokalemia; E83.51 Hypocalcemia; F17.210 Nicotine dependence, cigarettes, uncomplicated; E03.9 Hypothyroidism, unspecified; W19.XXXA Unspecified fall, initial encounter
CPT/HCPCS: 36415; 70450; 72131; 72192; 73552; 80053; 80164; 82550; 83605; 85025; 85610; 93005; 96361; 96365; 96366; 96375; 96376; 99285; J0131; J1953

== ENCOUNTER 2023-09-08 15:52 | Outpatient (CLI) | payer MEDICARE, SELFPAY ==
--- NOTE | 2023-09-08 | XR_ITS ---
PROCEDURE INFORMATION: Exam: XR Right Hip Exam date and time: 09/08/2023 4:28 PM Age: 67 years old Clinical indication: Hip pain; Right hip; Prior surgery; Surgery date: 6+ months; Surgery type: Femur TECHNIQUE: Imaging protocol: Radiologic exam of the right hip. Views: 2 or 3 views hip with pelvis when performed. COMPARISON: CT BONY PELVIS 07/16/2023 2:57 PM FINDINGS: Bones/joints: Right femoral intramedullary shannan with 2 fixation screws extending into the femoral neck with close anatomic alignment of the major fracture fragments. Unchanged mildly displaced fracture of the right lesser trochanter. Unchanged left femoral intramedullary shannan with single fixation screw extending into the femoral neck. Old bilateral inferior pubic rami fractures appear unchanged. Osteopenia. Soft tissues: Unremarkable. IMPRESSION: 1. Right femoral intramedullary shannan with 2 fixation screws extending into the femoral neck with close anatomic alignment of the major fracture fragments. Hardware appears to be in good position. Unchanged mildly displaced fracture of the right lesser trochanter. 2. No acute fracture.
--- NOTE | 2023-09-08 | XR_ITS ---
PROCEDURE INFORMATION: Exam: XR Right Knee Exam date and time: 09/08/2023 4:28 PM Age: 67 years old Clinical indication: Pain; Knee; Right TECHNIQUE: Imaging protocol: Radiologic exam of the right knee. Views: 3 views. COMPARISON: 1. CR XR FEMUR RT 2V 07/16/2023 2:55 PM 2. CR XR HIP RT 2-3V W/PELVIS 09/08/2023 4:28 PM FINDINGS: Bones/joints: Right femoral intramedullary shannan in place with a distal interlocking screw. Hardware appears to be intact. No acute fracture. Osteopenia. Soft tissues: Normal. IMPRESSION: 1. Right femoral intramedullary shannan in place with a distal interlocking screw. Hardware appears to be intact. 2. No acute fracture.
== END 2023-09-08 23:59 | disposition home or self-care (01) ==
LOC: RAD 15:54
PROVIDERS: PCP Internal Medicine Adolescent Medicine; Visit Provider Internal Medicine Adolescent Medicine
DX: M25.551 Pain in right hip (principal); S72.354 Nondisplaced comminuted fracture of shaft of right femur
CPT/HCPCS: 73502; 73562

== ENCOUNTER 2023-09-16 14:07 | Observation (INO) | payer MEDICARE, SELFPAY ==
[2023-09-16 14:08] VITALS: BP 127/64; PULSE 87; RESP 20; TEMP 36.8; O2SAT 98; BMI 16.5
--- NOTE | 2023-09-16 14:31 | ED_ITS ---
Discharge Plan Disposition Patient Disposition: Admitted Condition: Fair Clinical Impressions Clinical Impression: Chronic kidney disease Cellulitis Qualifiers: Site of cellulitis: extremity Site of cellulitis of extremity: lower extremity Laterality: left Qualified Code(s): L03.116 - Cellulitis of left lower limb Discharge ED Provider: Duane Torres General Adult HPI <DAYDAY Becerra - Last Filed: 09/16/23 17:02> General Chief complaint: Extremity Injury, Lower Stated complaint: bilateral leg swelling Time Seen by Provider: 09/16/23 14:31 Mode of Arrival: Ambulatory Source of Information: Patient Limitations: No Limitations Description of Symptoms (Recalled from ER Triage Doc. by RN): pt has noted bilateral leg swelling since friday denies any SOA, fever or injuries. pt had right femur fracture repair at on july 15 History of Present Illness HPI narrative: Patient presents for bilateral lower extremity swelling and left lower extremity redness and bilateral lower extremity pain. Patient had a right total hip due to a hip fracture done in July. He is not on any anticoagulants. Patient states that his legs have been swelling however the left lower extremity started turn red and began to hurt significantly over the last 48 hours. Patient reports bilateral calf tenderness but denies chest pain shortness of breath fever chills hemoptysis hematochezia melena nausea vomiting diarrhea. Related Data Home Medications Medication Instructions Recorded Confirmed tamsulosin 0.4 mg capsule 0.8 mg PO HS #60 caps 08/11/18 05/21/23 duloxetine 60 mg capsule,delayed 60 mg PO DAILY 06/26/21 05/21/23 release hydrocodone 7.5 mg-acetaminophen 1 tab PO Q6HP PRN Severe Pain 11/02/22 05/21/23 325 mg tablet (Scale Score 7-10) divalproex 500 mg tablet,delayed 500 mg PO BID 11/03/22 05/21/23 release levothyroxine 200 mcg tablet 200 mcg PO DAILY 11/03/22 05/21/23 amitriptyline 50 mg tablet 50 mg PO HS 05/21/23 05/21/23 calcium carbonate (Calcium 600) 600 mg PO DAILY 05/21/23 05/21/23 ergocalciferol (vitamin D2) 1,250 1,250 mcg PO WEEKLY 05/21/23 05/21/23 mcg (50,000 unit) capsule (Vitamin D2) levetiracetam 500 mg tablet 500 mg PO BID 05/21/23 05/21/23 melatonin 10 mg sublingual tablet 10 mg sublingual HS 05/21/23 05/21/23 sennosides 17.2 mg tablet (Senokot 17.2 mg PO DAILY PRN Constipation 05/21/23 05/21/23 Extra Strength) sildenafil 100 mg tablet (Viagra) 100 mg PO NEEDED PRN . 05/21/23 05/21/23 Previous Rx's Medication Instructions Recorded cefuroxime axetil 500 mg tablet 500 mg PO BID 5 days #10 tabs 05/23/23 Allergies Allergy/AdvReac Type Severity Reaction Status Date / Time promethazine [From PHENERGAN] Allergy Intermediate HALLUCINATE Verified 10/24/21 14:15 PFS <DAYDAY Becerra - Last Filed: 09/16/23 17:02> [facility] Disclaimer: The information contained in this section may have been updated after the patient was seen, as this information can be updated by other users. Medical History (Updated 09/16/23 @ 17:02 by DAYDAY Becerra) Femur fracture, left Bladder cancer Hypothyroidism Epilepsy History of thyroid storm Kidney malignancy Rhabdomyolysis Surgical History (Updated 05/21/23 @ 12:58 by Jamila Mackenzie) History of transurethral resection of bladder tumor (TURBT) History of nephrectomy Family History (Updated 05/21/23 @ 12:58 by Jamila Mackenzie) Other Pancreatic cancer Social History (Updated 05/21/23 @ 12:58 by Jamila Mackenzie) Smoking Status: Current every day smoker tobacco type: cigarettes packs per day: 1 alcohol intake: never substance use type: denies use current occupational status: employed Travel in the last 8 weeks: None household members: spouse housing: house current occupation: [employer] caffeine: Yes <DAYDAY Becerra - Last Filed: 09/16/23 17:02> ROS Obtained: Yes Systems reviewed as appropriate & no additional complaints except as documented Physical Exam <DAYDAY Becerra - Last Filed: 09/16/23 17:02> General General appearance: alert and in no apparent distress Respiratory Respiratory exam: Present normal lung sounds bilaterally Cardiovascular Cardiovascular exam: Present regular rate and normal rhythm Neurological Exam Neurological exam: Present alert and oriented X3 Medical Decision Making <DAYDAY Becerra - Last Filed: 09/16/23 17:02> Medical Records Medical records reviewed: Yes I reviewed the patient's medical records. Gray Inquiry Pt receiving controlled substance: No Vital Signs: 09/16/23 14:08 09/16/23 17:32 Temperature 98.3 F 98.0 F Temperature Source Oral Pulse Rate 85 Pulse Rate [Right Radial] 87 Respiratory Rate 20 20 Blood Pressure 135/79 Blood Pressure [Right Arm] 127/64 Blood Pressure Mean [Right Arm] 85 02 Sat by Pulse Oximetry 98 Oxygen Delivery Method Room Air Room Air Lab Data Lab results reviewed: Yes I reviewed the patient's lab results. Lab Results 09/16/23 14:55: WBC 4.6 L, RBC 3.66 L, Hgb 12.2 L, Hct 37.9 L, MCV 103.5 H, MCH 33.3 H, MCHC 32.1, RDW 15.0, Plt Count 251, MPV 8.1, Neut % (Auto) 68.7, Lymph % (Auto) 20.8, [place] % (Auto) 7.4, Eos % (Auto) 2.3, Baso % (Auto) 0.8, Neut # (Auto) 3.2, Lymph # (Auto) 1.0, [place] # (Auto) 0.3, Eos # (Auto) 0.1, Baso # (Auto) 0.0, PT 10.6, INR 0.94, Sodium 137, Potassium 4.5, Chloride 106, Carbon Dioxide 28, Anion Gap 7.5, BUN 42 H, Creatinine 2.30 H, Estimated Creat Clear 26, Estimated GFR 28 L, Est GFR ( Amer) 34 L, Glucose 107 H, Calcium 10.4 H, Magnesium 2.4 H, Total Bilirubin 0.6, AST 38, ALT 16, Alkaline Phosphatase 75, NT-Pro-B Natriuret Pep 1630 H, Total Protein 7.3 D, Albumin 3.9, Globulin 3.4 H, Albumin/Globulin Ratio 1.1 09/16/23 15:41: Urine Color Yellow, Urine Appearance Clear, Urine pH 7.0, Ur Specific [place] 1.015, Urine Protein 1+, Urine Glucose (UA) Negative, Urine Ketones Trace, Urine Blood 1+, Urine Nitrate Negative, Urine Bilirubin Negative, Urine Urobilinogen 0.2, Ur Leukocyte Esterase Negative, Urine RBC 10-20, Urine WBC None, Ur Squamous Epith Cells Occasional, Urine Bacteria Trace 09/16/23 14:55 09/16/23 14:55 Orders (Tests/Meds): ED MEDICATIONS Generic Name Dose Route Start Last Admin Trade Name Freq PRN Reason Stop Dose Admin Vancomycin HCl 1,000 mg/ 250 mls @ 125 mls/hr 09/16/23 16:15 Sodium Chloride IV 09/16/23 18:14 ONCE ONE Discontinued Medications Generic Name Dose Route Start Last Admin Trade Name Freq PRN Reason Stop Dose Admin Acetaminophen 1,000 mg 09/16/23 14:34 09/16/23 15:40 Acetaminophen 1,000mg/100ml Vial IV 09/16/23 14:35 1,000 mg ONCE ONE Administration Ketorolac Tromethamine 15 mg 09/16/23 14:34 09/16/23 15:38 Ketorolac 30mg/Ml Vial IV 09/16/23 14:35 Not Given ONCE ONE ORDERS Category Date Time Status Foot XR left 2 views [XR foot LT 2V] Stat Exams 09/16/23 15:50 Taken BNP [NT Pro Brain Natriuretic Pep.] Stat Lab 09/16/23 14:55 Completed CBC w/Auto Diff [Complete Blood Count Auto Diff] Stat Lab 09/16/23 14:55 Completed CMP [Comprehensive Metabolic Panel] Stat Lab 09/16/23 14:55 Completed INR [Prothrombin Time INR] Stat Lab 09/16/23 14:55 Completed Magnesium Stat Lab 09/16/23 14:55 Completed UA [Urinalysis and Microscopic] Stat Lab 09/16/23 15:41 Completed Blood Culture Stat Micro 09/16/23 14:50 Received CA venous doppler LE BI Routine Y 09/16/23 14:34 Completed Medical Decision Narrative: In summary patient is a 67-year-old male who presents to the emergency department for evaluation of bilateral lower extremity swelling pain and left lower extremity redness. Patient is hemodynamically stable upon arrival, febrile. Physical exam is remarkable for pitting dependent edema 2+ on the right 3+ on the left with erythema of the foot to the level of the ankle, tenderness to palpation of both lower extremities both anterior and posterior but no palpable cords. DP PT are both palpable and brisk. Differential diagnosis includes cellulitis, DVT, dependent edema, renal failure, venous insufficiency etc. Initial workup will be conducted with hematologic labs urinalysis. Initial interventions include acetaminophen and Toradol. Initial workup reviewed by me shows a white count of 4.6 hemoglobin hematocrit 12.2 and 37.9 respectively with no shift BUN 42 creatinine 2.3 with a GFR of 28 and NT proBNP of 1630 and my informal interpretation of his plain film of his foot shows no acute fracture. Given the patient's chronic renal failure and soft tissue infection along with solitary kidney I had interactive discussion with hospital medicine regarding patient management and patient is going to be admitted for further evaluation and care. Patient will need cardiology consult in the a.m. as well. <Duane Torres MD - Last Filed: 09/16/23 17:34> Vital Signs: 09/16/23 14:08 09/16/23 17:32 Temperature 98.3 F 98.0 F Temperature Source Oral Pulse Rate 85 Pulse Rate [Right Radial] 87 Respiratory Rate 20 20 Blood Pressure 135/79 Blood Pressure [Right Arm] 127/64 Blood Pressure Mean [Right Arm] 85 02 Sat by Pulse Oximetry 98 Oxygen Delivery Method Room Air Room Air Lab Data Lab Results 09/16/23 14:55: WBC 4.6 L, RBC 3.66 L, Hgb 12.2 L, Hct 37.9 L, MCV 103.5 H, MCH 33.3 H, MCHC 32.1, RDW 15.0, Plt Count 251, MPV 8.1, Neut % (Auto) 68.7, Lymph % (Auto) 20.8, [place] % (Auto) 7.4, Eos % (Auto) 2.3, Baso % (Auto) 0.8, Neut # (Auto) 3.2, Lymph # (Auto) 1.0, [place] # (Auto) 0.3, Eos # (Auto) 0.1, Baso # (Auto) 0.0, PT 10.6, INR 0.94, Sodium 137, Potassium 4.5, Chloride 106, Carbon Dioxide 28, Anion Gap 7.5, BUN 42 H, Creatinine 2.30 H, Estimated Creat Clear 26, Estimated GFR 28 L, Est GFR ( Amer) 34 L, Glucose 107 H, Calcium 10.4 H, Magnesium 2.4 H, Total Bilirubin 0.6, AST 38, ALT 16, Alkaline Phosphatase 75, NT-Pro-B Natriuret Pep 1630 H, Total Protein 7.3 D, Albumin 3.9, Globulin 3.4 H, Albumin/Globulin Ratio 1.1 09/16/23 15:41: Urine Color Yellow, Urine Appearance Clear, Urine pH 7.0, Ur Specific [place] 1.015, Urine Protein 1+, Urine Glucose (UA) Negative, Urine Ketones Trace, Urine Blood 1+, Urine Nitrate Negative, Urine Bilirubin Negative, Urine Urobilinogen 0.2, Ur Leukocyte Esterase Negative, Urine RBC 10-20, Urine WBC None, Ur Squamous Epith Cells Occasional, Urine Bacteria Trace Orders (Tests/Meds): ED MEDICATIONS Generic Name Dose Route Start Last Admin Trade Name Freq PRN Reason Stop Dose Admin Vancomycin HCl 1,000 mg/ 250 mls @ 125 mls/hr 09/16/23 16:15 Sodium Chloride IV 09/16/23 18:14 ONCE ONE Discontinued Medications Generic Name Dose Route Start Last Admin Trade Name Freq PRN Reason Stop Dose Admin Acetaminophen 1,000 mg 09/16/23 14:34 09/16/23 15:40 Acetaminophen 1,000mg/100ml Vial IV 09/16/23 14:35 1,000 mg ONCE ONE Administration Ketorolac Tromethamine 15 mg 09/16/23 14:34 09/16/23 15:38 Ketorolac 30mg/Ml Vial IV 09/16/23 14:35 Not Given ONCE ONE ORDERS Category Date Time Status Foot XR left 2 views [XR foot LT 2V] Stat Exams 09/16/23 15:50 Taken BNP [NT Pro Brain Natriuretic Pep.] Stat Lab 09/16/23 14:55 Completed CBC w/Auto Diff [Complete Blood Count Auto Diff] Stat Lab 09/16/23 14:55 Completed CMP [Comprehensive Metabolic Panel] Stat Lab 09/16/23 14:55 Completed INR [Prothrombin Time INR] Stat Lab 09/16/23 14:55 Completed Magnesium Stat Lab 09/16/23 14:55 Completed UA [Urinalysis and Microscopic] Stat Lab 09/16/23 15:41 Completed Blood Culture Stat Micro 09/16/23 14:50 Received CA venous doppler LE BI Routine Y 09/16/23 14:34 Completed Medical Decision Narrative: In summary patient is a 67-year-old male who presents to the emergency department for evaluation of bilateral lower extremity swelling pain and left lower extremity redness. Patient is hemodynamically stable upon arrival, febrile. Physical exam is remarkable for pitting dependent edema 2+ on the right 3+ on the left with erythema of the foot to the level of the ankle, tenderness to palpation of both lower extremities both anterior and posterior but no palpable cords. DP PT are both palpable and brisk. Differential diagnosis includes cellulitis, DVT, dependent edema, renal failure, venous insufficiency etc. Initial workup will be conducted with hematologic labs urinalysis. Initial interventions include acetaminophen and Toradol. Initial workup reviewed by me shows a white count of 4.6 hemoglobin hematocrit 12.2 and 37.9 respectively with no shift BUN 42 creatinine 2.3 with a GFR of 28 and NT proBNP of 1630 and my informal interpretation of his plain film of his foot shows no acute fracture. Given the patient's chronic renal failure and soft tissue infection along with solitary kidney I had interactive discussion with hospital medicine regarding patient management and patient is going to be admitted for further evaluation and care. Patient will need cardiology consult in the a.m. as well. I was consulted by the SANGITA, and we discussed the complexity of the problems being addressed. I approved the treatment and management plan for this patient's care in the emergency department, thus performing a substantive portion of the medical decision making. Patient has bilateral lower extremity edema which is multifactorial will likely benefit from compression, no preliminary evidence of DVT, roughly stable CKD, likely a cardiac component. However I suspect cellulitis of the left foot which requires IV vancomycin and subsequent admission. Duane Torres MD Critical Care <DAYDAY Becerra - Last Filed: 09/16/23 17:02> Critical Care Time Critical Care Time: No
--- NOTE | 2023-09-16 14:34 | CA_ITS ---
FINAL REPORT CLINICAL HISTORY: Pain swelling redness, bladder CA, smoker, R fx hip/femur 07/31 FINDINGS: Color Doppler, duplex Doppler and compression sonography of the bilateral lower extremities was performed. There is no evidence of deep venous thrombosis from the level of the groin to the calf. The deep veins are patent and compressible. There is an enlarged right inguinal node, likely reactive. IMPRESSION: No evidence of deep venous thrombosis bilateral lower extremities. Reviewed, Interpreted and Dictated by Brian Pierre III, MD Transcribed by Shonna Lion Authenticated and [facility]
[2023-09-16 15:07] LABS: Basophils % 0.8 % (0.1-2.0); Eosinophils # 0.1 K/mm3 (0.0-0.4); Eosinophils % 2.3 % (0.1-12.0); Hematocrit 37.9 % (42.0-52.0); Hemoglobin 12.2 g/dL (14.1-18.0); Lymphocytes % 20.8 % (10-50); Mean Corpuscular HGB Conc 32.1 g/dL (31.8-35.4); Mean Corpuscular Hemoglobin 33.3 pg (27.0-31.2); Mean Corpuscular Volume 103.5 fl (80-94); Mean Platelet Volume 8.1 fl (7.4-10.4); Monocytes # 0.3 K/mm3 (0.1-1.0); Monocytes % 7.4 % (1.7-9.3); Neutrophils # 3.2 K/mm3 (1.8-7.8); Neutrophils % 68.7 % (37.0-80.0); Platelet Count 251 K/mm3 (142-424); Red Blood Count 3.66 M/mm3 (4.60-6.20); White Blood Count 4.6 K/mm3 (4.8-10.8)
[2023-09-16 15:13] LABS: Chloride 106 mmol/L (98-107); Potassium 4.5 mmoL/L (3.5-5.1); Sodium 137 mmol/L (136-145)
[2023-09-16 15:15] LABS: Blood Urea Nitrogen 42 mg/dl (9-20); Creatinine Clearance Estimated 26 mL/min (50-200); Estimated Glomerular Filt Rate 28 ml/min (>60); GFR (African American) 34 ML/MIN (>60)
[2023-09-16 15:16] LABS: Alanine Aminotransferase 16 U/L (12-78); Albumin Level 3.9 g/dl (3.5-5.0); Albumin/Globulin Ratio 1.1 (1.1-1.8); Alkaline Phosphatase 75 U/L (38-126); Anion Gap 7.5 mEq/L (5-15); Aspartate Amino Transferase 38 U/L (17-59); Bilirubin,Total 0.6 mg/dl (0.2-1.3); Calcium 10.4 mg/dl (8.4-10.2); Carbon Dioxide 28 mmol/L (22.0-30.0); Globulin 3.4 g/dL (1.3-3.2); Glucose 107 mg/dl (74-100); INR 0.94 (0.9-1.1); Magnesium 2.4 mg/dl (1.6-2.3); Prothrombin Time 10.6 seconds (10.1-12.5); Total Protein,Serum 7.3 g/dl (6.3-8.2)
[2023-09-16 15:25] LABS: NT Pro Brain Natriuretic Pep. 1630 pg/mL (0-125)
--- NOTE | 2023-09-16 15:35 | PC.NURSE ---
PER DOPPLER BOTH LEGS WERE NEGATIVE FOR DVT
[2023-09-16] MEDS: ACETAMINOPHEN 1,000MG/100ML VIAL 1000 MG IV (15:40)
[2023-09-16 15:48] LABS: Microscopic, Urine URINE MICROSCOPIC (MICROSCOPIC)
--- NOTE | 2023-09-16 15:50 | XR_ITS ---
FINAL REPORT CLINICAL HISTORY: Pain and redness COMPARISON: 07/23/2021 FINDINGS: Left foot Two views were obtained. There is no acute fracture or dislocation. There are mild degenerative changes. Lucency in the calcaneal tuberosity is favored to be artifact. No soft tissue abnormality is identified. IMPRESSION: Mild degenerative changes. Reviewed, Interpreted and Dictated by Brian Pierre III, MD Transcribed by Shonna Lion Authenticated and [facility]
[2023-09-16 15:55] LABS: Appearance,Urine CLEAR (Clear); Bilirubin,Urine Negative (Negative); Blood, Urine 1+ (Negative); Color,Urine YELLOW (Yellow); Glucose,Urine (UA) Negative (Negative); Ketones,Urine TRACE (Negative); Leukocyte Esterase,Urine Negative (Negative); Nitrate,Urine Negative (Negative); Protein,Urine 1+ (Negative); Specific Gravity, Urine 1.015 (1.005-1.030); Urobilinogen,Urine 0.2 EU/dl (0.2)
[2023-09-16 16:11] LABS: Bacteria,Urine Trace /lpf; Squamous Epithelial Cell,Urine Occasional #/hpf (0-5)
--- NOTE | 2023-09-16 16:56 | PC.NURSE ---
Juan Dai PA-C s/w hospitalist for admission.
--- NOTE | 2023-09-16 17:00 | PC.NURSE ---
Called House for bed
--- NOTE | 2023-09-16 17:17 | PC.NURSE ---
CALLED REPORT TO 2ND FLOOR RN AND ANSWERED ALL QUESTIONS
[2023-09-16 17:32] VITALS: BP 135/79; PULSE 85; RESP 20; TEMP 36.7; O2SAT 98
[2023-09-16] MEDS: VANCOMYCIN HCL 1,000 MG in 0.9 % SODIUM CHLORIDE 250 ML 125 MG IV (17:41)
--- NOTE | 2023-09-16 18:25 | PC.NURSE ---
Pt. not sure of his medications and what he takes. Charge nurse aware.
[2023-09-16 20:00] VITALS: BP 138/67; PULSE 63; RESP 18; TEMP 36.4; O2SAT 98
--- NOTE | 2023-09-16 20:19 | P.HP_ITS ---
History of Present Illness *History of present illness: Patient with past medical history of seizures, chronic kidney disease, hypothyroidism, chronic pain, COPD, anemia, history of renal cell carcinoma status post nephrectomy. Patient presents complaining of bilateral foot swelling since Friday. Patient also complains of increased erythema/pain bilateral lower extremities that is getting worse with time. Denies fevers, chills, known sick contacts, recent travel, PND, orthopnea, sleeps on 2 pillows, history of heart failure. Patient states extremity Dopplers done emergency room showing no DVTs. Denies any recent injuries to lower extremities. Denies history of diabetes. [facility] Disclaimer: The information contained in this section may have been updated after the patient was seen, as this information can be updated by other users. Medical History Femur fracture, left Bladder cancer Hypothyroidism Epilepsy History of thyroid storm Kidney malignancy Rhabdomyolysis Surgical History History of transurethral resection of bladder tumor (TURBT) History of nephrectomy Family History Other Pancreatic cancer Social History (Updated 09/16/23 @ 18:05 by Hermilo Wolff RN) Smoking Status: Current every day smoker tobacco type: cigarettes packs per day: 1 alcohol intake: never substance use type: denies use current occupational status: employed Travel in the last 8 weeks: None household members: spouse housing: house current occupation: [employer] caffeine: Yes Review of Systems Review of Systems Review of systems (narrative): All pertinent positives given in HPI. Please assume all other 14 review of system is negative unless otherwise stated above. Constitutional Constitutional: Reports system reviewed and no additional complaints, except as documented Meds Home Medications and Allergies Home Medications Medication Instructions Recorded Confirmed Type tamsulosin 0.4 mg capsule 0.4 mg PO HS #60 caps 08/11/18 09/16/23 History divalproex 500 mg tablet,delayed 500 mg PO BID 11/03/22 09/16/23 History release levothyroxine 200 mcg tablet 200 mcg PO DAILY 11/03/22 09/16/23 History sildenafil 100 mg tablet (Viagra) 100 mg PO NEEDED PRN . 05/21/23 09/16/23 History cholecalciferol (vitamin D3) 25 2,000 unit PO DAILY 09/16/23 09/16/23 History mcg (1,000 unit) tablet (Vitamin D3) cyanocobalamin (vitamin B-12) 1,000 mcg PO DAILY 09/16/23 09/16/23 History 1,000 mcg tablet ferrous sulfate 325 mg (65 mg 325 mg PO DAILY 09/16/23 09/16/23 History iron) tablet (FeroSul) melatonin 3 mg tablet 9 mg PO HS 09/16/23 09/16/23 History methocarbamol 750 mg tablet 750 mg PO TID PRN muscle spasms 09/16/23 09/16/23 History ondansetron HCl 4 mg tablet 4 mg PO Q8H PRN Pain (Scale Score 09/16/23 09/16/23 History 7-10) oxycodone 5 mg capsule 7.5 mg PO Q8 PRN Pain (Scale Score 09/16/23 09/16/23 History 7-10) tamsulosin 0.4 mg capsule (Flomax) 0.4 mg PO DAILY 09/16/23 09/16/23 History tiotropium 2.5 mcg-olodaterol 2.5 2 puff inhalation DAILY 09/16/23 09/16/23 History mcg/actuation mist for inhalation (Stiolto Respimat) New Prescriptions to Start Prescriptions: Allergies Allergy/AdvReac Type Severity Reaction Status Date / Time promethazine [From PHENERGAN] Allergy Intermediate HALLUCINATE Verified 10/24/21 14:15 Exam Data for Last 24 hours Vital signs and Labs for Last 24 Hours: Temp Pulse Resp BP Pulse Ox O2 Del Method 98.0 F 85 20 135/79 98 Room Air 09/16/23 17:32 09/16/23 17:32 09/16/23 17:32 09/16/23 17:32 09/16/23 14:08 09/16/23 17:50 Laboratory Results - last 24 hr 09/16/23 14:55: WBC 4.6 L, RBC 3.66 L, Hgb 12.2 L, Hct 37.9 L, MCV 103.5 H, MCH 33.3 H, MCHC 32.1, RDW 15.0, Plt Count 251, MPV 8.1, Neut % (Auto) 68.7, Lymph % (Auto) 20.8, [place] % (Auto) 7.4, Eos % (Auto) 2.3, Baso % (Auto) 0.8, Neut # (Auto) 3.2, Lymph # (Auto) 1.0, [place] # (Auto) 0.3, Eos # (Auto) 0.1, Baso # (Auto) 0.0, PT 10.6, INR 0.94, Sodium 137, Potassium 4.5, Chloride 106, Carbon Dioxide 28, Anion Gap 7.5, BUN 42 H, Creatinine 2.30 H, Estimated Creat Clear 26, Estimated GFR 28 L, Est GFR ( Amer) 34 L, Glucose 107 H, Calcium 10.4 H, Magnesium 2.4 H, Total Bilirubin 0.6, AST 38, ALT 16, Alkaline Phosphatase 75, NT-Pro-B Natriuret Pep 1630 H, Total Protein 7.3 D, Albumin 3.9, Globulin 3.4 H, Albumin/Globulin Ratio 1.1 09/16/23 15:41: Urine Color Yellow, Urine Appearance Clear, Urine pH 7.0, Ur Specific [place] 1.015, Urine Protein 1+, Urine Glucose (UA) Negative, Urine Ketones Trace, Urine Blood 1+, Urine Nitrate Negative, Urine Bilirubin Negative, Urine Urobilinogen 0.2, Ur Leukocyte Esterase Negative, Urine RBC 10-20, Urine WBC None, Ur Squamous Epith Cells Occasional, Urine Bacteria Trace I & O for Last 24 hours: Intake & Output 09/13/23 09/14/23 09/15/23 09/16/23 23:59 23:59 23:59 23:59 Weight 59.874 kg Constitutional Constitutional: no acute distress *Routine HEENT Exam Head: Present normocephalic Eye: Present EOMI and normal accommodation ENT: Present mucous membranes moist *Routine Neck Exam Neck: Present supple *Routine Respiratory Exam Respiratory: Present CTA bilaterally *Routine Cardiovascular Exam Cardiovascular: Present RRR, Normal S1 and Normal S2 *Routine Abdominal Exam Abdominal: Present soft and normoactive bowel sounds *Routine Rectal Exam Rectal:: deferred *Routine Genitalia Exam Genitalia:: deferred *Routine Extremities Exam Comments: Bilateral lower extremity erythema noted left greater than right, erythema tender to palpation. +2 bilateral lower extremity pitting edema *Routine Skin Exam Skin: Present intact and dry Assessment and Plan *Assessment and plan (1) Cellulitis: Status: Acute Qualifiers: Laterality: left Site of cellulitis: extremity Site of cellulitis of extremity: lower extremity Qualified Code(s): L03.116 - Cellulitis of left lower limb Category: Medical Code(s): L03.90 - Cellulitis, unspecified (2) Chronic kidney disease: Status: Acute Category: Medical Code(s): N18.9 - Chronic kidney disease, unspecified (3) Anemia: Status: Chronic Category: Medical Code(s): D64.9 - Anemia, unspecified (4) COPD (chronic obstructive pulmonary disease): Status: Chronic Qualifiers: COPD type: unspecified COPD Qualified Code(s): J44.9 - Chronic obstructive pulmonary disease, unspecified Category: Medical Code(s): J44.9 - Chronic obstructive pulmonary disease, unspecified Plan Lower extremity swelling possibly cellulitis rule out CHF/DVTs: ? Given acute nature of swelling, likely cellulitis related. Very unusual to get bilateral lower extremity cellulitis. Given IV vancomycin in emergency room. Continue IV vancomycin and add cefepime. Follow inflammatory markers during hospitalization. As needed pain meds. ? Rule out CHF with BNP/echocardiogram evaluation. Also rule out DVTs with lower extremity Dopplers. ? Lactic acidosis resolved in emergency room. Will administer 100 cc/h normal saline x 1 L overnight. CKD: Cautious fluid management throughout hospitalization. COPD: Continue home management Smoker active: Nicotine patch Anemia: Serial H&H's during hospitalization FEN: Regular diet CODE STATUS: Full PPx: Lovenox subcutaneous Disposition: ? Likely appropriate for disposition within 24 to 48 hours if patient improves on IV antibiotics,, venous Dopplers negative for DVTs, and echocardiogram shows no signs of heart failure.
[2023-09-16 20:44] LABS: Basophils % 0.9 % (0.1-2.0); Eosinophils # 0.1 K/mm3 (0.0-0.4); Eosinophils % 1.8 % (0.1-12.0); Hematocrit 36.6 % (42.0-52.0); Hemoglobin 11.6 g/dL (14.1-18.0); Lymphocytes % 19.8 % (10-50); Mean Corpuscular HGB Conc 31.7 g/dL (31.8-35.4); Mean Corpuscular Hemoglobin 33.1 pg (27.0-31.2); Mean Corpuscular Volume 104.4 fl (80-94); Monocytes # 0.4 K/mm3 (0.1-1.0); Neutrophils # 3.4 K/mm3 (1.8-7.8); Neutrophils % 69.5 % (37.0-80.0); Platelet Count 240 K/mm3 (142-424); Red Cell Distribution Width 14.9 % (11.5-17.5); White Blood Count 4.9 K/mm3 (4.8-10.8)
[2023-09-16] MEDS: CEFEPIME HCL 1 GM in 0.9 % SODIUM CHLORIDE 50 ML IV (21:00)
[2023-09-16] MEDS: 0.9 % SODIUM CHLORIDE 1000ML 1,000 ML 100 ML IV (21:00)
[2023-09-16 21:25] LABS: Anion Gap 7.5 mEq/L (5-15); Blood Urea Nitrogen 42 mg/dl (9-20); Calcium 9.9 mg/dl (8.4-10.2); Carbon Dioxide 27 mmol/L (22.0-30.0); Chloride 106 mmol/L (98-107); Creatinine Clearance Estimated 31 mL/min (50-200); Estimated Glomerular Filt Rate 35 ml/min (>60); GFR (African American) 43 ML/MIN (>60); Glucose 76 mg/dl (74-100); Magnesium 2.3 mg/dl (1.6-2.3); Potassium 4.5 mmoL/L (3.5-5.1); Sodium 136 mmol/L (136-145)
[2023-09-16] MEDS: DIVALPROEX 250MG (Delayed-Release) TABLET 500 MG PO (22:47)
[2023-09-16] MEDS: TAMSULOSIN 0.4MG CAPSULE 0.4 MG PO (22:47)
[2023-09-16] MEDS: ENOXAPARIN 40MG/0.4ML SYRINGE 40 MG SQ (22:48)
[2023-09-16] MEDS: VANCOMYCIN CONSULT REQUEST 1 EACH NOTAPPLIC (23:56)
[2023-09-17 04:00] VITALS: BP 118/54; PULSE 70; RESP 18; TEMP 37; O2SAT 96; BMI 17.4
--- NOTE | 2023-09-17 05:47 | PC.NURSE ---
no new events to report
[2023-09-17 06:44] LABS: Lactic Acid 0.7 mmol/L (0.7-2.1)
[2023-09-17 06:47] LABS: C-Reactive Protein 14.2 mg/L (0-4)
[2023-09-17 06:51] LABS: NT Pro Brain Natriuretic Pep. 1840 pg/mL (0-125)
[2023-09-17 06:59] LABS: Procalcitonin 0.095 ng/mL (0.0-2.0)
--- NOTE | 2023-09-17 07:47 | P.CONPHA_ITS ---
Pharmacy Consult Date: 09/17/23 Time: 07:47 Referring provider: DR. BERGERON Reason for Consult:: VANCOMYCIN DOSING Allergies Allergy/AdvReac Type Severity Reaction Status Date / Time promethazine [From PHENERGAN] Allergy Intermediate HALLUCINATE Verified 10/24/21 14:15 Home Medications Medication Instructions Recorded Confirmed Type divalproex 500 mg tablet,delayed 500 mg PO BID 11/03/22 09/16/23 History release levothyroxine 200 mcg tablet 200 mcg PO HS 11/03/22 09/16/23 History cholecalciferol (vitamin D3) 25 2,000 unit PO HS 09/16/23 09/16/23 History mcg (1,000 unit) tablet (Vitamin D3) cyanocobalamin (vitamin B-12) 1,000 mcg PO HS 09/16/23 09/16/23 History 1,000 mcg tablet ferrous sulfate 325 mg (65 mg 325 mg PO HS 09/16/23 09/16/23 History iron) tablet (FeroSul) melatonin 3 mg tablet 9 mg PO HS 09/16/23 09/16/23 History methocarbamol 750 mg tablet 750 mg PO TID PRN muscle spasms 09/16/23 09/16/23 History ondansetron HCl 4 mg tablet 4 mg PO Q8H PRN Pain (Scale Score 09/16/23 09/16/23 History 7-10) oxycodone 5 mg capsule 7.5 mg PO Q8 PRN Pain (Scale Score 09/16/23 09/16/23 History 7-10) tamsulosin 0.4 mg capsule (Flomax) 0.8 mg PO HS 09/16/23 09/16/23 History tiotropium 2.5 mcg-olodaterol 2.5 2 puff inhalation DAILY 09/16/23 09/16/23 History mcg/actuation mist for inhalation (Stiolto Respimat) New Prescriptions to Start Prescriptions: Height: 1.91 m Weight: 63.866 kg Laboratory Results:: Laboratory Results - last 24 hr 09/16/23 14:55: WBC 4.6 L, RBC 3.66 L, Hgb 12.2 L, Hct 37.9 L, MCV 103.5 H, MCH 33.3 H, MCHC 32.1, RDW 15.0, Plt Count 251, MPV 8.1, Neut % (Auto) 68.7, Lymph % (Auto) 20.8, [place] % (Auto) 7.4, Eos % (Auto) 2.3, Baso % (Auto) 0.8, Neut # (Auto) 3.2, Lymph # (Auto) 1.0, [place] # (Auto) 0.3, Eos # (Auto) 0.1, Baso # (Auto) 0.0, PT 10.6, INR 0.94, Sodium 137, Potassium 4.5, Chloride 106, Carbon Dioxide 28, Anion Gap 7.5, BUN 42 H, Creatinine 2.30 H, Estimated Creat Clear 26, Estimated GFR 28 L, Est GFR ( Amer) 34 L, Glucose 107 H, Calcium 10.4 H, Magnesium 2.4 H, Total Bilirubin 0.6, AST 38, ALT 16, Alkaline Phosphatase 75 , NT-Pro-B Natriuret Pep 1630 H, Total Protein 7.3 D, Albumin 3.9, Globulin 3.4 H, Albumin/Globulin Ratio 1.1 09/16/23 15:41: Urine Color Yellow, Urine Appearance Clear, Urine pH 7.0, Ur Specific [place] 1.015, Urine Protein 1+, Urine Glucose (UA) Negative, Urine Ketones Trace, Urine Blood 1+, Urine Nitrate Negative, Urine Bilirubin Negative, Urine Urobilinogen 0.2, Ur Leukocyte Esterase Negative, Urine RBC 10-20, Urine WBC None, Ur Squamous Epith Cells Occasional, Urine Bacteria Trace 09/16/23 20:33: WBC 4.9, RBC 3.50 L, Hgb 11.6 L, Hct 36.6 L, MCV 104.4 H, MCH 33.1 H, MCHC 31.7 L, RDW 14.9, Plt Count 240, MPV 8.0, Neut % (Auto) 69.5, Lymph % (Auto) 19.8, [place] % (Auto) 8.0, Eos % (Auto) 1.8, Baso % (Auto) 0.9, Neut # (Auto) 3.4, Lymph # (Auto) 1.0, [place] # (Auto) 0.4, Eos # (Auto) 0.1, Baso # (Auto) 0.0, Sodium 136, Potassium 4.5, Chloride 106, Carbon Dioxide 27, Anion Gap 7.5, BUN 42 H, Creatinine 1.90 H, Estimated Creat Clear 31, Estimated GFR 35 L, Est GFR ( Amer) 43 L D, Glucose 76 D, Calcium 9.9, Magnesium 2.3 09/17/23 05:44: Lactate 0.7, C-Reactive Protein 14.2 H, NT-Pro-B Natriuret Pep 1840 H, Procalcitonin 0.095 Medical History: Medical History (Updated 09/16/23 @ 17:02 by DAYDAY Becerra) Femur fracture, left Bladder cancer Hypothyroidism Epilepsy History of thyroid storm Kidney malignancy Rhabdomyolysis Assessment and Plan Assessment and plan all Dx Assessment and Plan for all problems:: Pharmacokinetic dosing service Objective: Patient: Floor: Age: 67 yo Serum creatinine: 1.9 mg/dL Height: 75.2 Inches Weight (kg): 63.9 Assessment: IBW (kg): 84.96 Dosing wt(kg): 63.9 Estimated Creatinine clearance (ml/min): 33.2 CRCL method: Cockcroft and Gault using ibw(default). Drug selected: Vancomycin Loading dose (mg): 0 Vd (liters): 54.3 (factor used: 0.85 L/kg) Cristian (hr-1): 0.032 Half life (hrs): 21.66 Recommended dose: 1000 mg Interval: 24 hrs Infusion time (hrs): 2.0 Predicted peak (mcg/mL): 33.3 Predicted trough (mcg/mL): 16.47 Total body weight is being used for vancomycin dosing. Recommendations: Give Vancomycin 1000 mg q 24 hrs with an expected Cpeak of 33.3 mcg/ml and an expected Ctrough of 16.47 mcg/ml ----Vanco only - ignore for aminoglycosides----- CLvanco= 1.74 L/hr AUC 0-24 /REBECA Data: REBECA 0.5 mcg/mL: AUC/REBECA: 1149.4 REBECA 1.0 mcg/mL: AUC/REBECA: 574.7 --------- REBECA 1.5 mcg/mL: AUC/REBECA: 383.1 REBECA 2.0 mcg/mL: AUC/REBECA: 287.4
[2023-09-17 07:57] VITALS: BP 118/59; PULSE 74; RESP 17; TEMP 36.8; O2SAT 96
[2023-09-17] MEDS: CEFEPIME HCL 1 GM in 0.9 % SODIUM CHLORIDE 50 ML IV (08:42)
[2023-09-17] MEDS: DIVALPROEX 500MG (Delayed-Release) TABLET 500 MG PO (08:42)
[2023-09-17] MEDS: LEVOTHYROXINE 100MCG (0.1MG) TAB 200 MCG PO (08:43)
[2023-09-17] MEDS: ENOXAPARIN 40MG/0.4ML SYRINGE 40 MG SQ (08:43)
[2023-09-17] MEDS: NICOTINE 21MG/24HR PATCH 21 MG TD (08:53)
--- NOTE | 2023-09-17 08:57 | HMH.PHAINT1 ---
Pharmacy Intervention Comments: MEDICATION RECONCILIATION COMPLETED ON PATIENT USING EXTERNAL FILL HISTORY FROM PHARMACY AND CARLY REPORT. -ALFREDO EVANS, JOSEPHD
--- NOTE | 2023-09-17 09:47 | HMH.PTEV ---
Physical Therapy Evaluation Rehab PT IP Evaluation Start: 09/17/23 07:15 Freq: ONCE Status: Active Protocol: Document 09/17/23 09:43 EAMON (Rec: 09/17/23 09:47 EAMON [email or web address]) Subjective/History History History Per H&P: Patient with past medical history of seizures, chronic kidney disease, hypothyroidism, chronic pain, COPD, anemia, history of renal cell carcinoma status post nephrectomy. Patient presents complaining of bilateral foot swelling since Friday. Patient also complains of increased erythema/pain bilateral lower extremities that is getting worse with time. Denies fevers, chills, known sick contacts, recent travel, PND, orthopnea, sleeps on 2 pillows, history of heart failure. Patient states extremity Dopplers done emergency room showing no DVTs . Denies any recent injuries to lower extremities. Denies history of diabetes. Subjective Subjective PLOF per pt report: Lives with his and daughter in a single story home with 0 [address]. Not driving prior to admission . Uses a RW for IND ambulation . IND with ADLs. is present throughout the day if needed. Currently receiving PT services. Pt demo'd safe in-room ambulation using RW (Mod I-SUP ). IND with bed mobility. New diagnosis of cancer in past 12 No months? Rehab PT IP Eval Objective Appearance Patient Behavior Appropriate,Cooperative Patient Orientation Person,Situation Difficulty following instructions none Speech Pattern Clear Ambulation Patient Able to Ambulate Yes Ambulation Observation IP General Gait Pattern Observation No Deviations/Normal Ambulation Distance (feet) 16 Ambulation Assistive Device Rolling Walker Ambulation Ability Supervision/Stand by Balance Ability to Arise Able, uses arms to help Sitting Balance Steady, safe Standing Balance Steady, wide stance Transfers Bed Transfer Ability Independent Sit to Stand Bed Transfer Ability Supervision/Stand by Rehab PT IP prob,goals,plan Problems Date of Evaluation: 09/17/23 Rehab Potential Rehab Potential Innapropriate for Skilled Therapy Discharge Plan PT Discharge Plan Pt safe to d/c home when deemed medically necessary d/t current level of mobility, home set-up, and family support. Pt not appropriate for skilled acute care PT at this time d/t pt?s mobility being at baseline. Eval Complexity Eval Charge Codes 69522 - Low Complexity PHYSICIAN CERTIFICATION: I certify the specified therapy services for Petercathy Rojo are required, authorized, and reviewed every 30 days.
--- NOTE | 2023-09-17 09:49 | P.DS_ITS ---
General Admission date:: 09/16/23 HPI HPI HPI: Patient with past medical history of seizures, chronic kidney disease, hypothyroidism, chronic pain, COPD, anemia, history of renal cell carcinoma status post nephrectomy. Patient presents complaining of bilateral foot swelling since Friday. Patient also complains of increased erythema/pain bilateral lower extremities that is getting worse with time. Denies fevers, chills, known sick contacts, recent travel, PND, orthopnea, sleeps on 2 pillows, history of heart failure. Patient states extremity Dopplers done emergency room showing no DVTs. Denies any recent injuries to lower extremities. Denies history of diabetes. Hospital Course Hospital Course Hospital Course: Patient admitted to the hospital for lower extremity swelling and diagnosed with bilateral lower extremity cellulitis. Patient had bilateral lower extremity venous duplexes done 09/15 without DVT. Patient's swelling resolved overnight on IV antibiotics. Patient afebrile overnight during hospitalization. Patient stated he was at clinical baseline by 09/17/2023. Patient subsequently discharged home on doxycycline/Omnicef x 9 d with instructions to follow-up with primary care physician outpatient basis. Patient had echocardiogram done during hospitalization with results pending at time of hospital discharge. Patient will follow-up with primary care physician for results of echocardiogram. Patient also treated for KEN superimposed on CKD during hospitalization. Patient received gentle hydration patient's for 24 hours after admission. Renal function trending back toward baseline at time of hospital disposition. Exam Data for Last 24 hours Vital signs and Labs for Last 24 Hours: Temp Pulse Resp BP Pulse Ox O2 Del Method 98.2 F 74 17 118/59 L 96 Room Air 09/17/23 07:57 09/17/23 07:57 09/17/23 07:57 09/17/23 07:57 09/17/23 07:57 09/17/23 09:00 Laboratory Results - last 24 hr 09/16/23 14:55: WBC 4.6 L, RBC 3.66 L, Hgb 12.2 L, Hct 37.9 L, MCV 103.5 H, MCH 33.3 H, MCHC 32.1, RDW 15.0, Plt Count 251, MPV 8.1, Neut % (Auto) 68.7, Lymph % (Auto) 20.8, [place] % (Auto) 7.4, Eos % (Auto) 2.3, Baso % (Auto) 0.8, Neut # (Auto) 3.2, Lymph # (Auto) 1.0, [place] # (Auto) 0.3, Eos # (Auto) 0.1, Baso # (Auto) 0.0, PT 10.6, INR 0.94, Sodium 137, Potassium 4.5, Chloride 106, Carbon Dioxide 28, Anion Gap 7.5, BUN 42 H, Creatinine 2.30 H, Estimated Creat Clear 26, Estimated GFR 28 L, Est GFR ( Amer) 34 L, Glucose 107 H, Calcium 10.4 H, Magnesium 2.4 H, Total Bilirubin 0.6, AST 38, ALT 16, Alkaline Phosphatase 75, NT-Pro-B Natriuret Pep 1630 H, Total Protein 7.3 D, Albumin 3.9, Globulin 3.4 H, Albumin/Globulin Ratio 1.1 09/16/23 15:41: Urine Color Yellow, Urine Appearance Clear, Urine pH 7.0, Ur Specific [place] 1.015, Urine Protein 1+, Urine Glucose (UA) Negative, Urine Ketones Trace, Urine Blood 1+, Urine Nitrate Negative, Urine Bilirubin Negative, Urine Urobilinogen 0.2, Ur Leukocyte Esterase Negative, Urine RBC 10-20, Urine WBC None, Ur Squamous Epith Cells Occasional, Urine Bacteria Trace 09/16/23 20:33: WBC 4.9, RBC 3.50 L, Hgb 11.6 L, Hct 36.6 L, MCV 104.4 H, MCH 33.1 H, MCHC 31.7 L, RDW 14.9, Plt Count 240, MPV 8.0, Neut % (Auto) 69.5, Lymph % (Auto) 19.8, [place] % (Auto) 8.0, Eos % (Auto) 1.8, Baso % (Auto) 0.9, Neut # (Auto) 3.4, Lymph # (Auto) 1.0, [place] # (Auto) 0.4, Eos # (Auto) 0.1, Baso # (Auto) 0.0, Sodium 136, Potassium 4.5, Chloride 106, Carbon Dioxide 27, Anion Gap 7.5, BUN 42 H, Creatinine 1.90 H, Estimated Creat Clear 31, Estimated GFR 35 L, Est GFR ( Amer) 43 L D, Glucose 76 D, Calcium 9.9, Magnesium 2.3 09/17/23 05:44: Lactate 0.7, C-Reactive Protein 14.2 H, NT-Pro-B Natriuret Pep 1840 H, Procalcitonin 0.095 I & O for Last 24 hours: Intake & Output 09/14/23 09/15/23 09/16/23 09/17/23 23:59 23:59 23:59 23:59 Intake Total 930 / 930 Output Total 150 / 150 400 / 400 Balance -150 / -150 530 / 530 Weight 59.874 kg 63.866 kg Constitutional Constitutional: no acute distress *Routine HEENT Exam Head: Present normocephalic Eye: Present EOMI ENT: Present mucous membranes moist *Routine Neck Exam Neck: Present supple and full ROM *Routine Respiratory Exam Respiratory: Present CTA bilaterally and diminished air movement *Routine Cardiovascular Exam Cardiovascular: Present RRR and Normal S1 *Routine Abdominal Exam Abdominal: Present soft and normoactive bowel sounds *Routine Skin Exam Skin: Present intact and warm Results Data Completed and Pending Labs on day of discharge: Labs from last 24 hours 09/17/23 09/16/23 09/16/23 05:44 20:33 15:41 WBC 4.9 RBC 3.50 L Hgb 11.6 L Hct 36.6 L MCV 104.4 H MCH 33.1 H MCHC 31.7 L RDW 14.9 Plt Count 240 MPV 8.0 Neut % (Auto) 69.5 Lymph % (Auto) 19.8 [place] % (Auto) 8.0 Eos % (Auto) 1.8 Baso % (Auto) 0.9 Neut # (Auto) 3.4 Lymph # (Auto) 1.0 [place] # (Auto) 0.4 Eos # (Auto) 0.1 Baso # (Auto) 0.0 PT INR Sodium 136 Potassium 4.5 Chloride 106 Carbon Dioxide 27 Anion Gap 7.5 BUN 42 H Creatinine 1.90 H Estimated Creat Clear 31 Estimated GFR 35 L Est GFR ( Amer) 43 L D Glucose 76 D Lactate 0.7 Calcium 9.9 Magnesium 2.3 Total Bilirubin AST ALT Alkaline Phosphatase C-Reactive Protein 14.2 H NT-Pro-B Natriuret Pep 1840 H Total Protein Albumin Globulin Albumin/Globulin Ratio Procalcitonin 0.095 Urine Color Yellow Urine Appearance Clear Urine pH 7.0 Ur Specific [place] 1.015 Urine Protein 1+ Urine Glucose (UA) Negative Urine Ketones Trace Urine Blood 1+ Urine Nitrate Negative Urine Bilirubin Negative Urine Urobilinogen 0.2 Ur Leukocyte Esterase Negative Urine RBC 10-20 Urine WBC None Ur Squamous Epith Cells Occasional Urine Bacteria Trace 09/16/23 14:55 WBC 4.6 L RBC 3.66 L Hgb 12.2 L Hct 37.9 L MCV 103.5 H MCH 33.3 H MCHC 32.1 RDW 15.0 Plt Count 251 MPV 8.1 Neut % (Auto) 68.7 Lymph % (Auto) 20.8 [place] % (Auto) 7.4 Eos % (Auto) 2.3 Baso % (Auto) 0.8 Neut # (Auto) 3.2 Lymph # (Auto) 1.0 [place] # (Auto) 0.3 Eos # (Auto) 0.1 Baso # (Auto) 0.0 PT 10.6 INR 0.94 Sodium 137 Potassium 4.5 Chloride 106 Carbon Dioxide 28 Anion Gap 7.5 BUN 42 H Creatinine 2.30 H Estimated Creat Clear 26 Estimated GFR 28 L Est GFR ( Amer) 34 L Glucose 107 H Lactate Calcium 10.4 H Magnesium 2.4 H Total Bilirubin 0.6 AST 38 ALT 16 Alkaline Phosphatase 75 C-Reactive Protein NT-Pro-B Natriuret Pep 1630 H Total Protein 7.3 D Albumin 3.9 Globulin 3.4 H Albumin/Globulin Ratio 1.1 Procalcitonin Urine Color Urine Appearance Urine pH Ur Specific [place] Urine Protein Urine Glucose (UA) Urine Ketones Urine Blood Urine Nitrate Urine Bilirubin Urine Urobilinogen Ur Leukocyte Esterase Urine RBC Urine WBC Ur Squamous Epith Cells Urine Bacteria Imaging and Cardiology TESTING: Status: image reviewed by me Additional comments: Ordering Physician: Cuong Ramirez Date of Service: 09/16/23 Procedure(s): XR foot LT 2V Accession Number(s): [id number] cc: Edgardo Flower MD; Brian Pierre MD~ FINAL REPORT CLINICAL HISTORY: Pain and redness COMPARISON: 07/23/2021 FINDINGS: Left foot Two views were obtained. There is no acute fracture or dislocation. There are mild degenerative changes. Lucency in the calcaneal tuberosity is favored to be artifact. No soft tissue abnormality is identified. Ordering Physician: Cuong Ramirez Date of Service: 09/16/23 Procedure(s): CA venous doppler LE BI Accession Number(s): [id number] cc: Edgardo Flower MD; Brian Pierre MD; Cuong Ramirez~ FINAL REPORT CLINICAL HISTORY: Pain swelling redness, bladder CA, smoker, R fx hip/femur 07/31 FINDINGS: Color Doppler, duplex Doppler and compression sonography of the bilateral lower extremities was performed. There is no evidence of deep venous thrombosis from the level of the groin to the calf. The deep veins are patent and compressible. There is an enlarged right inguinal node, likely reactive. IMPRESSION: No evidence of deep venous thrombosis bilateral lower extremities. DS: Diagnosis Discharge Diagnosis (1) Cellulitis: Status: Acute Code(s): L03.90 - Cellulitis, unspecified Qualifiers: Laterality: left Site of cellulitis: extremity Site of cellulitis of extremity: lower extremity Qualified Code(s): L03.116 - Cellulitis of left lower limb (2) Chronic kidney disease: Status: Acute Code(s): N18.9 - Chronic kidney disease, unspecified (3) Anemia: Status: Chronic Code(s): D64.9 - Anemia, unspecified (4) COPD (chronic obstructive pulmonary disease): Status: Chronic Code(s): J44.9 - Chronic obstructive pulmonary disease, unspecified Qualifiers: COPD type: unspecified COPD Qualified Code(s): J44.9 - Chronic obstructive pulmonary disease, unspecified Meds Home Medications and Allergies Home Medications Medication Instructions Recorded Confirmed Type divalproex 500 mg tablet,delayed 500 mg PO BID 11/03/22 09/16/23 History release levothyroxine 200 mcg tablet 200 mcg PO HS 11/03/22 09/16/23 History cholecalciferol (vitamin D3) 25 2,000 unit PO HS 09/16/23 09/16/23 History mcg (1,000 unit) tablet (Vitamin D3) cyanocobalamin (vitamin B-12) 1,000 mcg PO HS 09/16/23 09/16/23 History 1,000 mcg tablet ferrous sulfate 325 mg (65 mg 325 mg PO HS 09/16/23 09/16/23 History iron) tablet (FeroSul) melatonin 3 mg tablet 9 mg PO HS 09/16/23 09/16/23 History methocarbamol 750 mg tablet 750 mg PO TIDP PRN muscle spasms 09/16/23 09/17/23 History ondansetron HCl 4 mg tablet 4 mg PO Q8HP PRN Nausea 09/16/23 09/17/23 History tamsulosin 0.4 mg capsule (Flomax) 0.8 mg PO HS 09/16/23 09/16/23 History tiotropium 2.5 mcg-olodaterol 2.5 2 puff inhalation DAILY 09/16/23 09/16/23 History mcg/actuation mist for inhalation (Stiolto Respimat) cefdinir 300 mg capsule 300 mg PO BID #18 caps 09/17/23 Rx doxycycline hyclate 100 mg capsule 100 mg PO BID #18 caps 09/17/23 Rx oxycodone 5 mg tablet 7.5 mg PO Q8HP PRN Severe Pain 09/17/23 09/17/23 History (Scale Score 7-10) New Prescriptions to Start Prescriptions: cefdinir Jimenez,Ajit doxycycline hyclate Jimenez,[place] Allergies Allergy/AdvReac Type Severity Reaction Status Date / Time promethazine [From PHENERGAN] Allergy Intermediate HALLUCINATE Verified 10/24/21 14:15 Discharge Plan Disposition Patient Disposition: Home, Self-Care Condition: Fair Follow up Plan Follow up with: Edgardo Flower MD [Primary Care Provider] - 09/23/23 10:00 am Prescriptions/Medication Reconciliation: New doxycycline hyclate 100 mg capsule 100 mg PO BID Qty: 18 0RF cefdinir 300 mg capsule 300 mg PO BID Qty: 18 0RF Continued divalproex 500 mg tablet,delayed release (DR/EC) 500 mg PO BID Patient Comments: TAKE ONE TABLET BY MOUTH THREE TIMES DAILY levothyroxine 200 mcg tablet 200 mcg PO HS ondansetron HCl 4 mg Tablet 4 mg PO Q8HP PRN (Reason: Nausea) cholecalciferol (vitamin D3) [Vitamin D3] 25 mcg (1,000 unit) Tablet 2,000 unit PO HS melatonin 3 mg Tablet 9 mg PO HS cyanocobalamin (vitamin B-12) 1,000 mcg Tablet 1,000 mcg PO HS methocarbamol 750 mg Tablet 750 mg PO TIDP PRN (Reason: muscle spasms) tamsulosin [Flomax] 0.4 mg Capsule 0.8 mg PO HS ferrous sulfate [FeroSul] 325 mg (65 mg iron) Tablet 325 mg PO HS Stiolto Respimat 2.5-2.5 mcg/actuation Mist 2 puff INHALATION DAILY oxycodone 5 mg tablet 7.5 mg PO Q8HP PRN (Reason: Severe Pain (Scale Score 7-10)) Patient Comments: TAKE 1 AND 1/2 TABLET BY MOUTH EVERY 8 HOURS Problem Reconciliation Problems Reviewed?: Yes Patient Discharge Instructions ACTIVITY: Continue current activity DIET: continue same diet Patient Instructions: DI for Cellulitis -- Adult, Chronic Kidney Disease Print Language: Chadian Providers Primary Care Provider: Edgardo Flower Admit Provider: Ajit Jimenez Attending Provider: Ajit Jimenez
--- NOTE | 2023-09-17 09:51 | SW/DCPLANNER ---
I spoke w/ patient regarding plans once medically stable for discharge. PT evaluated patient and stated that he is safe to return home and resume home health services. Patient is currently estasblished w/ [facility]. Updated patient information/resumption order will be faxed to [facility] at time of discharge. Discharge date is unknown at this time.
--- NOTE | 2023-09-17 20:13 | CA_ITS ---
APPROVED REPORT EXAM: Comprehensive 2D, Doppler, and color-flow Echocardiogram Retail Director: TU Bolanos, RVS Ht: 6 ft 3 in Wt: 132lbs BSA: 1.84 BP: 126/83 mmHg Indications: Renal cancer, Pedal edema, CHF, COPD, Smoker Echo Enhancing Agent Comments: Extremely limited windows due to extreme body habitus with lung impedence 2D Dimensions IVSd 0.95 cm LVEF (Visual) 42.00 % PWd 1.59 cm LVDd 4.87 cm LVDs 4.00 cm Left Atrium 3.61 cm M-Mode Dimensions TAPSE 1.62 (<1.7) LV Diastology E Decel Time 190 (160-240 msec) E/A Ratio 0.77 MED A' 10.00 cm/s LAT A' 15.10 cm/s Aortic Valve WANG Index 1.37 cm2/m2 AoV Peak Norman. 152.0 (50-130 cm/s) AI PHT 439.00 ms AO Peak GR. 9.30 mmHg AO Mean GR. 4.60 (<5 mmHg) AO VTI 29.3 (18-25 cm) WANG (VTI) 2.58 (2.5-4.5 cm2) Mitral Valve MV A Velocity 64.0 (40-130 cm/s) E/A Ratio 0.77 Left Ventricle The left ventricle is normal size. The left ventricular systolic function is normal. There is increased LV wall thickness. There is normal LV segmental wall motion. Transmitral Doppler flow pattern suggests impaired LV relaxation. LVEF is 55%. Right Ventricle The right ventricle is normal size. The right ventricular systolic function is normal. Atria The left atrium size is normal. The right atrium size is normal. There is no Doppler evidence of interatrial shunt. Aortic Valve The aortic valve is mildly thickened. There is no aortic valvular stenosis. Moderate aortic regurgitation. Mitral Valve The mitral valve is normal in structure. No evidence of mitral valve stenosis. Trace mitral regurgitation. Tricuspid Valve The tricuspid valve leaflets are thin and pliable. Trace tricuspid regurgitation. There is insufficient TR jet to estimate RVSP. Pulmonic Valve The pulmonary valve is normal in structure. Trace pulmonic regurgitation. Great Vessels The aortic root is not well-visualized. The IVC is not well-visualized. Pericardium There is no pericardial effusion. Other Information Study Quality: Technically Difficult Conclusion Technically difficult study due to poor acoustic windows. Normal biventricular systolic function. Moderate AI. Electronically signed by : Ivett Verma MD 09/19/2023 20:20:23
--- NOTE | 2023-09-18 14:43 | SW/DCPLANNER ---
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 Patient is aware of his follow up appointment w/ his PCP. Patient did not have any further needs/questions at this time.
== END 2023-09-17 11:43 | disposition home or self-care (01) ==
LOC: ER 17:02 → 2ND 19:43
PROVIDERS: Physician Assistant; Admitting Provider Internal Medicine; Emergency Provider Emergency Medicine; PCP Internal Medicine Adolescent Medicine; Visit Provider Internal Medicine
DX: L03.116 Cellulitis of left lower limb (principal); N18.9 Chronic kidney disease, unspecified; D64.9 Anemia, unspecified; J44.9 Chronic obstructive pulmonary disease, unspecified; F17.210 Nicotine dependence, cigarettes, uncomplicated; E03.9 Hypothyroidism, unspecified; Z79.899 Other long term (current) drug therapy; G40.909 Epilepsy, unspecified, not intractable, without status epilepticus; L03.115 Cellulitis of right lower limb; N17.9 Acute kidney failure, unspecified
CPT/HCPCS: 36415; 73620; 80048; 80053; 81001; 83605; 83735; 83880; 84145; 85025; 85610; 86140; 87040; 93306; 93970; 97161; 99285; G0378; J0131; J0692; J1650; J3370; J7030

== ENCOUNTER 2023-12-11 13:45 | Outpatient (CLI) | payer MEDICARE, SELFPAY ==
--- NOTE | 2023-12-11 13:54 | XR_ITS ---
FINAL REPORT CLINICAL HISTORY: hip pain FINDINGS: RIGHT HIP Two views of the right hip demonstrate no acute fracture or dislocation. There is an intramedullary shannan and compression screw in the intertrochanteric proximal right femur. The lesser trochanter exists as a free fragment. There is moderate joint space narrowing the joint spaces appear normal. The visualized bony structures are well aligned. No soft tissue abnormality is seen. IMPRESSION: Postoperative changes without acute bony abnormality. Reviewed, Interpreted and Dictated by Zeyad Marie MD Transcribed by Mariam Rock Authenticated and [facility]
== END 2023-12-11 23:59 | disposition home or self-care (01) ==
LOC: RAD 13:51
PROVIDERS: PCP Internal Medicine Adolescent Medicine; Visit Provider Surgery
DX: M25.551 Pain in right hip (principal)
CPT/HCPCS: 73502

== ENCOUNTER 2024-08-03 08:33 | Outpatient (CLI) | payer MEDICARE, SELFPAY ==
--- NOTE | 2024-08-03 08:47 | CT_ITS ---
FINAL REPORT TECHNIQUE: Axial images were obtained through the chest without contrast. Coronal and sagittal images were obtained and reviewed. This study was performed with techniques to keep radiation doses as low as reasonably achievable, (ALARA). Individualized dose reduction techniques using automated exposure control or adjustment of mA and/or kV according to the patient's size were employed. CLINICAL HISTORY: LUNG NODULE AND RENAL CELL CANCER COMPARISON: 03/31/2023 FINDINGS: The lungs are clear. The heart size is normal. There is no pericardial or pleural effusion. Ground-glass opacities in the periphery of the right upper lobe, well seen on images 13-18 of series 4, appears stable. The lungs are hyperinflated. Bibasilar pulmonary scarring is noted. No discrete nodules identified. There is marked thoracic kyphosis. On sagittal reconstruction images, there are several compression deformities, notably a 90% compression deformity of a lower thoracic vertebra. IMPRESSION: Stable ground-glass opacities right upper lobe. No discrete nodule identified. Reviewed, Interpreted and Dictated by Zeyad Marie MD Transcribed by Cheryl Parada Authenticated and [facility]
[2024-08-03 09:05] LABS: Blood Urea Nitrogen 27 mg/dl (9-20); Estimated Glomerular Filt Rate 26 ml/min (>60); GFR (African American) 31 ML/MIN (>60)
--- NOTE | 2024-08-03 09:26 | CT_ITS ---
FINAL REPORT TECHNIQUE: Axial images through the abdomen and pelvis were performed without contrast. This study was performed with techniques to keep radiation doses as low as reasonably achievable, (ALARA). Individualized dose reduction techniques using automated exposure control or adjustment of mA and/or kV according to the patient's size were employed. CLINICAL HISTORY: RENAL CELL CA COMPARISON: 03/31/2023 FINDINGS: Abdomen: The liver parenchyma is homogeneous. The gallbladder is surgically absent. The spleen, pancreas, and adrenals are unremarkable. There is a benign-appearing cyst arising from the superior pole of the right kidney measuring 5.4 cm in diameter. The left kidney is surgically absent. Multiple surgical clips are present in the left periaortic region. The right renal collecting system appears more full than previous but no definite obstruction seen. There is a large anterior abdominal and pelvic mesh consistent with prior hernia repair. Pelvis: There is a large amount of stool throughout the colon. The urinary bladder is incompletely distended. The appendix is not visualized. There is no pelvic mass or inflammation. There is streak artifact arising from orthopedic hardware in the proximal femurs. IMPRESSION: Fullness to the right renal collecting system without definite obstruction. Constipation. Anterior abdominal and pelvic wall mesh. Prior nephrectomy. Reviewed, Interpreted and Dictated by Zeyad Marie MD Transcribed by Cheryl Parada Authenticated and [facility]
== END 2024-08-03 23:59 | disposition home or self-care (01) ==
PROVIDERS: PCP Internal Medicine Adolescent Medicine; Visit Provider Internal Medicine Adolescent Medicine
DX: C64.9 Malignant neoplasm of unspecified kidney, except renal pelvis (principal); K59.00 Constipation, unspecified; R91.8 Other nonspecific abnormal finding of lung field; R16.0 Hepatomegaly, not elsewhere classified; Z90.5 Acquired absence of kidney; Z98.890 Other specified postprocedural states
CPT/HCPCS: 36415; 71250; 74176; 82565; 84520